=== PATIENT | female | born 2005 | race Caucasian/White ===

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

== ENCOUNTER → 2024-02-23 | Outpatient (CLI) | payer MEDICAID, SELFPAY ==
[2024-02-23 12:51] LABS: Absolute Lymphocyte Count 1.84 X10^3/uL (0.83-4.51); Absolute Neutrophil Count 6.2 X10^3/uL (2.0-7.7); Basophil# 0.05 X10^3/uL; Basophil% 0.6 % (0-1); Eosinophil# 0.11 X10^3/uL; Eosinophils% 1.2 % (0-5); Hemoglobin 13.4 g/dL (12.0-15.0); Lymphocyte # 1.84 X10^3/ul (0.83-4.51); Lymphocyte % 20.9 % (19-41); Mean Corp Hgb Conc 34.4 g/dL (32-36); Mean Corpuscular Hgb 29.6 pg (27.0-32.0); Mean Corpuscular Volume 86.1 fL (81-99); Monocyte# 0.58 X10^3/uL; Monocyte% 6.6 % (0-10); NRBC Flagged by Analyzer 0 % (0-5); Neutrophil # 6.18 X10^3/uL (2.7-7.7); Neutrophil % 70.1 % (47-70); Platelet Count 312 K/mm3 (150-450); RBC Distribution Width SD 37.7 fl (35.1-43.9); Red Blood Count 4.53 M/mm3 (4.2-5.4); White Blood Count 8.8 K/mm3 (4.4-11.0)
[2024-02-23 13:30] LABS: AST(SGOT) 15 U/L (15-37); Alanine Aminotransfer ALT/SGPT 31 U/L (13-56); Albumin, Serum 3.6 g/dL (3.2-5.0); Alkaline Phosphatase 102 U/L (45-117); Anion Gap 1 (5-15); BUN 13 mg/dL (7-18); BUN/Creat Ratio 21.2 RATIO (10-20); Calcium,Total 9.1 mg/dL (8.5-10.1); Chloride 108 mmol/L (98-107); Creatinine, Serum 0.61 mg/dL (0.55-1.02); EST Glomerular Filtration Rate 132 mL/min (>60); Est Glom Filt Rate - Afr Amer 160 mL/min (>60); Globulin 3.6 g/dL (2.2-4.2); Glucose 93 mg/dL (74-106); Potassium 4.4 mmol/L (3.5-5.1); Protein, Total 7.2 g/dL (6.4-8.2); Sodium Level 136 mmol/L (136-145); Thyroid Stim Hormone (TSH) 0.573 uIU/mL (0.358-3.740)
== END | disposition home or self-care (01) ==
LOC: LAB 12:40
DX: R55 Syncope and collapse (principal)

== ENCOUNTER → 2024-03-03 | Outpatient (CLI) | payer MEDICAID, SELFPAY ==
--- NOTE | 2024-03-03 13:51 | ECHOD_ITS ---
Reason For Study: Syncope and Collapse Procedure This was a 2D Doppler, Color Flow transthoracic echocardiogram. Exam performed in department. Left Ventricle Normal LV size. Left ventricular systolic function is normal. The left ventricular ejection fraction is 55 %. No regional wall motion abnormalities noted. Right Ventricle Normal RV size. Normal systolic function. Atria Normal left atrium. Normal right atrium. Mitral Valve Equivocal mitral valve prolapse. Mild (1+) eccentric mitral valve insufficiency. Tricuspid Valve Normal tricuspid valve. Mild tricuspid valve insufficiency. Pulmonary artery systolic pressure is 19 mmHg. Aortic Valve Trisinus/trileaflet aortic valve. Pulmonic Valve Normal pulmonic valve. Great Vessels Normal aortic root. The pulmonary artery is normal size. Normal inferior vena cava. Pericardium/Pleural No pericardial effusion. MMode/2D Measurements & Calculations LVIDd: 5.4 cm IVSd: 0.61 cm Ao root diam: 2.4 cm LVIDs: 3.3 cm LVPWd: 0.68 cm RVDd: 2.9 cm FS: 39.2 % LAV(MOD-bp): 15.8 ml LVAd ap4: 26.5 cm2 LVAd ap2: 30.5 cm2 LAV(MOD-bp) Indexed: 8.6 ml/m2 LVLd ap4: 7.3 cm LVLd ap2: 7.9 cm LAV(MOD-sp2): 19.9 ml EDV(MOD-sp4): 81.5 ml EDV(MOD-sp2): 96.9 ml LAV(MOD-sp4): 13.1 ml EDV(sp4-el): 82.3 ml EDV(sp2-el): 100.0 ml LVAs ap4: 16.9 cm2 LVAs ap2: 18.7 cm2 LVLs ap4: 6.5 cm LVLs ap2: 6.7 cm ESV(MOD-sp4): 37.3 ml ESV(MOD-sp2): 42.9 ml ESV(sp4-el): 37.6 ml ESV(sp2-el): 44.3 ml EF(MOD-sp4): 54.3 % EF(MOD-sp2): 55.7 % EF(sp4-el): 54.3 % SV(MOD-sp4): 44.2 ml SV(MOD-sp2): 54.0 ml SV(sp4-el): 44.7 ml SI(MOD-sp4): 24.2 ml/m2 SI(MOD-sp2): 29.5 ml/m2 LA A4 area: 8.7 cm2 LA dimension(2D): 2.7 cm RA A4 area: 9.7 cm2 TAPSE: 2.1 cm Time Measurements MV dec time: 0.19 sec Doppler Measurements & Calculations MV E max kj: 74.4 cm/sec Lat Peak E' Kj: 13.1 cm/sec Med Peak E' Kj: 12.1 cm/sec MV A max kj: 36.4 cm/sec E/E' lat: 5.7 E/E' med: 6.2 MV E/A: 2.0 Ao V2 max: 104.2 cm/sec LV V1 max: 112.3 cm/sec MV dec slope: 396.2 cm/sec2 Ao max P.4 mmHg LV V1 max P.0 mmHg Ao V2 mean: 76.1 cm/sec Ao mean P.6 mmHg Ao V2 VTI: 22.5 cm PA V2 max: 86.4 cm/sec PI end-d kj: 65.4 cm/sec TR max kj: 196.3 cm/sec TR max P.4 mmHg ECHO/Echo Complete Interpretation Summary Normal LV size. Left ventricular systolic function is normal. The left ventricular ejection fraction is 55 %. Equivocal mitral valve prolapse. Mild (1+) eccentric mitral valve insufficiency. Pulmonary artery systolic pressure is 19 mmHg. Ordering Physician: Jocelyn Beach Referring Physician: Talya Ni Performed By: Ayla Albarran, ALO, RVT
== END | disposition home or self-care (01) ==
PROVIDERS: Referring Provider Nurse Practitioner Family; Visit Provider Nurse Practitioner Family
DX: R55 Syncope and collapse (principal)
CPT/HCPCS: 93306

== ENCOUNTER → 2024-04-02 | Outpatient (CLI) | payer MEDICAID, SELFPAY ==
[2024-04-02 13:01] LABS: Cholesterol 177 mg/dL (200); High Density Lipoprotein 60 mg/dL; Triglycerides 75 mg/dL; Very Low Density Lipoprotein 15 mg/dL (5-40)
== END | disposition home or self-care (01) ==
LOC: VSLAB 10:20
DX: Z13.220 Encounter for screening for lipoid disorders (principal)
CPT/HCPCS: 36415; 80061

== ENCOUNTER → 2024-07-14 | Outpatient (CLI) | payer MEDICAID, SELFPAY ==
[2024-07-14 09:18] LABS: Absolute Lymphocyte Count 1.47 X10^3/uL (0.83-4.51); Absolute Neutrophil Count 4.4 X10^3/uL (2.0-7.7); Basophil# 0.03 X10^3/uL; Basophil% 0.5 % (0-1); Eosinophil# 0.18 X10^3/uL; Eosinophils% 2.8 % (0-5); Hematocrit 36.9 % (37-47); Lymphocyte # 1.47 X10^3/ul (0.83-4.51); Lymphocyte % 22.9 % (19-41); Mean Corp Hgb Conc 35.2 g/dL (32-36); Mean Corpuscular Hgb 30.4 pg (27.0-32.0); Mean Corpuscular Volume 86.4 fL (81-99); Mean Platelet Vol. 11.5 fl (6.2-12.0); Monocyte# 0.37 X10^3/uL; Monocyte% 5.8 % (0-10); NRBC Flagged by Analyzer 0 % (0-5); Neutrophil # 4.35 X10^3/uL (2.7-7.7); Neutrophil % 67.7 % (47-70); Platelet Count 281 K/mm3 (150-450); RBC Distribution Width CV 12.7 % (11.6-14.6); RBC Distribution Width SD 39.8 fl (35.1-43.9); Red Blood Count 4.27 M/mm3 (4.2-5.4); White Blood Count 6.4 K/mm3 (4.4-11.0)
[2024-07-14 09:50] LABS: Anion Gap 10 (5-15); BUN 12 mg/dL (4-19); BUN/Creat Ratio 19.8 RATIO (10-20); Carbon Dioxide 20.5 mmol/L (21.0-32.0); Chloride 108 mmol/L (98-108); Creatinine, Serum 0.61 mg/dL (0.70-1.20); EST Glomerular Filtration Rate 131 (>60); Glucose 101 mg/dL (70-99); Potassium 3.9 mmol/L (3.3-5.1); Sodium Level 139 mmol/L (133-145)
--- OUTSIDE RECORDS SUMMARY | 2024-07-14 10:01 | XMS RPT_ITS | CCD ---
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 Name Role Phone Donna Padilla Primary Care Provider Norma GARCIA, Gen Ley Primary Care Pro vider KAROLINA PHILLIPS Attending Unavailable GEN STILLUNIR Primary Care Concha vailable GEN STILL Attending Concha vailable GEN STILLUNZBIGNIEW Primary Care Concha vailable KAROLINA PHILLIPS Admitting Unavailable GEN STILLUNIR Primary Care Concha vailable Donna Padilla Primary Care Provider Donna Padilla Primary Care Provider Donna Padilla Primary Care Provider ARSLAN SUN Attending Unavailable KOJO WILSON Admitting Unavailable DONNA PADILLA Primary Care Unavaila ble Care Physician, No Primary Primary Care Provider Unavailable Dr. Rigoberto Amador Emergency Provider Dr. Charisse Esparza Attending Provider Dr. Charisse Esparza Other Provider Dr. Charisse Esparza Admit Provider Donna Padilla Primary Care Provider [phone] Unavailable Primary Care Provider Unavailabl e DONNA PADILLA Primary Care Unavaila MELANY Joseph Attending Unavailable REHANA JAFFE Attending Unavailable Beam VSC, Zebulun Primary Care Unavailable Beam VSC, Zebucleveland Attending Unavailable Yong VSC, Jocelyn Attending Unavailabl e Yong VSC, Jocelyn Referring Unavailabl e Beam VSC, Zebulun Primary Care Unavailable Beam VSC, Zebulun Primary Care Unavailable Beam VSC, Zebulun Attending Unavailable Beam VSC, Zebulun Referring Unavailable Kaiden, Dhruv Attending Unavailable Kaiden, Dhruv Referring Unavailable Beam VSC, Zebulun [facility] Unavailabl e Beam VSC, Zebulun Primary Care Unavailable Yong VSC, Jocelyn Referring Unavailabl e Kaiden, Dhruv Attending Unavailable Beam VSC, Zebulun Primary Care Unavailable Beam VSC, Zebulun Primary Care Unavailable Kaiden, Dhruv Attending Unavailable Beam VSC, Zebulun Referring Unavailable Allergies Allergy Classification Reported Allergen(s) Allergy Type Date of Onset Reaction(s) Facility (6 sources) Amoxicillin; Translations: [AMOXICILLIN] Drug Allergy 02-12-2024 [facility] (1 source) Amoxicillin Drug Allergy 05-06-2024 [facility] Repository Medications Current Medications Medication Drug Class(es) Dates Sig (Normalized) Sig (Original) amoxicillin 875 mg / clavulanate 125 mg oral tablet (1 source) Penicillin-class Antibacterial Start: 12-03-2022 take 1 tablet by mouth every twelve hours Amoxicillin-Pot Clavulanate Active 1 TABLET PO Q12H December 03, 2022 12:00am aspirin 81 mg delayed release oral tablet (15 sources) Platelet Aggregation Inhibitor, Nonsteroidal Anti-inflammatory Drug Start: 05-09-2022 Aspirin Active MG May 09, 2022 12:00am Start: 02-14-2022 End: 02-14-2022 take 1 tablet by mouth once daily aspirin, enteric coated (ASPIRIN, ENTERIC COATED) 81 mg EC tablet Take 1 tablet by mouth once daily. 30 tablet 5 02/14/2022 Suspended Comment on above: Take 1 tablet by denice th once daily. benzonatate 100 mg oral capsule (2 sources) Non-narcotic Antitussive Start: 5 End: take 1 capsule by mouth three times daily as needed benzonatate (TESSALON PERLE) 100 mg capsule Indications: Acute cough Take 1-2 capsules by mouth three times a day as needed for cough for up to 7 days. 42 capsule 02/12/2024 02/19/2024 Active BP cuff (8 sources) Start: BP cuff Active 0 .Route .MEDSUPPLY January 01, 2022 1:00am As directed Start: 01-01-2022 BP cuff Active 0 .Route .MEDSUPPLY January 01, 2022 12:00am As directed Breast Pump (2 sources) Start: 05-18-2022 End: 05-18-2023 Breast Pump Use as directed 1 Each 0 05/18/2022 05/18/2023 Active Comment on above: Use as directed cephalexin 500 mg oral capsule (1 source) Cephalosporin Antibacterial Start: 01-01-2022 take 500 mg by mouth every twelve hours Cephalexin Active 500 MG PO EVERY 12 HOURS January 01, 2022 12:00am Desogestrel / Ethinyl Estradiol (1 source) Progestin, Estrogen Start: 05-27-2024 take 1 tablet by mouth once daily, then take 0.15 tablet by mouth once Desogestrel-Ethi nyl Estradiol (APRI) 0.15-0.03 mg per tablet Take 1 tablet by mouth once daily. 84 tablet 3 05/27/2024 Active melatonin 5 mg oral tablet (6 sources) Start: 05-09-2022 take 5 mg by mouth at bedtime Melatonin Active 5 MG PO AT BEDTIME May 09, 2022 12:00am melatonin 1 mg s ubl Dissolve under the tongue as needed for insomnia. Active nitrofurantoin, macrocrystals 25 mg / nitrofurantoin, monohydrate 75 mg oral capsule (4 sources) Nitrofuran Antibacterial Start: 11-09-2021 End: 11-16-2021 take 1 capsule by mouth twice daily nitrofurantoin monohydrate and macrocrystal (MACROBID) 100 mg capsule Take 1 capsule by mouth twice daily for 7 days. 14 capsule 0 11/09/2021 11/16/2021 Active Comment on above: Take 1 capsule by [facility] twice daily for 7 days. oxyCODONE hydrochloride 5 mg oral capsule (1 source) Opioid Agonist Start: 12-03-2022 take 5-10 mg by mouth every six hours Oxycodone Active 5 - 10 MG PO EVERY 6 HOURS 16 December 03, 2022 Start: 12-03-2022 take 5-10 mg by mout h every six hours Oxycodone Active 5 - 10 MG PO EVERY 6 HOURS 16 3 December 03, 2022 [id number] Acid (Se-Aquilino 19 Chewable) 29 mg iron- 1 mg tablet,chewable (8 sources) Start: 01-01-2022 take 1 tablet by mouth once daily [id number]-[id number] Acid (Se- 19 Chewable) 29 mg iron- 1 mg tablet,chewable Active 1 TABLET PO DAILY January 01, 2022 1:00am Start: 01-01-2022 take 1 tablet by denice th once daily [id number]-Qipar Acid (Se-Aquilino 19 Chewable) 29 mg iron- 1 mg tablet,chewable Active 1 TABLET PO DAILY January 01, 2022 12:00am semaglutide 0.25 mg/0.5 mL ( 0.5 mg/mL) subcutaneous compounded injection (3 sources) semaglutide 0.25 mg/0.5 mL (0.5 mg/mL) subcutaneous compounded injection Inject subcutaneously one time a week. Active Completed/Discontinued Medications Medication Drug Class(es) Dates Sig (Normalized) Sig (Original) doxylamine succinate 25 mg oral tablet (10 sources) Start: 11-14-2021 End: 02-14-2022 take 1 tablet by mouth once daily at bedtime doxylamine 25 mg tab Take 1 tablet by mouth daily at bedtime. 48 tablet 1 11/14/2021 02/14/2022 Discontinued (Course of therapy completed) Comment on above: Take 1 tablet by denice th daily at bedtime. estradiol 1 mg oral tablet (7 sources) Estrogen Start: 09-03-2022 End: 05-27-2024 take 1 tablet by mouth once daily estradiol (ESTRACE) 1 mg tablet Take 1 tablet by mouth once daily for 14 days. 14 tablet 05/13/2024 05/27/2024 Discontinued (Discontinued by Patient) Ethinyl Estradiol / Ferrous fumarate / Norethindrone (5 sources) Estrogen Start: 08-29-2021 End: 11-14-2021 take 1 tablet by mouth once daily, then take 0.05 tablet by mouth once Norethin Rizwan-Eth Estrad-FE (JUNEL FE ,) 1 mg-20 mcg (21)/75 mg (7) per tablet Indications: Menorrhagia with irregular cycle Take 1 tablet by mouth once daily. 28 tablet 3 08/29/2021 11/14/2021 Discontinued Start: 08-29-2021 take 1 tablet by denice th once daily, then take 0.05 tablet by mouth once Norethin Rizwan-Eth Estrad-FE (,) 1 mg-20 mcg (21)/75 mg (7) per tablet Indications: Menorrhagia with irregular cycle Take 1 tablet by mouth once daily. 28 tablet 3 08/29/2021 Active Comment on above: Take 1 tablet by denice th once daily. etonogestrel 68 mg drug implant (10 sources) Progestin Start: 07-04-2022 End: 07-03-2025 etonogestrel (NEXPLANON) subdermal implant 68 mg Indications: Insertion of implantable subdermal contraceptive 1 Each by SUBDERMAL route as directed. 1 Each 07/04/2022 05/27/2024 Discontinued End: 09-14-2021 etonogestrel (NEXPLANON) 68 mg impl subdermal implant 68 mg by SUBDERMAL route. 0 09/14/2021 Discontinued Comment on above: 68 mg by SUBDERMAL r oute. famotidine 20 mg oral tablet (10 sources) Histamine-2 Receptor Antagonist Start: 11-15-19 End: 02-14-19 take 1 tablet by mouth twice daily famotidine (PEPCID) 20 mg tablet Take 1 tablet by mouth twice daily. 60 tablet 2 11/14/2021 02/14/2022 Discontinued (Course of therapy completed) Comment on above: Take 1 tablet by denice th twice daily. ferrous sulfate 325 mg oral tablet (7 sources) Start: 12-06-19 End: 02-14-19 take 1 tablet by mouth twice daily ferrous sulfate 325 mg (65 mg iron) tablet Take 1 tablet by mouth twice daily. 100 tablet 1 12/05/2021 02/14/2022 Discontinued (Course of therapy completed) Comment on above: Take 1 tablet by denice th twice daily. folic acid 1 mg oral tablet (7 sources) Start: 12-06-19 End: 02-14-19 take 1 tablet by mouth once daily folic acid 1 mg tablet Take 1 tablet by mouth once daily. 100 tablet 1 12/05/2021 02/14/2022 Discontinued (Course of therapy completed) Comment on above: Take 1 tablet by denice th once daily. ibuprofen 600 mg oral tablet (2 sources) Nonsteroidal Anti-inflammatory Drug Start: 05-19-19 take 1 tablet by mouth every six hours as needed for pain ibuprofen (MOTRIN) 600 mg tablet Indications: state Take 1 tablet by mouth every 6 hours as needed for pain. 60 tablet 0 05/18/2022 Active Comment on above: Take 1 tablet by denice th every 6 hours as needed for pain. Miscellaneous Medical Supply (BLOOD PRESSURE CUFF) (16 sources) Start: 12-19-19 Miscellaneous Medical Supply (BLOOD PRESSURE CUFF) Indications: 12 weeks gestation of , Encounter for supervision of normal first in first trimester , Dizziness 1 Each once daily. 1 Each 0 12/18/2021 Suspended Start: 12-18-2021 Miscellaneous Medical Supply (BLOOD PRESSURE CUFF) Indications: 12 weeks gestation of , Encounter for supervision of normal first in first trimester , Dizziness 1 Each once daily. 1 Each 0 12/18/2021 Active Comment on above: 1 Each once daily. NIFEdipine 30 mg osmotic 24 hr extended release oral tablet (2 sources) Dihydropyridine Calcium Channel Jon Start: take 1 tablet by mouth twice daily NIFEdipine ER (PROCARDIA XL) 30 mg 24 hr tablet Indications: Severe pre-eclampsia in third trimester Take 1 tablet by mouth twice daily. 60 tablet 3 05/18/2022 Active Comment on above: Take 1 tablet by denice th twice daily. ondansetron 8 mg disintegrating oral tablet (14 sources) Serotonin-3 Receptor Antagonist Start: End: take 1 tablet by mouth every eight hours as needed for nausea ondansetron orally disintegrating (ZOFRAN ODT) 8 mg disintegrating tablet Indications: 12 weeks gestation of , Encounter for supervision of normal first in first trimester , Nausea and vomiting during Take 1 tablet by mouth every 8 hours as needed for nausea/vomiting. 30 tablet 0 12/18/2021 02/14/2022 Discontinued (Course of therapy completed) Start: 11-07-2021 take 4 mg by mouth e very six hours Ondansetron Hcl Active 4 MG PO EVERY 6 HOURS November 06, 2021 11:00pm End: 11-14-2021 ondansetron HCl (ZOFRAN ORAL ) Take by mouth. 0 11/14/2021 Discontinued ondansetron HCl (ZOFRAN ORAL) Take by mouth. 0 Active Comment on above: Take by mouth. Take 1 tablet by denice th every 8 hours as needed for nausea/vomiting. phenazopyridine hydrochloride 200 mg oral tablet (6 sources) Start: 3 take 1 tablet by mouth every eight hours as needed phenazopyridine (PYRIDIUM) 200 mg tablet Take 1 tablet by mouth three times daily as needed. 12 tablet 0 04/13/2022 Suspended Comment on above: Take 1 tablet by denice th three times daily as needed. PNV no.104-HQ-tc7-dha-epa-fi sh 400 mcg-35 mg- 25 mg-5 mg chew (7 sources) Start: 2 End: 2 take 1 tablet by mouth once daily PNV no.181-DY-er4-dha-epa-f ezio 400 mcg-35 mg- 25 mg-5 mg chew Take 1 tablet by mouth once daily. 30 tablet 11 11/07/2021 12/05/2021 Discontinued Start: 11-07-2021 take 1 tablet by denice th once daily PNV no.255-PA-ul6-vqn-raq-akxp 400 mcg-3 5 mg- 25 mg-5 mg chew Take 1 tablet by mouth once daily. 30 tablet 11 11/07/2021 Active Comment on above: Take 1 tablet by denice th once daily. predniSONE 10 mg oral tablet (3 sources) Start: 02-12-2024 End: 04-21-2024 predniSONE (DELTASONE) 10 mg tablet Indications: Acute cough Day #1 - 6 tablets PO then Day #2 - 5 tablets PO then Day #3 - 4 tablets PO then Day #4 - 3 tablets PO then Day #5 - 2 tablets PO then Day #6 - 1 tablet PO 21 tablet 02/12/2024 04/21/2024 Discontinued Pnmksgoe-Dx-Ylp-Fe-FA tab (17 sources) Start: 12-18-2021 take 1 tablet by mouth once daily Crxifbck-Cb-Wvn-Fe-FA tab Indications: 12 weeks gestation of , Encounter for supervision of normal first in first trimester Take 1 tablet by mouth once daily. 100 tablet 0 12/18/2021 Suspended Start: 12-18-2021 take 1 tablet by denice th once daily Veouqxsa-Nh-Rhz-Fe-FA tab Indications: 12 weeks gestation of , Encounter for supervision of normal first in first trimester Take 1 tablet by mouth once daily. 100 tablet 0 12/18/2021 Active Comment on above: Take 1 tablet by denice th once daily. vit-iron fumarate-fa 28 mg iron- 800 mcg tab (4 sources) Start: 05-18-2022 End: 02-12-2024 take 1 tablet by mouth once daily vit-iron fumarate-fa 28 mg iron- 800 mcg tab Take 1 tablet by mouth once daily. 60 tablet 3 05/18/2022 02/12/2024 Discontinued (Course of therapy completed) Start: 05-18-2022 take 1 tablet by denice th once daily vit-iron fumarate-fa 28 mg iron- 800 mcg tab Take 1 tablet by mouth once daily. 60 tablet 3 05/18/2022 Active Comment on above: Take 1 tablet by denice th once daily. vitamin with folic acid 1 mg 60 mg iron-1 mg tab (2 sources) Start: 05-19-2022 take 1 tablet by mouth once daily vitamin with folic acid 1 mg 60 mg iron-1 mg tab Indications: state Take 1 tablet by mouth once daily. 60 tablet 3 05/19/2022 Active Comment on above: Take 1 tablet by denice th once daily. prental multivitamin 27 mg iron- 800 mcg tablet (2 sources) End: 11-07-2021 take 1 tablet by mouth once daily prental multivitamin 27 mg iron- 800 mcg tablet Take 1 tablet by mouth once daily. 0 11/07/2021 Discontinued (Course of therapy completed) take 1 tablet by mouth once agustin y prental multivitamin 27 mg iron- 800 mcg tablet Take 1 tablet by mouth once daily. 0 Active Comment on above: Take 1 tablet by denice th once daily. promethazine hydrochloride 25 mg oral tablet (20 sources) Phenothiazine Start: 12-06-19 take 1 tablet by mouth every eight hours as needed promethazine (PHENERGAN) 25 mg tablet Take 1 tablet by mouth every 8 hours as needed. 60 tablet 0 12/05/2021 Suspended Comment on above: Take 1 tablet by denice th every 8 hours as needed. vitamin b6 50 mg oral tablet (11 sources) Start: 11-15-19 End: 02-14-19 take 1 tablet by mouth twice daily pyridoxine, vitamin B6, (VITAMIN B6) 50 mg tablet Take 1 tablet by mouth twice daily. 100 tablet 2 11/14/2021 02/14/2022 Discontinued (Course of therapy completed) Comment on above: Take 1 tablet by denice th twice daily. Problems Active Problems Problem Classification Problem Date Documented Date Episodic/Chronic Abdominal pain (8 sources) Abdominal pain; Translations: [Unspecified abdominal pain] 06-19-2020 Episodic Appendicitis and other appendiceal conditions (4 sources) Acute appendicitis; Translations: [Unspecified acute appendicitis] 12-01-2022 Episodic Conditions associated with dizziness or vertigo (3 sources) Dizziness; Translations: [Dizziness and giddiness] Onset: 05-06-2024 Episodic Contraceptive and procreative management (3 sources) Subcutaneous contraceptive implant present; Translations: [Encounter for surveillance of implantable subdermal contraceptive] Onset: 05-27-2024 Episodic Diabetes mellitus without complication (4 sources) Hyperglycemia; Translations: [Hyperglycemia, unspecified] Onset: 05-29-2021 Episodic E Codes: Natural/environment (8 sources) Dog bite - wound; Translations: [Bitten by dog, initial encounter] 09-02-2013 Episodic Fever of unknown origin (1 source) Fever; Translations: [Fever, unspecified] 02-12-2024 Episodic Genitourinary symptoms and ill-defined conditions (1 source) Dysuria; Translations: [Dysuria] Episodic Headache; including migraine (1 source) Headache; Translations: [Headaches] 02-12-2024 Episodic Hypertension complicating ; childbirth and the puerperium (13 sources) Pre-eclampsia; Translations: [Unspecified pre-eclampsia, unspecified trimester] Onset: 05-11-2022 05-09-2022 Episodic Immunizations and screening for infectious disease (1 source) Vaccination needed; Translations: [Encounter for immunization] Episodic Menstrual disorders (4 sources) Break-through bleeding; Translations: [Excessive and frequent menstruation with irregular cycle] Onset: 05-27-2024 5 Chronic Nausea and vomiting (10 sources) Nausea, vomiting and diarrhea; Translations: [Nausea with vomiting, unspecified] Episodic Other circulatory disease (8 sources) Syncope due to orthostatic hypotension; Translations: [Orthostatic hypotension] 01-01-2022 Episodic Other circulatory disease (8 sources) Orthostatic hypotension; Translations: [Orthostatic hypotension] 01-09-2022 Episodic Other circulatory disease (1 source) Low blood pressure; Translations: [Hypotension, unspecified] 11-30-2022 Episodic Other circulatory disease (2 sources) Hypotension, unspecified; Translations: [Hypotension, unspecified] Onset: 05-06-2024 12-03-2022 Episodic Other circulatory disease (2 sources) Orthostatic hypotension; Translations: [Orthostatic hypotension] Onset: 05-06-2024 Episodic Other complications of (3 sources) Nausea and vomiting; Translations: [Vomiting of , unspecified] Episodic Other complications of (5 sources) Swelling of lower limb; Translations: [Gestational edema, third trimester] 05-09-2022 Episodic Other complications of (5 sources) Proteinuria; Translations: [Gestational proteinuria, third trimester] 05-09-2022 Episodic Other complications of (4 sources) Gestational edema, third trimester; Translations: [Edema or excessive weight gain in , without mention of hypertension, antepartum condition or complication] 05-09-2022 Episodic Other complications of (4 sources) Gestational proteinuria, third trimester; Translations: [Unspecified renal disease in , without mention of hypertension, antepartum condition or complication] 05-09-2022 Episodic Other complications of (1 source) Gestational edema with proteinuria; Translations: [Gestational edema with proteinuria, third trimester] Episodic Other complications of (1 source) Poor growth affecting management; Translations: [Maternal care for other known or suspected poor growth, third trimester, not applicable or unspecified] Episodic Other complications of (1 source) Maternal care for other known or suspected poor growth, unspecified trimester, not applicable or unspecified; Translations: [ growth restriction antepartum] Onset: 05-14-2022 Episodic Other female genital disorders (8 sources) Vaginal bleeding; Translations: [Abnormal uterine and vaginal bleeding, unspecified] 01-17-2020 Chronic Other infections; including parasitic (4 sources) 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; Translations: [Post-COVID syndrome] Onset: 05-29-2021 Chronic Other infections; including parasitic (4 sources) H/O: viral illness; Translations: [Personal history of other infectious and parasitic diseases] Onset: 05-29-2021 Episodic Other infections; including parasitic (1 source) Personal history of other infectious and parasitic diseases; Translations: [History of chlamydia] Onset: 05-18-2022 Episodic Other lower respiratory disease (1 source) Cough; Translations: [Acute cough] 02-12-2024 Episodic Other screening for suspected conditions (not mental disorders or infectious disease) (3 sources) Patient encounter status; Translations: [Encounter for screening for nuchal translucency] Onset: 04-16-2024 Episodic Other upper respiratory disease (8 sources) Congestion of nasal sinus; Translations: [Nasal congestion] 08-21-2021 Episodic Other upper respiratory disease (1 source) Nasal congestion; Translations: [Nasal congestion] 02-12-2024 Episodic Other upper respiratory infections (1 source) Viral upper respiratory tract infection; Translations: [Acute upper respiratory infection, unspecified] 02-12-2024 Episodic Residual codes; unclassified (1 source) Gestation period, 8 weeks; Translations: [8 weeks gestation of ] Episodic Residual codes; unclassified (1 source) Gestation period, 10 weeks; Translations: [10 weeks gestation of ] Episodic Residual codes; unclassified (2 sources) Gestation period, 12 weeks; Translations: [12 weeks gestation of ] Episodic Residual codes; unclassified (1 source) Gestation period, 18 weeks; Translations: [18 weeks gestation of ] Episodic Residual codes; unclassified (2 sources) Gestation period, 20 weeks; Translations: [20 weeks gestation of ] Episodic Residual codes; unclassified (1 source) Gestation period, 24 weeks; Translations: [24 weeks gestation of ] Episodic Residual codes; unclassified (2 sources) Gestation period, 28 weeks; Translations: [28 weeks gestation of ] Episodic Residual codes; unclassified (9 sources) Gestation period, 32 weeks; Translations: [32 weeks gestation of ] Episodic Residual codes; unclassified (4 sources) 32 weeks gestation of ; Translations: [ state, incidental] 05-09-2022 Episodic Residual codes; unclassified (2 sources) Acquired absence of other specified parts of digestive tract; Translations: [Status post laparoscopic appendectomy] 12-01-2022 Episodic Superficial injury; contusion (6 sources) Abrasion of cornea of right eye; Translations: [Injury of conjunctiva and corneal abrasion without foreign body, right eye, initial encounter] 03-17-2022 Episodic Urinary tract infections (16 sources) Urinary tract infectious disease; Translations: [Urinary tract infection, site not specified] 06-19-2020 Episodic Viral infection (2 sources) Viral disease; Translations: [Viral infection, unspecified] Episodic Past or Other Problems Problem Classification Problem Date Documented Da te Episodic/Chronic Diabetes or abnormal glucose tolerance complicating ; childbirth; or the puerperium (11 sources) Impaired glucose tolerance in ; Translations: [Abnormal glucose complicating ] Onset: 04-12-2022 Resolved: 05-11-2022 04-12-2022 Episodic Hypertension complicating ; childbirth and the puerperium (11 sources) Pre-eclampsia added to pre-existing hypertension; Translations: [Pre-existing hypertension with pre-eclampsia, unspecified trimester] Onset: 05-11-2022 Resolved: 04-21-2024 05-11-2022 Chronic Other complications of (20 sources) Infectious disease in mother complicating , childbirth AND/OR puerperium; Translations: [Other maternal infectious and parasitic diseases complicating , first trimester] Onset: 11-08-2021 Resolved: 05-11-2022 11-08-2021 Episodic Other complications of (17 sources) High risk ; Translations: [Supervision of high risk , unspecified, first trimester] Onset: 02-14-2022 Resolved: 05-11-2022 Episodic Other complications of (8 sources) growth restriction; Translations: [Maternal care for other known or suspected poor growth, unspecified trimester, not applicable or unspecified] Onset: 05-11-2022 Resolved: 05-14-2022 05-11-2022 Episodic Other infections; including parasitic (10 sources) History of chlamydial infection; Translations: [Personal history of other infectious and parasitic diseases] Onset: 05-11-2022 05-11-2022 Episodic Other and delivery including normal (20 sources) Normal ; Translations: [Encounter for supervision of normal first , unspecified trimester] Onset: 05-11-2022 Resolved: 04-21-2024 Episodic Screening and history of mental health and substance abuse codes (20 sources) History of clinical finding in subject; Translations: [Personal history of nicotine dependence] Onset: 11-02-2021 Episodic Short gestation; low weight; and growth retardation (9 sources) Prematurity of ; Translations: [ , unspecified weeks of gestation] Onset: 05-11-2022 Resolved: 05-14-2022 05-11-2022 Episodic Syncope (16 sources) Near syncope; Translations: [Syncope and collapse] Onset: 03-26-2024 01-09-2022 Episodic Results Test Name Value Interpretation Reference Range Facility [facility] 05-27-2024 CNOV Office Visit (OBGYWM ) TRENTON STYLES ([id number]) 1 F Date Time Provider Department 05/27/24 1:45 PM REHANA JAFFE OBGREGG During your visit today, we recorded the following information about you: Blood pressure Weight Last Period 124/70 70.3 kg 05/24/24 Rehana Jaffe APRN.CN 05/27/2024 2:08 PM Signed This 18 year old female was started on Nexplanon placed 07/04/2022 and is here for follow-up. Her only complaint is irregular heavy bleeding with clots.. Denies abdominal pain, chest pain or headache. No pain or swelling in the legs. No other neurologic or pulmonary symptoms. Patient's last menstrual period was 09/11/2021 (exact date). Menstruation / History: Periods are irregular, lasting 5 days. On the heaviest day of flow she changes her pad ever couple of hours Since placement of Nexplanon - she began having break through bleeding for several days/weeks. Initially was interested in removal of Nexplanon and placement of IUD. Last 1 Encounter BP Readings: Date: BP: 04/21/2024 100/62 EXAMINATION: GEN- alert, no distress ASSESSMENT/PLAN: 1. Breakthrough bleeding on Nexplanon - ICD9: 626.6, V45.59, ICD10: N92.1, Z97.5 - Reviewed starting OCP to help regulate breakthrough bleeding. - R/B/A to OCP reviewed and when to call office - May be interested in Mirena IUD in future- hx of IUD that she reportspulled out by accident. RTO PRN /Annual with PAP at age 19 Rehana Jaffe APRN.CNM Allergies As of Date: 05/27/2024 Noted Allergy Reaction AMOXICILLIN 02/12/2024 8 - GI Upset Date Reviewed: 05/27/2024 Reviewed by: Savannah Beavers LPN - Fully Assessed Reason for Visit: Contraception [26] Primary Visit Diagnosis:Breakthrough bleeding on Nexplanon [N92.1, Z97.5] Order(s):Desogestrel-Et hinyl Estradiol (APRI) 0.15-0.03 mg per tabletTake 1 tablet by mouth once daily.Disp: 84 tabletRfl: 3 Prescriptions as of 05/27/2024 - melatonin 1 mg subl Dissolve under the tongue as needed for insomnia. - Desogestrel-Ethinyl Estradiol (APRI) 0.15-0.03 mg per tablet Take 1 tablet by mouth once daily. - semaglutide 0.25 mg/0.5 mL (0.5 mg/mL) subcutaneous compounded injection Inject subcutaneously one time a week. Problem List As Of Date 05/27/2024 Noted Resolved History of nicotine vaping [Z87.891] 11/02/2021 Patient request for diagnostic testing [Z01.89] 11/02/2021 05/11/2022 Chlamydia infection affecting in firs*11/08/2021 05/11/2022 Supervision of high risk in second tr*02/14/2022 05/11/2022 Abnormal glucose in , antepartum [O99.*04/12/2022 05/11/2022 Preeclampsia complicating hypertension [O11.9] 05/11/2022 04/21/2024 growth restriction antepartum [O36.5990] 05/11/2022 05/14/2022 Prematurity of fetus [P07.30] 05/11/2022 05/14/2022 History of chlamydia [Z86.19] 05/11/2022 Encounter for induction of labor [Z34.90] 05/13/2022 05/14/2022 state [Z39.2] 05/18/2022 04/21/2024 Prescriptions ordered this encounter Disp Refills Start End APRI 0.15 MG-0.03 MG TABLET 84 t* 3 05/27/2024 Route: ORAL Sig: Take 1 tablet by mouth once daily. Medications Discontinued During This Encounter Prescriptions - etonogestrel (NEXPLANON) subdermal implant 68 mg (Discontinued) 1 Each by SUBDERMAL route as directed. - estradiol (ESTRACE) 1 mg tablet (Discontinued) Reported on 05/27/2024 - estradiol (ESTRACE) 1 mg tablet (Discontinued) Reported on 05/27/2024 Encounter Status:Closed by REHANA JAFFE [facility] Telephone (OBGYWM) TRENTON STYLES ([id number]) 1 Date Time Provider Department 05/13/24 MELANY SELLERS OBGREGG During your visit today, we recorded the following information about you: Bibi De Leon LPN 05/13/2024 12:55 PM Signed Patient seen by Dr. Sellers on 04/21/2024 for bleeding issues w/ Nexplanon. Patient calling stating that she began having vaginal bleeding again yesterday and states she was told to call office w/ further bleeding concerns and a course of oral estrace could be prescribed. Patient requesting Rx for estrace. Please advise. Dr. Sellers is out of the office until Saturday. Rehana Jaffe APRN.[facility] 05/13/2024 5:27 PM Signed Order sent. SIMEON Stanley Trisha, RN 05/14/2024 8:16 AM Signed Left detailed message that requested rx was sent to [facility]. The following approved medication requests have been transmitted electronically. Requested Prescriptions Signed Prescriptions Disp Refills estradiol (ESTRACE) 1 mg tablet 14 tablet 0 Sig: Take 1 tablet by mouth once daily for 14 days. Authorizing Provider: REHANA JAFFE Pharmacy Information [id number] [phone] [place] [address] Allergies As of Date: 05/13/2024 Noted Allergy Reaction AMOXICILLIN 02/12/2024 8 - GI Upset Date Reviewed: 04/21/2024 Reviewed by: Aurora Renteria MA - Fully Assessed Reason for Visit: Patient Update [1234] Order(s):estradiol (ESTRACE) 1 mg tabletTake 1 tablet by mouth once daily for 14 days.Disp: 14 tabletRfl: 0 Prescriptions as of 05/14/2024 - estradiol (ESTRACE) 1 mg tablet Take 1 tablet by mouth once daily for 14 days. - semaglutide 0.25 mg/0.5 mL (0.5 mg/mL) subcutaneous compounded injection Inject subcutaneously one time a week. - etonogestrel (NEXPLANON) subdermal implant 68 mg 1 Each by SUBDERMAL route as directed. Problem List As Of Date 05/13/2024 Noted Resolved History of nicotine vaping [Z87.891] 11/02/2021 Patient request for diagnostic testing [Z01.89] 11/02/2021 05/11/2022 Chlamydia infection affecting in firs*11/08/2021 05/11/2022 Supervision of high risk in second tr*02/14/2022 05/11/2022 Abnormal glucose in , antepartum [O99.*04/12/2022 05/11/2022 Preeclampsia complicating hypertension [O11.9] 05/11/2022 04/21/2024 growth restriction antepartum [O36.5990] 05/11/2022 05/14/2022 Prematurity of fetus [P07.30] 05/11/2022 05/14/2022 History of chlamydia [Z86.19] 05/11/2022 Encounter for induction of labor [Z34.90] 05/13/2022 05/14/2022 state [Z39.2] 05/18/2022 04/21/2024 Prescriptions ordered this encounter Disp Refills Start End ESTRADIOL 1 MG TABLET 14 t* 0 05/13/2024 05/27/2024 Route: ORAL Sig: Take 1 tablet by mouth once daily for 14 days. Medications Discontinued During This Encounter Prescriptions - estradiol (ESTRACE) 1 mg tablet (Discontinued) Take 1 tablet by mouth once daily for 14 days. Encounter Status:Closed by REHANA JAFFE on 05/13/24 Normal [facility] 12 Lead [place] [facility] [place]-06-2024 12 Lead EKG performed by [address] [address] 12 Lead E[place] [facility] 05/06/24 1134 MR#: [id number] Acct: [id number] Name: TRENTON STYLES Rep #: [id number] : 2005 18 From: Dhruv Richey MD Attending Dr: Dr. Dhruv Richey MD Status: DEP A MB Ordering Dr: Dhruv Richey MD Date: 05/06/24 [place] [facility] [place]: F C Ad[place] [facility] Lead E[place] performed [place] [facility] ECG Report Interpretation ---Sinus Rhythm -With rate variation cv = 14.WITHIN NORMAL LIMITSElectronically signed on 05/07/2024 at 15:54 by Dhruv Richey [employer] Version [id number] 05/07/24 1557 Date Dhruv Richey MD CC: Talya DURANT DISPATCHER RADIOACTIVE WASTE DISPOSAL-C Beam Date Dictated: 05/06/24 113 Date Transcribed: 05/06/241133 Senior Data Scientist: [place] Signed Normal [facility] Cardiology Visit Reporton Cardiology Visit Report [facility] [address] [place] [address] OFFICE VISIT Date of Service: 05/06/24 MR#: [id number] Acct: [id number] Name: TRENTON STYLES Rep #: [id number] : 2005 Provider: Dr. Dhruv Richey MD Age/Sex: 18/F [place] [facility] [place]: Signed HPI HPI History of Present Illness Details: 18-year-old lady with a history of dizziness and palpitations which she says has been going on for a few years. She denies any franci syncopal episodes. 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 She says that sometimes her blood pressure drops to 93/68 and the highest blood pressure was 149/94. She did get sick and lost some weight which was not in her plan with her weight losing schedule and she was recently started on semaglutide. Due to the above symptoms she did have a 7-day event monitor placed which demonstrated an average heart rate of 84 bpm with a minimum 37 bpm occasional premature ventricular and atrial complex was noted. An echocardiogram was performed with demonstrated preserved ejection fraction of 55% with equivocal mitral valve prolapse and mild mitral regurgitation. She has not had a formal tilt table test for diagnosis yet. She does vape but does not use any alcohol. Her physical exam demonstrates clear lung pelaez regular rate and rhythm and no pedal edema her electrocardiogram demonstrates sinus rhythm with a rate of 83 bpm. Intake Vital Signs 11/30/22 15:21 05/06/24 11:34 Height 5 ft 5 in 5 ft 5 in Weight: 163 lb BMI 27.1 BP 111/75 Blood Pressure Location Lt brachial Position Sitting Respiration 16 Pulse 96 Pulse Source Monitor Intake Visit Reasons: Hypotension Syncope (Beam) Popcorn Attendant Required: No Accompanied by: Mother Is patient in pain?: No Allergies amoxicillin Allergy (Intermediate, Verified 05/06/24 11:38) Vomiting PFSH Medical History Dizziness Hypotension Orthostatic syncope Surgical History S/P laparoscopic appendectomy Family History Grandfather Pacemaker Cancer Myocardial infarction CAD (coronary artery disease) Hypertension Social History household members: significant other and children Smoking Status: Current every day smoker tobacco type: e-cigarettes substance use type: does not use ROS Const Const: Positive for headache(s); Negative for fatigue, weakness, daytime sleepiness or difficulty sleeping Eyes Eyes: Positive for blurry vision ENT ENT: Positive for headache(s) and dizziness; Negative for Nosebleed/epistaxis Cardio Chest Pain: No Palpitations: Yes feels like its: fast Edema: None Resp Respiratory: Positive for SOB with activity (with palps); Negative for SOB at rest, SOB orthopnea SOB lying down or Cough GI GI: Negative nausea, vomiting or heartburn Neuro Neuro: Positive for dizziness, lightheadedness, near syncope, headache(s) and blurry vision; Negative for weakness Endo Endo: Negative for fatigue Cardiology Exam Const Appearance: cooperative, healthy appearing, no acute distress, well developed and well groomed Nutritional Appearance: average body habitus and well nourished Orientation: alert, awake and oriented x3 Head Head: normal to inspection, normocephalic and atraumatic Ears: hearing grossly normal bilaterally and external ears normal Nose: external nose normal, nares normal, nasal mucous membranes and turbinates normal, septum normal and no nasal discharge Face and Sinus: face symmetric Mouth: oral mucosae normal, tongue normal, oropharynx normal and moist mucous membranes Teeth and gingiva: dentition normal Throat: posterior oropharynx normal, tonsils normal and uvula midline Eyes General: appearance normal, both eyes and all related structures Eyelids: eyelids normal Conjunctivae: conjunctivae normal Pupils: PERRL, normal by confrontation and accommodation normal EOM: EOM intact bilaterally Neck Neck: normal visual inspection, trachea midline and no JVD JVD: +5 Carotids: normal carotid upstroke and bounding pulses Chest Chest inspection: normal inspection of the chest, symmetric chest movement and normal respiratory effort Auscultation: Bilateral: Clear to Auscultation Cardio Palpation: normal PMI Rate: regular rate Rhythm: regular rhythm Heart sounds: S1 normal, S2 normal and normal, physiologic split S2; Negative rub, gallop or murmur GI GI: normal to inspection, soft, no hepatosplenomegaly and bowel sounds present Neuro General: patient alert, patient awake, patient oriented x3, gait normal, moves all extremities and no foc (more content not included)... Normal [facility] CNOVon 04-21-2024 CNOV Office Visit (OBGYWM ) TRENTON STYLES ([id number]) 1 F Date Time Provider Department 04/21/24 11:20 AM MELANY SELLERS OBGYWM During your visit today, we recorded the following information about you: Blood pressure Weight 100/62 75.7 kg Melany Sellers MD 04/21/2024 12:13 PM Signed Trenton YeeAdarshgovind is a 18 year old female who presents for problem visit. HPI: Patient presents with irregular bleeding. She reports this issue intermittently since the Nexplanon was placed. Patient had bleeding for 20 days but it stopped last night. She has tried several other control types without success. OB History Gravida1 Para1 Term0 Preterm1 AB0 Living1 SAB0 IAB0 Ectopic0 Multiple0 Live Births1 Spring Maker History LMP: 09/11/2021 (Exact Date), Implant Age at Menarche: Age at First : Age at Menopause: Spring Maker History Comments: Sexual Activity: Yes; Male Contraception: Implant PAST MEDICAL HISTORY Diagnosis Date Preeclampsia complicating hypertension 05/11/2022 Vasovagal syncope PAST SURGICAL HISTORY Procedure Laterality Date NEXPLANON INSERTION 02/2020 [facility]ANG[facility]-has been removed FAMILY HISTORY Problem Relation Age of Onset No Known Problems Mother No Known Problems Sister No Known Problems Brother No Known Problems Brother No Known Problems Maternal Grandmother Arthritis Maternal Grandfather Dementia Paternal Grandmother Cancer Paternal Grandfather Social History Tobacco Use Smoking status: Never Passive exposure: Yes Smokeless tobacco: Never Tobacco comments: 2 smokers in house Vaping Use Vaping status: Former Substances: Nicotine Devices: Pre-filled pod Substance Use Topics Alcohol use: Not Currently Drug use: Not Currently Types: Marijuana Current Outpatient Medications Medication Sig semaglutide 0.25 mg/0.5 mL (0.5 mg/mL) subcutaneous compounded injection Inject subcutaneously one time a week. etonogestrel (NEXPLANON) subdermal implant 68 mg 1 Each by SUBDERMAL route as directed. predniSONE (DELTASONE) 10 mg tablet Day #1 - 6 tablets PO then Day #2 - 5 tablets PO then Day #3 - 4 tablets PO then Day #4 - 3 tablets PO then Day #5 - 2 tablets PO then Day #6 - 1 tablet PO (Patient not taking: Reported on 04/21/2024) estradiol (ESTRACE) 1 mg tablet Take 1 tablet by mouth once daily for 14 days. No current facility-administered medications for this visit. Allergies As of Date: 04/21/2024 Allergen Noted Reaction AMOXICILLIN 02/12/2024 GI Upset Fully Assessed 04/21/2024 Allergies and current medication updated:Yes SENSITIVE EXAM: Sensitive exam not performed. EXAM: BP 100/62 Wt 166 lb 12.8 oz (75.7kg) LMP 09/11/2021 GENERAL: pleasant, female in no apparent distress ASSESSMENT AND PLAN: Assessment AND Plan Breakthrough bleeding on Nexplanon Discussed this is a common side effect of Nexplanon. Patient with call with further bleeding concerns. Discussed that could do a course if oral Estrace if needed in the future. Medical Decision Making: Problems: Low: Acute, uncomplicated illness or injury Data: Unique source(s) for external note(s) reviewed: 1 Risk: Low: Low risk from testing/treatment Medical Decision Making Level: 3 - Low Melany Sellers MD Allergies As of Date: 04/21/2024 Noted Allergy Reaction AMOXICILLIN 02/12/2024 8 - GI Upset Date Reviewed: 04/21/2024 Reviewed by: Aurora Renteria MA - Fully Assessed Reason for Visit: Menstrual Problem [67] Primary Visit Diagnosis:Breakthrough bleeding on Nexplanon [N92.1, Z97.5] Other Visit Diagnosis:Irregular menses [N92.6] Prescriptions as of 04/21/2024 - semaglutide 0.25 mg/0.5 mL (0.5 mg/mL) subcutaneous compounded injection Inject subcutaneously one time a week. - estradiol (ESTRACE) 1 mg tablet Take 1 tablet by mouth once daily for 14 days. - etonogestrel (NEXPLANON) subdermal implant 68 mg 1 Each by SUBDERMAL route as directed. Problem List As Of Date 04/21/2024 Noted Resolved History of nicotine vaping [Z87.891] 11/02/2021 Patient request for diagnostic testing [Z01.89] 11/02/2021 05/11/2022 Chlamydia infection affecting in firs*11/08/2021 05/11/2022 Supervision of high risk in second tr*02/14/2022 05/11/2022 Abnormal glucose in , antepartum [O99.*04/12/2022 05/11/2022 Preeclampsia complicating hypertension [O11.9] 05/11/2022 04/21/2024 growth restriction antepartum [O36.5990] 05/11/2022 05/14/2022 Prematurity of fetus [P07.30] 05/11/2022 05/14/2022 History of chlamydia [Z86.19] 05/11/2022 Encounter for induction of labor [Z34.90] 05/13/2022 05/14/2022 state [Z39.2] 05/18/2022 04/21/2024 Medications Discontinued During This Encounter Prescriptions - predniSONE (DELTASONE) 10 mg tablet (Discontinued) Reported on 04/21/2024 Encounter Status:Closed by MELANY SELLERS on 04/21/24 [facility] Cholesterol [Mass/Vol] 177 mg/dL Normal 200 [facility] Comment on above: Result Comment: <200 mg/dL Desirable 200-240 mg/dL Borderline >240 mg/dL High Risk Performed By: #### L 500.0738 #### [facility] [address] [place], [address] Cholesterol in HDL [Mass/Vol] 60 mg/dL Normal [facility] Comment on above: Result Comment: The drugs N-Acetylcysteine and Metamizole may falsely depress this assay. Reference Range HDL <40 mg/dL Low HDL Cholesterol HDL >or= 60 mg/dL High HDL Cholesterol Performed By: #### L 500.4100 #### [facility] [address] [place], [address] Cholesterol in LDL [Mass/Vol] 102 mg/dL Normal 0-130 [facility] Comment on above: Performed By: #### L 500.4100 #### [facility] [address] [place], [address] Cholesterol in VLDL [Mass/Vol] 15 mg/dL Normal 5-40 [facility] Comment on above: Performed By: #### L 500.4100 #### [facility] [address] [place], [address] Triglyceride [Mass/Vol] 75 mg/dL Normal [facility] Comment on above: Result Comment: The drugs N-Acetylcysteine and Metamizole may falsely depress this assay. Serum Triglycerides Reference Interval Normal <150 mg/dL Borderline high 150 - 199 mg/dL High 200 - 499 mg/dL Very High > or = 500 mg/dL Performed By: #### L 500.4100 #### [facility] [address] [place], [address] Echo Completeon 03-03-2024 Echo Complete [facility] [address] [place] [address] Echo Complete 03/03/24 1405 MR#: [id number] Acct: [id number] Name: TRENTON STYLES Rep #: [id number] : 2005 18 From: Dhruv Richey MD Attending Dr: BHARGAV Jose, DISPATCHER RADIOACTIVE WASTE DISPOSAL-C Status : REG CLI Ordering Dr: Jocelyn Beach DISPATCHER RADIOACTIVE WASTE DISPOSAL-C Date: 03/03 Location: [facility] Sex: F C Admitted: Reason For Study: Syncope and Collapse Procedure This was a 2D Doppler, Color Flow transthoracic echocardiogram. Exam performed in department. Left Ventricle Normal LV size. Left ventricular systolic function is normal. The left ventricular ejection fraction is 55 %. No regional wall motion abnormalities noted. Right Ventricle Normal RV size. Normal systolic function. Atria Normal left atrium. Normal right atrium. Mitral Valve Equivocal mitral valve prolapse. Mild (1+) eccentric mitral valve insufficiency. Tricuspid Valve Normal tricuspid valve. Mild tricuspid valve insufficiency. Pulmonary artery systolic pressure is 19 mmHg. Aortic Valve Trisinus/trileaflet aortic valve. Pulmonic Valve Normal pulmonic valve. Great Vessels Normal aortic root. The pulmonary artery is normal size. Normal inferior vena cava. Pericardium/Pleural No pericardial effusion. MMode/2D Measurements Calculations LVIDd: 5.4 cm IVSd: 0.61 cm Ao root diam: 2.4 cm LVIDs: 3.3 cm LVPWd: 0.68 cm RVDd: 2.9 cm FS: 39.2 % LAV(MOD-bp): 15.8 ml LVAd ap4: 26.5 cm2 LVAd ap2: 30.5 cm2 LAV(MOD-bp) Indexed: 8.6 ml/m2 LVLd ap4: 7.3 cm LVLd ap2: 7.9 cm LAV(MOD-sp2): 19.9 ml EDV(MOD-sp4): 81.5 ml EDV(MOD-sp2): 96.9 ml LAV(MOD-sp4): 13.1 ml EDV(sp4-el): 82.3 ml EDV(sp2-el): 100.0 ml LVAs ap4: 16.9 cm2 LVAs ap2: 18.7 cm2 LVLs ap4: 6.5 cm LVLs ap2: 6.7 cm ESV(MOD-sp4): 37.3 ml ESV(MOD-sp2): 42.9 ml ESV(sp4-el): 37.6 ml ESV(sp2-el): 44.3 ml EF(MOD-sp4): 54.3 % EF(MOD-sp2): 55.7 % EF(sp4-el): 54.3 % SV(MOD-sp4): 44.2 ml SV(MOD-sp2): 54.0 ml SV(sp4-el): 44.7 ml SI(MOD-sp4): 24.2 ml/m2 SI(MOD-sp2): 29.5 ml/m2 LA A4 area: 8.7 cm2 LA dimension(2D): 2.7 cm RA A4 area: 9.7 cm2 TAPSE: 2.1 cm Time Measurements MV dec time: 0.19 sec Doppler Measurements Calculations MV E max ayanna: 74.4 cm/sec Lat Peak E' Ayanna: 13.1 cm/sec Med Peak E' Ayanna: 12.1 cm/sec MV A max ayanna: 36.4 cm/sec E/E' lat: 5.7 E/E' med: 6.2 MV E/A: 2.0 Ao V2 max: 104.2 cm/sec LV V1 max: 112.3 cm/sec MV dec slope: 396.2 cm/sec2 Ao max P.4 mmHg LV V1 max P.0 mmHg Ao V2 mean: 76.1 cm/sec Ao mean P.6 mmHg Ao V2 VTI: 22.5 cm PA V2 max: 86.4 cm/sec PI end-d ayanna: 65.4 cm/sec TR max ayanna: 196.3 cm/sec TR max P.4 mmHg ECHO/Echo Complete Interpretation Summary Normal LV size. Left ventricular systolic function is normal. The left ventricular ejection fraction is 55 %. Equivocal mitral valve prolapse. Mild (1+) eccentric mitral valve insufficiency. Pulmonary artery systolic pressure is 19 mmHg. Ordering Physician: Jocelyn Beach Referring Physician: Talya Ni Performed By: Ayla Albarran, ALO, RVT 03/03/24 1544 Date Dhruv Richey MD CC: Rubi DISPATCHER RADIOACTIVE WASTE DISPOSAL-C Jocelyn Babin [facility] DISPATCHER RADIOACTIVE WASTE DISPOSAL-C Raine Date Dictated: 03/03/24 1405 Date Transcribed: 03/03/24 1404 Senior Data Scientist: Signed [facility] CBC W/Diff, Automatedon -02 12-2024 Absolute Lymph 1.84 X10 3/uL Normal 0.83-4.51 [facility] Comment on above: Performed By: #### L 501.9520, L500.4050, L100.0100 #### [facility] [address] [place], [address] Absolute Neut 6.2 X10 3/uL Normal 2.0-7.7 [facility] Comment on above: Performed By: #### L 501.9520, L500.4050, L100.0100 #### [facility] [address] [place], [address] Basophils/100 WBC (Bld) 0.6 % Normal 0-1 [facility] Comment on above: Performed By: #### L 501.9520, L500.4050, L100.0100 #### [facility] [address] [place], [address] Eosinophils/100 WBC (Bld) 1.2 % Normal 0-5 [facility] Comment on above: Performed By: #### L 501.9520, L500.4050, L100.0100 #### [facility] [address] [place], [address] Erythrocyte distribution width (RBC) [Ratio] 12.0 % Normal 11.6-14.6 [facility] Comment on above: Performed By: #### L 501.9520, L500.4050, L100.0100 #### [facility] [address] [place], [address] Hematocrit (Bld) [Volume fraction] 39.0 % Normal 37-47 [facility] Comment on above: Performed By: #### L 501.9520, L500.4050, L100.0100 #### [facility] [address] [place], [address] Hemoglobin (Bld) [Mass/Vol] 13.4 g/dL Normal 12.0-15.0 [facility] Comment on above: Performed By: #### L 501.9520, L500.4050, L100.0100 #### [facility] [address] [place], [address] IG% 0.600 Normal 0.0-0.9 [facility] Comment on above: Result Comment: IG% - Immature Granulocytes (promyelocytes, myelocytes and metamyelocytes) > 1% indicates that a LEFT SHIFT is Present. Performed By: #### L 501.9520, L500.4050, L100.0100 #### [facility] [address] [place], [address] Lymphocytes/100 WBC (Bld) 20.9 % Normal 19-41 [facility] Comment on above: Performed By: #### L 501.9520, L500.4050, L100.0100 #### [facility] [address] [place], [address] MCH (RBC) [Entitic mass] 29.6 pg Normal 27.0-32.0 [facility] Comment on above: Performed By: #### L 501.9520, L500.4050, L100.0100 #### [facility] [address] [place], [address] MCHC (RBC) [Mass/Vol] 34.4 g/dL Normal 32-36 [facility] Comment on above: Performed By: #### L 501.9520, L500.4050, L100.0100 #### [facility] [address] [place], [address] MCV (RBC) [Entitic vol] 86.1 fL Normal 81-99 [facility] Comment on above: Performed By: #### L 501.9520, L500.4050, L100.0100 #### [facility] [address] [place], [address] Monocytes/100 WBC (Bld) 6.6 % Normal 0-10 [facility] Comment on above: Performed By: #### L 501.9520, L500.4050, L100.0100 #### [facility] [address] [place], [address] Neutrophils/100 WBC (Bld) 70.1 % High 47-70 [facility] Comment on above: Performed By: #### L 501.9520, L500.4050, L100.0100 #### [facility] [address] [place], [address] Nucleated RBC (Bld) [#/Vol] 0 10*3/uL Normal 0-5 [facility] Comment on above: Performed By: #### L 501.9520, L500.4050, L100.0100 #### [facility] [address] [place], [address] Platelet mean volume (Bld) [Entitic vol] 11.0 fL Normal 6.2-12.0 [facility] Comment on above: Performed By: #### L 501.9520, L500.4050, L100.0100 #### [facility] [address] [place], [address] Platelets (Bld) [#/Vol] 312 10*3/uL Normal 150-450 [facility] Comment on above: Performed By: #### L 501.9520, L500.4050, L100.0100 #### [facility] [address] [place], [address] RBC (Bld) [#/Vol] 4.53 10*6/uL Normal 4.2-5.4 [facility] Comment on above: Performed By: #### L 501.9520, L500.4050, L100.0100 #### [facility] [address] [place], [address] RDW SD 37.7 fl Normal 35.1-43.9 [facility] Comment on above: Performed By: #### L 501.9520, L500.4050, L100.0100 #### [facility] [address] [place], [address] WBC (Bld) [#/Vol] 8.8 10*3/uL Normal 4.4-11.0 [facility] Comment on above: Performed By: #### L 501.9520, L500.4050, L100.0100 #### [facility] [address] [place], [address] Comprehensive Metabolic Prof ilon 02-23-2024 Albumin [Mass/Vol] 3.6 g/dL Normal 3.2-5.0 [facility] Comment on above: Performed By: #### L 501.9520, L500.4050, L100.0100 #### [facility] [address] [place], [address] Albumin/Globulin [Mass ratio] 1.0 {ratio} Normal 0.9-2.4 [facility] Comment on above: Performed By: #### L 501.9520, L500.4050, L100.0100 #### [facility] [address] [place], [address] ALK P 102 U/L Normal 45-117 [facility] Comment on above: Performed By: #### L 501.9520, L500.4050, L100.0100 #### [facility] [address] [place], [address] ALT [Catalytic activity/Vol] 31 U/L Normal 13-56 [facility] Comment on above: Performed By: #### L 501.9520, L500.4050, L100.0100 #### [facility] [address] [place], [address] AST [Catalytic activity/Vol] 15 U/L Normal 15-37 [facility] Comment on above: Performed By: #### L 501.9520, L500.4050, L100.0100 #### [facility] [address] [place], [address] Bilirubin [Mass/Vol] 0.90 mg/dL Normal 0.20-1.00 [facility] Comment on above: Result Comment: For patients on eltrombopag therapy, use of [facility] TBIL is not recommended. Performed By: #### L 501.9520, L500.4050, L100.0100 #### [facility] [address] [place], [address] BUN/CRE 21.2 RATIO High 10-20 [facility] Comment on above: Performed By: #### L 501.9520, L500.4050, L100.0100 #### [facility] [address] [place], [address] CA,Total 9.1 mg/dL Normal 8.5-10.1 [facility] Comment on above: Performed By: #### L 501.9520, L500.4050, L100.0100 #### [facility] [address] [place], [address] Chloride [Moles/Vol] 108 mmol/L High 98-107 [facility] Comment on above: Performed By: #### L 501.9520, L500.4050, L100.0100 #### [facility] [address] [place], [address] CO2 [Moles/Vol] 27.0 mmol/L Normal 21.0-32.0 [facility] Comment on above: Performed By: #### L 501.9520, L500.4050, L100.0100 #### [facility] [address] [place], [address] Creatinine [Mass/Vol] 0.61 mg/dL Normal 0.55-1.02 [facility] Comment on above: Result Comment: The validity of the calculated GFR GFRAA in patients over 70 years has not been determined. Clinical correlation is essential. Performed By: #### L 501.9520, L500.4050, L100.0100 #### [facility] [address] [place], [address] EST GFR - AA 160 mL/min Normal >60 [facility] Comment on above: Result Comment: Afri can Panamanian GFR Calc Performed By: #### L 501.9520, L500.4050, L100.0100 #### [facility] [address] [place], [address] GAP 1 Low 5-15 [facility] Comment on above: Performed By: #### L 501.9520, L500.4050, L100.0100 #### [facility] [address] [place], [address] GFR/1.73 sq M.predicted among non-blacks MDRD (S/P/Bld) [Vol rate/Area] 132 mL/min/{1.73_m2} Normal >60 [facility] Comment on above: Result Comment: Non- GFR Calc Performed By: #### L 501.9520, L500.4050, L100.0100 #### [facility] [address] [place], [address] Globulin (S) [Mass/Vol] 3.6 g/dL Normal 2.2-4.2 [facility] Comment on above: Performed By: #### L 501.9520, L500.4050, L100.0100 #### [facility] [address] [place], [address] Glucose [Mass/Vol] 93 mg/dL Normal 74-106 [facility] Comment on above: Performed By: #### L 501.9520, L500.4050, L100.0100 #### [facility] [address] [place], [address] Potassium [Moles/Vol] 4.4 mmol/L Normal 3.5-5.1 [facility] Comment on above: Performed By: #### L 501.9520, L500.4050, L100.0100 #### [facility] [address] [place], [address] Sodium [Moles/Vol] 136 mmol/L Normal 136-145 [facility] Comment on above: Performed By: #### L 501.9520, L500.4050, L100.0100 #### [facility] [address] [place], [address] T PROT 7.2 g/dL Normal 6.4-8.2 [facility] Comment on above: Performed By: #### L 501.9520, L500.4050, L100.0100 #### [facility] [address] [place], [address] Urea nitrogen [Mass/Vol] 13 mg/dL Normal 7-18 [facility] Comment on above: Performed By: #### L 501.9520, L500.4050, L100.0100 #### [facility] [address] [place], [address] Thyroid Stim Hormone (TSH)on 02-23-2024 TSH 0.573 uIU/mL Normal 0.358-3.740 [facility] Comment on above: Performed By: #### L 501.9520, L500.4050, L100.0100 #### [facility] [address] [place], [address] Rebekah 02-13-2024 CNPN Telephone ([facility]) TRENTON STYLES ([id number]) 1 F Date Time Provider Department 02/13/24 POLLO ARIAS [facility] During your visit today, we recorded the following information about you: Pollo Arias APRN.[employer] 02/13/2024 7:19 AM Signed Please inform patient that she was positive for influenza A. This is a respiratory virus. Supportive therapies such as Tylenol or Motrin can be used. Increase fluids. Most contagious the first 5 days of illness. Follow-up with PCP if symptoms do not improve or worsen. Marely Cabezas LPN 02/13/2024 8:14 AM Signed Left message for patient to return call. ASTRID Strauss Alexandra, MA 02/14/2024 12:29 PM Signed Patient has viewed results on [employer]. Annie Valencia MA Allergies As of Date: 02/13/2024 Noted Allergy Reaction AMOXICILLIN 02/12/2024 8 - GI Upset Date Reviewed: 02/12/2024 Reviewed by: Chanel Card PA-C - Fully Assessed Reason for Visit: Results [95] Prescriptions as of 02/14/2024 - predniSONE (DELTASONE) 10 mg tablet Day #1 - 6 tablets PO then Day #2 - 5 tablets PO then Day #3 - 4 tablets PO then Day #4 - 3 tablets PO then Day #5 - 2 tablets PO then Day #6 - 1 tablet PO - benzonatate (TESSALON PERLE) 100 mg capsule Take 1-2 capsules by mouth three times a day as needed for cough for up to 7 days. - estradiol (ESTRACE) 1 mg tablet Take 1 tablet by mouth once daily for 14 days. - etonogestrel (NEXPLANON) subdermal implant 68 mg 1 Each by SUBDERMAL route as directed. Problem List As Of Date 02/13/2024 Noted Resolved History of nicotine vaping [Z87.891] 11/02/2021 Patient request for diagnostic testing [Z01.89] 11/02/2021 05/11/2022 Chlamydia infection affecting in firs*11/08/2021 05/11/2022 Supervision of high risk in second tr*02/14/2022 05/11/2022 Abnormal glucose in , antepartum [O99.*04/12/2022 05/11/2022 Preeclampsia complicating hypertension [O11.9] 05/11/2022 growth restriction antepartum [O36.5990] 05/11/2022 05/14/2022 Prematurity of fetus [P07.30] 05/11/2022 05/14/2022 History of chlamydia [Z86.19] 05/11/2022 Encounter for induction of labor [Z34.90] 05/13/2022 05/14/2022 state [Z39.2] 05/18/2022 Encounter Status:Closed by ANNIE VALENCIA on 02/14/24 [facility] CNOVon 02-12-2024 CNOV Office Visit (UCWSTR ) TRENTON STYLES ([id number]) 1 F Date Time Provider Department 02/12/24 12:00 PM CHANEL CARD [facility] During your visit today, we recorded the following information about you: Temperature Pulse Respiration Blood pressure 98.5 degrees 102/minute 22/minute 96/50 Weight 77.5 kg Chanel Card PA-C 02/12/2024 12:32 PM Signed Subjective Trenton Fariasgovind is a 18 year old female with no significant past medical history who presents to express care today for evaluation of nausea, vomiting, headaches, body aches, cough, and congestion x 4 to 5 days. She states that the nausea and vomiting have resolved but she continues to have the other symptoms. No known exposure to COVID-19, influenza, or RSV. She states that she did have a test for COVID-19 and influenza 3 days ago which was negative. Review of Systems Constitutional: Positive for chills, diaphoresis and fever. HENT: Positive for congestion. Negative for ear pain and sore throat. Eyes: Negative for discharge and redness. Respiratory: Positive for cough. Gastrointestinal: Positive for nausea and vomiting. Negative for abdominal pain, constipation and diarrhea. Musculoskeletal: Positive for myalgias. Negative for back pain. Skin: Negative for rash and wound. Neurological: Positive for headaches. All other systems reviewed and are negative. Objective BP 96/50 Pulse 102 Temp 36.9 ?C (98.5 ?F) Resp 22 Wt 77.5 kg (170 lb 13.7 oz) LMP 09/11/2021 (Exact Date) SpO2 98% Physical Exam Vitals reviewed. Constitutional: General: She is not in acute distress. Appearance: Normal appearance. She is normal weight. She is not ill-appearing or toxic-appearing. Comments: The patient appears to be non-toxic, in no acute distress, and resting comfortably on the table. HENT: Head: Normocephalic and atraumatic. Right Ear: Tympanic membrane, ear canal and external ear normal. Left Ear: Tympanic membrane, ear canal and external ear normal. Nose: Congestion present. Mouth/Throat: Mouth: Mucous membranes are moist. Pharynx: Oropharynx is clear. No oropharyngeal exudate or posterior oropharyngeal erythema. Eyes: Extraocular Movements: Extraocular movements intact. Cardiovascular: Rate and Rhythm: Normal rate and regular rhythm. Heart sounds: Normal heart sounds. No murmur heard. No friction rub. No gallop. Pulmonary: Effort: Pulmonary effort is normal. No respiratory distress. Breath sounds: Normal breath sounds. No wheezing. Musculoskeletal: General: Normal range of motion. Cervical back: Normal range of motion. Skin: General: Skin is warm and dry. Findings: No erythema or rash. Neurological: General: No focal deficit present. Mental Status: She is alert and oriented to person, place, and time. Mental status is at baseline. Psychiatric: Mood and Affect: Mood normal. Behavior: Behavior normal. Thought Content: Thought content normal. Assessment and Plan Normal physical exam. Suspect patient symptoms are due to viral infection. Patient tested for COVID-19, influenza, and RSV. Patient counseled regarding suspected diagnosis and given prescriptions for prednisone and Tessalon Perles. Advised to follow-up with primary care as needed for any new or worsening symptoms. ASSESSMENT/PLAN: 1. Viral URI - ICD9: 465.9, ICD10: J06.9 (primary diagnosis) - Discussed viral etiology and rationale for treatment. - Symptomatic treatment with prn analgesia - Supportive care with fluids and rest 2. Fever, unspecified fever cause - ICD9: 780.60, ICD10: R50.9 - COVID AND INFLUENZA A/B AND RSV PCR, ROUTINE 3. Headaches - ICD9: 784.0, ICD10: R51.9 - COVID AND INFLUENZA A/B AND RSV PCR, ROUTINE 4. Nasal congestion - ICD9: 478.19, ICD10: R09.81 - COVID AND INFLUENZA A/B AND RSV PCR, ROUTINE 5. Nausea and vomiting, unspecified vomiting type - ICD9: 787.01, ICD10: R11.2 - COVID AND INFLUENZA A/B AND RSV PCR, ROUTINE 6. Acute cough - ICD9: 786.2, ICD10: R05.1 - COVID AND INFLUENZA A/B AND RSV PCR, ROUTINE - PREDNISONE 10 MG TABLET - BENZONATATE 100 MG CAPSULE Medical Decision Making: Problems: Low: Acute, uncomplicated illness or injury Risk: Minimal: Minimal risk from testing/treatment Moderate: Drug management Medical Decision Making Level: 3 - Low I spent a total of 20 minutes on the date of the service which included preparing to see the patient, rnvo-ni-xarp patient care, completing clinical documentation, performing a medically appropriate examination, counseling and educating the patient/family/caregive r, and ordering medications, tests, or procedures. RIZWANA Stevens Ariana P, PA-C 02/12/2024 12:21 PM Signed Viral Syndrome Your doctor wanted you to have the following information about viral syndrome... You are getting this information because you have sympt (more content not included)... Normal [facility] COVID AND INFLUENZA A/B AND RSV PCR, ROUTINEon 02-12-2024 SARS-CoV-2 (COVID-19) RNA RICCARDO+probe Ql (Unsp spec) SARS-COV-2 (AGENT OF COVID-19) RNA: Not detected INFLUENZA A RNA: Detected INFLUENZA B RNA: Not detected RESPIRATORY SYNCYTIAL VIRUS (RSV) RNA: Not detected Abnormal [facility] Comment on above: Performed By: #### C VFLRS #### [facility] CLIA [id number] [address] STATES OF [facility] CNOVon 12-02-2023 CNOV Office Visit (WSTR ) TRENTON STYLES ([id number]) 1 F Date Time Provider Department 12/02/23 6:45 PM BASIA MANCINI [facility] During your visit today, we recorded the following information about you: Temperature Pulse Respiration Blood pressure 98.6 degrees 77/minute 18/minute 100/68 Weight 82.7 kg Basia Mancini PA 12/02/2023 6:46 PM Signed This note was created using [employer]. Subjective Trenton Styles is a 18 year old female. HPI 18-year-old female presents for vomiting, diarrhea x 2 days. Patient states she has had diarrhea for the past 2 days. She had vomiting yesterday. No vomiting today. No blood in the stool. No abdominal pain. She had a fever yesterday for several hours, but then it resolved. No fever today. No cough, congestion, URI symptoms. 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 Does not recall eating anything out of the ordinary. Still able to eat and drink today. No other complaint. PAST MEDICAL HISTORY Diagnosis Date Preeclampsia complicating hypertension 05/11/2022 Vasovagal syncope PAST SURGICAL HISTORY Procedure Laterality Date NEXPLANON INSERTION 02/2020 [facility]ANGER-has been removed ALLERGIES Patient has no known allergies. MEDICATIONS etonogestrel (NEXPLANON) subdermal implant 68 mg 1 Each by SUBDERMAL route as directed. estradiol (ESTRACE) 1 mg tablet Take 1 tablet by mouth once daily for 14 days. vit-iron fumarate-fa 28 mg iron- 800 mcg tab Take 1 tablet by mouth once daily. (Patient not taking: Reported on 12/02/2023) FAMILY HISTORY Problem Relation Age of Onset No Known Problems Mother No Known Problems Sister No Known Problems Brother No Known Problems Brother No Known Problems Maternal Grandmother Arthritis Maternal Grandfather Dementia Paternal Grandmother Cancer Paternal Grandfather Social History Tobacco Use Smoking status: Never Passive exposure: Yes Smokeless tobacco: Never Tobacco comments: 2 smokers in house Vaping Use Vaping status: Former Substances: Nicotine Devices: Pre-filled pod Substance Use Topics Alcohol use: Not Currently Drug use: Not Currently Types: Marijuana Review of Systems Constitutional: Negative for chills and fever. HENT: Negative for congestion, ear pain and sore throat. Respiratory: Negative for cough and shortness of breath. Cardiovascular: Negative for chest pain. Gastrointestinal: Positive for diarrhea, nausea and vomiting. Objective BP 100/68 Pulse 77 Temp 37 ?C (98.6 ?F) Resp 18 Wt 82.7 kg (182 lb 5.1 oz) LMP 09/11/2021 (Exact Date) SpO2 98% Physical Exam Vitals and nursing note reviewed. Constitutional: General: She is not in acute distress. Appearance: Normal appearance. She is not toxic-appearing. HENT: Nose: Nose normal. Mouth/Throat: Mouth: Mucous membranes are moist. Eyes: Conjunctiva/sclera: Conjunctivae normal. Cardiovascular: Rate and Rhythm: Normal rate and regular rhythm. Pulmonary: Effort: Pulmonary effort is normal. Breath sounds: Normal breath sounds. Abdominal: General: Abdomen is flat. Palpations: Abdomen is soft. Tenderness: There is no abdominal tenderness. There is no guarding or rebound. Skin: General: Skin is warm and dry. Neurological: Mental Status: She is alert. Assessment and Plan ASSESSMENT/PLAN: 1. Viral illness - ICD9: 079.99, ICD10: B34.9 - Discussed viral etiology and rationale for treatment. - Symptomatic treatment with prn analgesia - Supportive care with fluids and rest -Recommend bland diet - COVID AND INFLUENZA A/B AND RSV PCR, ROUTINE Diagnosis and treatment plan were discussed and questions were answered to the patient's satisfaction. Pt acknowledged understanding of concepts and follow up plan. Specific signs and symptoms that would indicate the need for higher level of care were discussed in detail warranting prompt ER evaluation. RANULFO Gabriel Allergies As of Date: 12/02/2023 (No Known Allergies) Date Reviewed: 12/02/2023 Reviewed by: Elicia Ellington MA - Fully Assessed Reason for Visit: Vomiting [120] Cmt: Diarrhea, stomach pain x 2 days Primary Visit Diagnosis:Viral illness [B34.9] Order(s):COVID AND INFLUENZA A/B AND RSV PCR, ROUTINE [SQCVFLRS] Order #: [id number]. #:[id number] Prescriptions as of 12/02/2023 - estradiol (ESTRACE) 1 mg tablet Take 1 tablet by mouth once daily for 14 days. - etonogestrel (NEXPLANON) subdermal implant 68 mg 1 Each by SUBDERMAL route as directed. - vit-iron fumarate-fa 28 mg iron- 800 mcg tab Take 1 tablet by mouth once daily. Problem List As Of Date 12/02/2023 Noted Resolved History of nicotine vaping [Z87.891] 11/02/2021 Patient request for diagnostic testing [Z01.89] 11/02/2021 05/11/2022 Chlamydia infection affecting in firs*09 (more content not included)... Normal [facility] COVID AND INFLUENZA A/B AND RSV PCR, ROUTINEon 12-02-2023 SARS-CoV-2 (COVID-19) RNA RICCARDO+probe Ql (Unsp spec) SARS-COV-2 (AGENT OF COVID-19) RNA: Not detected INFLUENZA A RNA: Not detected INFLUENZA B RNA: Not detected RESPIRATORY SYNCYTIAL VIRUS (RSV) RNA: Not detected Normal [facility] Comment on above: Performed By: #### C VFLRS #### [facility] CLIA [id number] [address] [place] [address] [place] Absolute lymphocyte countOrd ered By: Charisse Esparza on 12-03-2022 Lymphocytes Auto (Unsp spec) [#/Vol] 1.52 10*3/uL 0.83-4.51 [facility] Basophil percentageOrdered B y: Charisse Esparza on 12-03-2022 Basophils/100 WBC (Bld) 0.4 % 0-1 [facility] Eosinophils/100 WBC (Bld) 2.5 % 0-5 [facility] Neutrophils (Bld) [#/Vol] 6.7 10*3/uL 2.0-7.7 [facility] Neutrophils/100 WBC (Bld) 73.4 % 47-70 [facility] WBC (Bld) [#/Vol] 9.1 10*3/uL 4.4-11.0 [facility] Blood erythrocytes count (nu mber/volume)Ordered By: Charisse Esparza on 12-03-2022 RBC (Bld) [#/Vol] 3.64 10*6/uL 4.2-5.4 [facility] Blood hemoglobin measurement (mass/volume)Ordered By: Charisse Esparza on 12-03-2022 Hemoglobin (Bld) [Mass/Vol] 10.6 g/dL 12.0-15.0 [facility] Blood lymphocytes/100 leukoc ytesOrdered By: Charisse Esparza on 12-03-2022 Lymphocytes/100 WBC (Bld) 16.6 % 19-41 [facility] Blood monocytes/100 leukocyt esOrdered By: Charisse Esparza on 12-03-2022 Monocytes/100 WBC (Bld) 6.6 % 0-10 [facility] Blood platelet mean volumeOr dered By: Charisse Esparza on 12-03-2022 Platelet mean volume (Bld) [Entitic vol] 10.5 fL 6.2-12.0 [facility] Determination of erythrocyte mean corpuscular volume (MCV)Ordered By: Charisse Esparza on 12-03-2022 MCV (RBC) [Entitic vol] 90.1 fL 81-99 [facility] Hematocrit Auto (Bld) [Volum e fraction]Ordered By: Charisse Esparza on 12-03-2022 Hematocrit (Bld) [Volume fraction] 32.8 % 37-47 [facility] - Hematology and Cell countsOrdered By: Charisse Esparza on 12-03-2022 Erythrocyte distribution width (RBC) [Entitic vol] 40.8 fL 35.1-43.9 [facility] Erythrocyte distribution width (RBC) [Ratio] 12.4 % 11.6-14.6 [facility] Immature granulocytes/100 WBC (Bld) 0.500 % 0.0-0.9 [facility] Comment on above: IG% - Immature Granu locytes (promyelocytes, myelocytes and metamyelocytes) > 1% indicates that a LEFT SHIFT is Present. MCH (RBC) [Entitic mass] 29.1 pg 27.0-32.0 [facility] Nucleated RBC/100 WBC (Bld) [Ratio] 0 % 0-5 [facility] MCHC Auto (RBC) [Mass/Vol]Or dered By: Charisse Esparza on 12-03-2022 MCHC (RBC) [Mass/Vol] 32.3 g/dL 32-36 [facility] Platelets bldOrdered By: Naveen Esparza on 12-03-2022 Platelets (Bld) [#/Vol] 302 10*3/uL 150-450 [facility] Basophil percentageOrdered B y: Charisse Esparza on 12-01-2022 Chloride [Moles/Vol] 112 mmol/L 98-107 [facility] Glucose [Mass/Vol] 142 mg/dL 74-106 [facility] Comment on above: Fasting Glucose resu lt greater than or equal to 126 mg/dL suggests DIABETES MELLITUS per A.D.A. criteria. Potassium [Moles/Vol] 4.2 mmol/L 3.5-5.1 [facility] Sodium [Moles/Vol] 139 mmol/L 136-145 [facility] - Chemistry and C hemistry - challengeOrdered By: Charisse Esparza on 12-01-2022 CO2 [Moles/Vol] 23.0 mmol/L 21.0-32.0 [facility] Urea nitrogen/Creatinine [Mass ratio] 16.8 mg/mg 10- [facility] No Panel InformationOrdered By: Charisse Esparza on 12-01-2022 Estimated Creatinine Clearance Calc 150.78 ml/min [facility] Estimated GFR (MDRD) Amer 188 mL/min >60 [facility] Comment on above: GFR Calc Estimated GFR (MDRD) Non-Af Amer 155 mL/min >60 [facility] Comment on above: Non- GFR Calc Serum or plasma calcium black urement (mass/volume)Ordered By: [facility] on 12-01-2022 Calcium [Mass/Vol] 8.5 mg/dL 8.5-10.1 [facility] Serum or plasma creatinine m easurement (mass/volume)Ordered By: [facility] on 12-01-2022 Creatinine [Mass/Vol] 0.54 mg/dL 0.55-1.02 [facility] Comment on above: The validity of the calculated GFR & GFRAA in patients over 70 years has not been determined. Clinical correlation is essential. Serum or plasma urea nitroge n measurement (mass/volume)Ordered By: [facility] on 12-01-2022 Urea nitrogen [Mass/Vol] 9 mg/dL 7-18 [facility] Thin prep Papanicolaou smear with manual screeningOrdered By: [facility] on 12-01-2022 Thin prep Papanicolaou smear with manual screening 4 5-15 [facility] Basophil percentageOrdered B y: Rigoberto Amador on 11-30-2022 Bilirubin [Mass/Vol] 1.80 mg/dL 0.20-1.00 [facility] Comment on above: For patients on eltr ombopag therapy, use of [facility] TBIL is not recommended. Protein [Mass/Vol] 8.0 g/dL 6.4-8.2 [facility] Basophil percentage 10-25 SEEN /hpf 0-5 [facility] Beta hCG serum qualOrdered B y: Rigoberto Amador on 11-30-2022 Beta HCG ( test) Ql Negative [facility] Bilirubin Test strip Ql (U)O rdered By: Rigoberto Amador on 11-30-2022 Bilirubin Ql (U) 1 mg/dL Negative [facility] Comment on above: COLOR OF URINE MAY A FFECT DIPSTICK RESULTS. Ketones Test strip Ql (U)Ord ered By: Rigoberto Amador on 11-30-2022 Ketones Ql (U) 150 mg/dl Negative [facility] Comment on above: CRITICAL VALUE *HCRI TICAL VALUE VERIFIED. CALLED TO MALICK OCHOA (ER)11/30/22 0854 Javier Mcbride.RESULTS READ BACK BY SAME. Laboratory - Chemistry and C hemistry - challengeOrdered By: Rigoberto Amador on 11-30-2022 ALP [Catalytic activity/Vol] 124 U/L 45-117 [facility] ALT [Catalytic activity/Vol] 36 U/L 13-56 [facility] Globulin (S) [Mass/Vol] 4.4 g/dL 2.2-4.2 [facility] Lipase [Catalytic activity/Vol] 21 U/L 13-75 [facility] Comment on above: Please note:LIPASE r evised reference range effective 22. New Lipase methodology. Expected to produce lower values than the previous assay method. NEW Reference Range: 13 - 75 U/L Mucus LM Ql (Urine sed)Order ed By: Rigoberto Amador on 11-30-2022 Mucus Ql (Urine sed) 0 SEEN /hpf [facility] Nitrite Test strip Ql (U)Ord ered By: Rigoberto Amador on 11-30-2022 Nitrite Ql (U) Negative Negative [facility] Protein Test strip Ql (U)Ord ered By: Rigoberto Amador on 11-30-2022 Protein Ql (U) 30 mg/dl Negative [facility] Serum or plasma albumin black urement (mass/volume)Ordered By: Rigoberto Amador on 11-30-2022 Albumin [Mass/Vol] 3.6 g/dL 3.2-5.0 [facility] Serum or plasma albumin/glob ulin mass ratioOrdered By: Rigoberto Amador on 11-30-2022 Albumin/Globulin [Mass ratio] 0.8 {ratio} 0.9-2.4 [facility] Squamous epithelial cells de tection in urine sediment by light microscopyOrdered By: Rigoberto Amador on 11-30-2022 Epithelial cells.squamous LM Ql (Urine sed) 10-25 SEEN /hpf 5-10 [facility] Thin prep Papanicolaou smear with manual screeningOrdered By: Rigoberto Amador on 11-30-2022 Thin prep Papanicolaou smear with manual screening 17 U/L 15-37 [facility] Urine blood detectionOrdered By: Rigoberto mAador on 11-30-2022 RBC Ql (U) 150 /ul Negative [facility] RBC Ql (U) 10-25 SEEN /hpf 0-5 [facility] Urine clarityOrdered By: Rigoberto Amador on 11-30-2022 Clarity (U) Sl. Cloudy Clear [facility] Urine color determinationOrd ered By: Rigoberto Amador on 11-30-2022 Color (U) Yellow Yellow [facility] Urine glucose detectionOrder ed By: Rigoberto Amador on 11-30-2022 Glucose Ql (U) Normal mg/dl Normal [facility] Urine leukocyte esterase det ection by dipstickOrdered By: Rigoberto Amador on 11-30-2022 Leukocyte esterase Test strip Ql (U) 100 /ul Negative [facility] Urine pHOrdered By: Rigoberto arenas on 11-30-2022 pH (U) 6.5 [pH] 5.0 - 8.0 [facility] Urine sediment bacteria coun t by microscopy (number/high power field)Ordered By: Rigoberto Amador on 11-30-2022 Bacteria LM.HPF (Urine sed) [#/Area] 1 /[HPF] None Seen [facility] Urine specific gravity measu rementOrdered By: Rigoberto Amador on 11-30-2022 Specific gravity (U) [Rel density] 1.015 1.002-1.030 [facility] Urobilinogen Auto test strip Ql (U)Ordered By: Rigoberto Amador on 11-30-2022 Urobilinogen Ql (U) 1 mg/dl Normal [facility] CNDSon 05-18-2022 CNDS HNO ID: [id number] Author: Mary Kay Herrera DO Service: Obstetrics Author Type: Physician Type: Discharge Summary Filed: 05/18/2022 2:44 PM Note Text: DISCHARGE SUMMARY OBSTETRICS PATIENT NAME: Trenton Styles ADMISSION DATE: 05/11/2022 DISCHARGE DATE: 05/18/2022 Attending Physician: Arslan Sun DO Code Status: Not on file Treatment Team: Attending Provider: Arslan Sun DO Maternal Obstetric Provider: Rehana Jaffe Reason for Hospitalization: Intrauterine . Principal Problem (Resolved): Encounter for induction of labor POA: Unknown Active Problems: History of nicotine vaping POA: Yes Preeclampsia complicating hypertension POA: Yes History of chlamydia POA: Unknown state POA: Unknown Resolved Problems: growth restriction antepartum POA: Unknown Prematurity of fetus POA: Unknown PROCEDURES/SURGERY DURING HOSPITALIZATION: Delivery Summary: Isaac Styles [[id number]] Delivery Information: Delivery Date: 05/14/22 Delivery type: Vaginal, Spontaneous Delivering Clinician: Arslan Sun DO Vacuum Used: No Forceps Used: No Shoulder Dystocia Present: No Lacerations: 1st, Labial Episiotomy: None [place]: Gender: Female Weight (grams): 1520 g One Minute : 8 Five Minute : 9 Procedures (if applicable) Hospital Course: 16 year old female who is Day #4 from delivery as noted above. Pt's peripartum course was complicated by pre-eclampsia with features of severe blood pressures and prematurity. Consulting Teams During Hospitalization: None Patient Condition @ Discharge: Good Discharge Disposition: To bonding, then home with self care Specific Concerns for Follow-up Post Discharge: Routine Care, Hypertension in , Pre- eclampsia , Mental Health, and Contraceptive Plan Information Provided to Patient: Activity When You Leave the Hospital Gradually increase your activity until back to normal. Walking and stairs as tolerated. You are expected to maintain pelvic rest for six weeks post which includes no sexual activity, tampons or douching. You may drive as tolerated You may shower daily. Gently pat your perineum with a soapy washcloth and rinse. Sitz baths are also helpful, but avoid baths until your bleeding has stopped. Diet Instructions Resume a regular diet with emphasis on healthy and iron rich foods. Nursing moms need 500 EXTRA calories a day to support breast milk production. Wound/Surgical Site Care Use indu/squirt bottle to rinse your perineal area with warm water after urination or bowel movements Use indu/squirt bottle to rinse your perineal area with warm water until vaginal bleeding/drainage ceases You may spot bleed for up to six week post- Discharge Medications: Current Discharge Medication List START taking these medications ibuprofen (MOTRIN) 600 mg Take 600 mg by mouth every 6 hours as needed for pain. Qty: 60 tablet Refills: 0 Associated Diagnoses: state NIFEdipine ER (PROCARDIA XL) 30 mg Take 30 mg by mouth twice daily. Qty: 60 tablet Refills: 3 Associated Diagnoses:Severe pre-eclampsia in third trimester vitamin with folic acid 1 mg 1 tablet Take 1 tablet by mouth once daily. Qty: 60 tablet Refills: 3 Associated Diagnoses: state Blood Pressure Monitor Use as directed Qty: 1 Kit Refills: 0 Breast Pump Use as directed Qty: 1 Each Refills: 0 CONTINUE these medications which have NOT CHANGED phenazopyridine (PYRIDIUM) 200 mg Take 200 mg by mouth three times daily as needed. Qty: 12 tablet Refills: 0 aspirin, enteric coated (ASPIRIN, ENTERIC COATED) 81 mg Take 81 mg by mouth once daily. Qty: 30 tablet Refills: 5 Bxaepcbf-Kp-Fxx-Fe-FA 1 tablet Take 1 tablet by mouth once daily. Qty: 100 tablet Refills: 0 Associated Diagnoses:12 weeks gestation of ; Encounter for supervision of normal first in first trimester BLOOD PRESSURE CUFF 1 Each 1 Each once daily. Qty: 1 Each Refills: 0 Associated Diagnoses:12 weeks gestation of ; Encounter for supervision of normal first in first trimester; Dizziness promethazine (PHENERGAN) 25 mg Take 25 mg by mouth every 8 hours as needed. Qty: 60 tablet Refills: 0 ALLERGIES No Known Allergies Future Appointments: Follow Up Appointments Follow-Up Appointment FOR BLOOD PRESSURE CHECK ON Sunday 05/21 With: Provider When: In 6 weeks Patient/Parents to call for appointment?: Yes Follow-Up Appointment With primary provider in 2 weeks Patient/Parents to call for appointment?: Yes Follow-Up Appointment - Pre-eclampsia with severe features and/or Superimposed Pre-Eclampsia with Meds (within 72 hours) for Blood Pressure check within 72 hours With: phyllis When: In 3 days Comment - within 72 hours I have performed the substantive portion including (more content not included)... Normal [facility] NURSING PROGon 05-18-2022 NURSING PROG HNO ID: [id number] Author: Sonam Rose RN Service: Nursing Author Type: Registered Nurse Type: Nursing Progress Note Filed: 05/18/2022 6:05 PM Note Text: Patient instructed on monitoring blood pressures at least twice a day, and to report any reading above 150/100. Patient has blood pressure cuff. Patient also educated to make appointment on 05-21 for blood pressure check and agreeable to this. Patient additionally educated about importance of calling provider for any signs of infection including fever over 100.4, chills, increasing redness or pain. Normal [facility] NUTRITIONon 05-18-2022 NUTRITION HNO ID: [id number] Author: Josefina Ray DTR Service: Nutrition Therapy Author Type: Automatic Clipper And Stripper Type: Nutrition Filed: 05/18/2022 1:44 PM Note Text: NUTRITION THERAPY CLINICAL REVIEW SPECIALIST NOTE SERVICE DATE: 05/18/2022 SERVICE TIME: 1028 Visit Type: Length of Stay No nutrition issues or concerns at this time. Patient consumes foods from outside sources. Plan of Care: Follow-Up: [facility] Reassessment Nursing Admission Assessment Malnutrition Score: 0 Nutrition Intake: Diet Orders (From admission, onward) Start Ordered 05/11/22 1645 DIET REGULAR START NOW Question: Child's Feeding Age/Diet Answer: YOUTH (7-18YRS) 05/11/22 1636 Average intake over: Unable to determine Appetite: Good GI Symptoms: None Anthropometrics: Body mass index is 36.44 kg/m?. Usual Weight: 76.2 kg (168 lb) (pre- weight) Weight Change: Decreased (post delivery weight unknown) MNT Billing: $ Routine Care : 1-15 minutes SIGNATURE: Josefina Ray DTR PATIENT NAME: Trenton Styles DATE: May 18, 2022 TIME: 1:44 PM Normal [facility] NURSING PROGon 05-16-2022 NURSING PROG HNO ID: [id number] Author: Sabiha Mariscal RN Service: Nursing Author Type: Registered Nurse Type: Nursing Progress Note Filed: 05/16/2022 4:10 PM Note Text: In to assist patient with pumping bra, size 28.5 flanges being used at this time, pts breasts appear to be to large for flange as well as top of breasts bilaterally are pink/slightly reddened and warm to touch. Pump flanges increased to the 30.5. This RN called the environmental remediation consultant on to assist with this issue, states she is busy at this time. Dr Dewey called to bedside to evaluate breasts, no fever noted at this time, no new orders. Will continue to monitor. Normal [facility] ANES POSTPROC EVALon 023 ANES POSTPROC EVAL HNO ID: [id number] Author: Elma Paredes APRN.CRNA Service: Anesthesiology Author Type: Nurse Educational Specialist Type: Anesthesia Postprocedure Evaluation Filed: 05/16/2022 12:07 AM Note Text: POST ANESTHESIA EVALUATION NOTE : 2005 Procedure Summary Date: 05/14/22 Room / Location: Anesthesia Start: 1347 Anesthesia Stop: 1603 Procedure: LABOR ANALGESIA Diagnosis: Scheduled Providers: Responsible Provider: Haseeb Cabrales APRN.SYSTEMS SECURITY CONSULTANT Anesthesia Type: epidural ASA Status: 3 Anesthesia Type: epidural Last Vitals Vitals Value Taken Time BP 144/100 05/15/22 1130 Temp 05/15/22 1334 Pulse 67 05/15/22 1130 Resp 18 05/15/22 1130 SpO2 99 % 05/15/22 1130 Isaac Styles [[id number]] Baby Delivery: 05/14/2022 1603 Post Anesthesia Patient Status Anticipated Disposition: inpatient floor planned admission. Neurological Status: aware and responsive. Pulmonary Status: breathing comfortably on room air Airway Control: returned to baseline unsupported. Cardiovascular Status: stable. Pain Management: clinically adequate - multimodal analgesia pain management approach Postoperative Hydration: acceptable. Intraoperative Events: no significant anesthesia events Post Operative Nausea/Vomiting Status: no significant post operative nausea or vomiting Recommendation: continue current plan of care. Anesthesia Observations No Documentation SIGNATURE: Armando Pringle APRN.SYSTEMS SECURITY CONSULTANT PATIENT NAME: Trenton Styles DATE: May 15, 2022 TIME: 1:34 PM CSN: [id number] Normal [facility] LD NOTEon 05-14-2022 LD NOTE HNO ID: [id number] Author: Lauren Ng MD Service: Obstetrics Author Type: Resident Type: LANDD Delivery Note Filed: 05/14/2022 5:36 PM Note Text: Attestation signed by Arslan Sun DO at 05/15/2022 7:37 AM Attestation: I was present for the critical and coronado portions of the surgery and I was immediately available to provide assistance. Arslan Sun, OBSTETRICS DELIVERY SUMMARY - VAGINAL DELIVERY Gestational Age at Delivery: 33w0d Service Date: 05/14/2022 Service Time: 4:45 PM Labor Events Rupture Date: 05/14/2022 Rupture Time: 3:15 PM Total Time from ROM to Delivery: 0h 48m Rupture Type: AROM Total Hours from ROM to Onset of Labor hours Fluid Color: Clear Fluid Odor: No Odor Induction: Yes Induction Method: Misoprostol;Oxytocin;Ce rvical Ripening Balloon (CRB);AROM Isaac Styles [[id number]] Episiotomy/Laceration: Episiotomy: None Lacerations: 1st, Labial Perineal Repair Completed: No Labial Lacerations: Bilateral Labial Repair Completed: Yes Sutures Used: 3-0 Polyglactin 910 Date and Time of : Date of : 05/14/22 Time of : 1603 Delivery Information: Primary Reason for Delivery : Hypertension Additional Clinicial Indicator(s) for delivery: N/A Hypertension Type: Severe Pre/Eclampsia Delivery type: Vaginal, Spontaneous Intrapartum Complications: None Delivery between 24 - 34 weeks?: Yes Has the patient completed their course of steroids?: Full Course Was the course Initiated?: No Presentation: Vertex Shoulder Dystocia Present: No Vacuum Used: No Forceps Used: No Presentation AND Position Presentation: Vertex Position: OA Cord: Complications: None Delayed Cord Clamping: Greater than 60 sec Placenta: Delivered: 05/14/2022 4:06 PM Removal: Spontaneous Appearance: Intact Anesthesia: Method: Epidural Measurements, Apgars: Resuscitation Team Present: Yes Type of Resuscitation Team Needed: Planned Resuscitation Needed: Yes, see Resuscitation Record I/O Blood Loss per time range on right. 05/14/22 0403 - 05/14/22 1645 Calculated Blood Loss (mL) Hospital Encounter 269 Total 269 cc Hospital Course: Trenton Styles is a 16 year old female at 33w0d who presented to [facility] Estimated Date of Delivery: 07/02/22 preeclampsia. Her course was complicated by preeclampsia, growth restriction, prematurity, chlamydia. She was admitted with blood pressure concerns and developed severe pre eclampsia, and the decision was made to move towards delivery. The patient was GBSnegative. She was induced with Cytotec, abraham balloon, pitocin, and amniotomy. She progressed to complete cervical dilation and was moved to OR 2 to be near and then began to push. As the vertex was , the patient was prepped and draped in a normal sterile fashion in the dorsal lithotomy position. The vertex delivered over an intact perineum from the occiput anterior position which did not restitute. After delivery of the head, the anterior and posterior shoulders were then delivered without difficulty followed by the remainder of the 's body. The was crying spontaneously. Delayed cord clamping was performed for 1 minute. The cord was then doubly clamped and cut and the was passed above for skin to skin. The placenta delivered spontaneously. pitocin was started. Vaginal exploration revealed bilateral labial tears which were repaired with 2-0 vicryl. A first degree perineal laceration was noted but hemostatic and did not require repair. Cervical exploration revealed no lacerations. Excellent hemostasis was noted. The patient tolerated the procedure well without complications. A digital sweep of the vaginal canal was performed by the Resident and it was ascertained that no instruments or other foreign bodies are retained within the cavity. Sponge, lap, and needle counts were correct times two. Mother and baby are stable and bonding and skin to skin. Baby is in mother's arms. Expected post-delivery care and anticipated transfer reviewed. Plan of care discussed with: Provider, RN, Patient. SIGNATURE: Lauren Ng MD PATIENT NAME: Trenton Styles DATE: May 14, 2022 TIME: 4:45 PM Normal [facility] NURSING PROGon 05-14-2022 NURSING PROG HNO ID: [id number] Author: Leah Shearer RN Service: ? Author Type: Registered Nurse Type: Nursing Progress Note Filed: 05/14/2022 11:27 AM Note Text: Pt off monitor from 3701-3532 due to patient being up to the bathroom for CHG wash of abdomen and oral care. Pt palced back on monitor at 1115. Normal [facility] ANES PRE-OPon 05-13-2022 ANES PRE-OP HNO ID: [id number] Author: Haseeb Cabrales APRN.CRNA Service: Anesthesiology Author Type: Nurse Educational Specialist Type: Anesthesia Preprocedure Evaluation Filed: 05/14/2022 2:22 PM Note Text: OB ANESTHESIA PRE-PROCEDURE ASSESSMENT PATIENT NAME: Trenton Styles : 2005 [facility] ANES [employer] RANGER: Previous OB anesthetic: None No OB anesthesia considerations No prior risk factors reported pre-eclampsia GERD: GERD well controlled with no positional symptoms Relevant Problems CARDIO (+) Preeclampsia complicating hypertension NEURO-PSYCH (+) History of chlamydia (+) History of nicotine vaping PULMONARY (+) History of chlamydia I - PHYSICAL EVALUATION AIRWAY Patient intubated: No. Tracheostomy tube not present Mallampati: II. TM distance: >3 FB. Neck ROM: full ROM without neurological symptoms. Mouth opening: adequate. Short neck: no. Thick neck: no Carroen present: no Lip Bite Test: I Microretrognathia/Micro nagthia/Recessed Chin: No DENTAL Normal dental observations. Dental findings: teeth intact. Additional exam findings: no II - ANESTHESIA PLAN ASA Score: 3 Anesthetic Plan: epidural The patient is not a current smoker. NPO Status: adequate Beta Jon Monitoring Plan Monitoring plan: standard ASA. Post Procedure Analgesic Plan Postoperative analgesic plan: epidural. Informed Consent Anesthetic risks, benefits, alternatives, personnel and consent discussed: yes. Patient / Responsible Democrat agrees to proceed: yes Patient / Surrogate agrees to blood products: Yes DNR status not reviewed with patient and/or family prior to surgery. Significant changes in the patient condition since the History and Physical, not otherwise documented in primary service progress note: no. Potential Anesthesia issues that may suggest increased risk of complications or contraindication to planned procedure: none. EPIC CHART REVIEW: ACTIVE PROBLEM LIST History of Nicotine Vaping Preeclampsia Complicating Hypertension Growth Restriction Antepartum Prematurity of Fetus History of Chlamydia PAST MEDICAL HISTORY Diagnosis Date - Preeclampsia complicating hypertension 05/11/2022 - Vasovagal syncope PAST SURGICAL HISTORY Procedure Laterality Date - NEXPLANON INSERTION 02/2020 [facility] [employer] [employer]-has been removed FAMILY HISTORY Problem Relation Age of Onset - No Known Problems Mother - No Known Problems Sister - No Known Problems Brother - No Known Problems Brother - No Known Problems Maternal Grandmother - Arthritis Maternal Grandfather - Dementia Paternal Grandmother - Cancer Paternal Grandfather Social History Tobacco Use - Smoking status: Never Passive exposure: Yes - Smokeless tobacco: Never - Tobacco comments: 2 smokers in house Vaping Use - Vaping Use: Former - Substances: Nicotine - Devices: Pre-filled pod Substance Use Topics - Alcohol use: Not Currently - Drug use: Not Currently Types: Marijuana phenazopyridine (PYRIDIUM) 200 mg tablet, Take 1 tablet by mouth three times daily as needed., Disp: 12 tablet, Rfl: 0, Unknown aspirin, enteric coated (ASPIRIN, ENTERIC COATED) 81 mg EC tablet, Take 1 tablet by mouth once daily., Disp: 30 tablet, Rfl: 5, Unknown Doacabev-Pm-Bmp-Fe-FA tab, Take 1 tablet by mouth once daily., Disp: 100 tablet, Rfl: 0, Unknown Miscellaneous Medical Supply (BLOOD PRESSURE CUFF), 1 Each once daily., Disp: 1 Each, Rfl: 0, Unknown promethazine (PHENERGAN) 25 mg tablet, Take 1 tablet by mouth every 8 hours as needed., Disp: 60 tablet, Rfl: 0, Unknown Inpatient medications reviewed in EPIC I have interviewed and examined the patient. I have reviewed the medical record and/or the pre-anesthesia evaluation, pertinent labs, and test results. This contains updated information obtained within 48 hours of Surgery/Procedure. SIGNATURE: Nav Reaves APRN.SYSTEMS SECURITY CONSULTANT PATIENT NAME: Trenton Styles DATE: May 13, 2022 TIME: 12:25 PM : 2005 Normal [facility] CBC W Auto Differential pane l (Bld)on 05-13-2022 Basophils (Bld) [#/Vol] 0.04 10*3/uL Normal <0.11 [facility] Comment on above: Order Comment: Speci men Type: BLOOD SPECIMENOrdering Facility: [facility] Address: [address] [place] [id number] Performed By: #### 5 7021-8 ####[facility]ATORYCLIA [id number] [address] Basophils/100 WBC (Bld) 0.3 % Normal A [facility] Comment on above: Order Comment: Speci men Type: BLOOD SPECIMENOrdering Facility: [facility] Address: [address] [place] [address] Performed By: #### 5 7021-8 ####[facility] LABORATORYCLIA [id number] [address] Differential cell count method Nom (Bld) Auto Normal [facility] Comment on above: Order Comment: Speci men Type: BLOOD SPECIMENOrdering Facility: [facility] Address: [address] [place] [address] Performed By: #### 5 7021-8 ####[facility]ATORYCLIA [id number] [address] Eosinophils (Bld) [#/Vol] 0.14 10*3/uL Normal <0.46 [facility] Comment on above: Order Comment: Speci men Type: BLOOD SPECIMENOrdering Facility: [facility] Address: [address] [place] [address] Performed By: #### 5 7021-8 ####[facility]ORATORYCLIA [id number] [address] Eosinophils/100 WBC (Bld) 1.1 % Normal [facility] Comment on above: Order Comment: Speci men Type: BLOOD SPECIMENOrdering Facility: [facility] Address: [address] [place] [address] Performed By: #### 5 7021-8 ####[facility]ORYCLIA [id number] [address] Erythrocyte distribution width (RBC) [Ratio] 12.2 % Normal 11.5-15.0 [facility] Comment on above: Order Comment: Speci men Type: BLOOD SPECIMENOrdering Facility: [facility] Address: [address] [place], [place] [id number] Performed By: #### 5 7021-8 ####[facility] LABORATORYCLIA [id number] [address] [place] Hematocrit (Bld) [Volume fraction] 34.8 % Low 36.0-46.0 [facility] Comment on above: Order Comment: Speci men Type: BLOOD SPECIMENOrdering Facility: [facility] Address: [address] [place] [address] Performed By: #### 5 7021-8 ####[facility] LABORATORYCLIA [id number] [address] [place] Hemoglobin (Bld) [Mass/Vol] 11.7 g/dL Normal 11.5-15.5 [facility] Comment on above: Order Comment: Speci men Type: BLOOD SPECIMENOrdering Facility: [facility] Address: [address] [place] [address] Performed By: #### 5 7021-8 ####[facility]ORATORYCLIA [id number] [address] [place] Immature granulocytes (Bld) [#/Vol] 0.14 10*3/uL High <0.10 [facility] Comment on above: Order Comment: Speci men Type: BLOOD SPECIMENOrdering Facility: [facility] Address: [address] [place] [address] Performed By: #### 5 7021-8 ####[facility]ORATORYCLIA [id number] [address] [place] Immature granulocytes/100 WBC (Bld) 1.1 % Normal [facility] Comment on above: Order Comment: Speci men Type: BLOOD SPECIMENOrdering Facility: [facility] Address: [address] [place] [address] Performed By: #### 5 7021-8 ####[facility] LABORATORYCLIA [id number] [address] [place] Lymphocytes (Bld) [#/Vol] 2.29 10*3/uL Normal 1.00-4.00 [facility] Comment on above: Order Comment: Speci men Type: BLOOD SPECIMENOrdering Facility: [facility] Address: [address] [place] [address] Performed By: #### 5 7021-8 ####[facility] LABORATORYCLIA [id number] [address] Lymphocytes/100 WBC (Bld) 17.7 % Normal [facility] Comment on above: Order Comment: Speci men Type: BLOOD SPECIMENOrdering Facility: [facility] Address: [address] [place] [address] Performed By: #### 5 7021-8 ####[facility] LABORATORYCLIA [id number] [address] [place] [facility] MCH (RBC) [Entitic mass] 30.1 pg Normal 26.0-34.0 [facility] Comment on above: Order Comment: Speci men Type: BLOOD SPECIMENOrdering Facility: [facility] Address: [address] [place] [address] Performed By: #### 5 7021-8 ####[facility] LABORATORYCLIA [id number] [address] MCHC (RBC) [Mass/Vol] 33.6 g/dL Normal 30.5-36.0 [facility] Comment on above: Order Comment: Speci men Type: BLOOD SPECIMENOrdering Facility: [facility] Address: [address] [place] [address] Performed By: #### 5 7021-8 ####[facility] LABORATORYCLIA [id number] [address] [place] MCV (RBC) [Entitic vol] 89.5 fL Normal 80.0-100.0 [facility] Comment on above: Order Comment: Speci men Type: BLOOD SPECIMENOrdering Facility: [facility] Address: [address] [place] [address] Performed By: #### 5 7021-8 ####[facility] LABORATORYCLIA [id number] [place] [address] [place] Monocytes (Bld) [#/Vol] 1.01 10*3/uL High <0.87 [facility] Comment on above: Order Comment: Speci men Type: BLOOD SPECIMENOrdering Facility: [facility] Address: [address] [address] Performed By: #### 5 7021-8 ####[facility] LABORATORYCLIA [id number] [place] [address] [place] Monocytes/100 WBC (Bld) 7.8 % Normal A [facility] Comment on above: Order Comment: Speci men Type: BLOOD SPECIMENOrdering Facility: [facility] Address: [address] [place] [address] Performed By: #### 5 7021-8 ####[facility] LABORATORYCLIA [id number] [place] [address] [place] Neutrophils (Bld) [#/Vol] 9.30 10*3/uL High 1.45-7.50 [facility] Comment on above: Order Comment: Speci men Type: BLOOD SPECIMENOrdering Facility: [facility] Address: [address] [place] [address] Performed By: #### 5 7021-8 ####[facility] LABORATORYCLIA [id number] [address] [place] Neutrophils/100 WBC (Bld) 72.0 % Normal [facility] Comment on above: Order Comment: Speci men Type: BLOOD SPECIMENOrdering Facility: [facility] Address: [address] [address] Performed By: #### 5 7021-8 ####[facility] LABORATORYCLIA [id number] [place] [address] [place] Nucleated RBC (Bld) [#/Vol] 10*3/uL Normal <0.01 [facility] Comment on above: Order Comment: Speci men Type: BLOOD SPECIMENOrdering Facility: [facility] Address: [address] [place] [address] Performed By: #### 5 7021-8 ####[facility] LABORATORYCLIA [id number] [address] [place] Nucleated RBC/100 WBC (Bld) [Ratio] 0.0 /100 WBC Normal [facility] Comment on above: Order Comment: Speci men Type: BLOOD SPECIMENOrdering Facility: [facility] Address: [address] [place] [address] Performed By: #### 5 7021-8 ####[facility]ORATORYCLIA [id number] [address] [place] Platelet mean volume (Bld) [Entitic vol] 11.8 fL Normal 9.0-12.7 [facility] Comment on above: Order Comment: Speci men Type: BLOOD SPECIMENOrdering Facility: [facility] Address: [address] [place] [address] Performed By: #### 5 7021-8 ####[facility] LABORATORYCLIA [id number] [address] [place] Platelets (Bld) [#/Vol] 252 10*3/uL Normal 150-400 [facility] Comment on above: Order Comment: Speci men Type: BLOOD SPECIMENOrdering Facility: [facility] Address: [address] [place] [address] Performed By: #### 5 7021-8 ####[facility] LABORATORYCLIA [id number] [address] [place] RBC (Bld) [#/Vol] 3.89 10*6/uL Low 3.90-5.20 [facility] Comment on above: Order Comment: Speci men Type: BLOOD SPECIMENOrdering Facility: [facility] Address: [address] [place] [address] Performed By: #### 5 7021-8 ####[facility]ORATORYCLIA [id number] [address] [place] WBC (Bld) [#/Vol] 12.92 10*3/uL High 3.70-11.00 [facility] Comment on above: Order Comment: Speci men Type: BLOOD SPECIMENOrdering Facility: [facility] Address: [address] [address] Performed By: #### 5 7021-8 ####[facility] LABORATORYCLIA [id number] [address] OF [facility] Comprehensive metabolic 2000 panelon 05-13-2022 Albumin [Mass/Vol] 2.9 g/dL Low 3.9-4.9 [facility] Comment on above: Order Comment: Speci men Type: BLOOD SPECIMENOrdering Facility: [facility] Address: [address] [address] Performed By: #### 2 4323-8 ####[facility] LABORATORYCLIA [id number] [place] [address] [place] ALP [Catalytic activity/Vol] 122 U/L High 45-87 [facility] Comment on above: Order Comment: Speci men Type: BLOOD SPECIMENOrdering Facility: [facility] Address: [address] [address] Performed By: #### 2 4323-8 ####[facility] LABORATORYCLIA [id number] [address] [place] [facility] ALT With P-5'-P [Catalytic activity/Vol] 10 U/L Normal 7-38 [facility] Comment on above: Order Comment: Speci men Type: BLOOD SPECIMENOrdering Facility: [facility] Address: [address] [address] Performed By: #### 2 4323-8 ####[facility] LABORATORYCLIA [id number] [address] [place] Anion gap [Moles/Vol] 13 mmol/L Normal 9-18 [facility] Comment on above: Order Comment: Speci men Type: BLOOD SPECIMENOrdering Facility: [facility] Address: [address] [address] Performed By: #### 2 4323-8 ####[facility] LABORATORYCLIA [id number] [address] [place] AST With P-5'-P [Catalytic activity/Vol] 14 U/L Normal 13-35 [facility] Comment on above: Order Comment: Speci men Type: BLOOD SPECIMENOrdering Facility: [facility] Address: [address] [place] [address] Performed By: #### 2 4323-8 ####[facility]ORATORYCLIA [id number] [place] [address] [place] Bilirubin [Mass/Vol] 0.2 mg/dL Normal 0.2-1.3 [facility] Comment on above: Order Comment: Speci men Type: BLOOD SPECIMENOrdering Facility: [facility] Address: [address] [place] [address] Performed By: #### 2 4323-8 ####[facility]ORATORYCLIA [id number] [address] [place] Calcium [Mass/Vol] 8.7 mg/dL Normal 8.5-10.2 [facility] Comment on above: Order Comment: Speci men Type: BLOOD SPECIMENOrdering Facility: [facility] Address: [address] [place] [address] Performed By: #### 2 4323-8 ####[facility]ORATORYCLIA [id number] [place] [address] [place] Chloride [Moles/Vol] 107 mmol/L High 97-105 [facility] Comment on above: Order Comment: Speci men Type: BLOOD SPECIMENOrdering Facility: [facility] Address: [address] [place] [address] Performed By: #### 2 4323-8 ####[facility]ORATORYCLIA [id number] [place] [address] [place] CO2 [Moles/Vol] 19 mmol/L Low 22-30 [facility] Comment on above: Order Comment: Speci men Type: BLOOD SPECIMENOrdering Facility: [facility] Address: [address] [place] [address] Performed By: #### 2 4323-8 ####[facility]PITALCLIA [id number] [address] [place] [facility] Creatinine [Mass/Vol] 0.51 mg/dL Low 0.58-0.96 [facility] Comment on above: Order Comment: Brenna boyd Type: BLOOD SPECIMENOrdering Facility: [facility] Address: [address] [address] Performed By: #### 2 4323-8 ####[facility]ORATORYCLIA [id number] [address] ESTIMATED GLOMERULAR FILTRATION RATE 139 mL/min/1.73m??? Normal >=60 [facility] Comment on above: Order Comment: Brenna boyd Type: BLOOD SPECIMENOrdering Facility: [facility] Address: [address] [place] [address] Result Comment: Katherine mated Glomerular Filtration Rate (eGFR) is calculated using the 2020 CKD-EPI creatinine equation. This equation utilizes serum creatinine, sex, and age as parameters. The creatinine assay has traceable calibration to isotope dilution-mass spectrometry. Refer to KDIGO guidelines for clinical interpretation. In patients with unstable renal function, e.g. those with acute kidney injury, the eGFR may not accurately reflect actual GFR. Performed By: #### 2 4323-8 ####[facility]ORATORYCLIA [id number] [address] OF [facility] Glucose [Mass/Vol] 114 mg/dL High 74-99 [facility] Comment on above: Order Comment: Brenna boyd Type: BLOOD SPECIMENOrdering Facility: [facility] Address: [address] [place] [address] Result Comment: The [place] [employer] (ADA) provides guidance for cutoff values for fasting glucose and random glucose. The ADA defines fasting as no caloric intake for at least 8 hours. Fasting plasma glucose results between 100 to 125 mg/dL indicate increased risk for diabetes (prediabetes). Fasting plasma glucose results greater than or equal to 126 mg/dL meet the criteria for diagnosis of diabetes. In the absence of unequivocal hyperglycemia, results should be confirmed by repeat testing. In a patient with classic symptoms of hyperglycemia or hyperglycemic crisis, random plasma glucose results greater than or equal to 200 mg/dL meet the criteria for diagnosis of diabetes. Reference: Standards of Medical Care in Diabetes 2016, [place] [employer]. Diabetes Care. 2016.39(Suppl 1). Performed By: #### 2 4323-8 ####[facility] LABORATORYCLIA [id number] [address] [place] Potassium [Moles/Vol] 4.1 mmol/L Normal 3.7-5.1 [facility] Comment on above: Order Comment: Speci men Type: BLOOD SPECIMENOrdering Facility: [facility] Address: [address] [place] [address] Performed By: #### 2 4323-8 ####[facility]ORATORYCLIA [id number] [address] STATES [place] [facility] Protein [Mass/Vol] 5.3 g/dL Low 6.3-8.0 [facility] Comment on above: Order Comment: Speci men Type: BLOOD SPECIMENOrdering Facility: [facility] Address: [address] [place] [address] Performed By: #### 2 4323-8 ####[facility]ORATORYCLIA [id number] [address] Sodium [Moles/Vol] 139 mmol/L Normal 136-144 [facility] Comment on above: Order Comment: Speci men Type: BLOOD SPECIMENOrdering Facility: [facility] Address: [address] [place] [address] Performed By: #### 2 4323-8 ####[facility]ORATORYCLIA [id number] [address] [place] Urea nitrogen [Mass/Vol] 18 mg/dL Normal 7-21 [facility] Comment on above: Order Comment: Speci men Type: BLOOD SPECIMENOrdering Facility: [facility] Address: [address] [address] Performed By: #### 2 4323-8 ####[facility]ORATORYCLIA [id number] [address] [place] CBC panel Auto (Bld)on 05-12 Erythrocyte distribution width (RBC) [Ratio] 12.7 % Normal 11.5-15.0 [facility] Comment on above: Order Comment: Speci men Type: BLOOD SPECIMENOrdering Facility: [facility] Address: [address] [place] [address] Performed By: #### 5 8410-2 ####[facility]ORATORYCLIA [id number] [address] Hematocrit (Bld) [Volume fraction] 33.5 % Low 36.0-46.0 [facility] Comment on above: Order Comment: Speci men Type: BLOOD SPECIMENOrdering Facility: [facility] Address: [address] [place] [address] Performed By: #### 5 8410-2 ####[facility]ORATORYCLIA [id number] [address] Hemoglobin (Bld) [Mass/Vol] 11.3 g/dL Low 11.5-15.5 [facility] Comment on above: Order Comment: Speci men Type: BLOOD SPECIMENOrdering Facility: [facility] Address: [address] [place] [address] Performed By: #### 5 8410-2 ####[facility]ORATORYCLIA [id number] [address] MCH (RBC) [Entitic mass] 29.9 pg Normal 26.0-34.0 [facility] Comment on above: Order Comment: Speci men Type: BLOOD SPECIMENOrdering Facility: [facility] Address: [address] [place] [address] Performed By: #### 5 8410-2 ####[facility]ATORYCLIA [id number] [address] MCHC (RBC) [Mass/Vol] 33.7 g/dL Normal 30.5-36.0 [facility] Comment on above: Order Comment: Speci men Type: BLOOD SPECIMENOrdering Facility: [facility] Address: [address] [address] Performed By: #### 5 8410-2 ####[facility]ORATORYCLIA [id number] [address] MCV (RBC) [Entitic vol] 88.6 fL Normal 80.0-100.0 [facility] Comment on above: Order Comment: Speci men Type: BLOOD SPECIMENOrdering Facility: [facility] Address: [address] [address] Performed By: #### 5 8410-2 ####[facility]ORATORYCLIA [id number] [address] Nucleated RBC (Bld) [#/Vol] 10*3/uL Normal <0.01 [facility] Comment on above: Order Comment: Speci men Type: BLOOD SPECIMENOrdering Facility: [facility] Address: [address] [place] [address] Performed By: #### 5 8410-2 ####[facility]ATORYCLIA [id number] [address] Platelet mean volume (Bld) [Entitic vol] 11.5 fL Normal 9.0-12.7 [facility] Comment on above: Order Comment: Speci men Type: BLOOD SPECIMENOrdering Facility: [facility] Address: [address] [place] [address] Performed By: #### 5 8410-2 ####[facility]ATORYCLIA [id number] [address] Platelets (Bld) [#/Vol] 261 10*3/uL Normal 150-400 [facility] Comment on above: Order Comment: Speci men Type: BLOOD SPECIMENOrdering Facility: [facility] Address: [address] [place] [address] Performed By: #### 5 8410-2 ####[facility]ATORYCLIA [id number] [address] [place] RBC (Bld) [#/Vol] 3.78 10*6/uL Low 3.90-5.20 [facility] Comment on above: Order Comment: Speci men Type: BLOOD SPECIMENOrdering Facility: [facility] Address: [address] [place] [address] Performed By: #### 5 8410-2 ####[facility]ORATORYCLIA [id number] [address] OF [facility] WBC (Bld) [#/Vol] 13.79 10*3/uL High 3.70-11.00 [facility] Comment on above: Order Comment: Speci men Type: BLOOD SPECIMENOrdering Facility: [facility] Address: [address] [place] [address] Performed By: #### 5 8410-2 ####[facility]ORATORYCLIA [id number] [address] Comprehensive metabolic 2000 panelon 05-12-2022 Albumin [Mass/Vol] 3.1 g/dL Low 3.9-4.9 [facility] Comment on above: Order Comment: Speci men Type: BLOOD SPECIMENOrdering Facility: [facility] Address: [address] [place] [address] Performed By: #### 2 4323-8 ####[facility]ATORYCLIA [id number] [address] ALP [Catalytic activity/Vol] 116 U/L High 45-87 [facility] Comment on above: Order Comment: Speci men Type: BLOOD SPECIMENOrdering Facility: [facility] Address: [address] [place] [address] Performed By: #### 2 4323-8 ####[facility]ORATORYCLIA [id number] [address] ALT With P-5'-P [Catalytic activity/Vol] 14 U/L Normal 7-38 [facility] Comment on above: Order Comment: Speci men Type: BLOOD SPECIMENOrdering Facility: [facility] Address: [address] [place] [address] Performed By: #### 2 4323-8 ####[facility]ORATORYCLIA [id number] [place] [address] [place] Anion gap [Moles/Vol] 11 mmol/L Normal 9-18 [facility] Comment on above: Order Comment: Speci men Type: BLOOD SPECIMENOrdering Facility: [facility] Address: [address] [place] [address] Performed By: #### 2 4323-8 ####[facility]ATORYCLIA [id number] [place] [address] [place] AST With P-5'-P [Catalytic activity/Vol] 15 U/L Normal 13-35 [facility] Comment on above: Order Comment: Speci men Type: BLOOD SPECIMENOrdering Facility: [facility] Address: [address] [place] [address] Performed By: #### 2 4323-8 ####[facility]ATORYCLIA [id number] [place] [address] [place] Bilirubin [Mass/Vol] 0.3 mg/dL Normal 0.2-1.3 [facility] Comment on above: Order Comment: Speci men Type: BLOOD SPECIMENOrdering Facility: [facility] Address: [address] [place] [address] Performed By: #### 2 4323-8 ####[facility]ATORYCLIA [id number] [place] [address] [place] Calcium [Mass/Vol] 7.1 mg/dL Low 8.5-10.2 [facility] Comment on above: Order Comment: Speci men Type: BLOOD SPECIMENOrdering Facility: [facility] Address: [address] [place] [address] Performed By: #### 2 4323-8 ####[facility]ATORYCLIA [id number] [place] [address] [place] Chloride [Moles/Vol] 105 mmol/L Normal 97-105 [facility] Comment on above: Order Comment: Speci men Type: BLOOD SPECIMENOrdering Facility: [facility] Address: [address] [place] [address] Performed By: #### 2 4323-8 ####[facility]ATORYCLIA [id number] [address] CO2 [Moles/Vol] 20 mmol/L Low 22-30 [facility] Comment on above: Order Comment: Speci men Type: BLOOD SPECIMENOrdering Facility: [facility] Address: [address] [place] [address] Performed By: #### 2 4323-8 ####[facility]ATORYCLIA [id number] [address] STATES OF [facility] Creatinine [Mass/Vol] 0.55 mg/dL Low 0.58-0.96 [facility] Comment on above: Order Comment: Speci men Type: BLOOD SPECIMENOrdering Facility: [facility] Address: [address] [place] [address] Performed By: #### 2 4323-8 ####[facility]ATORYCLIA [id number] [address] ESTIMATED GLOMERULAR FILTRATION RATE 136 mL/min/1.73m??? Normal >=60 [facility] Comment on above: Order Comment: Speci men Type: BLOOD SPECIMENOrdering Facility: [facility] Address: [address] [place] [address] Result Comment: Katherine mated Glomerular Filtration Rate (eGFR) is calculated using the 2020 CKD-EPI creatinine equation. This equation utilizes serum creatinine, sex, and age as parameters. The creatinine assay has traceable calibration to isotope dilution-mass spectrometry. Refer to KDIGO guidelines for clinical interpretation. In patients with unstable renal function, e.g. those with acute kidney injury, the eGFR may not accurately reflect actual GFR. Performed By: #### 2 4323-8 ####[facility]ATORYCLIA [id number] [address] OF [facility] Glucose [Mass/Vol] 95 mg/dL Normal 74-99 [facility] Comment on above: Order Comment: Speci men Type: BLOOD SPECIMENOrdering Facility: [facility] Address: [address] [address] Result Comment: The [place] Diabetes [employer] (ADA) provides guidance for cutoff values for fasting glucose and random glucose. The ADA defines fasting as no caloric intake for at least 8 hours. Fasting plasma glucose results between 100 to 125 mg/dL indicate increased risk for diabetes (prediabetes). Fasting plasma glucose results greater than or equal to 126 mg/dL meet the criteria for diagnosis of diabetes. In the absence of unequivocal hyperglycemia, results should be confirmed by repeat testing. In a patient with classic symptoms of hyperglycemia or hyperglycemic crisis, random plasma glucose results greater than or equal to 200 mg/dL meet the criteria for diagnosis of diabetes. Reference: Standards of Medical Care in Diabetes 2016, [place] [employer]. Diabetes Care. 2016.39(Suppl 1). Performed By: #### 2 4323-8 ####[facility]ORATORYCLIA [id number] [place] [address] [place] Potassium [Moles/Vol] 4.2 mmol/L Normal 3.7-5.1 [facility] Comment on above: Order Comment: Brenna [facility] Type: BLOOD SPECIMENOrdering Facility: [facility] Address: [address] [place] [address] Performed By: #### 2 4323-8 ####[facility]ATORYCLIA [id number] [place] [address] [place] Protein [Mass/Vol] 5.8 g/dL Low 6.3-8.0 [facility] Comment on above: Order Comment: Albini oliver Type: BLOOD SPECIMENOrdering Facility: [facility] Address: [address] [address] Performed By: #### 2 4323-8 ####[facility]ATORYCLIA [id number] [place] [address] [place] Sodium [Moles/Vol] 136 mmol/L Normal 136-144 [facility] Comment on above: Order Comment: Albini oliver Type: BLOOD SPECIMENOrdering Facility: [facility] Address: [address] [address] Performed By: #### 2 4323-8 ####[facility]ATORYCLIA [id number] [address] STATES [facility] Urea nitrogen [Mass/Vol] 16 mg/dL Normal 7-21 [facility] Comment on above: Order Comment: Speci men Type: BLOOD SPECIMENOrdering Facility: [facility] Address: [address] [place] [address] Performed By: #### 2 4323-8 ####[facility]ATORYCLIA [id number] [address] [place] CBC W Auto Differential pane l (Bld)on 05-11-2022 Basophils (Bld) [#/Vol] 0.03 10*3/uL Normal <0.11 [facility] Comment on above: Order Comment: Speci men Type: BLOOD SPECIMENOrdering Facility: [facility] Address: [address] [place] [address] Performed By: #### 5 7021-8 ####[facility]ATORYCLIA [id number] [address] [place] [facility] Basophils/100 WBC (Bld) 0.2 % Normal A [facility] Comment on above: Order Comment: Speci men Type: BLOOD SPECIMENOrdering Facility: [facility] Address: [address] [place] [address] Performed By: #### 5 7021-8 ####[facility]ATORYCLIA [id number] [address] Differential cell count method Nom (Bld) Auto Normal [facility] Comment on above: Order Comment: Speci men Type: BLOOD SPECIMENOrdering Facility: [facility] Address: [address] [place] [address] Performed By: #### 5 7021-8 ####[facility]ATORYCLIA [id number] [address] [place] Eosinophils (Bld) [#/Vol] 10*3/uL Normal <0.46 [facility] Comment on above: Order Comment: Speci men Type: BLOOD SPECIMENOrdering Facility: [facility] Address: [address] [address] Performed By: #### 5 7021-8 ####[facility]ORYCLIA [id number] [address] Eosinophils/100 WBC (Bld) 0.0 % Normal [facility] Comment on above: Order Comment: Speci men Type: BLOOD SPECIMENOrdering Facility: [facility] Address: [address] [place] [address] Performed By: #### 5 7021-8 ####[facility] LABORATORYCLIA [id number] [address] Erythrocyte distribution width (RBC) [Ratio] 12.5 % Normal 11.5-15.0 [facility] Comment on above: Order Comment: Speci men Type: BLOOD SPECIMENOrdering Facility: [facility] Address: [address] [place] [address] Performed By: #### 5 7021-8 ####[facility] LABORATORYCLIA [id number] [address] [place] Hematocrit (Bld) [Volume fraction] 34.3 % Low 36.0-46.0 [facility] Comment on above: Order Comment: Speci men Type: BLOOD SPECIMENOrdering Facility: [facility] Address: [address] [place] [address] Performed By: #### 5 7021-8 ####[facility] LABORATORYCLIA [id number] [address] OF [place] Hemoglobin (Bld) [Mass/Vol] 11.5 g/dL Normal 11.5-15.5 [facility] Comment on above: Order Comment: Speci men Type: BLOOD SPECIMENOrdering Facility: [facility] Address: [address] [place] [address] Performed By: #### 5 7021-8 ####[facility] LABORATORYCLIA [id number] [address] [place] Immature granulocytes (Bld) [#/Vol] 0.29 10*3/uL High <0.10 [facility] Comment on above: Order Comment: Speci men Type: BLOOD SPECIMENOrdering Facility: [facility] Address: [address] [place] [address] Performed By: #### 5 7021-8 ####[facility]ORATORYCLIA [id number] [address] [place] [facility] Immature granulocytes/100 WBC (Bld) 1.7 % Normal [facility] Comment on above: Order Comment: Speci men Type: BLOOD SPECIMENOrdering Facility: [facility] Address: [address] [place] [address] Performed By: #### 5 7021-8 ####[facility]ORATORYCLIA [id number] [address] [place] Lymphocytes (Bld) [#/Vol] 1.85 10*3/uL Normal 1.00-4.00 [facility] Comment on above: Order Comment: Speci men Type: BLOOD SPECIMENOrdering Facility: [facility] Address: [address] [place] [address] Performed By: #### 5 7021-8 ####[facility] LABORATORYCLIA [id number] [address] Lymphocytes/100 WBC (Bld) 10.5 % Normal [facility] Comment on above: Order Comment: Speci men Type: BLOOD SPECIMENOrdering Facility: [facility] Address: [address] [place] [address] Performed By: #### 5 7021-8 ####[facility]ORATORYCLIA [id number] [address] [place] MCH (RBC) [Entitic mass] 29.6 pg Normal 26.0-34.0 [facility] Comment on above: Order Comment: Speci men Type: BLOOD SPECIMENOrdering Facility: [facility] Address: [address] [place] [address] Performed By: #### 5 7021-8 ####[facility]ORATORYCLIA [id number] [address] [place] MCHC (RBC) [Mass/Vol] 33.5 g/dL Normal 30.5-36.0 [facility] Comment on above: Order Comment: Speci men Type: BLOOD SPECIMENOrdering Facility: [facility] Address: [address] [place] [address] Performed By: #### 5 7021-8 ####[facility]ATORYCLIA [id number] [address] MCV (RBC) [Entitic vol] 88.2 fL Normal 80.0-100.0 [facility] Comment on above: Order Comment: Speci men Type: BLOOD SPECIMENOrdering Facility: [facility] Address: [address] [place] [address] Performed By: #### 5 7021-8 ####[facility]ATORYCLIA [id number] [address] [place] Monocytes (Bld) [#/Vol] 0.94 10*3/uL High <0.87 [facility] Comment on above: Order Comment: Speci men Type: BLOOD SPECIMENOrdering Facility: [facility] Address: [address] [place] [address] Performed By: #### 5 7021-8 ####[facility]ORATORYCLIA [id number] [address] STATES OF [facility] Monocytes/100 WBC (Bld) 5.4 % Normal [facility] Comment on above: Order Comment: Speci men Type: BLOOD SPECIMENOrdering Facility: [facility] Address: [address] [place] [address] Performed By: #### 5 7021-8 ####[facility]ATORYCLIA [id number] [address] [place] Neutrophils (Bld) [#/Vol] 14.46 10*3/uL High 1.45-7.50 [facility] Comment on above: Order Comment: Speci men Type: BLOOD SPECIMENOrdering Facility: [facility] Address: [address] [address] Performed By: #### 5 7021-8 ####[facility]ORATORYCLIA [id number] [address] Neutrophils/100 WBC (Bld) 82.2 % Normal [facility] Comment on above: Order Comment: Speci men Type: BLOOD SPECIMENOrdering Facility: [facility] Address: [address] [place] [address] Performed By: #### 5 7021-8 ####[facility]ORATORYCLIA [id number] [address] [place] Nucleated RBC (Bld) [#/Vol] 10*3/uL Normal <0.01 [facility] Comment on above: Order Comment: Speci men Type: BLOOD SPECIMENOrdering Facility: [facility] Address: [address] [place] [address] Performed By: #### 5 7021-8 ####[facility]ORATORYCLIA [id number] [address] [place] Nucleated RBC/100 WBC (Bld) [Ratio] 0.0 /100 WBC Normal [facility] Comment on above: Order Comment: Speci men Type: BLOOD SPECIMENOrdering Facility: [facility] Address: [address] [place] [address] Performed By: #### 5 7021-8 ####[facility] LABORATORYCLIA [id number] [place] [address] [place] Platelet mean volume (Bld) [Entitic vol] 11.5 fL Normal 9.0-12.7 [facility] Comment on above: Order Comment: Speci men Type: BLOOD SPECIMENOrdering Facility: [facility] Address: [address] [place] [address] Performed By: #### 5 7021-8 ####[facility]ORATORYCLIA [id number] [place] [address] [place] Platelets (Bld) [#/Vol] 267 10*3/uL Normal 150-400 [facility] Comment on above: Order Comment: Speci men Type: BLOOD SPECIMENOrdering Facility: [facility] Address: [address] [place] [address] Performed By: #### 5 7021-8 ####[facility]ORATORYCLIA [id number] [address] OF [facility] RBC (Bld) [#/Vol] 3.89 10*6/uL Low 3.90-5.20 [facility] Comment on above: Order Comment: Speci men Type: BLOOD SPECIMENOrdering Facility: [facility] Address: [address] [place] [address] Performed By: #### 5 7021-8 ####[facility]ORATORYCLIA [id number] [address] WBC (Bld) [#/Vol] 17.57 10*3/uL High 3.70-11.00 [facility] Comment on above: Order Comment: Speci men Type: BLOOD SPECIMENOrdering Facility: [facility] Address: [address] [place] [address] Performed By: #### 5 7021-8 ####[facility]ORATORYCLIA [id number] [address] CONSULTon 05-11-2022 CONSULT HNO ID: [id number] Author: Batsheva Muro MD Service: Neonatology Author Type: Physician Type: Consults Filed: 05/12/2022 9:07 AM Note Text: NEONATOLOGY CONSULT SERVICE DATE: 05/11/2022 Admission Date: 05/11/2022 SERVICE TIME: 1445 Date of : 2005 Age: [age] year old Sex: female Primary Care Physician: Donna Padilla Consulting Dining Room Attendant: Christina Houston APRN.BIOFUELS RESEARCH SCIENTIST Subjective Consultation for this evaluation was requested by Dr. Ortiz. Reason for consultation: Pre-eclampsia (severe features) at 32.4 weeks gestation Recommendations will be communicated back to the requesting physician by way of shared medical record or letter. Objective MATERNAL HISTORY: Mother is a 18 year old female, , who is at 32w4d with an JUNE of 07/02/2022, by Ultrasound dating method. LMP: Patient's last menstrual period was 09/11/2021 (exact date). Maternal Hospital Problems: ACTIVE PROBLEM LIST History of Nicotine Vaping Preeclampsia Complicating Hypertension Growth Restriction Antepartum Prematurity of Fetus History of Chlamydia Maternal Meds: No current facility-administered medications on file prior to encounter. Current Outpatient Medications on File Prior to Encounter Medication Sig phenazopyridine (PYRIDIUM) 200 mg tablet Take 1 tablet by mouth three times daily as needed. aspirin, enteric coated (ASPIRIN, ENTERIC COATED) 81 mg EC tablet Take 1 tablet by mouth once daily. Yekrlerf-Xi-Mcm-Fe-FA tab Take 1 tablet by mouth once daily. Miscellaneous Medical Supply (BLOOD PRESSURE CUFF) 1 Each once daily. promethazine (PHENERGAN) 25 mg tablet Take 1 tablet by mouth every 8 hours as needed. Current Facility-Administered Medications Medication Dose Route Frequency aspirin, enteric coated 81 mg tab(s) 81 mg ORAL DAILY vitamin with folic acid 1 mg 1 tablet 1 tablet ORAL DAILY acetaminophen 1,000 mg tab(s) (TYLENOL) 1,000 mg ORAL Pre-Op PRN sodium citrate-citric acid 500-334 mg/5 mL 30 mL oral liquid (BICITRA) 30 mL ORAL Pre-Op PRN metoclopramide HCl 10 mg injection (REGLAN) 10 mg INTRAVENOUS Pre-Op PRN tranexamic acid (CYKLOKAPRON) in NaCl 0.7% 1,000 mg 100 mL 1,000 mg INTRAVENOUS Pre-Op PRN NaCl 0.9% iv flush bag 20 mL INTRAVENOUS PRN ceFAZolin iv piggyback 2 g in D5W (iso-osmotic) 100 mL (ANCEF) 2 g INTRAVENOUS Pre-Op PRN azithromycin 500 mg in D5W 250 mL Vial-Bag (ZITHROMAX) 500 mg INTRAVENOUS Pre-Op PRN magnesium sulfate 20 gram/500mL iv 2 g/hr INTRAVENOUS CONTINUOUS calcium gluconate 1 g injection 1 g INTRAVENOUS PRN lactated ringers iv infusion 5-30 mL/hr INTRAVENOUS CONTINUOUS complications: Pre-eclampsia, growth restriction, prematurity, history of chlamydia (MORE negative November 2021) The following was discussed with mother, father, grandmother (maternal), and great grandmother (maternal) GENERAL: Neonatology presence and role at delivery: Yes Possible need for resuscitation: Yes DNR status: Full resuscitation requested Need for admission to NICU: Yes Offered tour of NICU: No Discharge criteria: Yes Survival odds/morbidity AND mortality: No RESPIRATORY Risk of RDS/breathing problems: Yes Possible need for respiratory support: Yes CARDIOVASCULAR Discussed Hypotension, potential medical treatment: No Other (e.g. congenital heart disease): No NEUROLOGIC Risk of IVH/Neuro developmental delays: No Discussed need for evaluation by Licensed Psychologist for ROP: No Discussed risk for hearing deficit: No FEN Mother?s Preference: Breast: Yes. Benefits of breast milk: Yes Need for supplemental nutrition and/or IVFs: Yes INFECTION Risk factors for infection- congenital and nosocomial: No Need to start antibiotics: No HEME Possible need for blood transfusion: No. Verbal consent obtained: No ACCESS Possible need for UAC/UVC/PICC: No. Verbal consent obtained: No MISC. Name if Test Specialist, if known: Unknown, please contact patient's primary care physician Possible need for transfer to outside hospital: No Possible need for subspecialty evaluation: No Additional discussion: N/A Impression/Recommendati ons Assessment: Mother with pre-eclampsia at 32.4 weeks gestation. Plan: Neonatology to be present at delivery. Physician vnlf-lv-wiyf total time, including discussion: 60 minutes, more than 50 % of time devoted to coordination of care and/or counseling. SIGNATURE: Christina Houston APRN.CNP PATIENT NAME: Trenton Styles DATE: May 11, 2022 TIME: 5:22 PM I agree with the note as written above. I met with mom again today to answer any additional questions. All questions answered. Batsheva Muro MD 9:07 AM, 05/12/2022 Normal [facility] Comprehensive metabolic 2000 panelon 05-11-2022 Albumin [Mass/Vol] 3.2 g/dL Low 3.9-4.9 [facility] Comment on above: Order Comment: Speci men Type: BLOOD SPECIMENOrdering Facility: [facility] Address: [address] [place] [id number] Performed By: #### 2 4323-8 ####[facility] LABORATORYCLIA [id number] [place] [address] [place] ALP [Catalytic activity/Vol] 123 U/L High 45-87 [facility] Comment on above: Order Comment: Speci men Type: BLOOD SPECIMENOrdering Facility: [facility] Address: [address] [place] [address] Performed By: #### 2 4323-8 ####[facility] LABORATORYCLIA [id number] [address] ALT With P-5'-P [Catalytic activity/Vol] 17 U/L Normal 7-38 [facility] Comment on above: Order Comment: Speci men Type: BLOOD SPECIMENOrdering Facility: [facility] Address: [address] [place] [address] Performed By: #### 2 4323-8 ####[facility]ATORYCLIA [id number] [address] Anion gap [Moles/Vol] 12 mmol/L Normal 9-18 [facility] Comment on above: Order Comment: Speci men Type: BLOOD SPECIMENOrdering Facility: [facility] Address: [address] [place] [address] Performed By: #### 2 4323-8 ####[facility]ORATORYCLIA [id number] [address] AST With P-5'-P [Catalytic activity/Vol] 18 U/L Normal 13-35 [facility] Comment on above: Order Comment: Speci men Type: BLOOD SPECIMENOrdering Facility: [facility] Address: [address] [place] [address] Performed By: #### 2 4323-8 ####[facility]ATORYCLIA [id number] [address] Bilirubin [Mass/Vol] 0.3 mg/dL Normal 0.2-1.3 [facility] Comment on above: Order Comment: Speci men Type: BLOOD SPECIMENOrdering Facility: [facility] Address: [address] [place] [address] Performed By: #### 2 4323-8 ####[facility]ORATORYCLIA [id number] [place] [address] [place] Calcium [Mass/Vol] 8.2 mg/dL Low 8.5-10.2 [facility] Comment on above: Order Comment: Speci men Type: BLOOD SPECIMENOrdering Facility: [facility] Address: [address] [place] [address] Performed By: #### 2 4323-8 ####[facility]ATORYCLIA [id number] [place] [address] [place] Chloride [Moles/Vol] 107 mmol/L High 97-105 [facility] Comment on above: Order Comment: Speci men Type: BLOOD SPECIMENOrdering Facility: [facility] Address: [address] [place] [address] Performed By: #### 2 4323-8 ####[facility]ATORYCLIA [id number] [address] [place] CO2 [Moles/Vol] 20 mmol/L Low 22-30 [facility] Comment on above: Order Comment: Speci men Type: BLOOD SPECIMENOrdering Facility: [facility] Address: [address] [place] [address] Performed By: #### 2 4323-8 ####[facility]ORATORYCLIA [id number] [address] [place] Creatinine [Mass/Vol] 0.52 mg/dL Low 0.58-0.96 [facility] Comment on above: Order Comment: Speci men Type: BLOOD SPECIMENOrdering Facility: [facility] Address: [address] [place] [address] Performed By: #### 2 4323-8 ####[facility]ATORYCLIA [id number] [address] ESTIMATED GLOMERULAR FILTRATION RATE 138 mL/min/1.73m??? Normal >=60 [facility] Comment on above: Order Comment: Speci men Type: BLOOD SPECIMENOrdering Facility: [facility] Address: [address] [place] [address] Result Comment: Katherine mated Glomerular Filtration Rate (eGFR) is calculated using the 2020 CKD-EPI creatinine equation. This equation utilizes serum creatinine, sex, and age as parameters. The creatinine assay has traceable calibration to isotope dilution-mass spectrometry. Refer to KDIGO guidelines for clinical interpretation. In patients with unstable renal function, e.g. those with acute kidney injury, the eGFR may not accurately reflect actual GFR. Performed By: #### 2 4323-8 ####[facility]ATORYCLIA [id number] [place] [address] [place] Glucose [Mass/Vol] 97 mg/dL Normal 74-99 [facility] Comment on above: Order Comment: Brenna boyd Type: BLOOD SPECIMENOrdering Facility: [facility] Address: [address] [address] Result Comment: The [place] Diabetes Association (ADA) provides guidance for cutoff values for fasting glucose and random glucose. The ADA defines fasting as no caloric intake for at least 8 hours. Fasting plasma glucose results between 100 to 125 mg/dL indicate increased risk for diabetes (prediabetes). Fasting plasma glucose results greater than or equal to 126 mg/dL meet the criteria for diagnosis of diabetes. In the absence of unequivocal hyperglycemia, results should be confirmed by repeat testing. In a patient with classic symptoms of hyperglycemia or hyperglycemic crisis, random plasma glucose results greater than or equal to 200 mg/dL meet the criteria for diagnosis of diabetes. Reference: Standards of Medical Care in Diabetes 2016, [place] [employer] Association. Diabetes Care. 2016.39(Suppl 1). Performed By: #### 2 4323-8 ####[facility] LABORATORYCLIA [id number] [place] [id number] [place] Potassium [Moles/Vol] 4.0 mmol/L Normal 3.7-5.1 [facility] Comment on above: Order Comment: Bernna boyd Type: BLOOD SPECIMENOrdering Facility: [facility] Address: [address] [address] Performed By: #### 2 4323-8 ####[facility]ORATORYCLIA [id number] [place] [id number] [place] Protein [Mass/Vol] 5.9 g/dL Low 6.3-8.0 [facility] Comment on above: Order Comment: Brenna boyd Type: BLOOD SPECIMENOrdering Facility: [facility] Address: [address] [place] [address] Performed By: #### 2 4323-8 ####[facility]ORATORYCLIA [id number] [place] [id number] [place] [facility] Sodium [Moles/Vol] 139 mmol/L Normal 136-144 [facility] Comment on above: Order Comment: Brenna boyd Type: BLOOD SPECIMENOrdering Facility: [facility] Address: [address] [place] [address] Performed By: #### 2 4323-8 ####[facility]ATORYCLIA [id number] [address] Urea nitrogen [Mass/Vol] 10 mg/dL Normal 7-21 [facility] Comment on above: Order Comment: Albini men Type: BLOOD SPECIMENOrdering Facility: [facility] Address: [address] [place] [address] Performed By: #### 2 4323-8 ####[facility]ORATORYCLIA [id number] [address] [place] HISTORY PHYSICALon HISTORY PHYSICAL HNO ID: [id number] Author: Kojo Wilson MD Service: Obstetrics Author Type: Physician Type: HANDP Filed: 05/11/2022 6:01 PM Note Text: MATERNAL MEDICINE HISTORY AND PHYSICAL SERVICE DATE: May 11, 2022 SERVICE TIME: 2:33 PM Subjective Patient's stated reason for arrival: bp CHIEF COMPLAINT: Pre-eclampsia with severe features HISTORY OF THE PRESENT ILLNESS: The patient is a 16 year old female, , who is at 32w4d with an JUNE of 07/02/2022, by Ultrasound dating method. Patient is presenting from [place] [facility] after being diagnosed with Pre-Eclampsia with severe features due to headache and and severe range blood pressures. She was started on magnesium with a 6 g bolus and running at 2 g/hr. She was not acutely treated with antihypertensives at [place]. Currently, her headache is improved and mild at this time. Good movement. Denies vaginal bleeding. Denies contractions. Denies leaking of fluid. She states that on 05/06 she had a headache and high blood pressure at her visit. She went to [place] [facility] where they did labs and gave one dose of BMZ. She was sent home with BP cuff and close follow up. On 05/10 she had blood pressures to the 160s at home. She went back to [place] ED and had mild range blood pressures there and received BMZ #2. Today she had an appointment with her PN provider and had severe range blood pressure and a headache, so she was sent to [place] ED again. Patient denies history of alcohol, tobacco, or drug use. Patient denies history of MRSA, HIV, HSV, Hep B or Hep C. POST DELIVERY CONTRACEPTION: Discussed post-delivery contraception options. Undecided at this time. HISTORY REVIEW PAST MEDICAL HISTORY Diagnosis Date Preeclampsia complicating hypertension 05/11/2022 Vasovagal syncope PAST SURGICAL HISTORY Procedure Laterality Date NEXPLANON INSERTION 02/2020 [facility]PRETIVE RANGER-has been removed FAMILY HISTORY Problem Relation Age of Onset No Known Problems Mother No Known Problems Sister No Known Problems Brother No Known Problems Brother No Known Problems Maternal Grandmother Arthritis Maternal Grandfather Dementia Paternal Grandmother Cancer Paternal Grandfather Social History Tobacco Use Smoking status: Never Passive exposure: Yes Smokeless tobacco: Never Tobacco comments: 2 smokers in house Vaping Use Vaping Use: Former Substances: Nicotine Devices: Pre-filled pod Substance Use Topics Alcohol use: Not Currently Drug use: Not Currently Types: Marijuana Obstetric History T0 L0 SAB0 IAB0 Ectopic0 Multiple0 Live Births0 Name of Baby 1: Not recorded Date: Not recorded GA: Not recorded Delivery: Not recorded Apgar1: Not recorded Apgar5: Not recorded Living: Not recorded Active Non-Hospital Problems Diagnosis Date Noted History of nicotine vaping 11/02/2021 Overview Note: 11/02/2021atient stopped vaping and using marijuana 3 days ago. I have discussed with her the risks of vaping and using illicit drugs in and advised patient to continue not using them. TKRN ALLERGIES No Known Allergies Prior to Admission Medications Prescriptions Last Dose Informant Patient Reported? Taking? Miscellaneous Medical Supply (BLOOD PRESSURE CUFF) Unknown No No Si Each once daily. Twetalju-Hd-Hcs-Fe-FA tab Unknown No No Sig: Take 1 tablet by mouth once daily. aspirin, enteric coated (ASPIRIN, ENTERIC COATED) 81 mg EC tablet Unknown No No Sig: Take 1 tablet by mouth once daily. phenazopyridine (PYRIDIUM) 200 mg tablet Unknown No No Sig: Take 1 tablet by mouth three times daily as needed. promethazine (PHENERGAN) 25 mg tablet Unknown No No Sig: Take 1 tablet by mouth every 8 hours as needed. Facility-Administered Medications: None REVIEW OF SYSTEMS: GENERAL: No weight loss, malaise, chills, or fevers RESPIRATORY: Negative for cough, dyspnea or shortness of breath CARDIOVASCULAR: Negative for chest pain or palpitations GI: No nausea, vomiting, or diarrhea : No dysuria, frequency or incontinence ENVIRONMENTAL REMEDIATION CONSULTANT: Negative for abnormal vaginal bleeding, abnormal vaginal discharge Objective LAST VITALS: Pulse BP Resp O2 Sat Temp Pain 67 130/89 15 98 % 36.4 ?C (97.5 ?F) 2 HT/WT/BMI: Height Weight BMI 165.1 cm (5' 5) 99.3 kg (219 lb) 36.44 PHYSICAL EXAM: General: WD, WN HEENT: sclera white, pupils equal Lungs: clear, normal respiratory effort Heart: RR, S1, S2, no abhinav, rub, or murmur appreciated Abdomen: soft, nontender, gravid Uterus: soft, NT Extremities: 1+ edema DTRs: 2+ CERVICAL EXAM: Deferred MONITORING/ASSESSMENT: Baseline: 130 Variability: Moderate (6-25 bpm) Accelerations: Absent Decelerations: None Contractions: Not present Frequency: None NST Interpretation: Category I EFW: EFW 3lbs 12 oz (10%), AC 11% at 31+2 based on last ultrasound. ULTRASOUND: US findings: Head position: cephalic, HR: present, Tayo (more content not included)... Normal [facility] Prot/Creat Uron 05-11-2022 Protein/Creatinine (U) [Mass ratio] 9.54 mg/mg High <0.15 [facility] Comment on above: Order Comment: Speci men Type: URINE SPECIMENOrdering Facility: [facility] Address: [address] [place] [id number] Result Comment: Adul t Proteinuria Categories: <0.15 mg/mg is considered normal to mildly increased 0.15 - 0.50 mg/mg is considered moderately increased >0.50 mg/mg is considered severely increased KDIGO. (2013). KDIGO 2012 Clinical Practice Guideline for the Evaluation and Management of Chronic Kidney Disease. Official Journal of the International Society of Nephrology, 3(1), 1-150. Performed By: #### 2 890-2 ####[facility] LABORATORYCLIA [id number] [address] OF [facility] Protein/Creatinine (U) [Mass ratio]on 05-11-2022 Creatinine (U) [Mass/Vol] 23.7 mg/dL Low 42.2-237.9 [facility] Comment on above: Order Comment: Speci men Type: URINE SPECIMENOrdering Facility: [facility] Address: [address] [place] [address] Performed By: #### 2 890-2 ####[facility]ITAL[facility] [id number] [address] Protein (U) [Mass/Vol] 226 mg/dL High 0-20 [facility] Comment on above: Order Comment: Speci men Type: URINE SPECIMENOrdering Facility: [facility] Address: [address] [place] [address] Performed By: #### 2 890-2 ####[facility]MON[facility] [id number] [address] ROUTINE, GROUP B ST REP PCRon 05-11-2022 ROUTINE, GROUP B STREP PCR GROUP B STREP PCR: Negative for Group B Streptococcus by PCR. Normal [facility] Comment on above: Performed By: #### G BPCR ####[facility] LABORATORYCLIA [id number] [address] TYPE + SCREEN PRENATALon ABO B Normal [facility] Comment on above: Order Comment: Speci men Type: BLOOD SPECIMENOrdering Facility: [facility] Address: [address] [place] [address] Performed By: #### T SPN ####[facility] BLOOD BANKCLIA [id number] [address] HISTORICAL AB SCR STATUS Negative Normal [facility] Comment on above: Order Comment: Speci men Type: BLOOD SPECIMENOrdering Facility: [facility] Address: [address] [place] [address] Performed By: #### T SPN ####[facility] BLOOD BANKCLIA [id number] [address] Rh Nom (Bld) Positive Normal [facility] Comment on above: Order Comment: Speci men Type: BLOOD SPECIMENOrdering Facility: [facility] Address: [address] [place] [address] Performed By: #### T SPN ####[facility] BLOOD BANKCLIA [id number] [address] TYPE AND SCREEN EXPIRATION 05/14/2022 23:59 Normal [facility] Comment on above: Order Comment: Speci men Type: BLOOD SPECIMENOrdering Facility: [facility] Address: [address] [place] [address] Performed By: #### T SPN ####[facility] BLOOD BANKCLIA [id number] [address] OF [place] URINE OB DIP B/Oon 3 Glucose Ql (U) Negative Neg mg/dL [facility] Protein.monoclonal (U) [Mass/Vol] 300 mg/dL Neg mg/dL [facility] Basophil percentageOrdered B y: Jocelyn Regan on 05-10-2022 WBC (Bld) [#/Vol] 15.1 10*3/uL 4.5-13.0 [facility] Blood erythrocytes count (nu mber/volume)Ordered By: Jocelyn Regan on 05-10-2022 RBC (Bld) [#/Vol] 3.83 10*6/uL 4.1-4.8 [facility] Blood hemoglobin measurement (mass/volume)Ordered By: Jocelyn Regan on 05-10-2022 Hemoglobin (Bld) [Mass/Vol] 11.7 g/dL 12.0-15.0 [facility] Blood platelet mean volumeOr dered By: Jocelyn Regan on 05-10-2022 Platelet mean volume (Bld) [Entitic vol] 12.1 fL 6.2-12.0 [facility] Determination of erythrocyte mean corpuscular volume (MCV)Ordered By: Jocelyn Regan on 05-10-2022 MCV (RBC) [Entitic vol] 89.6 fL 78-96 [facility] Hematocrit Auto (Bld) [Volum e fraction]Ordered By: Jocelyn Regan on 05-10-2022 Hematocrit (Bld) [Volume fraction] 34.3 % 37-46 [facility] - Chemistry and C hemistry - challengeOrdered By: Jocelyn Regan on 05-10-2022 ALT [Catalytic activity/Vol] 22 U/L 13-56 [facility] - Hematology and Cell countsOrdered By: Jocelyn Regan on 05-10-2022 Erythrocyte distribution width (RBC) [Entitic vol] 40.2 fL 35.1-43.9 [facility] Erythrocyte distribution width (RBC) [Ratio] 12.3 % 11.6-14.6 [facility] MCH (RBC) [Entitic mass] 30.5 pg 25.0-35.0 [facility] MCHC Auto (RBC) [Mass/Vol]Or dered By: Jocelyn Regan on 05-10-2022 MCHC (RBC) [Mass/Vol] 34.1 g/dL 32-36 [facility] No Panel InformationOrdered By: Jocelyn Regan on 05-10-2022 Estimated Creatinine Clearance Calc 128.27 ml/min [facility] Estimated GFR (MDRD) Amer 153 mL/min >60 [facility] Comment on above: GFR Calc Estimated GFR (MDRD) Non-Af Amer 127 mL/min >60 [facility] Comment on above: Non- GFR Calc Platelets bldOrdered By: Najma Regan on 05-10-2022 Platelets (Bld) [#/Vol] 266 10*3/uL 150-450 [facility] Serum or plasma creatinine m easurement (mass/volume)Ordered By: Jocelyn Regan on 05-10-2022 Creatinine [Mass/Vol] 0.64 mg/dL 0.55-1.02 [facility] Comment on above: The validity of the calculated GFR & GFRAA in patients over 70 years has not been determined. Clinical correlation is essential. Serum or plasma uric acid me asurement (mass/volume)Ordered By: Jocelyn Regan on 05-10-2022 Urate [Mass/Vol] 5.3 mg/dL 2.6-6.0 [facility] Comment on above: The drugs N-Acetylcy steine and Metamizole may falsely depress this assay. Thin prep Papanicolaou smear with manual screeningOrdered By: Jocelyn Regan on 05-10-2022 Thin prep Papanicolaou smear with manual screening 19 U/L 15-37 [facility] Urine creatinine measurement (mass/volume)Ordered By: Jocelyn Regan on 05-10-2022 Creatinine (U) [Mass/Vol] 182.00 mg/dL NO RANGE EST. [facility] Urine protein measurement (m ass/volume)Ordered By: Jocelyn Regan on 05-10-2022 Protein (U) [Mass/Vol] 1521.5 mg/dL 0.0-11.8 [facility] Urine protein/creatinine mas s ratioOrdered By: Jocelyn Regan on 05-10-2022 Protein/Creatinine (U) [Mass ratio] 8360 mg/g CRE 0-200 [facility] Basophil percentageOrdered B y: Samantha Kothari on 05-09-2022 WBC (Bld) [#/Vol] 10.9 10*3/uL 4.5-13.0 [facility] Blood erythrocytes count (nu mber/volume)Ordered By: Samantha Allred on 05-09-2022 RBC (Bld) [#/Vol] 3.83 10*6/uL 4.1-4.8 [facility] Blood hemoglobin measurement (mass/volume)Ordered By: Samantha Allred on 05-09-2022 Hemoglobin (Bld) [Mass/Vol] 11.5 g/dL 12.0-15.0 [facility] Blood platelet mean volumeOr dered By: Samantha Kothari on 05-09-2022 Platelet mean volume (Bld) [Entitic vol] 11.5 fL 6.2-12.0 [facility] Determination of erythrocyte mean corpuscular volume (MCV)Ordered By: Samantha Kothari on 05-09-2022 MCV (RBC) [Entitic vol] 88.3 fL 78-96 [facility] Hematocrit Auto (Bld) [Volum e fraction]Ordered By: Samantha Kothari on 05-09-2022 Hematocrit (Bld) [Volume fraction] 33.8 % 37-46 [facility] - Chemistry and C hemistry - challengeOrdered By: Samantha Kothari on 05-09-2022 ALT [Catalytic activity/Vol] 20 U/L 13-56 [facility] - Hematology and Cell countsOrdered By: Samantha Kothari on 05-09-2022 Erythrocyte distribution width (RBC) [Entitic vol] 38.9 fL 35.1-43.9 [facility] Erythrocyte distribution width (RBC) [Ratio] 12.1 % 11.6-14.6 [facility] MCH (RBC) [Entitic mass] 30.0 pg 25.0-35.0 [facility] MCHC Auto (RBC) [Mass/Vol]Or dered By: Samantha Kothari on 05-09-2022 MCHC (RBC) [Mass/Vol] 34.0 g/dL 32-36 [facility] No Panel InformationOrdered By: Samantha Kothari on 05-09-2022 Estimated Creatinine Clearance Calc 143.24 ml/min [facility] Estimated GFR (MDRD) Amer 184 mL/min >60 [facility] Comment on above: GFR Calc Estimated GFR (MDRD) Non-Af Amer 152 mL/min >60 [facility] Comment on above: Non- GFR Calc Platelets bldOrdered By: Samantha Kothari on 05-09-2022 Platelets (Bld) [#/Vol] 240 10*3/uL 150-450 [facility] Serum or plasma creatinine m easurement (mass/volume)Ordered By: Samantha Kothari on 05-09-2022 Creatinine [Mass/Vol] 0.55 mg/dL 0.55-1.02 [facility] Comment on above: The validity of the calculated GFR & GFRAA in patients over 70 years has not been determined. Clinical correlation is essential. Serum or plasma uric acid me asurement (mass/volume)Ordered By: Samantha Kothari on 05-09-2022 Urate [Mass/Vol] 4.9 mg/dL 2.6-6.0 [facility] Comment on above: The drugs N-Acetylcy steine and Metamizole may falsely depress this assay. Thin prep Papanicolaou smear with manual screeningOrdered By: Samantha Kothari on 05-09-2022 Thin prep Papanicolaou smear with manual screening 20 U/L 15-37 [facility] Urine creatinine measurement (mass/volume)Ordered By: Samantha Allred on 05-09-2022 Creatinine (U) [Mass/Vol] 500.00 mg/dL NO RANGE EST. [facility] Urine protein measurement (m ass/volume)Ordered By: Samantha Kothari on 05-09-2022 Protein (U) [Mass/Vol] 1191.0 mg/dL 0.0-11.8 [facility] Urine protein/creatinine mas s ratioOrdered By: Samantha Kothari on 05-09-2022 Protein/Creatinine (U) [Mass ratio] 2382 mg/g CRE 0-200 [facility] URINE OB DIP B/Oon 3 Glucose Ql (U) Negative Neg mg/dL [facility] Protein.monoclonal (U) [Mass/Vol] Negative Neg mg/dL [facility] UA DIP, URINE (POC)on 2022 BILIRUBIN UA (POCT) Negative Negative [place] CLARITY UA (POCT) Cloudy [facility] COLOR UA (POCT) Yellow [facility] GLUCOSE UA (POCT) Negative Negative mg/dL [facility] HEMOGLOBIN/BLOOD UA (POCT) Trace-intact Abnormal Negative [facility] KETONE UA (POCT) Negative Negative mg/dL [facility] LEUKOCYTES UA (POCT) Moderate Abnormal Negative [facility] NITRITE UA (POCT) Negative Negative [facility] PH UA (POCT) 6.0 4.5 - 8.0 [facility] Protein Ql (U) Trace Abnormal Negative mg/dL [facility] SPECIFIC GRAVITY UA (POCT) >=1.030 1.005 - 1.030 [facility] UROBILINOGEN UA (POCT) 0.2 E.U./dL Matilde l E.U./dL [facility] URINE OB DIP B/Oon 3 Glucose Ql (U) Negative Neg mg/dL [facility] Protein.monoclonal (U) [Mass/Vol] Negative Neg mg/dL [facility] URINE OB DIP B/Oon 3 Glucose Ql (U) Negative Neg mg/dL [facility] Protein.monoclonal (U) [Mass/Vol] Negative Neg mg/dL [facility] OBSTETRIC ULTRASOUND WHIon 0 02-14-2022 [facility] URINE OB DIP B/Oon 3 Glucose Ql (U) Negative Neg mg/dL [facility] Protein.monoclonal (U) [Mass/Vol] Negative Neg mg/dL [facility] CBC panel Auto (Bld)on 01-29 Erythrocyte distribution width (RBC) [Ratio] 12.5 % 11.5 - 15.0 % [facility] Hematocrit (Bld) [Volume fraction] 34.5 % Low 36.0 - 46.0 % [facility] Hemoglobin (Bld) [Mass/Vol] 12.3 g/dL 11.5 - 15.5 g/dL [facility] MCH (RBC) [Entitic mass] 30.5 pg 26.0 - 34.0 pg [facility] MCHC (RBC) [Mass/Vol] 35.7 g/dL 30.5 - 36.0 g/dL [facility] MCV (RBC) [Entitic vol] 85.6 fL 80.0 - 100.0 fL [facility] Nucleated RBC (Bld) [#/Vol] <0.01 k/uL [facility] Platelet mean volume (Bld) [Entitic vol] 10.8 fL 9.0 - 12.7 fL [facility] Platelets (Bld) [#/Vol] 295 10*3/uL 150 - 400 k/uL [facility] RBC (Bld) [#/Vol] 4.03 10*6/uL 3.90 - 5.2 0 m/uL [facility] WBC (Bld) [#/Vol] 10.90 10*3/uL 3.70 - 11 .00 k/uL [facility] Comprehensive metabolic 2000 panelon 01-29-2022 Albumin [Mass/Vol] 4.0 g/dL 3.9 - 4.9 g/dL [facility] ALP [Catalytic activity/Vol] 82 U/L 45 - 87 U/L [facility] ALT [Catalytic activity/Vol] 15 U/L 7 - 38 U/L [facility] Anion gap [Moles/Vol] 12 mmol/L 9 - 18 mmol/L [facility] AST [Catalytic activity/Vol] 13 U/L 13 - 35 U/L [facility] Bilirubin [Mass/Vol] 0.5 mg/dL 0.2 - 1 .3 mg/dL [facility] Calcium [Mass/Vol] 9.5 mg/dL 8.5 - 10. 2 mg/dL [facility] Chloride [Moles/Vol] 103 mmol/L 97 - 10 5 mmol/L [facility] CO2 [Moles/Vol] 21 mmol/L Low 22 - 30 mmol/L [facility] Creatinine [Mass/Vol] 0.45 mg/dL Low 0.58 - 0.96 mg/dL [facility] Estimated Glomerular Filtration Rate 143 mL/min/1.73m >=60 mL/min/1.73m [facility] Glucose [Mass/Vol] 89 mg/dL 74 - 99 mg/dL [facility] Potassium [Moles/Vol] 4.0 mmol/L 3.7 - 5.1 mmol/L [facility] Protein [Mass/Vol] 6.9 g/dL 6.3 - 8.0 g/dL [facility] Sodium [Moles/Vol] 136 mmol/L 136 - 144 mmol/L [facility] Urea nitrogen [Mass/Vol] 9 mg/dL 7 - 21 mg/dL [facility] URINE OB DIP B/Oon 2 Glucose Ql (U) Negative Neg mg/dL [facility] Protein.monoclonal (U) [Mass/Vol] Negative Neg mg/dL [facility] Culture, urineOrdered By: Dr Carmina Bajwa on 01-25-2022 Bacteria identified Cx Nom (U) Positive [facility] Absolute lymphocyte countOrd ered By: Dr. Bajwa on 01-24-2022 Lymphocytes Auto (Unsp spec) [#/Vol] 1.17 10*3/uL 0.83-4.51 [facility] Basophil percentageOrdered B y: Dr. Bajwa on 01-24-2022 Basophil percentage 5-10 SEEN /hpf 0-5 [facility] Basophils/100 WBC (Bld) 0.2 % 0-1 [facility] Bilirubin [Mass/Vol] 0.50 mg/dL 0.20-1.00 [facility] Comment on above: For patients on eltr ombopag therapy, use of [facility] TBIL is not recommended. Chloride [Moles/Vol] 108 mmol/L 98-107 [facility] Eosinophils/100 WBC (Bld) 0.5 % 0-3 [facility] Glucose [Mass/Vol] 85 mg/dL 74-106 [facility] Neutrophils (Bld) [#/Vol] 9.3 10*3/uL 2.0-7.7 [facility] Neutrophils/100 WBC (Bld) 84.5 % 34-64 [facility] Potassium [Moles/Vol] 3.9 mmol/L 3.5-5.1 [facility] Protein [Mass/Vol] 6.8 g/dL 6.4-8.2 [facility] Sodium [Moles/Vol] 139 mmol/L 136-145 [facility] WBC (Bld) [#/Vol] 11.0 10*3/uL 4.5-13.0 [facility] Bilirubin Test strip Ql (U)O rdered By: Dr. Bajwa on 01-24-2022 Bilirubin Ql (U) Negative Negative [facility] Blood erythrocytes count (nu mber/volume)Ordered By: Dr. Bajwa on 01-24-2022 RBC (Bld) [#/Vol] 4.01 10*6/uL 4.1-4.8 [facility] Blood hemoglobin measurement (mass/volume)Ordered By: Dr. Bajwa on 01-24-2022 Hemoglobin (Bld) [Mass/Vol] 12.5 g/dL 12.0-15.0 [facility] Blood lymphocytes/100 leukoc ytesOrdered By: Dr. Bajwa on 01-24-2022 Lymphocytes/100 WBC (Bld) 10.6 % 25-45 [facility] Blood monocytes/100 leukocyt esOrdered By: Dr. Bajwa on 01-24-2022 Monocytes/100 WBC (Bld) 3.8 % 3-6 [facility] Blood platelet mean volumeOr dered By: Dr. Bajwa on 01-24-2022 Platelet mean volume (Bld) [Entitic vol] 10.7 fL 6.2-12.0 [facility] Determination of erythrocyte mean corpuscular volume (MCV)Ordered By: Dr. Bajwa on 01-24-2022 MCV (RBC) [Entitic vol] 87.3 fL 78-96 [facility] Hematocrit Auto (Bld) [Volum e fraction]Ordered By: Dr. Bajwa on 01-24-2022 Hematocrit (Bld) [Volume fraction] 35.0 % 37-46 [facility] Ketones Test strip Ql (U)Ord ered By: Dr. Bajwa on 01-24-2022 Ketones Ql (U) 5 mg/dl Negative [facility] - Chemistry and C hemistry - challengeOrdered By: Dr. Bajwa on 01-24-2022 ALP [Catalytic activity/Vol] 74 U/L 47-119 [facility] ALT [Catalytic activity/Vol] 24 U/L 13-56 [facility] CO2 [Moles/Vol] 24.0 mmol/L 21.0-32.0 [facility] Globulin (S) [Mass/Vol] 3.6 g/dL 2.2-4.2 [facility] Urea nitrogen/Creatinine [Mass ratio] 20.1 mg/mg 10-20 [facility] - Hematology and Cell countsOrdered By: Dr. Bajwa on 01-24-2022 Erythrocyte distribution width (RBC) [Entitic vol] 39.3 fL 35.1-43.9 [facility] Erythrocyte distribution width (RBC) [Ratio] 12.4 % 11.6-14.6 [facility] Immature granulocytes/100 WBC (Bld) 0.400 % 0.0-0.9 [facility] Comment on above: IG% - Immature Granu locytes (promyelocytes, myelocytes and metamyelocytes) > 1% indicates that a LEFT SHIFT is Present. MCH (RBC) [Entitic mass] 31.2 pg 25.0-35.0 [facility] Nucleated RBC/100 WBC (Bld) [Ratio] 0 % 0-5 [facility] MCHC Auto (RBC) [Mass/Vol]Or dered By: Dr. Bajwa on 01-24-2022 MCHC (RBC) [Mass/Vol] 35.7 g/dL 32-36 [facility] Mucus LM Ql (Urine sed)Order ed By: Dr. Bajwa on 01-24-2022 Mucus Ql (Urine sed) 0 SEEN /hpf [facility] Nitrite Test strip Ql (U)Ord ered By: Dr. Bajwa on 01-24-2022 Nitrite Ql (U) Negative Negative [facility] No Panel InformationOrdered By: Dr. Bajwa on 01-24-2022 Estimated Creatinine Clearance Calc 175.07 ml/min [facility] Estimated GFR (MDRD) Amer 234 mL/min >60 [facility] Comment on above: GFR Calc Estimated GFR (MDRD) Non-Af Amer 194 mL/min >60 [facility] Comment on above: Non- GFR Calc Platelets bldOrdered By: Dr. Bajwa on 01-24-2022 Platelets (Bld) [#/Vol] 245 10*3/uL 150-450 [facility] Protein Test strip Ql (U)Ord ered By: Dr. Bajwa on 01-24-2022 Protein Ql (U) 15 mg/dl Negative [facility] Serum or plasma albumin black urement (mass/volume)Ordered By: Dr. Bajwa on 01-24-2022 Albumin [Mass/Vol] 3.2 g/dL 3.2-5.0 [facility] Serum or plasma albumin/glob ulin mass ratioOrdered By: Dr. Bajwa on 01-24-2022 Albumin/Globulin [Mass ratio] 0.9 {ratio} 0.9-2.4 [facility] Serum or plasma calcium black urement (mass/volume)Ordered By: Dr. Bajwa on 01-24-2022 Calcium [Mass/Vol] 9.0 mg/dL 8.5-10.1 [facility] Serum or plasma choriogonado tropin detectionOrdered By: Dr. Bajwa on 01-24-2022 HCG ( test) [place]l [address] mIU/mL <4 [facility] Comment on above: hCG levels with Gest ational AgeGestational Age hCG mIU/mL (IU/L)0.2 - 1 week 5 - 501-2 weeks 50 - 5002-3 weeks 100 - 03370-9 weeks 500 - 141958-2 weeks 1000 - 279522-5 weeks 18936 - 100,0006-8 weeks 11080 - 200,0002-3 months 76232 - 100,000 Serum or plasma creatinine m easurement (mass/volume)Ordered By: Dr. Bajwa on 01-24-2022 Creatinine [Mass/Vol] 0.45 mg/dL 0.55-1.02 [facility] Comment on above: The validity of the calculated GFR & GFRAA in patients over 70 years has not been determined. Clinical correlation is essential. Serum or plasma urea nitroge n measurement (mass/volume)Ordered By: Dr. Bajwa on 01-24-2022 Urea nitrogen [Mass/Vol] 9 mg/dL 7-18 [facility] Squamous epithelial cells de tection in urine sediment by light microscopyOrdered By: Dr. Bajwa on 01-24-2022 Epithelial cells.squamous LM Ql (Urine sed) 5-10 SEEN /hpf 5-10 [facility] Thin prep Papanicolaou smear with manual screeningOrdered By: Dr. Bajwa on 01-24-2022 Thin prep Papanicolaou smear with manual screening 15 U/L 15-37 [facility] Thin prep Papanicolaou smear with manual screening 7 5-15 [facility] Urine blood detectionOrdered By: Dr. Bajwa on 01-24-2022 RBC Ql (U) 10 /ul Negative [facility] RBC Ql (U) 0 SEEN /hpf 0-5 [facility] Urine clarityOrdered By: Dr. Bajwa on 01-24-2022 Clarity (U) Sl. Cloudy Clear [facility] Urine color determinationOrd ered By: Dr. Bajwa on 01-24-2022 Color (U) Yellow Yellow [facility] Urine glucose detectionOrder ed By: Dr. Bajwa on 01-24-2022 Glucose Ql (U) Normal mg/dl Normal [facility] Urine leukocyte esterase det ection by dipstickOrdered By: Dr. Bajwa on 01-24-2022 Leukocyte esterase Test strip Ql (U) 100 /ul Negative [facility] Urine pHOrdered By: Dr. Britt reece on 01-24-2022 pH (U) 7.0 [pH] 5.0 - 8.0 [facility] Urine sediment bacteria coun t by microscopy (number/high power field)Ordered By: Dr. Bajwa on 01-24-2022 Bacteria LM.HPF (Urine sed) [#/Area] 1 /[HPF] None Seen [facility] Urine specific gravity measu rementOrdered By: Dr. Bajwa on 01-24-2022 Specific gravity (U) [Rel density] 1.015 1.002-1.030 [facility] Urobilinogen Auto test strip Ql (U)Ordered By: Dr. Bajwa on 01-24-2022 Urobilinogen Ql (U) Normal mg/dl Normal [facility] Absolute lymphocyte countOrd ered By: Dr. Germain on 01-01-2022 Lymphocytes Auto (Unsp spec) [#/Vol] 1.33 10*3/uL 0.83-4.51 [facility] Basophil percentageOrdered B y: Dr. Germain on 01-01-2022 Basophils/100 WBC (Bld) 0.3 % 0-1 [facility] Chloride [Moles/Vol] 107 mmol/L 98-107 [facility] Eosinophils/100 WBC (Bld) 1.1 % 0-3 [facility] Glucose [Mass/Vol] 99 mg/dL 74-106 [facility] Neutrophils (Bld) [#/Vol] 8.3 10*3/uL 2.0-7.7 [facility] Neutrophils/100 WBC (Bld) 80.1 % 34-64 [facility] Potassium [Moles/Vol] 3.3 mmol/L 3.5-5.1 [facility] Sodium [Moles/Vol] 137 mmol/L 136-145 [facility] WBC (Bld) [#/Vol] 10.3 10*3/uL 4.5-13.0 [facility] Basophil percentage 10-25 SEEN /hpf 0-5 [facility] Bilirubin Test strip Ql (U)O rdered By: Dr. Germain on 01-01-2022 Bilirubin Ql (U) Negative Negative [facility] Blood erythrocytes count (nu mber/volume)Ordered By: Dr. Germain on 01-01-2022 RBC (Bld) [#/Vol] 4.03 10*6/uL 4.1-4.8 [facility] Blood hemoglobin measurement (mass/volume)Ordered By: Dr. Germain on 01-01-2022 Hemoglobin (Bld) [Mass/Vol] 12.4 g/dL 12.0-15.0 [facility] Blood lymphocytes/100 leukoc ytesOrdered By: Dr. Germain on 01-01-2022 Lymphocytes/100 WBC (Bld) 12.9 % 25-45 [facility] Blood monocytes/100 leukocyt esOrdered By: Dr. Germain on 01-01-2022 Monocytes/100 WBC (Bld) 5.1 % 3-6 [facility] Blood platelet mean volumeOr dered By: Dr. Germain on 01-01-2022 Platelet mean volume (Bld) [Entitic vol] 11.3 fL 6.2-12.0 [facility] Determination of erythrocyte mean corpuscular volume (MCV)Ordered By: Dr. Germain on 01-01-2022 MCV (RBC) [Entitic vol] 86.1 fL 78-96 [facility] Hematocrit Auto (Bld) [Volum e fraction]Ordered By: Dr. Germain on 01-01-2022 Hematocrit (Bld) [Volume fraction] 34.7 % 37-46 [facility] Ketones Test strip Ql (U)Ord ered By: Dr. Germain on 01-01-2022 Ketones Ql (U) Negative Negative [facility] - Chemistry and C hemistry - challengeOrdered By: Dr. Germain on 01-01-2022 CO2 [Moles/Vol] 22.0 mmol/L 21.0-32.0 [facility] Urea nitrogen/Creatinine [Mass ratio] 15.6 mg/mg 10-20 [facility] - Hematology and Cell countsOrdered By: Dr. Germain on 01-01-2022 Erythrocyte distribution width (RBC) [Entitic vol] 37.9 fL 35.1-43.9 [facility] Erythrocyte distribution width (RBC) [Ratio] 12.0 % 11.6-14.6 [facility] Immature granulocytes/100 WBC (Bld) 0.500 % 0.0-0.9 [facility] Comment on above: IG% - Immature Granu locytes (promyelocytes, myelocytes and metamyelocytes) > 1% indicates that a LEFT SHIFT is Present. MCH (RBC) [Entitic mass] 30.8 pg 25.0-35.0 [facility] Nucleated RBC/100 WBC (Bld) [Ratio] 0 % 0-5 [facility] MCHC Auto (RBC) [Mass/Vol]Or dered By: Dr. Germain on 01-01-2022 MCHC (RBC) [Mass/Vol] 35.7 g/dL 32-36 [facility] Mucus LM Ql (Urine sed)Order ed By: Dr. Germain on 01-01-2022 Mucus Ql (Urine sed) 1+ /hpf [facility] Nitrite Test strip Ql (U)Ord ered By: Dr. Germain on 01-01-2022 Nitrite Ql (U) Negative Negative [facility] No Panel InformationOrdered By: Dr. Germain on 01-01-2022 Estimated Creatinine Clearance Calc 154.48 ml/min [facility] Estimated GFR (MDRD) Amer 200 mL/min >60 [facility] Comment on above: GFR Calc Estimated GFR (MDRD) Non-Af Amer 165 mL/min >60 [facility] Comment on above: Non- GFR Calc Platelets bldOrdered By: Dr. Germain on 01-01-2022 Platelets (Bld) [#/Vol] 228 10*3/uL 150-450 [facility] Protein Test strip Ql (U)Ord ered By: Dr. Germain on 01-01-2022 Protein Ql (U) 30 mg/dl Negative [facility] Serum or plasma calcium black urement (mass/volume)Ordered By: Dr. Germain on 01-01-2022 Calcium [Mass/Vol] 9.0 mg/dL 8.5-10.1 [facility] Serum or plasma creatinine m easurement (mass/volume)Ordered By: Dr. Germain on 01-01-2022 Creatinine [Mass/Vol] 0.51 mg/dL 0.55-1.02 [facility] Comment on above: The validity of the calculated GFR & GFRAA in patients over 70 years has not been determined. Clinical correlation is essential. Serum or plasma urea nitroge n measurement (mass/volume)Ordered By: Dr. Germain on 01-01-2022 Urea nitrogen [Mass/Vol] 8 mg/dL 7-18 [facility] Squamous epithelial cells de tection in urine sediment by light microscopyOrdered By: Dr. Germain on 01-01-2022 Epithelial cells.squamous LM Ql (Urine sed) 5-10 SEEN /hpf 5-10 [facility] Thin prep Papanicolaou smear with manual screeningOrdered By: Dr. Germain on 01-01-2022 Thin prep Papanicolaou smear with manual screening 8 5-15 [facility] Urine blood detectionOrdered By: Dr. Germain on 01-01-2022 RBC Ql (U) 25 /ul Negative [facility] RBC Ql (U) 0-5 SEEN /hpf 0-5 [facility] Urine clarityOrdered By: Dr. Germain on 01-01-2022 Clarity (U) Sl. Cloudy Clear [facility] Urine color determinationOrd ered By: Dr. Germain on 01-01-2022 Color (U) Yellow Yellow [facility] Urine glucose detectionOrder ed By: Dr. Germain on 01-01-2022 Glucose Ql (U) 50 mg/dl Normal [facility] Urine leukocyte esterase det ection by dipstickOrdered By: Dr. Germain on 01-01-2022 Leukocyte esterase Test strip Ql (U) 100 /ul Negative [facility] Urine pHOrdered By: Dr. Jace gardner on 01-01-2022 pH (U) 5.0 [pH] 5.0 - 8.0 [facility] Urine sediment bacteria coun t by microscopy (number/high power field)Ordered By: Dr. Germain on 01-01-2022 Bacteria LM.HPF (Urine sed) [#/Area] 2 /[HPF] None Seen [facility] Urine specific gravity measu rementOrdered By: Dr. Germain on 01-01-2022 Specific gravity (U) [Rel density] 1.025 1.002-1.030 [facility] Urobilinogen Auto test strip Ql (U)Ordered By: Dr. Germain on 01-01-2022 Urobilinogen Ql (U) Normal mg/dl Normal [facility] NUCHAL TRANSLUCENCY WHIon [facility] URINE OB DIP B/Oon 2 Glucose Ql (U) Negative Neg mg/dL [facility] Protein.monoclonal (U) [Mass/Vol] Negative Neg mg/dL [facility] URINE OB DIP B/Oon 2 Glucose Ql (U) Negative Neg mg/dL [facility] Protein.monoclonal (U) [Mass/Vol] Negative Neg mg/dL [facility] Absolute lymphocyte counton 11-06-2021 Lymphocytes Auto (Unsp spec) [#/Vol] 2.48 10*3/uL 0.83-4.51 [facility] Work Phone: Basophil percentageon 2021 Basophil percentage 25-50 SEEN /hpf 0-5 [facility] Work Phone: Basophils/100 WBC (Bld) 0.2 % 0-1 [facility] Work Phone: Bilirubin [Mass/Vol] 0.80 mg/dL 0.20-1.00 [facility] Work Phone: Comment on above: For patients on eltr ombopag therapy, use of [facility] TBIL is not recommended. Chloride [Moles/Vol] 107 mmol/L 98-107 [facility] Work Phone: Eosinophils/100 WBC (Bld) 0.7 % 0-3 [facility] Work Phone: Glucose [Mass/Vol] 87 mg/dL 74-106 [facility] Work Phone: Neutrophils (Bld) [#/Vol] 8.9 10*3/uL 2.0-7.7 [facility] Work Phone: Neutrophils/100 WBC (Bld) 72.1 % 34-64 [facility] Work Phone: Potassium [Moles/Vol] 3.8 mmol/L 3.5-5.1 [facility] Work Phone: Protein [Mass/Vol] 7.9 g/dL 6.4-8.2 [facility] Work Phone: Sodium [Moles/Vol] 141 mmol/L 136-145 [facility] Work Phone: WBC (Bld) [#/Vol] 12.3 10*3/uL 4.5-13.0 [facility] Work Phone: Bilirubin Test strip Ql (U)o n 11-06-2021 Bilirubin Ql (U) Negative Negative [facility] Work Phone: [phone] Blood erythrocytes count (nu mber/volume)on 11-06-2021 RBC (Bld) [#/Vol] 4.65 10*6/uL 4.1-4.8 [facility] Work Phone: [phone] Blood hemoglobin measurement (mass/volume)on 11-06-2021 Hemoglobin (Bld) [Mass/Vol] 14.0 g/dL 12.0-15.0 [facility] Work Phone: Blood lymphocytes/100 leukoc yteson 11-06-2021 Lymphocytes/100 WBC (Bld) 20.1 % 25-45 [facility] Work Phone: Blood monocytes/100 leukocyt eson 11-06-2021 Monocytes/100 WBC (Bld) 6.5 % 3-6 [facility] Work Phone: Blood platelet mean volumeon 11-06-2021 Platelet mean volume (Bld) [Entitic vol] 11.0 fL 6.2-12.0 [facility] Work Phone: [phone] Determination of erythrocyte mean corpuscular volume (MCV)on 11-06-2021 MCV (RBC) [Entitic vol] 85.8 fL 78-96 [facility] Work Phone: [phone] Hematocrit Auto (Bld) [Volum e fraction]on 11-06-2021 Hematocrit (Bld) [Volume fraction] 39.9 % 37-46 [facility] Work Phone: [phone] Ketones Test strip Ql (U)on 11-06-2021 Ketones Ql (U) 50 mg/dl Negative [facility] Work Phone: [phone] Laboratory - Chemistry and C hemistry - challengeon 11-06-2021 ALP [Catalytic activity/Vol] 97 U/L 47-119 [facility] Work Phone: [phone] ALT [Catalytic activity/Vol] 25 U/L 13-56 [facility] Work Phone: [phone] CO2 [Moles/Vol] 24.0 mmol/L 21.0-32.0 [facility] Work Phone: [phone] Globulin (S) [Mass/Vol] 3.9 g/dL 2.2-4.2 [facility] Work Phone: [phone] Urea nitrogen/Creatinine [Mass ratio] 13.5 mg/mg 10-20 [facility] Work Phone: [phone] Laboratory - Hematology and Cell countson 11-06-2021 Erythrocyte distribution width (RBC) [Entitic vol] 36.4 fL 35.1-43.9 [facility] Work Phone: [phone] Erythrocyte distribution width (RBC) [Ratio] 11.7 % 11.6-14.6 [facility] Work Phone: [phone] Immature granulocytes/100 WBC (Bld) 0.400 % 0.0-0.9 [facility] Work Phone: [phone] Comment on above: IG% - Immature Granu locytes (promyelocytes, myelocytes and metamyelocytes) > 1% indicates that a LEFT SHIFT is Present. MCH (RBC) [Entitic mass] 30.1 pg 25.0-35.0 [facility] Work Phone: [phone] Nucleated RBC/100 WBC (Bld) [Ratio] 0 % 0-5 [facility] Work Phone: [phone] MCHC Auto (RBC) [Mass/Vol]on 11-06-2021 MCHC (RBC) [Mass/Vol] 35.1 g/dL 32-36 [facility] Work Phone: [phone] Mucus LM Ql (Urine sed)on Mucus Ql (Urine sed) 0 SEEN /hpf [facility] Work Phone: [phone] Nitrite Test strip Ql (U)on 11-06-2021 Nitrite Ql (U) Negative Negative [facility] Work Phone: [phone] Panel Informationon 11-06 Estimated Creatinine Clearance Calc 157.88 ml/min [facility] Work Phone: [phone] Estimated GFR (MDRD) Amer 197 mL/min >60 [facility] Work Phone: [phone] Comment on above: GFR Calc Estimated GFR (MDRD) Non-Af Amer 163 mL/min >60 [facility] Work Phone: [phone] Comment on above: Non- GFR Calc Platelets bldon 11-06-2021 Platelets (Bld) [#/Vol] 307 10*3/uL 150-450 [facility] Work Phone: [phone] Protein Test strip Ql (U)on 11-06-2021 Protein Ql (U) 15 mg/dl Negative [facility] Work Phone: [phone] Serum or plasma albumin black urement (mass/volume)on 11-06-2021 Albumin [Mass/Vol] 4.0 g/dL 3.2-5.0 [facility] Work Phone: [phone] Serum or plasma albumin/glob ulin mass ratioon 11-06-2021 Albumin/Globulin [Mass ratio] 1.0 {ratio} 0.9-2.4 [facility] Work Phone: Serum or plasma calcium black urement (mass/volume)on 11-06-2021 Calcium [Mass/Vol] 9.5 mg/dL 8.5-10.1 [facility] Work Phone: Serum or plasma creatinine m easurement (mass/volume)on 11-06-2021 Creatinine [Mass/Vol] 0.52 mg/dL 0.55-1.02 [facility] Work Phone: Comment on above: The validity of the calculated GFR & GFRAA in patients over 70 years has not been determined. Clinical correlation is essential. Serum or plasma urea nitroge n measurement (mass/volume)on 11-06-2021 Urea nitrogen [Mass/Vol] 7 mg/dL 7-18 [facility] Work Phone: Squamous epithelial cells de tection in urine sediment by light microscopyon 11-06-2021 Epithelial cells.squamous LM Ql (Urine sed) 10-25 SEEN /hpf 5-10 [facility] Work Phone: Thin prep Papanicolaou smear with manual screeningon 11-06-2021 Thin prep Papanicolaou smear with manual screening 17 U/L 15-37 [facility] Work Phone: Thin prep Papanicolaou smear with manual screening 10 5-15 [facility] Work Phone: Urine blood detectionon 10-13 RBC Ql (U) 25 /ul Negative [facility] Work Phone: RBC Ql (U) 0-5 SEEN /hpf 0-5 [facility] Work Phone: Urine clarityon 11-06-2021 Clarity (U) Sl. Cloudy Clear [facility] Work Phone: Urine color determinationon 11-06-2021 Color (U) Yellow Yellow [facility] Work Phone: Urine glucose detectionon Glucose Ql (U) Normal mg/dl Normal [facility] Work Phone: Urine leukocyte esterase det ection by dipstickon 11-06-2021 Leukocyte esterase Test strip Ql (U) 500 /ul Negative [facility] Work Phone: Urine pHon 11-06-2021 pH (U) 6.5 [pH] 5.0 - 8.0 [facility] Work Phone: [phone] Urine sediment bacteria coun t by microscopy (number/high power field)on 11-06-2021 Bacteria LM.HPF (Urine sed) [#/Area] 2 /[HPF] None Seen [facility] Work Phone: Urine specific gravity measu rementon 11-06-2021 Specific gravity (U) [Rel density] 1.020 1.002-1.030 [facility] Work Phone: Urobilinogen Auto test strip Ql (U)on 11-06-2021 Urobilinogen Ql (U) 1 mg/dl Normal [facility] Work Phone: TSH with reflex T4FRon 01-23 TSH with reflex T4FR 0.726 uIU/mL Normal 0.350-5.500 [facility] Comment on above: Order Comment: With differential.Is this specimen being sent to an external lab?->NoRelease to patient->[id number]&Blood^\S\^Vein&Vein Performed By: #### T SHR ####[address] [phone] C-Reactive Proteinon 021 C-Reactive Protein 0.5 mg/dL Normal 0.0-1.0 [facility] Comment on above: Order Comment: With differential.Is this specimen being sent to an external lab?->NoRelease to patient->[id number]&Blood^\S\^Vein&Vein Result Comment: CRP determinations in neonates should be interpreted with caution. CRP may be elevated in circumstances not associated with inflammation (e.g. difficult delivery, pneumothorax). In premature neonates CRP levels may not rise to abnormal levels even if sepsis is present; some speculate that immature liver function decreases the ability to generate a CRP response. Performed By: #### C RP ####[address] [phone] Comp Metabolic Panelon 01-20 Potassium [Moles/Vol] 5.2 mmol/L High 3.3-5.1 [facility] Comment on above: Order Comment: With differential.Is this specimen being sent to an external lab?->NoRelease to patient->[id number]&Blood^\S\^Vein&Vein Result Comment: No v isible hemolysis. Performed By: #### C MP ####[address] [phone] Albumin [Mass/Vol] 4.7 g/dL High 3.2-4.5 [facility] Comment on above: Order Comment: With differential.Is this specimen being sent to an external lab?->NoRelease to patient->[id number]&Blood^\S\^Vein&Vein Performed By: #### C MP ####[address] [phone] ALP [Catalytic activity/Vol] 94 U/L High 43-83 [facility] Comment on above: Order Comment: With differential.Is this specimen being sent to an external lab?->NoRelease to patient->[id number]&Blood^\S\^Vein&Vein Performed By: #### C MP ####[address] [phone] ALT [Catalytic activity/Vol] 20 U/L Normal 0-31 [facility] Comment on above: Order Comment: With differential.Is this specimen being sent to an external lab?->NoRelease to patient->[id number]&Blood^\S\^Vein&Vein Performed By: #### C MP ####[address] [phone] AST [Catalytic activity/Vol] 20 U/L Normal 0-31 [facility] Comment on above: Order Comment: With differential.Is this specimen being sent to an external lab?->NoRelease to patient->[id number]&Blood^\S\^Vein&Vein Performed By: #### C MP ####[address] [phone] Bili,Total 1.2 mg/dl High 0.0-1.0 [facility] Comment on above: Order Comment: With differential.Is this specimen being sent to an external lab?->NoRelease to patient->[id number]&Blood^\S\^Vein&Vein Performed By: #### C MP ####[address] [phone] Calcium [Mass/Vol] 9.6 mg/dL Normal 7.6-11.0 [facility] Comment on above: Order Comment: With differential.Is this specimen being sent to an external lab?->NoRelease to patient->[id number]&Blood^\S\^Vein&Vein Performed By: #### C MP ####[address] [phone] Chloride [Moles/Vol] 105 mmol/L Normal 96-108 [facility] Comment on above: Order Comment: With differential.Is this specimen being sent to an external lab?->NoRelease to patient->[id number]&Blood^\S\^Vein&Vein Performed By: #### C MP ####[address] [phone] CO2 [Moles/Vol] 22.9 mmol/L Normal 22.0-29.0 [facility] Comment on above: Order Comment: With differential.Is this specimen being sent to an external lab?->NoRelease to patient->[id number]&Blood^\S\^Vein&Vein Performed By: #### C MP ####[address] [phone] Creatinine [Mass/Vol] 0.63 mg/dL Normal 0.50-1.00 [facility] Comment on above: Order Comment: With differential.Is this specimen being sent to an external lab?->NoRelease to patient->[id number]&Blood^\S\^Vein&Vein Result Comment: Premature 0.3-1.0 mg/dL Performed By: #### C MP ####[address] [phone] Glucose [Mass/Vol] 83 mg/dL Normal 70-99 [facility] Comment on above: Order Comment: With differential.Is this specimen being sent to an external lab?->NoRelease to patient->[id number]&Blood^\S\^Vein&Vein Result Comment: Criteria for Diagnosis of Diabetes(Effective 07/17/10): Fasting specimen (no caloric intake for at least 8 hours). <100 mg/dl Normal 100-125 mg/dl Increased Risk for Diabetes >125 mg/dl Diagnostic for Diabetes Random Glucose (any time of day without regard to last meal). >=200 mg/dl plus Classic Symptoms of Diabetes Performed By: #### C MP ####[address] [phone] Protein [Mass/Vol] 8.0 g/dL Normal 6.0-8.0 [facility] Comment on above: Order Comment: With differential.Is this specimen being sent to an external lab?->NoRelease to patient->[id number]&Blood^\S\^Vein&Vein Performed By: #### C MP ####[address] [phone] Sodium [Moles/Vol] 138 mmol/L Normal 133-145 [facility] Comment on above: Order Comment: With differential.Is this specimen being sent to an external lab?->NoRelease to patient->[id number]&Blood^\S\^Vein&Vein Performed By: #### C MP ####[address] [phone] Urea nitrogen [Mass/Vol] 13 mg/dL Normal 4-19 [facility] Comment on above: Order Comment: With differential.Is this specimen being sent to an external lab?->NoRelease to patient->[id number]&Blood^\S\^Vein&Vein Performed By: #### C MP ####[address] [phone] Complete Blood Counton 01-20 Differential Complete Automated Normal [facility] Comment on above: Order Comment: With differential.Is this specimen being sent to an external lab?->NoRelease to patient->[id number]&Blood^\S\^Vein&Vein Performed By: #### C BC ####[address] [phone] Basophils/100 WBC (Bld) 0.70 % Normal 0.00-1.00 [facility] Comment on above: Order Comment: With differential.Is this specimen being sent to an external lab?->NoRelease to patient->[id number]&Blood^\S\^Vein&Vein Performed By: #### C BC ####[address] [phone] Eosinophils/100 WBC (Bld) 2.10 % Normal 0.00-3.00 [facility] Comment on above: Order Comment: With differential.Is this specimen being sent to an external lab?->NoRelease to patient->[id number]&Blood^\S\^Vein&Vein Performed By: #### C BC ####[address] [phone] Erythrocyte distribution width (RBC) [Ratio] 11.7 % Normal 0.0-14.4 [facility] Comment on above: Order Comment: With differential.Is this specimen being sent to an external lab?->NoRelease to patient->[id number]&Blood^\S\^Vein&Vein Performed By: #### C BC ####[address] [phone] Hematocrit (Bld) [Volume fraction] 43.2 % Normal 37.0-46.0 [facility] Comment on above: Order Comment: With differential.Is this specimen being sent to an external lab?->NoRelease to patient->[id number]&Blood^\S\^Vein&Vein Performed By: #### C BC ####[address] [phone] Hemoglobin (Bld) [Mass/Vol]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 10:12-0500 Body height 162.56 cm [facility] Work Phone: 01-24-2022 10:12-0500 Body mass index (BMI) [Percentile] Per age and sex 91.9 % [facility] 01-24-2022 10:12-0500 Body mass index (BMI) [Ratio] 28.3 kg/m2 [facility] 01-24-2022 10:12-0500 Body temperature 97.7 [degF] [facility] 01-24-2022 10:12-0500 Body weight 74.93 kg [facility] 01-01-2022 12:23-0500 Body temperature 97.8 [degF] [facility] 01-01-2022 12:23-0500 Diastolic blood pressure 78 mm[Hg] [facility] 01-01-2022 12:23-0500 Heart rate 66 /min [facility] 01-01-2022 12:23-0500 Respiratory rate 16 /min [facility] 01-01-2022 12:23-0500 SaO2% (BldA) [Mass fraction] 99 % [facility] 01-01-2022 12:23-0500 Systolic blood pressure 134 mm[Hg] [facility] 01-01-2022 08:38-0500 Body height 162.56 cm [facility] Work Phone: 01-01-2022 08:38-0500 Body mass index (BMI) [Percentile] Per age and sex 92.3 % [facility] 01-01-2022 08:38-0500 Body mass index (BMI) [Ratio] 28.5 kg/m2 [facility] 01-01-2022 08:38-0500 Body weight 75.4 kg [facility] 12-18-2021 13:55-0500 Body weight 74.93 kg Cindy Wallace MD Work Phone: [facility] 12-18-2021 13:55-0500 Diastolic blood pressure 66 mm[Hg] Cindy Wallace MD Work Phone: [facility] 12-18-2021 13:55-0500 Systolic blood pressure 100 mm[Hg] Cindy Wallace MD Work Phone: [facility] 12-05-2021 10:34-0400 Body weight 75.75 kg Melany Sellers MD Work Phone: [facility] 12-05-2021 10:34-0400 Diastolic blood pressure 64 mm[Hg] Melany Sellers MD Work Phone: [facility] 12-05-2021 10:34-0400 Systolic blood pressure 96 mm[Hg] Melany Sellers MD Work Phone: [facility] 11-07-2021 13:08-0400 Body height 165.1 cm Rehana Jaffe APRN.CNM Work Phone: [facility] 11-07-2021 13:08-0400 Body mass index (BMI) [Percentile] Per age and sex 92.93 % Rehana Jaffe [employer]CNM Work Phone: [facility] 11-07-2021 13:08-0400 Body weight 78.47 kg Rehana Jaffe [employer]CNM Work Phone: [facility] 11-07-2021 13:08-0400 Diastolic blood pressure 70 mm[Hg] Rehana Jaffe [employer]CNM Work Phone: [facility] 11-07-2021 13:08-0400 Systolic blood pressure 100 mm[Hg] Rehana Jaffe [employer]CNM Work Phone: [facility] 11-06-2021 22:11-0400 Body mass index (BMI) [Percentile] Per age and sex 93.4 % [facility] Work Phone: 11-06-2021 22:11-0400 Body mass index (BMI) [Ratio] 29.1 kg/m2 [facility] Work Phone: 11-06-2021 22:11-0400 Body temperature 97.9 [degF] [facility] Work Phone: 11-06-2021 22:11-0400 Body weight 79.37 kg [facility] Work Phone: 11-06-2021 22:11-0400 Diastolic blood pressure 62 mm[Hg] [facility] Work Phone: 11-06-2021 22:11-0400 Heart rate 74 /min [facility] Work Phone: 11-06-2021 22:11-0400 Respiratory rate 18 /min [facility] Work Phone: 11-06-2021 22:11-0400 SaO2% (BldA) [Mass fraction] 100 % [facility] Work Phone: 11-06-2021 22:11-0400 Systolic blood pressure 121 mm[Hg] [facility] Work Phone: 09-14-2021 16:16-0400 Body weight 80.29 kg Beatrice [place] [employer] Work Phone: [facility] 09-14-2021 16:16-0400 Diastolic blood pressure 58 mm[Hg] Beatrice [place] [employer] Work Phone: [facility] 09-14-2021 16:16-0400 Systolic blood pressure 110 mm[Hg] Beatrice Luc[place] [employer] Work Phone: [facility] 05-29-2021 12:55-0400 Body height 163.8 cm Karolina Phillips [employer] RESEARCH SCIENTIST Work Phone: [facility] 05-29-2021 12:55-0400 Body mass index (BMI) [Percentile] Per age and sex 93.98 % Karolina Phillips [employer] RESEARCH SCIENTIST Work Phone: [facility] 05-29-2021 12:55-0400 Body mass index (BMI) [Ratio] 29.24 kg/m2 Karolina [place] B[employer]ELS RESEARCH SCIENTIST Work Phone: [facility] 05-29-2021 12:55-0400 Body temperature 97.39 [degF] [facility] [employer]EARCH SCIENTIST Work Phone: [facility] 05-29-2021 12:55-0400 Body weight 78.47 kg Karolina Phillips B[employer] RESEARCH SCIENTIST Work Phone: [facility] 05-29-2021 12:55-0400 Diastolic blood pressure 64 mm[Hg] [facility] [employer]EARCH SCIENTIST Work Phone: [facility] 05-29-2021 12:55-0400 Heart rate 89 /min [facility] [employer]EARCH SCIENTIST Work Phone: [facility] 05-29-2021 12:55-0400 Respiratory rate 16 /min [facility] [employer] RESEARCH SCIENTIST Work Phone: [facility] 05-29-2021 12:55-0400 SaO2% (BldA) [Mass fraction] 97 % Karolina Esther BIOFUELS RESEARCH SCIENTIST Work Phone: [facility] 05-29-2021 12:55-0400 Systolic blood pressure 98 mm[Hg] [facility] [employer] RESEARCH SCIENTIST Work Phone: [facility] 05-03-2021 18:56-0400 Body temperature 99.19 [degF] Jocelyn Acosta [employer] RESEARCH SCIENTIST Work Phone: [facility] 05-03-2021 18:56-0400 Body weight 77.56 kg Jocelyn [place]osta [employer] RESEARCH SCIENTIST Work Phone: [facility] 05-03-2021 18:56-0400 Diastolic blood pressure 72 mm[Hg] Jocelyn Acosta [employer] RESEARCH SCIENTIST Work Phone: [facility] 05-03-2021 18:56-0400 Heart rate 105 /min Jocelyn Acosta [employer] RESEARCH SCIENTIST Work Phone: [facility] 05-03-2021 18:56-0400 Respiratory rate 19 /min Jocelyn Acosta [employer].BIOF[employer]ELS RESEARCH SCIENTIST Work Phone: [facility] 05-03-2021 18:56-0400 SaO2% (BldA) [Mass fraction] 99 % Jocelyn [place]osta [employer]ELS RESEARCH SCIENTIST Work Phone: [facility] 05-03-2021 18:56-0400 Systolic blood pressure 110 mm[Hg] Jocelyn Acosta [employer]EL[employer] RESEARCH SCIENTIST Work Phone: [facility] Encounters Encounter Date Encounter Type Care Provider Facility Start: 07-14-2024 ambulatory Dhruv Richey Facility:[facility] Start: 05-27-2024 End: 05-27-2024 Patient encounter procedure Rehana Jaffe [employer]CNM Work Phone: OB/Gynecology Comment on above: Breakthrough bleedin g on Nexplanon (Primary Dx) Start: 05-27-2024 End: 05-27-2024 ambulatory REHANA JAFFE Facility:[facility] Start: 05-13-2024 End: 05-13-2024 Telephone encounter Melany Sellers MD Work Phone: OB/Gynecology Comment on above: Patient Update Start: 05-06-2024 End: 05-06-2024 ambulatory Zebulun Beam VSC Facility:[facility] Start: 04-21-2024 End: 04-21-2024 Patient encounter procedure Melany Sellers MD Work Phone: OB/Gynecology Comment on above: Breakthrough bleedin g on Nexplanon (Primary Dx); Irregular menses Start: 04-21-2024 End: 04-21-2024 ambulatory MELANY SELLERS Facility:[facility] Start: 04-02-2024 End: 04-02-2024 ambulatory [facility] Facility:[facility] Start: 03-05-2024 ambulatory [facility] Start: 03-03-2024 ambulatory Dhruv Ryderori Facility:[facility] Start: 03-03-2024 End: 03-03-2024 ambulatory [facility] Start: 02-23-2024 End: 02-23-2024 ambulatory [facility] Facility:[facility] Start: 02-13-2024 End: 02-14-2024 Telephone encounter Pollo Arias APRN.CNP Work Phone: [facility] Comment on above: Results Start: 02-12-2024 End: 02-12-2024 ambulatory DONNA WENDI Facility:[facility] Start: 02-12-2024 End: 02-12-2024 Patient encounter procedure Chanel Card PA-C Work Phone: [facility] Comment on above: Viral URI (Primary D x); Fever, unspecified fever cause; Headaches; Nasal congestion; Nausea and vomiting, unspecified vomiting type; Acute cough Start: 12-02-2023 End: 12-02-2023 ambulatory DONNA IYERMUTH Facility:[facility] Start: 12-02-2023 End: 12-02-2023 Patient encounter procedure Basia WINCHESTER Work Phone: [place] [facility] Comment on above: Viral illness (Prima ry Dx) Start: 12-03-2022 Non-patient / Non-visit No [facility] Physician [facility] Start: 12-02-2022 End: 12-03-2022 Evaluation and management of inpatient No Primary Care Physician [facility] Work Phone: Start: 12-02-2022 Non-patient / Non-visit No [facility] Physician [facility] Start: 12-01-2022 Non-patient / Non-visit No [facility] Physician [facility] Start: 11-30-2022 Non-patient / Non-visit No [facility] Physician [facility] Start: 06-25-2022 End: 06-25-2022 Patient encounter procedure Rehana Jaffe [employer]CNM Work Phone: OB/Gynecology Comment on above: care and examination (Primary Dx) Start: 06-08-2022 Telephone encounter Melany leyva MD Work Phone: [facility] Comment on above: Patient Question Start: 05-11-2022 End: 05-18-2022 Evaluation and management of inpatient [facility] Facility:[facility] Start: 05-11-2022 End: 05-11-2022 ambulatory [facility] Work Phone: Start: 05-11-2022 End: 05-11-2022 Patient encounter procedure [facility] Comment on above: Pre-eclampsia in thi rd trimester (Primary Dx); Gestational edema with proteinuria, third trimester; 32 weeks gestation of Poor growth af fecting management of mother in third trimester, single or unspecified fetus (Primary Dx); 32 weeks gestation of ; Pre-eclampsia in third trimester Start: 05-10-2022 End: 05-11-2022 [facility] Work Phone: Start: 05-10-2022 End: 05-11-2022 Patient encounter procedure [facility] Start: 05-09-2022 Telephone encounter Cheryl Allred MD Work Phone: OB/Gynecology Comment on above: Orders Start: 05-09-2022 End: 05-09-2022 ambulatory [facility] Work Phone: Start: 05-09-2022 End: 05-09-2022 Patient encounter procedure [facility] Start: 04-27-2022 End: 04-27-2022 Patient encounter procedure Rehana Jaffe APRN.CNM Work Phone: OB/Gynecology Comment on above: 32 weeks gestation o f (Primary Dx) Start: 04-13-2022 End: 04-13-2022 Patient encounter procedure Melany Sellers MD Work Phone: OB/Gynecology Comment on above: 28 weeks gestation o f (Primary Dx); Encounter for supervision of normal first in second trimester; Dysuria Start: 04-13-2022 Refill Melany Smiley Work Phone: OB/Gynecology Comment on above: Refill Request Start: 04-13-2022 Telephone encounter Rehana oviedo APRN.CNM Work Phone: OB/Gynecology Comment on above: Breast Pump Start: 04-11-2022 End: 04-11-2022 Patient encounter procedure Rehana Jaffe APRN.CNM Work Phone: OB/Gynecology Comment on above: 28 weeks gestation o f (Primary Dx); Encounter for supervision of normal first in second trimester; Need for vaccination Start: 03-17-2022 End: 03-17-2022 Emergency department patient visit [facility] Start: 03-14-2022 End: 03-14-2022 Patient encounter procedure Cheryl Allred MD Work Phone: OB/Gynecology Comment on above: Encounter for superv ision of normal first in second trimester (Primary Dx); 24 weeks gestation of Start: 02-14-2022 End: 02-14-2022 Patient encounter procedure Jocelyn Regan APRN.CNM Work Phone: OB/Gynecology Comment on above: 20 weeks gestation o f (Primary Dx); Supervision of high risk in second trimester Encounter for anatomic survey (Primary Dx); 20 weeks gestation of Start: 01-29-2022 End: 01-29-2022 Patient encounter procedure Rehana Jaffe APRN.CNM Work Phone: OB/Gynecology Comment on above: 18 weeks gestation o f (Primary Dx); Encounter for supervision of normal first in third trimester; Dizziness Start: 01-24-2022 End: 01-24-2022 [facility] Start: 01-12-2022 Telephone encounter Cindy goldberg MD Work Phone: OB/Gynecology Comment on above: Care Start: 01-01-2022 End: 01-01-2022 [facility] Start: 12-18-2021 End: 12-18-2021 Patient encounter procedure Cindy Wallace MD Work Phone: OB/Gynecology Comment on above: 12 weeks gestation o f (Primary Dx); Encounter for supervision of normal first in first trimester; Nausea and vomiting during ; Dizziness Encounter for (NT) n uchal translucency scan (Primary Dx); 12 weeks gestation of Start: 12-05-2021 End: 12-05-2021 Patient encounter procedure Melany Sellers MD Work Phone: OB/Gynecology Comment on above: Encounter for superv ision of normal first in first trimester (Primary Dx); 10 weeks gestation of Supervision of high risk in first trimester (Primary Dx) Start: 11-29-2021 Telephone encounter Cheryl Allred MD Work Phone: OB/Gynecology Comment on above: Start: 11-15-2021 Telephone encounter Rehana oviedo APRN.CNSamantha Work Phone: OB/Gynecology Comment on above: Results Start: 11-14-2021 End: 11-14-2021 Patient encounter procedure Cheryl Allred MD Work Phone: OB/Gynecology Comment on above: with uncer tain dates in first trimester (Primary Dx) Start: 11-14-2021 End: 11-14-2021 Patient encounter procedure Melany Sellers MD Work Phone: OB/Gynecology Comment on above: Nausea and vomiting during (Primary Dx) Start: 11-10-2021 Telephone encounter Rehana oviedo [employer]CNM Work Phone: Obstetrics/Gynecology Comment on above: PRAF form Start: 11-07-2021 End: 11-07-2021 Patient encounter procedure Rheana Jaffe [employer]CNM Work Phone: OB/Gynecology Comment on above: Encounter for prenat al care in first trimester of first (Primary Dx); 8 weeks gestation of ; History of nicotine vaping; Nausea and vomiting in ; with uncertain dates in first trimester Start: 11-06-2021 End: 11-07-2021 Emergency department patient visit [facility] Start: 11-02-2021 End: 11-02-2021 Nursing evaluation of patient and report Nurse Pnob [facility] Work Phone: OB/Gynecology Comment on above: Supervision of matilde alvarez first , antepartum (Primary Dx); History of nicotine vaping; Patient request for diagnostic testing Start: 11-02-2021 End: 05-11-2022 Patient requested procedure Nurse Pnob [facility] Work Phone: OB/Gynecology Start: 09-14-2021 End: 09-14-2021 Patient encounter procedure Beatrice Wolf [employer] RESEARCH SCIENTIST Work Phone: OB/Gynecology Comment on above: Nexplanon removal (P rimary Dx) Start: 05-29-2021 End: 06-02-2021 ambulatory [facility] Start: 05-29-2021 End: 05-29-2021 ambulatory [facility] Start: 05-29-2021 End: 05-29-2021 Office outpatient new 30 minutes [facility] [employer]EARCH SCIENTIST Work Phone: [facility] Primary Care Physicians Comment on above: Post-COVID syndrome (Primary Dx); Hx of viral illness; Elevated blood sugar Start: 05-03-2021 End: 05-03-2021 Patient encounter procedure Jocelyn Acosta [employer].BI[employer]ELS RESEARCH SCIENTIST Work Phone: [facility] Comment on above: Nausea vomiting and diarrhea (Primary Dx); Viral illness Procedures Date Procedure Procedure Detail Performing Clinician Start: 12-02-2022 Computed tomography of abdomen and pelvis with contrast No Primary Care Physician Start: 11-30-2022 Laparoscopic appendectomy No Primary Care Physician Start: 11-30-2022 Computed tomography of abdomen and pelvis with intravenous contrast No Primary Care Physician Start: 05-11-2022 Antibody screen [facility] Comment on above: Order Comment: Speci men Type: BLOOD SPECIMENOrdering Facility[facility] Address: [address] [place], [place] [id number] Performed By: #### T SPN ####[facility] BLOOD BANKCLIA [id number] [place] [address] [place] Start: 05-11-2022 URINE OB DIP B/O Cheryl Carlyn Allred MD Work Phone: Start: 04-27-2022 URINE OB DIP B/O Fernando Jaffe [employer]CNM Work Phone: Start: 04-13-2022 Urnls dip stick/tabl et rgnt auto w/o microscopy Rehana Jaffe [employer]CNM Work Phone: Start: 04-11-2022 URINE OB DIP B/O Fernando Jaffe [employer]CNM Work Phone: Start: 03-14-2022 URINE OB DIP B/O Cheryl Allred MD Work Phone: Start: 02-14-2022 URINE OB DIP B/O Jessic a Regan [employer]CNM Work Phone: Start: 02-14-2022 Us preg uterus after 1st trimest / gestation Rehana Jaffe [employer].CNM Work Phone: Start: 01-29-2022 URINE OB DIP B/O Fernando Jaffe [employer].JEFFM Work Phone: Start: 12-18-2021 URINE OB DIP B/O Cindy larson MD Work Phone: Start: 12-18-2021 Us nuchal patel slucency 1st gestation Rehana Jaffe [employer].CNM Work Phone: Start: 12-05-2021 URINE OB DIP B/O Melany Sellers MD Work Phone: Start: 05-29-2021 Adult depression scr eening assessment Karolina Phillips B[employer] RESEARCH SCIENTIST Work Phone: Start: 04-17-2016 Adult depression scr eening assessment Jocelyn Acosta [employer] RESEARCH SCIENTIST Work Phone: Urine culture Plan of Treatment Date Care Activity Detail Author Start: 04-12-2032 Urine microalbumin profile DTaP,Tdap,Td Vaccine (10 - Td or Tdap) [facility] Start: 04-11-2032 Urine microalbumin profile DTAP,TDAP,TD (8 - Td or Tdap) [facility] Start: 09-12-2027 Tetanus vaccination Tetanus: Every 1 0yrs [facility] Start: 09-12-2027 Vaccination for diphtheria, pertussis, and tetanus DTAP Vaccines (5 - Td or Tdap) [facility] Start: 09-17-2026 Urine microalbumin profile DTAP,TDAP,TD (7 - Td or Tdap) [facility] Start: 01-04-2025 End: 01-04-2025 Patient encounter procedure 01/04/2025 10:20 AM EST Office Visit Cardiology [address] [address] Karolina Ferreira MD [address] [place] [address] establishing care Cardiology Comment on above: establishing care Start: 10-09-2024 End: 10-09-2024 Patient encounter procedure 10/09/2024 1:20 PM EDT Office Visit OB/Gynecology [address] [place], [place] [id number] Melany Sellers MD [address] [place], [place] [id number] Annual OB/Gynecology Comment on above: Annual Start: 10-13-2023 Covid-19 Vaccine () Covid-19 Vaccine ( season) [facility] Start: 10-13-2023 Influenza vaccination Influenza Vacc ine (#1) [facility] Start: 12-05-2022 CHLAMYDIA SCREENING (18-24) CHLAMYDIA SCREENING (18-24) [facility] Start: 12-05-2022 GC (GONORRHEA) SCREE MICAELA (18-24) GC (GONORRHEA) SCREENING (18-24) [facility] Start: 12-05-2022 Screening for Chlamy ministerio trachomatis Chlamydia Screening () [facility] Start: 12-03-2022 Patient discharge [facility] Start: 12-02-2022 Admission procedure [facility] Start: 12-02-2022 [facility] Start: 12-01-2022 Following clinical pathway protocol [facility] Start: 11-30-2022 End: 12-01-2022 [facility] Start: 11-30-2022 Application of intermittent pneumatic compression device [facility] Start: 11-30-2022 Catheterization of vein [facility] Start: 11-30-2022 Measuring intake and output [facility] Start: 11-30-2022 Notification of physician [facility] Start: 11-30-2022 Vital signs measurements [facility] Start: 11-30-2022 Following clinical pathway protocol [facility] Start: 11-30-2022 Ambulation without limitation [facility] Start: 11-30-2022 Verification routine [facility] Start: 11-30-2022 Admission procedure [facility] Start: 11-30-2022 Hospital admission, emergency, from emergency room, medical nature [facility] Start: 11-07-2022 CHLAMYDIA SCREENING (18-24) CHLAMYDIA SCREENING (18-24) [facility] Start: 11-07-2022 GC (GONORRHEA) SCREE MICAELA (18-24) GC (GONORRHEA) SCREENING (18-24) [facility] Start: 10-12-2022 Influenza vaccination INFLUENZA (Sea son Ended) [facility] Start: 05-29-2022 Depression screening using PHQ-9 (Patient Health Questionnaire 9) score Depression Screening (PHQ-2/9) [facility] Start: 05-11-2022 Fluid restriction [facility] Start: 05-11-2022 [facility] Start: 05-11-2022 Patient discharge [facility] Start: 05-10-2022 Nonstress test [facility] Start: 05-10-2022 Obstetric monitoring [facility] Start: 05-10-2022 Vital signs measurements [facility] Start: 05-10-2022 [facility] Start: 05-10-2022 Patient discharge [facility] Start: 05-09-2022 Nonstress test [facility] Start: 05-09-2022 Obstetric monitoring [facility] Start: 05-09-2022 Vital signs measurements [facility] Start: 05-09-2022 End: 05-10-2022 [facility] Start: 05-09-2022 Patient discharge [facility] Start: 03-14-2022 End: 05-14-2022 CBC W Auto Differential panel - Blood CBC + DIFF Lab Routine 24 weeks gestation of Expected: 03/14/2022, Expires: 05/14/2022 [facility] Work Phone: Comment on above: Expected: 03/14/2022 , Expires: 05/14/2022 Start: 03-14-2022 End: 05-14-2022 GEST GLUC SCREEN, 1-HR, 50 GM, NON-FASTING GEST GLUC SCREEN, 1-HR, 50 GM, NON-FASTING Lab Routine 24 weeks gestation of Expected: 03/14/2022, Expires: 05/14/2022 [facility] Work Phone: Comment on above: Expected: 03/14/2022 , Expires: 05/14/2022 Start: 03-14-2022 End: 05-14-2022 SYPHILIS TOTAL W/REFLEX SYPHILIS TOTAL W/REFLEX Lab Routine 24 weeks gestation of Expected: 03/14/2022, Expires: 05/14/2022 [facility] Work Phone: Comment on above: Expected: 03/14/2022 , Expires: 05/14/2022 Start: 02-11-2022 DEPRESSION ASSESSMENT DEPRESSION ASS ESSMENT [facility] Start: 01-29-2022 End: 03-31-2022 ALPHA FETOPRO MATERNAL [facility] Work Phone: Comment on above: Expected: 01/29/2022 , Expires: 03/31/2022 Start: 01-24-2022 [facility] Work Phone: Start: 01-22-2022 COVID-19 VACCINE (3 - Booster for Pfizer series) COVID-19 VACCINE (3 - Booster for Pfizer series) [facility] Start: 12-05-2021 End: 02-04-2022 Chromosome 21 trisomy [Presence] in Blood or Tissue by Cytogenetics [id number] PLUS Lab Routine Supervision of high risk in first trimester Expected: 12/05/2021, Expires: 02/04/2022 [facility] Work Phone: Comment on above: Expected: 12/05/2021 , Expires: 02/04/2022 Start: 11-20-2021 End: 11-20-2021 Patient encounter procedure 11/20/2021 Office Visit Primary Care Gen Still MD [address] [place] [address] [facility] Phys[facility] Start: 11-07-2021 End: 01-07-2022 CBC panel - Blood by Automated count CBC Lab Routine Encounter for care in first trimester of first 8 weeks gestation of Expected: 11/07/2021, Expires: 01/07/2022 [facility] Work Phone: Comment on above: Expected: 11/07/2021 , Expires: 01/07/2022 Start: 11-07-2021 End: 01-07-2022 Hepatitis B virus surface Ab [Presence] in Serum by Immunoassay HEP B SURF AG SCRN Lab Routine Encounter for care in first trimester of first 8 weeks gestation of Expected: 11/07/2021, Expires: 01/07/2022 [facility] Work Phone: Comment on above: Expected: 11/07/2021 , Expires: 01/07/2022 Start: 11-07-2021 End: 01-07-2022 Hepatitis C virus Ab [Presence] in Serum HEP C AB IA W/CONF SCRN Lab Routine Encounter for care in first trimester of first 8 weeks gestation of Expected: 11/07/2021, Expires: 01/07/2022 [facility] Work Phone: Comment on above: Expected: 11/07/2021 , Expires: 01/07/2022 Start: 11-07-2021 End: 01-07-2022 HIV 1+2 Ab [Presence] in Serum or Plasma by Immunoassay HIV 1 2 COMBO(AG/AB),WITH REFLEX TO DIFFERENTIATION Lab Routine Encounter for care in first trimester of first 8 weeks gestation of Expected: 11/07/2021, Expires: 01/07/2022 [facility] Work Phone: Comment on above: Expected: 11/07/2021 , Expires: 01/07/2022 Start: 11-07-2021 End: 01-07-2022 RUBELLA IGG AB RUBELLA IGG AB Lab Routine Encounter for care in first trimester of first 8 weeks gestation of Expected: 11/07/2021, Expires: 01/07/2022 [facility] Work Phone: Comment on above: Expected: 11/07/2021 , Expires: 01/07/2022 Start: 11-07-2021 End: 01-07-2022 SYPHILIS TOTAL W/REFLEX SYPHILIS TOTAL W/REFLEX Lab Routine Encounter for care in first trimester of first 8 weeks gestation of Expected: 11/07/2021, Expires: 01/07/2022 [facility] Work Phone: Comment on above: Expected: 11/07/2021 , Expires: 01/07/2022 Start: 11-07-2021 End: 01-07-2022 TYPE + SCREEN TYPE + SCREEN Blood Bank Routine Encounter for care in first trimester of first 8 weeks gestation of Expected: 11/07/2021, Expires: 01/07/2022 [facility] Work Phone: Comment on above: Expected: 11/07/2021 , Expires: 01/07/2022 Start: 10-17-2021 COVID-19 VACCINE (3 - Booster for Pfizer series) COVID-19 VACCINE (3 - Booster for Pfizer series) [facility] Start: 10-12-2021 Influenza vaccination [facility] Start: 09-08-2021 Anxiety Screening Anxiety Screening [facility] Start: 09-08-2021 CHLAMYDIA SCREENING (18-24) CHLAMYDIA SCREENING (18-24) [facility] Start: 09-08-2021 Depression Screening Depression Scre ening [facility] Start: 09-08-2021 GC (GONORRHEA) SCREE MICAELA (18-24) GC (GONORRHEA) SCREENING (18-24) [facility] Start: 09-08-2021 HEPATITIS C SCREENING HEPATITIS C SC REENING [facility] Start: 09-08-2021 HIV SCREENING HIV SCREENING [facility] Start: 02-11-2021 DEPRESSION ASSESSMENT DEPRESSION ASS ESSMENT [facility] Start: 01-30-2021 HPV Vaccine (3 - 3-d ose series) HPV Vaccine (3 - 3-dose series) [facility] Start: 01-30-2021 Vaccination for tom n papillomavirus HPV Vaccines (3 - 3-dose series) [facility] Start: 10-12-2020 Influenza vaccination INFLUENZA (#1) [facility] Start: 2019 Meningococcal B Vacc ine (1 of 2 - Standard) Meningococcal B Vaccine (1 of 2 - Standard) [facility] Start: 2019 Meningococcal B Vacc ine: Consider Based On Risk (1 of 2 - Patient Seeks Protection) Meningococcal B Vaccine: Consider Based On Risk (1 of 2 - Patient Seeks Protection) [facility] Start: 2019 MENINGOCOCCAL CONJUG ATE (2 - 2-dose series) MENINGOCOCCAL CONJUGATE (2 - 2-dose series) [facility] Start: 2019 Meningococcus vaccination Meni ngococcal ACWY Vaccine (2 - 2-dose series) [facility] Start: 09-08-2018 CHLAMYDIA SCREENING (<18) CHLA MYDIA SCREENING (<18) [facility] Start: 09-08-2018 GC (GONORRHEA) SCREE MICAELA (<18) GC (GONORRHEA) SCREENING (<18) [facility] Start: 09-08-2018 HIV screening HIV Screening [facility] Start: 09-08-2017 PEDS TO ADULT TRANSI TION ANNUAL ASSESSMENT PEDS TO ADULT TRANSITION ANNUAL ASSESSMENT [facility] Start: 04-17-2017 Adult depression screening assessment DEPRESSION SCREENING [facility] Start: 2015 Depression screening using PHQ-9 (Patient Health Questionnaire 9) score Depression Screening (PHQ-2/9) [facility] Start: 2015 PEDS TO ADULT TRANSI TION INITIAL DISCUSSION PEDS TO ADULT TRANSITION INITIAL DISCUSSION [facility] Start: 09-08-2014 HPV VACCINE (1 - 2-d ose series) HPV VACCINE (1 - 2-dose series) [facility] Start: 09-08-2013 MENINGOCOCCAL B: Con steel box toe inserter based on risk (1 of 2 - Risk Bexsero 2-dose series) MENINGOCOCCAL B: Consider based on risk (1 of 2 - Risk Bexsero 2-dose series) [facility] Start: 09-08-2008 COVID-19 VACCINE (1) Cl [facility] Start: 09-08-2006 History and physical examination, annual for health maintenance Wellness Visit [facility] Start: 2003 Screening for Chlamy ministerio trachomatis Chlamydia Screening [facility] Alanine aminotransfe rase [Enzymatic activity/volume] in Serum or Plasma [facility] Albumin [Mass/volume ] in Serum or Plasma [facility] Alkaline phosphatase [Enzymatic activity/volume] in Serum or Plasma [facility] Anion gap measurement [facility] Aspartate aminotransferase [Enzymatic activity/volume] in Serum or Plasma [facility] Bacteria identified in Urine by Culture URINE CULTURE Microbiology Routine Encounter for care in first trimester of first 8 weeks gestation of 11/07/2021 1:45 PM EDT [facility] Work Phone: Bacteria identified in Urine by Culture URINE CULTURE Microbiology Routine 10 weeks gestation of Ordered: 12/05/2021 [facility] Work Phone: Comment on above: Ordered: 12/05/2021 Bacteria identified in Urine by Culture URINE CULTURE Microbiology Routine Dysuria 04/13/2022 3:46 PM EST [facility] Work Phone: Bilirubin measuremen t, urine [facility] Bilirubin, total measurement [facility] End: 11-05-2022 BIOPHYSICAL PROFILE US [facility] BIOPHYSICAL PROFILE US [facility] Anc Imaging Routine 32 weeks gestation of Pre-eclampsia in third trimester Once per week for 10 Occurrences starting 05/09/2022 until 11/05/2022 [facility] Work Phone: Comment on above: Once per week for 10 Occurrences starting 05/09/2022 until 11/05/2022 BUN/Creatinine ratio [facility] Calcium [Mass/volume ] in Serum or Plasma [facility] Carbon dioxide, tota l [Moles/volume] in Serum or Plasma [facility] Chlamydia trachomatis+Neisseria gonorrhoeae DNA [Presence] in Unspecified specimen by RICCARDO with probe detection GC/CHLAMYDIA DNA DET Lab Routine Encounter for care in first trimester of first 8 weeks gestation of 11/07/2021 1:45 PM EDT [facility] Work Phone: Chlamydia trachomatis+Neisseria gonorrhoeae DNA [Presence] in Unspecified specimen by RICCARDO with probe detection GC/CHLAMYDIA DNA DET Lab Routine 10 weeks gestation of Ordered: 12/05/2021 [facility] Work Phone: Comment on above: Ordered: 12/05/2021 Chloride [Moles/volu me] in Serum or Plasma [facility] End: 05-29-2022 Complete blood count with white cell differential, manual CBC and Differential Lab Routine Hx of viral illness 1 Occurrences starting 05/29/2021 until 05/29/2022 [facility] Work Phone: Comment on above: 1 Occurrences starti ng 05/29/2021 until 05/29/2022 Complete blood count with white cell differential, manual CBC and Differential Lab Routine Hx of viral illness 05/29/2021 2:21 PM EDT [facility] End: 05-29-2022 Comprehensive metabolic 2000 panel - Serum or Plasma Comprehensive Metabolic Panel Lab Routine Hx of viral illness 1 Occurrences starting 05/29/2021 until 05/29/2022 [facility] Comment on above: 1 Occurrences starti ng 05/29/2021 until 05/29/2022 Comprehensive metabo lic 2000 panel - Serum or Plasma Comprehensive Metabolic Panel Lab Routine Hx of viral illness 05/29/2021 2:21 PM EDT [facility] COVID & INFLUENZA A/ B & RSV PCR, ROUTINE COVID & INFLUENZA A/B & RSV PCR, ROUTINE Microbiology Routine Viral illness Ordered: 12/02/2023 [facility] Work Phone: Comment on above: Ordered: 12/02/2023 COVID & INFLUENZA A/ B & RSV PCR, ROUTINE COVID & INFLUENZA A/B & RSV PCR, ROUTINE Microbiology Routine Fever, unspecified fever cause Headaches Nasal congestion Nausea and vomiting, unspecified vomiting type Acute cough Ordered: 02/12/2024 [facility] Work Phone: Comment on above: Ordered: 02/12/2024 Creatinine [Moles/vo lume] in Serum or Plasma [facility] End: 08-08-2022 nonstress test NON-STRESS TEST Procedures Routine 32 weeks gestation of Pre-eclampsia in third trimester Once per week for 8 Occurrences starting 05/09/2022 until 08/08/2022 [facility] Work Phone: Comment on above: Once per week for 8 Occurrences starting 05/09/2022 until 08/08/2022 Glucose [Mass/volume ] in Serum or Plasma [facility] Hematocrit [Volume Fraction] of Blood [facility] Hemoglobin [Mass/vol ume] in Blood [facility] Hemoglobin [Presence ] in Urine [facility] End: 05-29-2022 Hemoglobin A1c/Hemoglobin.total in Blood Hemoglobin A1c Lab Routine Elevated blood sugar 1 Occurrences starting 05/29/2021 until 05/29/2022 [facility] Comment on above: 1 Occurrences starti ng 05/29/2021 until 05/29/2022 Hemoglobin A1c/Hemoglobin.total in Blood Hemoglobin A1c Lab Routine Elevated blood sugar 05/29/2021 2:21 PM EDT [facility] Leukocytes [#/volume ] in Blood [facility] Mean corpuscular hemoglobin concentration determination [facility] Mean corpuscular hemoglobin determination [facility] Measurement of keton es in urine using dipstick [facility] Measurement of renal function [facility] Neutrophil count [facility] Neutrophil percent differential count [facility] NEXPLANON INSERTION NEXPLANON IN SERTION Procedures Routine Nexplanon insertion Ordered: 06/08/2022 [facility] Work Phone: Comment on above: Ordered: 06/08/2022 NEXPLANON REMOVAL NEXPLANON KESHAV ANSHU Procedures Routine Menorrhagia with irregular cycle Ordered: 08/29/2021 [facility] Work Phone: Comment on above: Ordered: 08/29/2021 NUCHAL TRANSLUCENCY [facility]I NUCHAL T RANSLUCENCY [facility] Anc Imaging Routine Encounter for care in first trimester of first 8 weeks gestation of Ordered: 11/07/2021 [facility] Work Phone: Comment on above: Ordered: 11/07/2021 OBSTETRIC ULTRASOUND [facility] Work Phone: Comment on above: Ordered: 11/07/2021 End: 08-08-2022 OBSTETRIC ULTRASOUND [facility]I OBSTETRIC ULTRASOUND [facility] Anc Imaging Routine 32 weeks gestation of Pre-eclampsia in third trimester Once per month for 4 Occurrences starting 05/09/2022 until 08/08/2022 [facility] Work Phone: Comment on above: Once per month for 4 Occurrences starting 05/09/2022 until 08/08/2022 Patient Education [facility] Work Phone: Patient referral [facility] Work Phone: pH of Urine [facility] Platelets [#/volume] in Blood [facility] Potassium [Moles/vol ume] in Serum or Plasma [facility] Red blood cell count [facility] Red cell distributio n width determination [facility] Sodium [Moles/volume ] in Serum or Plasma [facility] Specific gravity of Urine [facility] T VAGINALIS AMPLIFICATION T VAGI NALIS AMPLIFICATION Lab Routine 10 weeks gestation of Ordered: 12/05/2021 [facility] Work Phone: Comment on above: Ordered: 12/05/2021 End: 05-29-2022 Thyrotropin [Units/volume] in Serum or Plasma TSH with Reflex Free T4 Lab Routine Hx of viral illness 1 Occurrences starting 05/29/2021 until 05/29/2022 [facility] Comment on above: 1 Occurrences starti ng 05/29/2021 until 05/29/2022 Thyrotropin [Units/volume] in Serum or Plasma TSH with Reflex Free T4 Lab Routine Hx of viral illness 05/29/2021 2:21 PM EDT [facility] Total protein measurement [facility] Urea nitrogen [Mass/volume] in Serum or Plasma [facility] Urine dipstick for glucose [facility] Urine dipstick for leukocyte esterase [facility] Urine dipstick for nitrite [facility] Urine dipstick for protein [facility] Urine examination [facility] Urobilinogen [Presen ce] [facility] Immunizations Immunization Date Immunization Notes Care Provider Sandi garcia 04-12-2022 Diphtheria, tetanus toxoids and acellular pertussis vaccine, and poliovirus vaccine, inactivated [facility] 04-11-2022 tetanus toxoid, redu galen diphtheria toxoid, and acellular pertussis vaccine, adsorbed Rehana Jaffe APRN.CNM Work Phone: [facility] 09-30-2020 hepatitis A vaccine, pediatric/adolescent dosage, 2 dose schedule [facility] Work Phone: [facility] 09-30-2020 Human Papillomavirus 9-valent vaccine [facility] Work Phone: [facility] 09-30-2020 HPV, unspecified formulation [facility] Work Phone: [facility] 08-31-2019 hepatitis A vaccine, pediatric/adolescent dosage, 2 dose schedule [facility] Work Phone: [facility] 08-31-2019 Human Papillomavirus 9-valent vaccine [facility] Work Phone: [facility] 09-11-2017 meningococcal polysaccharide (groups A, C, Y and W-135) diphtheria toxoid conjugate vaccine (MCV4P) [facility] Work Phone: [facility] 09-11-2017 tetanus toxoid, redu galen diphtheria toxoid, and acellular pertussis vaccine, adsorbed [facility] Work Phone: [facility] 09-17-2016 meningococcal polysaccharide (groups A, C, Y and W-135) diphtheria toxoid conjugate vaccine (MCV4P) Jocelyn Acosta [employer] Work Phone: [facility] 09-17-2016 tetanus toxoid, redu galen diphtheria toxoid, and acellular pertussis vaccine, adsorbed Jocelyn Acosta [employer] Work Phone: [facility] 03-10-2015 influenza, injectabl e, quadrivalent, preservative free [facility] [employer] Work Phone: [facility] 03-10-2015 seasonal influenza, intradermal, preservative free Jocelyn Acosta [employer] Work Phone: [facility] 03-10-2015 influenza virus vacc ine, unspecified formulation Basia Mancini PA Work Phone: [facility] 03-20-2011 influenza virus vacc ine, unspecified formulation Jocelyn Acosta [employer] Work Phone: [facility] 03-20-2011 influenza, seasonal, injectable [facility] [employer] Work Phone: [facility] 07-01-2008 diphtheria, tetanus toxoids and acellular pertussis vaccine [facility] [employer] Work Phone: [facility] 07-01-2008 diphtheria, tetanus toxoids and acellular pertussis vaccine, 5 pertussis antigens Jocelyn Acosta [employer] Work Phone: [facility] 07-01-2008 measles, mumps and rubella virus vaccine Jocelyn [employer]osta [employer] Work Phone: [facility] 07-01-2008 poliovirus vaccine, inactivated Jocelyn Acosta [employer] Work Phone: [facility] 07-01-2008 varicella virus vaccine Kailyn ica [place] [employer] Work Phone: [facility] 01-03-2005 diphtheria, tetanus toxoids and acellular pertussis vaccine [facility] [employer] Work Phone: [facility] 01-03-2005 diphtheria, tetanus toxoids and acellular pertussis vaccine, 5 pertussis antigens Jocelyn Acosta [employer] Work Phone: [facility] 01-03-2005 haemophilus influenz ae type b conjugate and Hepatitis B vaccine Jocelyn Acosta [employer] Work Phone: [facility] 01-03-2005 influenza virus vacc ine, unspecified formulation Jocelyn Acosta [employer] Work Phone: [facility] 01-03-2005 measles, mumps and rubella virus vaccine Jocelyn Acosta [employer] Work Phone: [facility] 01-03-2005 varicella virus vaccine Kailyn ica [place] [employer] Work Phone: [facility] 06-01-2004 diphtheria, tetanus toxoids and acellular pertussis vaccine [facility] Work Phone: [facility] 06-01-2004 diphtheria, tetanus toxoids and acellular pertussis vaccine, 5 pertussis antigens Jocelyn Acosta [employer] Work Phone: [facility] 06-01-2004 pneumococcal conjuga te vaccine, 7 valent [facility] [employer] Work Phone: [facility] 06-01-2004 pneumococcal Conjuga te, unspecified formulation Jocelyn Acosta [employer] Work Phone: [facility] 06-01-2004 poliovirus vaccine, inactivated Jocelyn Acosta [employer] Work Phone: [facility] 01-24-2004 pneumococcal conjuga te vaccine, 7 valent [facility] [employer] Work Phone: [facility] 01-24-2004 pneumococcal Conjuga te, unspecified formulation Jocelyn Acosta [employer] Work Phone: [facility] 01-11-2004 diphtheria, tetanus toxoids and acellular pertussis vaccine [facility] [employer] Work Phone: [facility] 01-11-2004 diphtheria, tetanus toxoids and acellular pertussis vaccine, 5 pertussis antigens Jocelyn Acosta [employer] Work Phone: [facility] 01-11-2004 haemophilus influenz ae type b conjugate and Hepatitis B vaccine Jocelyn Acosta [employer] Work Phone: [facility] 01-11-2004 poliovirus vaccine, inactivated Jocelyn Acosta [employer] Work Phone: [facility] 2003 diphtheria, tetanus toxoids and acellular pertussis vaccine [facility] [employer] Work Phone: [facility] 2003 diphtheria, tetanus toxoids and acellular pertussis vaccine, 5 pertussis antigens Jocelyn Acosta [employer] Work Phone: [facility] 2003 haemophilus influenz ae type b conjugate and Hepatitis B vaccine Jocelyn Acosta [employer] Work Phone: [facility] 2003 pneumococcal conjuga te vaccine, 7 valent [facility] [employer] Work Phone: [facility] 2003 pneumococcal Conjuga te, unspecified formulation Jocelyn Acosta [employer] Work Phone: [facility] 2003 poliovirus vaccine, inactivated Jocelyn Acosta [employer] Work Phone: [facility] Payers Date Payer Category Payer Self-pay [id number] 2022 Unknown [id number] 2021 Medicaid [id number] 2016 Medicaid [facility] MEDICAID [id number] 2016-Present [phone] [address] [place] [address] Medicaid [id number] 2016 Medicaid [id number] 1984 Unknown [id number] 1984 Unknown [id number] Unknown [id number] Unknown [id number] Unknown [id number] Unknown [id number] Unknown [id number] Unknown [id number] Unknown [id number] Unknown [id number] Social History Date Type Detail Facility Start: 04-17-2016 End: 05-27-2024 Tobacco smoking status NHIS Never smoked tobacco [facility] Work Phone: Start: 04-17-2016 End: 11-07-2021 Tobacco use and exposure Smokeless tobacco non-user [facility] Work Phone: Start: 05-03-2021 [facility] Start: 04-17-2016 End: 11-07-2021 Tobacco Comment 2 smokers in house [facility] Start: 2003 Sex Assigned At Not on file C [facility] Start: 04-23-2021 End: 12-28-2021 Exposure to SARS-CoV-2 (event) Not sure [facility] Start: 05-29-2021 Alcohol intake Lifetime non-d emir (finding) [facility] Start: 05-29-2021 Tobacco Comment Does Vape [facility] Start: 09-14-2021 End: 05-27-2024 Alcohol intake Ex-drinker (finding) [facility] History of tobacco use Passive smoker [facility] Start: 11-02-2021 Education 13 [facility] Start: 09-25-2021 [facility] Start: 01-01-2022 End: 11-30-2022 Tobacco smoking status NHIS Unknown if ever smoked [facility] Start: 06-18-2020 Non-smoker [facility] Start: 2003 Sex Assigned At Female W [facility] Start: 12-02-2023 End: 04-21-2024 History of Social function [facility] Start: 12-02-2023 End: 04-21-2024 Tobacco use panel [facility] National Score (1-100), lower number is lower risk 65 [facility] Start: 05-27-2024 Tobacco use and exposure User of smokeless tobacco [facility] NEGATED: Highlighted row [facility] Goals Date Patient Goal Desired Activity /State Functional Status Date Assessment Result Facility 12-03-2022 Functional status Activity Abili ty Independent [facility] Work Phone: 12-02-2022 Functional status Ambulates [facility] Work Phone: 05-18-2022 Are you deaf, or do you have serious difficulty hearing No 05/18/2022 5:59 PM Sonam Macias RN No [facility] 05-18-2022 Are you blind, or do you have serious difficulty seeing, even when wearing glasses No 05/18/2022 5:59 PM Sonam Macias, DON No [facility] 05-18-2022 Do you have serious difficulty walking or climbing stairs No 05/18/2022 5:59 PM Sonam Macias RN No [facility] 05-18-2022 Do you have difficul ty dressing or bathing No 05/18/2022 5:59 PM Sonam Macias, DON No [facility] 05-18-2022 Because of a physica l, mental, or emotional condition, do you have difficulty doing errands alone such as visiting a physician's office or shopping No 05/18/2022 5:59 PM Sonam Macias, DON No [facility] Mental Status Date Assessment Result Facility 12-03-2022 Cognitive function Voice/Name [facility] Work Phone: 05-18-2022 Because of a physica l, mental, or emotional condition, do you have serious difficulty concentrating, remembering, or making decisions No 05/18/2022 5:59 PM EDT Sonam Rose RN No [facility] 01-24-2022 Cognitive function Level Of Cons ciousness Awake;Alert;Appropriate;Fol lows Commands [facility] Work Phone: 01-01-2022 Cognitive function Level Of Cons ciousness Awake;Alert;Appropriate;Fol lows Commands [facility] Work Phone: Clinical Notes 11-11-2020 to 05-27-2024 Rehana Jaffe APRN.CNM - 05/27/2024 1:37 PM EDTTelephone Encounter - Rehana Jaffe APRN.CNM - 05/13/2024 5:27 PM EDTTelephone Encounter - Rehana Jaffe APRN.CNM - 05/13/2024 5:27 PM EDT Note Date & Type Note Facility 05-27-2024 Note HNO ID: [id number] Author: REHANA JAFFE APRN.CNM Service: ? Author Type: Cold Roll Packer Sheet Iron Type: Progress Notes Filed: 05/27/2024 14:08 Note Text: This 18 year old female was started on Nexplanon placed 07/04/2022 and is here for follow-up. Her only complaint is irregular heavy bleeding with clots.. Denies abdominal pain, chest pain or headache. No pain or swelling in the legs. No other neurologic or pulmonary symptoms. Patient's last menstrual period was 09/11/2021 (exact date). Menstruation / History: Periods are irregular, lasting 5 days. On the heaviest day of flow she changes her pad ever couple of hours Since placement of Nexplanon - she began having break through bleeding for several days/weeks. Initially was interested in removal of Nexplanon and placement of IUD. Last 1 Encounter BP Readings: Date: BP: 04/21/2024 100/62 EXAMINATION: GEN- alert, no distress ASSESSMENT/PLAN: 1. Breakthrough bleeding on Nexplanon - ICD9: 626.6, V45.59, ICD10: N92.1, Z97.5 - Reviewed starting OCP to help regulate breakthrough bleeding. - R/B/A to OCP reviewed and when to call office - May be interested in Mirena IUD in future- hx of IUD that she reportspulled out by accident. RTO PRN /Annual with PAP at age 19 Rehana Jaffe APRN.CNM [facility] 05-27-2024 History of Presen t illness Narrative This 18 year old female was started on Nexplanon placed 07/04/2022 and is here for follow-up. Her only complaint is irregular heavy bleeding with clots.. Denies abdominal pain, chest pain or headache. No pain or swelling in the legs. No other neurologic or pulmonary symptoms. Patient's last menstrual period was 09/11/2021 (exact date). Menstruation / History: Periods are irregular, lasting 5 days. On the heaviest day of flow she changes her pad ever couple of hours Since placement of Nexplanon - she began having break through bleeding for several days/weeks. Initially was interested in removal of Nexplanon and placement of IUD. Last 1 Encounter BP Readings: Date: BP: 04/21/2024 100/62 EXAMINATION: GEN- alert, no distress ASSESSMENT/PLAN: 1. Breakthrough bleeding on Nexplanon - ICD9: 626.6, V45.59, ICD10: N92.1, Z97.5 - Reviewed starting OCP to help regulate breakthrough bleeding. - R/B/A to OCP reviewed and when to call office - May be interested in Mirena IUD in future- hx of IUD that she reportspulled out by accident. RTO PRN /Annual with PAP at age 19 Rehana Jaffe APRN.CNM documented in this encounter [facility] 05-13-2024 Telephone encounter Note Order sent. Rehana Jaffe APRN.CNM [facility] 05-13-2024 Miscellaneous Notes Order sent. Rehana Jaffe APRN.CNM Patient seen by Dr. Sellers on 04/21/2024 for bleeding issues w/ Nexplanon. Patient calling stating that she began having vaginal bleeding again yesterday and states she was told to call office w/ further bleeding concerns and a course of oral estrace could be prescribed. Patient requesting Rx for estrace. Please advise. Dr. Sellers is out of the office until Saturday. documented in this encounter [facility] 05-13-2024 Telephone encounter Note Patient seen by Dr. Sellers on 04/21/2024 for bleeding issues w/ Nexplanon. Patient calling stating that she began having vaginal bleeding again yesterday and states she was told to call office w/ further bleeding concerns and a course of oral estrace could be prescribed. Patient requesting Rx for estrace. Please advise. Dr. Sellers is out of the office until Saturday. [facility] 04-21-2024 Note HNO ID: [id number] Author: MELANY SELLERS MD Service: ? Author Type: Physician Type: Progress Notes Filed: 04/21/2024 12:13 Note Text: Trenton Styles is a 18 year old female who presents for problem visit. HPI: Patient presents with irregular bleeding. She reports this issue intermittently since the Nexplanon was placed. Patient had bleeding for 20 days but it stopped last night. She has tried several other control types without success. OB History Gravida1 Para1 Term0 Preterm1 AB0 Living1 SAB0 IAB0 Ectopic0 Multiple0 Live Births1 Spring Maker History LMP: 09/11/2021 (Exact Date), Implant Age at Menarche: Age at First : Age at Menopause: Spring Maker History Comments: Sexual Activity: Yes; Male Contraception: Implant PAST MEDICAL HISTORY Diagnosis Date Preeclampsia complicating hypertension 05/11/2022 Vasovagal syncope PAST SURGICAL HISTORY Procedure Laterality Date NEXPLANON INSERTION 02/2020 [facility] INTERPRETIVE RANGER-has been removed FAMILY HISTORY Problem Relation Age of Onset No Known Problems Mother No Known Problems Sister No Known Problems Brother No Known Problems Brother No Known Problems Maternal Grandmother Arthritis Maternal Grandfather Dementia Paternal Grandmother Cancer Paternal Grandfather Social History Tobacco Use Smoking status: Never Passive exposure: Yes Smokeless tobacco: Never Tobacco comments: 2 smokers in house Vaping Use Vaping status: Former Substances: Nicotine Devices: Pre-filled pod Substance Use Topics Alcohol use: Not Currently Drug use: Not Currently Types: Marijuana Current Outpatient Medications Medication Sig semaglutide 0.25 mg/0.5 mL (0.5 mg/mL) subcutaneous compounded injection Inject subcutaneously one time a week. etonogestrel (NEXPLANON) subdermal implant 68 mg 1 Each by SUBDERMAL route as directed. predniSONE (DELTASONE) 10 mg tablet Day #1 - 6 tablets PO then Day #2 - 5 tablets PO then Day #3 - 4 tablets PO then Day #4 - 3 tablets PO then Day #5 - 2 tablets PO then Day #6 - 1 tablet PO (Patient not taking: Reported on 04/21/2024) estradiol (ESTRACE) 1 mg tablet Take 1 tablet by mouth once daily for 14 days. No current facility-administered medications for this visit. Allergies As of Date: 04/21/2024 Allergen Noted Reaction AMOXICILLIN 02/12/2024 GI Upset Fully Assessed 04/21/2024 Allergies and current medication updated:Yes SENSITIVE EXAM: Sensitive exam not performed. EXAM: BP 100/62 Wt 166 lb 12.8 oz (75.7kg) LMP 09/11/2021 GENERAL: pleasant, female in no apparent distress ASSESSMENT AND PLAN: Assessment AND Plan Breakthrough bleeding on Nexplanon Discussed this is a common side effect of Nexplanon. Patient with call with further bleeding concerns. Discussed that could do a course if oral Estrace if needed in the future. Medical Decision Making: Problems: Low: Acute, uncomplicated illness or injury Data: Unique source(s) for external note(s) reviewed: 1 Risk: Low: Low risk from testing/treatment Medical Decision Making Level: 3 - Low Melany Sellers MD [facility] 04-21-2024 History of Presen t illness Narrative Trenton Styles is a 18 year old female who presents for problem visit. HPI: Patient presents with irregular bleeding. She reports this issue intermittently since the Nexplanon was placed. Patient had bleeding for 20 days but it stopped last night. She has tried several other control types without success. OB History Gravida1 Para1 Term0 Preterm1 AB0 Living1 SAB0 IAB0 Ectopic0 Multiple0 Live Births1 Spring Maker History LMP: 09/11/2021 (Exact Date), Implant Age at Menarche: Age at First : Age at Menopause: Spring Maker History Comments: Sexual Activity: Yes; Male Contraception: Implant PAST MEDICAL HISTORY Diagnosis Date Preeclampsia complicating hypertension 05/11/2022 Vasovagal syncope PAST SURGICAL HISTORY Procedure Laterality Date NEXPLANON INSERTION 02/2020 [facility] INTERPRETIVE RANGER-has been removed FAMILY HISTORY Problem Relation Age of Onset No Known Problems Mother No Known Problems Sister No Known Problems Brother No Known Problems Brother No Known Problems Maternal Grandmother Arthritis Maternal Grandfather Dementia Paternal Grandmother Cancer Paternal Grandfather Social History Tobacco Use Smoking status: Never Passive exposure: Yes Smokeless tobacco: Never Tobacco comments: 2 smokers in house Vaping Use Vaping status: Former Substances: Nicotine Devices: Pre-filled pod Substance Use Topics Alcohol use: Not Currently Drug use: Not Currently Types: Marijuana Current Outpatient Medications Medication Sig semaglutide 0.25 mg/0.5 mL (0.5 mg/mL) subcutaneous compounded injection Inject subcutaneously one time a week. etonogestrel (NEXPLANON) subdermal implant 68 mg 1 Each by SUBDERMAL route as directed. predniSONE (DELTASONE) 10 mg tablet Day #1 - 6 tablets PO then Day #2 - 5 tablets PO then Day #3 - 4 tablets PO then Day #4 - 3 tablets PO then Day #5 - 2 tablets PO then Day #6 - 1 tablet PO (Patient not taking: Reported on 04/21/2024) estradiol (ESTRACE) 1 mg tablet Take 1 tablet by mouth once daily for 14 days. No current facility-administered medications for this visit. Allergies As of Date: 04/21/2024 Allergen Noted Reaction AMOXICILLIN 02/12/2024 GI Upset Fully Assessed 04/21/2024 Allergies and current medication updated:Yes SENSITIVE EXAM: Sensitive exam not performed. EXAM: BP 100/62 Wt 166 lb 12.8 oz (75.7kg) LMP 09/11/2021 GENERAL: pleasant, female in no apparent distress ASSESSMENT AND PLAN: Assessment & Plan Breakthrough bleeding on Nexplanon Discussed this is a common side effect of Nexplanon. Patient with call with further bleeding concerns. Discussed that could do a course if oral Estrace if needed in the future. Medical Decision Making: Problems: Low: Acute, uncomplicated illness or injury Data: Unique source(s) for external note(s) reviewed: 1 Risk: Low: Low risk from testing/treatment Medical Decision Making Level: 3 - Low Melany Sellers MD documented in this encounter [facility] 02-14-2024 Telephone encounter Note Patient has viewed results on [email or web address]. Annie Valencia MA [facility] 02-14-2024 Miscellaneous Notes Patient has viewed results on [email or web address]. Annie Valencia MA Left message for patient to return call. Marely Cabezas LPN Please inform patient that she was positive for influenza A. This is a respiratory virus. Supportive therapies such as Tylenol or Motrin can be used. Increase fluids. Most contagious the first 5 days of illness. Follow-up with PCP if symptoms do not improve or worsen. documented in this encounter [facility] 02-13-2024 Telephone encounter Note Left message for patient to return call. Marely Cabezas LPN [facility] 02-13-2024 Telephone encounter Note Please inform patient that she was positive for influenza A. This is a respiratory virus. Supportive therapies such as Tylenol or Motrin can be used. Increase fluids. Most contagious the first 5 days of illness. Follow-up with PCP if symptoms do not improve or worsen. [facility] Work Phone: 02-12-2024 Instructions Chanel Card PA-C - 02/12/2024 12:21 PM EST Viral Syndrome Your doctor wanted you to have the following information about viral syndrome... You are getting this information because you have symptoms related to a viral syndrome. Your body is actively fighting a virus. There are many viruses and they can cause different symptoms depending on what body part they attack. Some symptoms of a viral syndrome are: Fever (temperature higher than 100.4 F or 38 C). Headaches. Fatigue (feeling tired) and body soreness. A clogged-up or runny nose. Sore throat. Cough. Rash. Nausea (feeling sick to the stomach) and vomiting (throwing up). Diarrhea (watery poop). Stomach cramps. Basic care for a viral syndrome is to rest and drink lots of fluids. You will feel better over time. Recommended non-prescription medications by symptom Cough, Non-productive (not coughing up phlegm) - Cough suppressant containing dextromethorphan (Robitussin DM or Delsym ) Cough, Productive (coughing up phlegm) - Cough suppressant (see above) - Expectorant: Mucinex tablets or plain guaifenesin syrup, also known as Robitussin Fever/Headache/Muscle Aches - Acetaminophen (Tylenol ) - Non-Steroidal Anti-Inflammatory Drugs (NSAIDs) such as ibuprofen (Advil ) or naproxen (Aleve ) Nasal Stuffiness Saline nasal spray or a Neti Pot. - Nasal steroid sprays: Flonase or Nasacort - Decongestants: Topical spray: Oxymetazoline (Afrin Nasal [place]); limit to 3-4 days maximum Oral medication: Pseudoephedrine (Sudafed ) - MUST BE PURCHASED FROM PHARMACIST Runny and/or Itchy Nose/Sneezing - Nasal steroid sprays: Flonase or Nasacort - Antihistamine: Benadryl , which will likely cause drowsiness, or Loratadine (Alavert ), which is not as likely to cause drowsiness Sore Throat Pain Relief - Suck on throat lozenges, hard candy or popsicles - Gargle with warm salt water (1/4 tsp. salt per 8 oz. of water); and eat soft, bland foods. - Take acetaminophen (Tylenol ) or ibuprofen (Advil ). - Try throat sprays (Chloraseptic ). Unfortunately, there is still no cure for most viruses. Antibiotics don't work for viral illnesses. Antibiotics may cause side effects like rash or diarrhea (watery poop). Taking antibiotics when they are not needed might stop them from working if you get a bacterial infection later. Some serious infections can feel like a viral syndrome in the first few days. So it is important to watch your symptoms. See your doctor if you feel worse. See your doctor or go to the nearest Emergency Department if you: Have a fever (temperature higher than 100.4 F or 38 C) that won't go away. Have painful headache or stiff neck. Have constant vomiting or diarrhea (watery poop). Feel lightheaded, faint or might pass out. Have trouble breathing or shortness of breath. Feel confused or cannot think clearly. Are weak and cannot walk. Contact your doctor if you have any questions. If you think your symptoms are worse, go to the Emergency Department to be seen by a doctor. documented in this encounter [facility] 02-12-2024 Note HNO ID: [id number] Author: CHANEL CARD PA-C Service: ? Author Type: Physician Skein Straightener Type: Progress Notes Filed: 02/12/2024 12:32 Note Text: Chyna Styles is a 18 year old female with no significant past medical history who presents to [facility] care today for evaluation of nausea, vomiting, headaches, body aches, cough, and congestion x 4 to 5 days. She states that the nausea and vomiting have resolved but she continues to have the other symptoms. No known exposure to COVID-19, influenza, or RSV. She states that she did have a test for COVID-19 and influenza 3 days ago which was negative. Review of Systems Constitutional: Positive for chills, diaphoresis and fever. HENT: Positive for congestion. Negative for ear pain and sore throat. Eyes: Negative for discharge and redness. Respiratory: Positive for cough. Gastrointestinal: Positive for nausea and vomiting. Negative for abdominal pain, constipation and diarrhea. Musculoskeletal: Positive for myalgias. Negative for back pain. Skin: Negative for rash and wound. Neurological: Positive for headaches. All other systems reviewed and are negative. Objective BP 96/50 Pulse 102 Temp 36.9 ?C (98.5 ?F) Resp 22 Wt 77.5 kg (170 lb 13.7 oz) LMP 09/11/2021 (Exact Date) SpO2 98% Physical Exam Vitals reviewed. Constitutional: General: She is not in acute distress. Appearance: Normal appearance. She is normal weight. She is not ill-appearing or toxic-appearing. Comments: The patient appears to be non-toxic, in no acute distress, and resting comfortably on the table. HENT: Head: Normocephalic and atraumatic. Right Ear: Tympanic membrane, ear canal and external ear normal. Left Ear: Tympanic membrane, ear canal and external ear normal. Nose: Congestion present. Mouth/Throat: Mouth: Mucous membranes are moist. Pharynx: Oropharynx is clear. No oropharyngeal exudate or posterior oropharyngeal erythema. Eyes: Extraocular Movements: Extraocular movements intact. Cardiovascular: Rate and Rhythm: Normal rate and regular rhythm. Heart sounds: Normal heart sounds. No murmur heard. No friction rub. No gallop. Pulmonary: Effort: Pulmonary effort is normal. No respiratory distress. Breath sounds: Normal breath sounds. No wheezing. Musculoskeletal: General: Normal range of motion. Cervical back: Normal range of motion. Skin: General: Skin is warm and dry. Findings: No erythema or rash. Neurological: General: No focal deficit present. Mental Status: She is alert and oriented to person, place, and time. Mental status is at baseline. Psychiatric: Mood and Affect: Mood normal. Behavior: Behavior normal. Thought Content: Thought content normal. Assessment and Plan Normal physical exam. Suspect patient symptoms are due to viral infection. Patient tested for COVID-19, influenza, and RSV. Patient counseled regarding suspected diagnosis and given prescriptions for prednisone and Tessalon Perles. Advised to follow-up with primary care as needed for any new or worsening symptoms. ASSESSMENT/PLAN: 1. Viral URI - ICD9: 465.9, ICD10: J06.9 (primary diagnosis) - Discussed viral etiology and rationale for treatment. - Symptomatic treatment with prn analgesia - Supportive care with fluids and rest 2. Fever, unspecified fever cause - ICD9: 780.60, ICD10: R50.9 - COVID AND INFLUENZA A/B AND RSV PCR, ROUTINE 3. Headaches - ICD9: 784.0, ICD10: R51.9 - COVID AND INFLUENZA A/B AND RSV PCR, ROUTINE 4. Nasal congestion - ICD9: 478.19, ICD10: R09.81 - COVID AND INFLUENZA A/B AND RSV PCR, ROUTINE 5. Nausea and vomiting, unspecified vomiting type - ICD9: 787.01, ICD10: R11.2 - COVID AND INFLUENZA A/B AND RSV PCR, ROUTINE 6. Acute cough - ICD9: 786.2, ICD10: R05.1 - COVID AND INFLUENZA A/B AND RSV PCR, ROUTINE - PREDNISONE 10 MG TABLET - BENZONATATE 100 MG CAPSULE Medical Decision Making: Problems: Low: Acute, uncomplicated illness or injury Risk: Minimal: Minimal risk from testing/treatment Moderate: Drug management Medical Decision Making Level: 3 - Low I spent a total of 20 minutes on the date of the service which included preparing to see the patient, [id number] patient care, completing clinical documentation, performing a medically appropriate examination, counseling and educating the patient/family/caregiver, and ordering medications, tests, or procedures. Chanel Card PA-C [facility] 02-12-2024 History of Presen t illness Narrative Chyna Styles is a 18 year old female with no significant past medical history who presents to [facility] care today for evaluation of nausea, vomiting, headaches, body aches, cough, and congestion x 4 to 5 days. She states that the nausea and vomiting have resolved but she continues to have the other symptoms. No known exposure to COVID-19, influenza, or RSV. She states that she did have a test for COVID-19 and influenza 3 days ago which was negative. Review of Systems Constitutional: Positive for chills, diaphoresis and fever. HENT: Positive for congestion. Negative for ear pain and sore throat. Eyes: Negative for discharge and redness. Respiratory: Positive for cough. Gastrointestinal: Positive for nausea and vomiting. Negative for abdominal pain, constipation and diarrhea. Musculoskeletal: Positive for myalgias. Negative for back pain. Skin: Negative for rash and wound. Neurological: Positive for headaches. All other systems reviewed and are negative. Objective BP 96/50 Pulse 102 Temp 36.9 C (98.5 F) Resp 22 Wt 77.5 kg (170 lb 13.7 oz) LMP 09/11/2021 (Exact Date) SpO2 98% Physical Exam Vitals reviewed. Constitutional: General: She is not in acute distress. Appearance: Normal appearance. She is normal weight. She is not ill-appearing or toxic-appearing. Comments: The patient appears to be non-toxic, in no acute distress, and resting comfortably on the table. HENT: Head: Normocephalic and atraumatic. Right Ear: Tympanic membrane, ear canal and external ear normal. Left Ear: Tympanic membrane, ear canal and external ear normal. Nose: Congestion present. Mouth/Throat: Mouth: Mucous membranes are moist. Pharynx: Oropharynx is clear. No oropharyngeal exudate or posterior oropharyngeal erythema. Eyes: Extraocular Movements: Extraocular movements intact. Cardiovascular: Rate and Rhythm: Normal rate and regular rhythm. Heart sounds: Normal heart sounds. No murmur heard. No friction rub. No gallop. Pulmonary: Effort: Pulmonary effort is normal. No respiratory distress. Breath sounds: Normal breath sounds. No wheezing. Musculoskeletal: General: Normal range of motion. Cervical back: Normal range of motion. Skin: General: Skin is warm and dry. Findings: No erythema or rash. Neurological: General: No focal deficit present. Mental Status: She is alert and oriented to person, place, and time. Mental status is at baseline. Psychiatric: Mood and Affect: Mood normal. Behavior: Behavior normal. Thought Content: Thought content normal. Assessment and Plan Normal physical exam. Suspect patient symptoms are due to viral infection. Patient tested for COVID-19, influenza, and RSV. Patient counseled regarding suspected diagnosis and given prescriptions for prednisone and Tessalon Perles. Advised to follow-up with primary care as needed for any new or worsening symptoms. ASSESSMENT/PLAN: 1. Viral URI - ICD9: 465.9, ICD10: J06.9 (primary diagnosis) - Discussed viral etiology and rationale for treatment. - Symptomatic treatment with prn analgesia - Supportive care with fluids and rest 2. Fever, unspecified fever cause - ICD9: 780.60, ICD10: R50.9 - COVID & INFLUENZA A/B & RSV PCR, ROUTINE 3. Headaches - ICD9: 784.0, ICD10: R51.9 - COVID & INFLUENZA A/B & RSV PCR, ROUTINE 4. Nasal congestion - ICD9: 478.19, ICD10: R09.81 - COVID & INFLUENZA A/B & RSV PCR, ROUTINE 5. Nausea and vomiting, unspecified vomiting type - ICD9: 787.01, ICD10: R11.2 - COVID & INFLUENZA A/B & RSV PCR, ROUTINE 6. Acute cough - ICD9: 786.2, ICD10: R05.1 - COVID & INFLUENZA A/B & RSV PCR, ROUTINE - PREDNISONE 10 MG TABLET - BENZONATATE 100 MG CAPSULE Medical Decision Making: Problems: Low: Acute, uncomplicated illness or injury Risk: Minimal: Minimal risk from testing/treatment Moderate: Drug management Medical Decision Making Level: 3 - Low I spent a total of 20 minutes on the date of the service which included preparing to see the patient, [id number] patient care, completing clinical documentation, performing a medically appropriate examination, counseling and educating the patient/family/caregiver, and ordering medications, tests, or procedures. Chanel Card PA-C documented in this encounter [facility] 12-02-2023 Note HNO ID: [id number] Author: BASIA MANCINI PA Service: ? Author Type: Physician Skein Straightener Type: Progress Notes Filed: 12/02/2023 18:46 Note Text: This note was created using NoteWriter. Subjective Trenton Styles is a 18 year old female. HPI 18-year-old female presents for vomiting, diarrhea x 2 days. Patient states she has had diarrhea for the past 2 days. She had vomiting yesterday. No vomiting today. No blood in the stool. No abdominal pain. She had a fever yesterday for several hours, but then it resolved. No fever today. No cough, congestion, URI symptoms. 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 Does not recall eating anything out of the ordinary. Still able to eat and drink today. No other complaint. PAST MEDICAL HISTORY Diagnosis Date Preeclampsia complicating hypertension 05/11/2022 Vasovagal syncope PAST SURGICAL HISTORY Procedure Laterality Date NEXPLANON INSERTION 02/2020 [facility]ANG[facility]-has been removed ALLERGIES Patient has no known allergies. MEDICATIONS etonogestrel (NEXPLANON) subdermal implant 68 mg 1 Each by SUBDERMAL route as directed. estradiol (ESTRACE) 1 mg tablet Take 1 tablet by mouth once daily for 14 days. vit-iron fumarate-fa 28 mg iron- 800 mcg tab Take 1 tablet by mouth once daily. (Patient not taking: Reported on 12/02/2023) FAMILY HISTORY Problem Relation Age of Onset No Known Problems Mother No Known Problems Sister No Known Problems Brother No Known Problems Brother No Known Problems Maternal Grandmother Arthritis Maternal Grandfather Dementia Paternal Grandmother Cancer Paternal Grandfather Social History Tobacco Use Smoking status: Never Passive exposure: Yes Smokeless tobacco: Never Tobacco comments: 2 smokers in house Vaping Use Vaping status: Former Substances: Nicotine Devices: Pre-filled pod Substance Use Topics Alcohol use: Not Currently Drug use: Not Currently Types: Marijuana Review of Systems Constitutional: Negative for chills and fever. HENT: Negative for congestion, ear pain and sore throat. Respiratory: Negative for cough and shortness of breath. Cardiovascular: Negative for chest pain. Gastrointestinal: Positive for diarrhea, nausea and vomiting. Objective BP 100/68 Pulse 77 Temp 37 ?C (98.6 ?F) Resp 18 Wt 82.7 kg (182 lb 5.1 oz) LMP 09/11/2021 (Exact Date) SpO2 98% Physical Exam Vitals and nursing note reviewed. Constitutional: General: She is not in acute distress. Appearance: Normal appearance. She is not toxic-appearing. HENT: Nose: Nose normal. Mouth/Throat: Mouth: Mucous membranes are moist. Eyes: Conjunctiva/sclera: Conjunctivae normal. Cardiovascular: Rate and Rhythm: Normal rate and regular rhythm. Pulmonary: Effort: Pulmonary effort is normal. Breath sounds: Normal breath sounds. Abdominal: General: Abdomen is flat. Palpations: Abdomen is soft. Tenderness: There is no abdominal tenderness. There is no guarding or rebound. Skin: General: Skin is warm and dry. Neurological: Mental Status: She is alert. Assessment and Plan ASSESSMENT/PLAN: 1. Viral illness - ICD9: 079.99, ICD10: B34.9 - Discussed viral etiology and rationale for treatment. - Symptomatic treatment with prn analgesia - Supportive care with fluids and rest -Recommend bland diet - COVID AND INFLUENZA A/B AND RSV PCR, ROUTINE Diagnosis and treatment plan were discussed and questions were answered to the patient's satisfaction. Pt acknowledged understanding of concepts and follow up plan. Specific signs and symptoms that would indicate the need for higher level of care were discussed in detail warranting prompt ER evaluation. RANULFO Gabriel [facility] 12-02-2023 History of Presen t illness Narrative This note was created using AREVSriter. Chyna Styles is a 18 year old female. HPI 18-year-old female presents for vomiting, diarrhea x 2 days. Patient states she has had diarrhea for the past 2 days. She had vomiting yesterday. No vomiting today. No blood in the stool. No abdominal pain. She had a fever yesterday for several hours, but then it resolved. No fever today. No cough, congestion, URI symptoms. 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 Does not recall eating anything out of the ordinary. Still able to eat and drink today. No other complaint. PAST MEDICAL HISTORY Diagnosis Date Preeclampsia complicating hypertension 05/11/2022 Vasovagal syncope PAST SURGICAL HISTORY Procedure Laterality Date NEXPLANON INSERTION 02/2020 [facility] INTERPRET[facility] RANGER-has been removed ALLERGIES Patient has no known allergies. MEDICATIONS etonogestrel (NEXPLANON) subdermal implant 68 mg 1 Each by SUBDERMAL route as directed. estradiol (ESTRACE) 1 mg tablet Take 1 tablet by mouth once daily for 14 days. vit-iron fumarate-fa 28 mg iron- 800 mcg tab Take 1 tablet by mouth once daily. (Patient not taking: Reported on 12/02/2023) FAMILY HISTORY Problem Relation Age of Onset No Known Problems Mother No Known Problems Sister No Known Problems Brother No Known Problems Brother No Known Problems Maternal Grandmother Arthritis Maternal Grandfather Dementia Paternal Grandmother Cancer Paternal Grandfather Social History Tobacco Use Smoking status: Never Passive exposure: Yes Smokeless tobacco: Never Tobacco comments: 2 smokers in house Vaping Use Vaping status: Former Substances: Nicotine Devices: Pre-filled pod Substance Use Topics Alcohol use: Not Currently Drug use: Not Currently Types: Marijuana Review of Systems Constitutional: Negative for chills and fever. HENT: Negative for congestion, ear pain and sore throat. Respiratory: Negative for cough and shortness of breath. Cardiovascular: Negative for chest pain. Gastrointestinal: Positive for diarrhea, nausea and vomiting. Objective BP 100/68 Pulse 77 Temp 37 C (98.6 F) Resp 18 Wt 82.7 kg (182 lb 5.1 oz) LMP 09/11/2021 (Exact Date) SpO2 98% Physical Exam Vitals and nursing note reviewed. Constitutional: General: She is not in acute distress. Appearance: Normal appearance. She is not toxic-appearing. HENT: Nose: Nose normal. Mouth/Throat: Mouth: Mucous membranes are moist. Eyes: Conjunctiva/sclera: Conjunctivae normal. Cardiovascular: Rate and Rhythm: Normal rate and regular rhythm. Pulmonary: Effort: Pulmonary effort is normal. Breath sounds: Normal breath sounds. Abdominal: General: Abdomen is flat. Palpations: Abdomen is soft. Tenderness: There is no abdominal tenderness. There is no guarding or rebound. Skin: General: Skin is warm and dry. Neurological: Mental Status: She is alert. Assessment and Plan ASSESSMENT/PLAN: 1. Viral illness - ICD9: 079.99, ICD10: B34.9 - Discussed viral etiology and rationale for treatment. - Symptomatic treatment with prn analgesia - Supportive care with fluids and rest -Recommend bland diet - COVID & INFLUENZA A/B & RSV PCR, ROUTINE Diagnosis and treatment plan were discussed and questions were answered to the patient's satisfaction. Pt acknowledged understanding of concepts and follow up plan. Specific signs and symptoms that would indicate the need for higher level of care were discussed in detail warranting prompt ER evaluation. RANULFO Gabriel documented in this encounter [facility] 12-03-2022 Hospital Discharg e instructions Additional Instructions Recommend taking --- ibuprofen 400-600 mg PO q6hr PRN and --- alternate with Tylenol 650 mg every 4 hours as needed OR Tylenol 1000 mg every 6 hours as needed- Along with the Oxy IR. Take all pain meds with food. Oxy IR can cause constipation recommend taking daily stool softener (i.e. Colace/docusate) while taking the pain meds. Recommend starting some MiraLAX in 1-2 days if no bowel movement. [facility] Work Phone: 12-02-2022 Progress note Note Date/Time December 02, 2022 8:15am [facility] Medical Records Department [address] [place] [address] Progress Note - Surgery 12/02/22813 MR#: [id number] Acct: [id number] Name: TRENTON STYLES Rep #:[id number] : 2005 17 From: Charisse Esparza MD PCP: Care Physician,No Primary Status :ADM AUREA Location: [place] [address] Subjective Subjective Patient's white blood count improved to 12.5. Patient still complains of a lot of pain in the right lower quadrant, did get morphine last night with her oxy IR/Toradol, patient has ambulated in the halls Objective Data Objective Data Vital Signs: Vital Signs Temp Pulse Resp BP Pulse Ox O2 Del Method 98.0 F 62 18 90/42 L 97 Room Air 12/02/22 02:20 12/02/22 02:20 12/02/22 02:20 12/02/22 02:20 12/02/22 02:20 12/02/22 02:20 Oxygen Delivery Method Room Air Weight: 201 lb 14.4 oz Body Mass Index (BMI) 33.5 Intake & Output: Intake and Output for Last 24 Hours 11/30/22 12/01/22 12/02/22 23:59 23:59 23:59 Intake Total 2653.17 / 2653.17 2514 / 2764 500 / 500 Output Total 1200 / 1200 Balance 2653.17 / 2653.17 1314 / 1564 500 / 500 Lab / Micro Data 12/02/22 06:57 12/01/22 07:04 Labs: Laboratory Results - last 24 hr 12/02/22 06:57: WBC 12.3 H, RBC 3.53 L, Hgb 10.5 L, Hct 32.1 L, MCV 90.9, MCH 29.7, MCHC 32.7, RDW Std Deviation 42.1, RDW Coeff of Nan 12.6, Plt Count 257, MPV 10.6, Immature Gran % (Auto) 0.700, Neut % (Auto) 79.5 H, Lymph % (Auto) 13.7 L, [place] % (Auto) 5.0, Eos % (Auto) 0.9, Baso % (Auto) 0.2, Absolute Neuts (auto) 9.8 H, Absolute Lymphs (auto) 1.68, Nucleated RBC % 0 Physical Exam Const oriented x3 and no apparent distress Resp normal respiratory effort Cardio regular rate GI soft to palpation GI Narrative: Appropriately tender near incisions and some in the right lower quadrant, no peritoneal signs Inspection: Negative for abdominal distention Assessment & Plan Assessment/Plan (1) Acute appendicitis: (2) S/P laparoscopic appendectomy: PLAN: Plan Due to the continued pain and having to need IV morphine as she cannot make it to the next dose of p.o. meds we will check CT abdomen pelvis with p.o. and IV contrast. Patient with blood counts down to 12.5 patient currently on Zosyn IV Patient has tolerated regular diet but does complain of nausea off and on throughout the day?no vomiting discussed with patient if she has any vomiting wewill back her diet back down to clears. Charisse Esparza M.D. Pager: [phone] [facility] [address] [place] [address], [address] [place] [id number] Office: [phone] 12/02/22 0834 <Electronically signed by Charisse Esparza MD> Cosigner Signature (if applicable): CC: ~ Signed [facility] Work Phone: 1(186) 711-732510-21-2023 Progress note Author Charisse Esparza [facility] December 01, 2022 9:30am Note Date/Time December 01, 2022 9 :30am [facility] Medical Records Department [address] [place] [address] Progress Note - Surgery 12/01/22926 MR#: [id number] Acct: [id number] Name: TRENTON STYLES Rep #:[id number] : 2005 17 From: Charisse Esparza MD PCP: Care Physician,No Primary Status :ADM AUREA Location: [place] [address] Subjective Subjective Patient is tolerating a diet, complaining of quite a bit of pain and taking morphine and oxycodone. Positive flatus no bowel movement but patient did have a laxative prior to coming in with results. Objective Data Objective Data Vital Signs: Vital Signs Temp Pulse Resp BP Pulse Ox O2 Del Method 97.8 F 76 18 105/77 97 Room Air 12/01/22 07:40 12/01/22 07:40 12/01/22 07:40 12/01/22 07:40 12/01/22 07:40 12/01/22 07:40 Oxygen Delivery Method Room Air Weight: 201 lb 14.4 oz Body Mass Index (BMI) 33.5 Intake & Output: Intake and Output for Last 24 Hours 11/29/22 11/30/22 12/01/22 23:59 23:59 23:59 Intake Total 2653.17 / 2653.17 1402 / 1402 Output Total 1200 / 1200 Balance 2653.17 / 2653.17 Lab / Micro Data 12/01/22 07:04 12/01/22 07:04 Labs: Laboratory Results - last 24 hr 12/01/22 07:04: WBC 18.5 H, RBC 3.66 L, Hgb 10.9 L, Hct 32.7 L, MCV 89.3, MCH 29.8, MCHC 33.3, RDW Std Deviation 41.1, RDW Coeff of Nan 12.5, Plt Count 256, MPV 10.5, Immature Gran % (Auto) 0.900, Neut % (Auto) 89.6 H, Lymph % (Auto) 3.7L, [place] % (Auto) 5.7, Eos % (Auto) 0.0, Baso % (Auto) 0.1, Absolute Neuts (auto)16.5 H, Absolute Lymphs (auto) 0.69 L, Nucleated RBC % 0, Sodium 139, Potassium 4.2, Chloride 112 H, Carbon Dioxide 23.0, Anion Gap 4 L, BUN 9, Creatinine 0.54 L, Estim Creat Clear Calc 150.78, Est GFR (MDRD) Af Amer 188, Est GFR (MDRD) Non-Af 155, BUN/Creatinine Ratio 16.8, Glucose 142 H, Calcium 8.5 Radiography Diagnostic Testing: Radiology Impression Abdomen/Pelvis CT 11/30/22 10:27 IMPRESSION: Abnormal fluid-filled dilatation of the appendix with moderate amount of edema of the surrounding fat consistent with acute appendicitis. Electronically Signed: Prabhu Johnson MD at 11:14 EDT Reading Location ID and State: [facility] / [place] , Service support , ADDENDUM: 11/30/22 1125 IMPRESSION: Abnormal fluid-filled dilatation of the appendix with moderate amount of edema of the surrounding fat consistent with acute appendicitis. N.B. : The above Results were Read Back by Prabhu Johnson MD to Rigoberto Amador MD, and understanding confirmed on 11/30/2022 11:18:50 (ET). Electronically Signed: Prabhu Johnson MD at 11:14 EDT Reading Location ID and State: [facility] / [place] , Service support , Physical Exam Const oriented x3 and no apparent distress Resp normal respiratory effort Cardio regular rate GI soft to palpation GI Narrative: Appropriately tender near incisions and some in the right lower quadrant, no peritoneal signs Inspection: Negative for abdominal distention Assessment & Plan Assessment/Plan (1) Acute appendicitis: (2) S/P laparoscopic appendectomy: PLAN: Plan Patient is tolerating diet and having flatus. Patient white blood count still 18.5 we will continue the IV Zosyn Continue pain control Continue ambulation in halls. Charisse Esparza M.D. Pager: [phone] [facility] [address] [place] [address] [address] [place] [address] Office: [phone] 12/01/22 0956 <Electronically signed by Charisse Esparza MD> Cosigner Signature (if applicable): CC: ~ Signed [facility] Work Phone: 1(621) 986-433810-20-2023 Procedure [facility] 11-30-2022 History and physical note [facility] November 30, 2022 11:27am Note Date/Time November 30, 2022 1 1:14am [facility] Medical Records Department [address] [place] [address] H&P Exam - Surgical 11/30/22 1114 MR#: [id number] Acct: [id number] Name: TRENTON STYLES Rep #:[id number] : 2005 17 From: Charisse Esparza MD PCP: Care Physician,No [place] [facility] [facility] [id number] HPI - General General Date of Admission: 11/30/22 HPI Narrative TRENTON STYLES, is a 17 F who presents due to right lower quadrant pain. Patient had epigastric abdominal pain since Saturday mild and then it did move to the right lower quadrant on Saturday night. Patient not have much eat at all yesterday. Patient was on her period so she initially thought that was the abdominal pain. Patient did not eat much of anything yesterday. Patient did have nausea and vomiting on Saturday. Patient CT abdomen pelvis currently not read showed a lot of inflammation at the appendix possibly involving some of thececum with appendicolith. Patient's white blood count 21. Patient was given Zosyn IV in the ER x1. [facility] Medical History Former smoker Orthostatic syncope Home Medications BP cuff #1 ea 01/01/22 [Rx Last Taken Unknown] no.118-ferrous fumarate 29 mg-folic acid 1 mg chewable tablet (Se- Natal19 Chewable) 1 tab PO DAILY 01/01/22 [History Last Taken 05/10/22 22:00] melatonin 5 mg tablet 5 mg PO QHS insomnia 05/09/22 [History Last Taken 05/10/22 22:00] Allergy/AdvReac Type Severity Reaction Status Date / Time No Known Allergies Allergy Verified 05/10/22 21:48 Social History (Updated 11/30/22 @ 08:[address] Rigoberto Amador MD) household members: significant other and children Smoking Status: Current every day smoker tobacco type: e-cigarettes substance use type: does not use Vital Signs Vital Signs Vital Signs: 11/30/22 08:20 11/30/22 08:48 11/30/22 09:33 Temperature 97.2 F L Temperature Source Temporal Pulse Rate 112 H 87 74 Respiratory Rate 20 H 16 16 Blood Pressure 119/60 112/59 L 98/55 L Blood Pressure Mean 79 76 69 Pulse Ox 96 97 100 Oxygen Delivery Method Room Air Room Air Room Air Weight Weight: 201 lb 14.4 oz Body Mass Index (BMI) 33.5 Physical Exam Const alert, oriented x3 and no apparent distress HEENT normocephalic and head/scalp atraumatic Resp normal respiratory effort Cardio regular rate GI soft to palpation; Negative for non-distended Palpation: tender RLQ, Rovsing's sign and other (Supraumbilical no rebound, voluntary guarding) and guarding other (Voluntary) Extremity no clubbing, cyanosis or edema Neuro CN's II-XII intact bilaterally Psych mental status grossly normal Results Lab / Micro Data 11/30/22 08:50 11/30/22 08:50 Labs: Laboratory Results - last 24 hr 11/30/22 08:38: Urine Color Yellow, Urine Clarity Sl. Cloudy, Urine pH 6.5, Ur Specific [place] 1.015, Urine Protein 30 H, Urine Glucose (UA) Normal, Urine Ketones 150 A*, Urine Occult Blood 150 H, Urine Nitrite Negative, Urine Bilirubin 1 H, Urine Urobilinogen 1 H, Ur Leukocyte Esterase 100 H, Urine RBC 10-25 SEEN, Urine WBC 10-25 SEEN, Ur Squamous Epith Cells 10-25 SEEN, Urine Bacteria 1+, Urine Mucus 0 SEEN 11/30/22 08:50: WBC 21.6 H, RBC 4.81, Hgb 13.7, Hct 41.7, MCV 86.7, MCH 28.5, MCHC 32.9, RDW Std Deviation 38.8, RDW Coeff of Nan 12.2, Plt Count 334, MPV 10.7, Immature Gran % (Auto) 1.100 H, Neut % (Auto) 87.4 H, Lymph % (Auto) 5.3 L, [place] % (Auto) 5.7, Eos % (Auto) 0.2, Baso % (Auto) 0.3, Absolute Neuts (auto) 18.9 H, Absolute Lymphs (auto) 1.15, Nucleated RBC % 0, Sodium 135 L, Potassium 3.9, Chloride 107, Carbon Dioxide 23.0, Anion Gap 5, BUN 13, Creatinine 0.69, Estim Creat Clear Calc 118.00, Est GFR (MDRD) Af Amer 141, Est GFR (MDRD) Non-Af116, BUN/Creatinine Ratio 18.9, Glucose 110 H, Calcium 9.3, Total Bilirubin 1.80H, AST 17, ALT 36, Alkaline Phosphatase 124 H, Total Protein 8.0, Albumin 3.6, Globulin 4.4 H, Albumin/Globulin Ratio 0.8 L, Lipase 21, Serum , Qual NEGATIVE Assessment & Plan Assessment/Plan (1) Acute appendicitis: PLAN: Plan 1. Discussed procedure laparoscopic appendectomy, possible open, possible bowelresection along with the risk but not limited to bleeding, infection/abscess, postop ileus, injury to another organ (small bowel, colon, etc.), adhesion, hernia at incision sites, and anesthesia. Patient no further question this time. Charisse Esparza M.D. Pager: [phone] [facility] [address] [place] [address], [address] [place] [address] Office: [phone] 11/30/22 1121 <Electronically signed by Charisse Esparza MD> Cosigner Signature (if applicable): CC: Dr. Charisse Esparza MD; No Primary Care Physician~ Signed [facility] Work Phone: 1(192) 455-635010-20-2023 Discharge summary Author Rigoberto Amador [facility] November 30, 2022 10:54am Note Date/Time November 30, 2022 8 :33am [facility] Medical Records Department [address] [place] [address] [place] [address] Emergency Department Summary 11/30/22 MR#: [id number] Acct: [id number] Name: TRENTON STYLES Rep #:[id number] : 2005 17 From: Rigoberto Amador MD PCP: Care Physician,No Primary Status :REG ER Location: ED HPI HPI - GI History of Present Illness Chief Complaint: Abd Pain Detail of Chief Complaint: Abdominal pain that started 2 days ago Informant: patient Abdominal Pain/Flank Pain Onset: Days Context: Sudden Onset Timing: Continuous Quality: Aching and Sharp Location: Diffuse (Initially upper abdomen now diffuse) Current Severity: Moderate Maximum Severity: Severe Worsened by: Car ride and Movement Relieved by: Nothing Nausea/Vomiting/Emesis GI Symptom: Positive for Nausea and Vomiting (Vomited 3 times onset of pain 2 days ago. She does not know what color her emesis was.) Diarrhea/Melena/Hematochezia GI Symptom: Positive for - (Patient states she is normally regular. Did not have a bowel movement and she took a laxative yesterday that her mother recommended.); Negative for Diarrhea, Melena or Hematochezia Associated Symptoms Associated Symptoms: Negative for Dysuria, Frequency, Hematuria or Urgency LMP: 1 week ago. Has not been regular since childbirth May 2022. Is presentl Narrative Narrative: Is a 17-year-old G1, P1 Ab0 female who presents with upper abdominal pain that is now diffuse. Onset 2 days ago. She describes as a sharp dull discomfort. She did have nausea with 3 episodes of vomiting 2 days ago. She has not vomitedsince. She states she normally has daily bowel movements. She did not have a regular bowel movement and mother thought she was constipated. Mother recommended laxatives, which she took yesterday. States she had 2 small bowel movements. She denied blood or mucus. She denies dysuria, frequency, urgency or hematuria. She states she is never experienced pain like this before. She had preeclampsia with her delivery May 2022. She states her menses has not been regular since. She is on control pills. She denies respiratory or cardiac symptoms. She denies history of renal ureterolithiasis. She denies back or flank pain. She denies radiation of the pain. There is no history of trauma. Prior similar symptoms: No Recent Illness/Hospitalization: No PFSH PFS Medical History Former smoker Orthostatic syncope Home Medications BP cuff #1 ea 01/01/22 [Rx Last Taken Unknown] no.118-ferrous fumarate 29 mg-folic acid 1 mg chewable tablet (Se- Natal19 Chewable) 1 tab PO DAILY 01/01/22 [History Last Taken 05/10/22 22:00] melatonin 5 mg tablet 5 mg PO QHS insomnia 05/09/22 [History Last Taken 05/10/22 22:00] Allergy/AdvReac Type Severity Reaction Status Date / Time No Known Allergies Allergy Verified 05/10/22 21:48 Social History (Updated 11/30/22 @ 08:[address] Rigoberto Amador MD) household members: significant other and children Smoking Status: Current every day smoker tobacco type: e-cigarettes substance use type: does not use ROS ROS ED Constitutional Constitutional ED: Reports chills, fever(s), subjective and sweats; Denies weight loss ENT ENT ED: Denies ear pain, rhinorrhea or sore throat Cardiovascular Cardiovascular: Denies chest pain or palpitations Respiratory/Chest Respiratory/Chest: Denies cough, dyspnea or dyspnea on exertion Gastrointestinal Gastrointestinal: Reports abdominal pain, constipation, nausea and vomiting; Denies diarrhea or melena Genitourinary Genitourinary ED: Reports LMP (females 10-50) Details: Comment: (This presently); Denies dysuria, hematuria or urinary frequency Musculoskeletal Musculoskeletal: Denies arthralgias, back pain or myalgias Integumentary Denies rash Neurologic Neurologic: Denies paresthesias or weakness Endocrine Endocrinology: Denies polydipsia, polyphagia or polyuria Hematologic/Lymphatic Hematologic/Lymphatic: Denies easy bleeding or easy bruising EXAM Physical Exam Const Vital Signs: 11/30/22 08:20 11/30/22 08:48 11/30/22 09:33 Temperature 97.2 F L Temperature Source Temporal Pulse Rate 112 H 87 74 Respiratory Rate 20 H 16 16 Blood Pressure 119/60 112/59 L 98/55 L Blood Pressure Mean 79 76 69 Pulse Ox 96 97 100 Oxygen Delivery Method Room Air Room Air Room Air Positive well nourished, well developed and obese Constitutional Narrative: Appears uncomfortable. She is tachypneic. She is slightly diaphoretic. General Appearance ED: well developed and pallor; Negative for NAD Nutritional Appearance: obese HEENT Reports TM's clear and dry mucous membranes HEENT Narrative: Ears are normal. Nares are patent. Posterior pharynx is normal. normocephalic and atraumatic Tympanic Membrane ED: Yes TM's clear Mouth ED: Yes dry mucous membranes Mouth: dry mucous membranes Eyes PERRL and EOMs intact bilaterally General Eye ED: Negative for pale conjunctiva or scleral icterus Neck no lymphadenopathy, supple and no JVD Resp normal respiratory effort Cardio regular rhythm, S1 normal heart sound, S2 normal heart sound and no murmurs Rate: tachycardic GI non-distended and no masses; Negative for non-tender Auscultation: hypoactive bowel sounds Palpation: soft, tender other (Diffuse tenderness greater left upper quadrant) and guarding LLQ, RLQ and LUQ; Negative for rigid, hepatomegaly, splenomegaly, hernia, mass or pulsatile mass Back/Spine no CVA tenderness Thoracic Spine / Upper Back: Negative for thoracic spinal tenderness Lumbar Spine / Lower Back: Negative for lumbar spinal tenderness Extremity full ROM General Extremety ED: Negative for edema or tenderness General Extremity: Negative for edema Neuro CN's II-XII intact bilaterally, moves all extremities and no sensory deficits noted Sensorium / Orientation: alert Motor Exam: strength 5/5 throughout Psych mental status grossly normal and thought process normal Skin no wounds General Skin Exam: pallor; Negative for jaundice Lesions: no lesions Rashes: no rashes MDM MDM MDM Narrative Medical decision making narrative: Differential diagnosis would include pancreatitis, biliary disease, peptic ulcerdisease, perforated viscus, colitis. Appropriate blood work was obtained. She was medicated with Zofran for her nausea and morphine for her pain. Records fordelivery reviewed. Also reviewed laboratory studies. History & Record Review Additional record(s) reviewed:: Prior inpatient record, Prior outpatient record,Prior ED visit and Prior labs Lab Data Attestation: I reviewed the patient's lab results. Lab results narrative: Is elevated at 21.6 thousand with shift. H&H is normal. Competence of metabolic panel reveals slight elevation alkaline phosphatase 124. BUN and creatinine are normal. Total bilirubin is 1.8. AST and ALT are normal. Urine test was negative. Urine reveals ketones, proteinuria, occult blood, bilirubin and urobilinogen as well as leukoesterase. Microscopic reveals 10-25 RBCs, WBCs and squamous epithelial cells with 1+ bacteria. This would indicate a contaminated specimen. Because of the guarding tachycardia diaphoresis elevated white count and worsening abdominal symptoms CT of the abdomen was obtained to determine etiology of her white count and pain. Labs: Laboratory Results - last 24 hr 11/30/22 11/30/22 08:38 08:50 WBC 21.6 H RBC 4.81 Hgb 13.7 Hct 41.7 MCV 86.7 MCH 28.5 MCHC 32.9 RDW Std Deviation 38.8 RDW Coeff of Nan 12.2 Plt Count 334 MPV 10.7 Immature Gran % (Auto) 1.100 H Neut % (Auto) 87.4 H Lymph % (Auto) 5.3 L [place] % (Auto) 5.7 Eos % (Auto) 0.2 Baso % (Auto) 0.3 Absolute Neuts (auto) 18.9 H Absolute Lymphs (auto) 1.15 Nucleated RBC % 0 Sodium 135 L Potassium 3.9 Chloride 107 Carbon Dioxide 23.0 Anion Gap 5 BUN 13 Creatinine 0.69 Estim Creat Clear Calc 118.00 Est GFR (MDRD) Af Amer 141 Est GFR (MDRD) Non-Af 116 BUN/Creatinine Ratio 18.9 Glucose 110 H Calcium 9.3 Total Bilirubin 1.80 H AST 17 ALT 36 Alkaline Phosphatase 124 H Total Protein 8.0 Albumin 3.6 Globulin 4.4 H Albumin/Globulin Ratio 0.8 L Lipase 21 Serum , Qual NEGATIVE Urine Color Yellow Urine Clarity Sl. Cloudy Urine pH 6.5 Ur Specific [place] 1.015 Urine Protein 30 H Urine Glucose (UA) Normal Urine Ketones 150 A* Urine Occult Blood 150 H Urine Nitrite Negative Urine Bilirubin 1 H Urine Urobilinogen 1 H Ur Leukocyte Esterase 100 H Urine RBC 10-25 SEEN Urine WBC 10-25 SEEN Ur Squamous Epith Cells 10-25 SEEN Urine Bacteria 1+ Urine Mucus 0 SEEN Radiography Diagnostic Testing: With IV contrast reveals acute appendicitis. There is no evidence of pneumoperitoneum. There is significant inflammation. Dose of Zosyn was orderedand surgeon on-call Dr. Esparza was paged. 1043 Management Discussion w/another healthcare provider: [employer]ice (Dr. Stroud will see patient. She is to be admitted.) Treatment and Re-Evaluation :: Was reassessed at 0925. She is holding her abdomen lying still in obvious discomfort. She is tachypneic. Since her pressure dropped with morphine we will give Dilaudid since her is no histamine release etc. Also there is no vagal lytic properties. Patient was informed that a CAT scan was ordered to determine the etiology of her symptoms and laboratory results additionally a liter of normal saline was ordered. Complained of increased pain. Additional dose of Dilaudid was ordered at 1050. Discharge Plan Dx/Rx/DC Orders Clinical Impression: Arterial hypotension, Acute appendicitis with generalized peritonitis Disposition Disposition: Acute Care Hospital [facility] What to do if you have Problems For any increased pain, shortness of breath, bleeding, nausea or vomiting, chestpain, or any unexpected problems, contact your Primary Care Provider. Call [facility] ([phone]) or report to the closest Emergency Room. Call 911 if necessary. 11/30/22 1054 <Electronically signed by Rigoberto Amador MD> Cosigner Signature (if applicable): CC: No Primary Care Physician ~ Signed [facility] Work Phone: 1(597) 649-478605-15-2023 History of Present illness Narrative* Rehana Jaffe APRN.JEFF - 06/25/2022 8:20 AM EDT VISIT Trenton Styles is a 16 year old year old here for visit. Delivery Summary: 05/14/22 Baby home from NICU- 06/05/22 ROS/ Recovery: Feeding: Breast and bottle feeding problems: None Menses since delivery: none Menstrual pattern prior to : no menses due to taking oral contraceptive pills prior to [place] since delivery: Not resumed Depression: denies symptoms of depression. OB Depression and Anxiety Screening- This Encounter (since 06/24/2022) Over the past 2 weeks have you felt down, depressed, or hopeless? Negative Over the past two weeks, have you felt little interest or pleasure in doing things? Negative Feeling nervous, anxious or on edge 0-Not at all Not being able to stop or control worrying 0-Not al all Anxiety Pre-Screening Total (If >/= 3 additional questions will be reviewed) 0 Emotional support: Yes Bowel symptoms: Negative for abdominal discomfort, blood in stools or black stools and change in bowel habits Abdomen: N/A Bladder symptoms: No dysuria, gross hematuria, urinary frequency, urinary urgency, or incontinence Other issues: None Last Pap: n/a Age 16 PAST MEDICAL HISTORY Diagnosis Date Preeclampsia complicating hypertension 05/11/2022 Vasovagal syncope PAST SURGICAL HISTORY Procedure Laterality Date NEXPLANON INSERTION 02/2020 [facility]-has been removed FAMILY HISTORY Problem Relation Age of Onset No Known Problems Mother No Known Problems Sister No Known Problems Brother No Known Problems Brother No Known Problems Maternal Grandmother Arthritis Maternal Grandfather Dementia Paternal Grandmother Cancer Paternal Grandfather Social History Tobacco Use Smoking status: Never Passive exposure: Yes Smokeless tobacco: Never Tobacco comments: 2 smokers in house Vaping Use Vaping Use: Former Substances: Nicotine Devices: Pre-filled pod Substance Use Topics Alcohol use: Not Currently Drug use: Not Currently Types: Marijuana PHYSICAL EXAMINATION: BP 104/62 Wt 196 lb (88.9kg) LMP 09/11/2021 GENERAL: pleasant, female in no apparent distress HEENT: Normocephalic, atraumatic, mucus membranes moist, and no lesions NECK: Supple, full range of motion, no adenopathy, and thyroid normal DERMATOLOGY: Normal, without lesions, non-icteric, and non-hirsute BREAST: soft, non-tender, symmetric, no dominant mass, normal nipple-areolar complex, no lymphadenopathy, and no nipple discharge CHEST: Normal inspiratory effort ABDOMEN: soft, non-tender, and no masses. INCISION: N/A PELVIC: external genitalia normal, normal Bartholin's glands, urethra, Paola's glands, no vulvar lesions, no cervical lesions, good vaginal support, physiologic discharge present, normal appearing perineal body and perianal region BIMANUAL: uterus normal size, shape and consistency, no adnexal masses, non- tender, and no cervicalmotion tenderness NEURO: alert and oriented x3,exam grossly non-focal EXTREMITIES: normal ASSESSMENT AND PLAN: 16 year old status post with normal course. Stopped taking BP medications 2 weeks ago- BP stable Contraception plan: Nexplanon Follow up: RTC for annual exams and next week for Nexplanon insertion Rehana Jaffe APRN.CNM [facility] Miscellaneous Notes* Telephone Encounter - Alice Gunn RN - 06/08/2022 2:18 PM EDT Patient notified and voiced understanding. Appointment scheduled. Alice Gunn RN * Telephone Encounter - Rehana Jaffe APRN.CNM - 06/08/2022 2:01 PM EDT Order signed. She will need a separate visit for placement of Nexplanon. It can't be included with PP visit. Thank you! Rehana Jaffe APRN.CNM * Telephone Encounter - Alice Gunn RN - 06/08/2022 1:53 PM EDT See below. Patient is scheduled for 6 week post visit on 06/25. Alice Gunn RN * Telephone Encounter - Harriett Perez Pss - 06/08/2022 12:33 PM EDT Patient asking for Nexplanon placement. Please advise. [facility]23 NoteHNO ID: [id number] Author: Lala Tim APRN.CNM Service: Obstetrics Author Type: Cold Roll Packer Sheet Iron Type: Progress Notes Filed: 05/18/2022 9:30 AM Note Text: Attestation signed by Mary Kay Herrera DO at 05/18/2022 3:06 PM See daily resident progress note. Mary Kay Herrera DO 3:06 PM Asked by nursing to examine breasts. Breast are very firm, red and warm to touch. She is pumping 60-90 ml at a time. No fever. to evaluate ( on board) Dr Herrera aware Lala Khan APRN.[facility]04-07-2023 NoteHNO ID: [id number] Author: Lauren Ng MD Service: Obstetrics Author Type: Resident Type: Progress Notes Filed: 05/18/2022 6:47 AM Note Text: Attestation signed by Mary Kay Herrera DO at 05/18/2022 3:12 PM Attending Note I evaluated the patient and personally participated in the coronado components. I agree with the resident's findings and plan as documented and have discussed the case and management of the patient's care with the resident. Plan of care discussed with: Provider, RN, Patient. 16 year old female who is Day #4 status post Vaginal, Spontaneous delivery with female . Meeting PP milestones Female doing well in NICU PPBC- Previously intersted in 8 week PP Nexplanon Pre-eclampsia with features of severe features - Cont Procardia 30 XL BID - Asymptomatic - For BP check on Saturday in office - BPs reviewed; normal to mild - BP cuff at home Breast exam without fluctuance bilaterally, well engorged. Reports 90 ml milk output. Milk expressed with minimal breast manipulation. Afebrile. Bilateral breasts edematous. No wedge erythema or streaking. Breasts not tender. Enc to cont pumping on schedule. Strict return precautions given. Low clinical concern for active mastitis at this time, especially given bilateral breast involvement. Enc compression. Questions answered. Patient examined with team present. For DC to bonding. BP cuff at home. BP precautions reviewed. Signature: Mary Kay CruzDO milagro Date: May 18, 2022 Time: 3:07 PM OBSTETRICS PROGRESS NOTE SERVICE DATE: May 18, 2022 SERVICE TIME: 6:45 AM ASSESSMENT: 16 year old female who is Day #4 status post Vaginal, Spontaneous delivery with female . PLAN: Routine care -meeting all milestones -pumping for -baby girl in NICU off CPAP -EBL 353 -Rh pos Severe pre-e - overnight bp wnl to mils - procardia 30xl BID as maintenance - has not require acute treatment since admission - admission labs unremarkable Plt 267->261 Cr 0.52 ->0.55 AST/ALT -> UPC 9.54 - asymptomatic - s/p Mag Rash -small punctate rash on left flank, patient states she started having rash 2 weeks ago, and now feels it's getting worse -no pain, no pruritis -will continue to watch -can consider dermatology appt outpatient Disposition -per primary nursing care partner -Anticipate PPD4 SUBJECTIVE: Patient has no current complaints. Tolerating PO intake. Urinating without difficulty. Passing flatus. Pain well controlled with current regimen. Lochia decreasing. Ambulating without difficulty. OBJECTIVE: PHYSICAL EXAM: Heart: RR, S1, S2 Lungs: clear to auscultation Abdomen: Soft Fundus firm below umbilicus Non-distended Extremities: No calf tenderness and No edema LAST VITALS: Pulse BP Resp O2 Sat Temp Pain 60 125/81 16 95 % 36.7 ?C (98.1 ?F) 0 Avg Min Max Vitals (last 12 hours) Flowsheet Row Name Average Min Max BP: Systolic 134.75 125 141 BP: Diastolic 88 81 93 Temp 36.7 ?C (97.97 ?F) 36.6 ?C (97.9 ?F) 36.7 ?C (98.1 ?F) Pulse 72.25 60 89 Resp 16 16 16 SpO2 96.75 % 95 % 99 % HT/WT/BMI: Height Weight BMI 165.1 cm (5' 5) 99.3 kg (219 lb) 36.44 LABS ABO/RH: 05/11/2022: B; Positive RUBELLA: 12/18/2021: Positive HANDH: Hematocrit (%) Date Value 05/13/2022 34.8 05/12/2022 33.5 05/11/2022 34.3 Hemoglobin (g/dL) Date Value 05/13/2022 11.7 05/12/2022 11.3 05/11/2022 11.5 Diagnostic tests reviewed for today's visit: Most recent labs and imaging results. SIGNATURE: Lauren Ng MD PATIENT NAME: Trenton Styles DATE: May 18, 2022 TIME: 6:45 [facility]04-06-2023 NoteHNO ID: [id number] Author: Bhavna Morillo RN Service: Nursing Author Type: Registered Nurse Type: Progress Notes Filed: 05/17/2022 6:49 PM Note Text: Dr Joshi notified of pts Bps and red areas on breast above the areola. Will see when comes to [facility]04-06-2023 NoteHNO ID: [id number] Author: Lauren Ng MD Service: Obstetrics Author Type: Resident Type: Progress Notes Filed: 05/17/2022 6:56 AM Note Text: Attestation signed by Nav Joshi MD at 05/17/2022 6:37 PM I saw and evaluated the patient. Discussed with the resident and agree with resident's findings and plan as documented in the resident's note. Detailed discussion with the patient and her team registered nurse today regarding initial concerns of erythema, periareola erythema superiorly on both breasts which was noted last night by the resident and subsequently determined to be secondary to ill fitting malposition of breast pump. She has remained afebrile. Mild breast tenderness Procardia twice daily with adequate control of blood pressures. Breast exam: Bilaterally engorged with firmness circumferentially around both areola with extremely easy expression of normal-appearing breast milk. Very mild minimal erythema no sharp line of demarcation no evidence of mastitis at this time. Plan: Detailed discussion regarding more frequent pumping to relieve breast engorgement. As well as utilization of 600 mg Motrin [id number] for the next 24 hours and application of heat in the shower. Team will be notified if elevation in blood pressure is greater than 101 ?F. Sincerely Nav Joshi M.D. OBSTETRICS PROGRESS NOTE SERVICE DATE: May 17, 2022 SERVICE TIME: 6:52 AM ASSESSMENT: 16 year old female who is Postoperative Day #3 status post Vaginal, Spontaneous delivery with female . PLAN: Routine care -meeting all milestones -pumping for -baby girl in NICU off CPAP -EBL 353 -Rh pos Severe pre-e - overnight bp wnl to non sustained severe - Added procardia 30xl BID as maintenance - has not require acute treatment since admission - admission labs unremarkable Plt 267->261 Cr 0.52 ->0.55 AST/ALT ->15 UPC 9.54 - asymptomatic - s/p Mag Disposition -per primary nursing care partner -Anticipate PPD3 SUBJECTIVE: Patient has no current complaints. Tolerating PO intake. Urinating without difficulty. Passing flatus. Pain well controlled with current regimen. Lochia decreasing. Ambulating without difficulty. OBJECTIVE: PHYSICAL EXAM: Heart: RR, S1, S2 Lungs: clear to auscultation Abdomen: Soft Fundus firm below umbilicus Non-distended Extremities: No calf tenderness and No edema LAST VITALS: Pulse BP Resp O2 Sat Temp Pain 66 134/89 (pt relaxed, laying back in bed) 16 98 % 36.8 ?C (98.2 ?F) 2 Avg Min Max Vitals (last 12 hours) Flowsheet Row Name Average Min Max BP: Systolic 144.25 134 157 BP: Diastolic 94.25 75 110 Temp 36.7 ?C (98.1 ?F) 36.6 ?C (97.9 ?F) 36.8 ?C (98.2 ?F) Pulse 68.67 66 72 Resp 16.67 16 18 SpO2 97.67 % 97 % 98 % HT/WT/BMI: Height Weight BMI 165.1 cm (5' 5) 99.3 kg (219 lb) 36.44 LABS ABO/RH: 05/11/2022: B; Positive RUBELLA: 12/18/2021: Positive HANDH: Hematocrit (%) Date Value 05/13/2022 34.8 05/12/2022 33.5 05/11/2022 34.3 Hemoglobin (g/dL) Date Value 05/13/2022 11.7 05/12/2022 11.3 05/11/2022 11.5 Diagnostic tests reviewed for today's visit: Most recent labs and imaging results. SIGNATURE: Lauren Ng MD PATIENT NAME: Trenton Styles DATE: May 17, 2022 TIME: 6:52 [facility]04-06-2023 NoteHNO ID: [id number] Author: Vanna Mercado DO Service: Obstetrics Author Type: Resident Type: Progress Notes Filed: 05/17/2022 4:05 AM Note Text: Attestation signed by Nav Joshi MD at 05/17/2022 12:48 PM I saw and evaluated the patient. Discussed with the resident and agree with resident's findings and plan as documented in the resident's note. Nav Joshi MD Patient's BP reviewed, most recently she had an isolated severe range blood pressure. Prior to that she has had several high mild range blood pressures. Given her increasing blood pressure, will start maintenance hypertensive for her with Procardia XL 30 mg BID. Reviewed with Dr. Joshi. Vanna Mercado DO Obstetrics and Gynecology PGY-2[facility] NoteHNO ID: [id number] Author: Lauren Ng MD Service: Obstetrics Author Type: Resident Type: Progress Notes Filed: 05/16/2022 6:48 AM Note Text: Attestation signed by Dari Driscoll MD at 05/16/2022 6:08 PM Attending Note I evaluated the patient and personally participated in the coronado components. I agree with the resident's findings and plan as documented and have discussed the case and management of the patient's care with the resident. Monitor BP meds off magnesium. Add oral agent if needed Signature: Dari Driscoll MD Date: 05/16/2022 Time: 6:08 PM OBSTETRICS PROGRESS NOTE SERVICE DATE: May 16, 2022 SERVICE TIME: 6:46 AM ASSESSMENT: 16 year old female who is Day #2 status post Vaginal, Spontaneous delivery with female . PLAN: Routine care -meeting all milestones -pumping for infant -baby girl in NICU on CPAP -EBL 353 -Rh pos Severe pre-e - overnight bp continues to be wnl to mild - did not require acute treatment since admission - admission labs unremarkable Plt 267->261 Cr 0.52 ->0.55 AST/ALT -> UPC 9.54 - asymptomatic - JARAMILLO overnight resolved - s/p Mag Disposition -per primary nursing care partner -Anticipate PPD3 SUBJECTIVE: Patient has no current complaints. Tolerating PO intake. Urinating without difficulty. Passing flatus. Pain well controlled with current regimen. Lochia decreasing. Ambulating without difficulty. OBJECTIVE: PHYSICAL EXAM: Heart: RR, S1, S2 Lungs: clear to auscultation Abdomen: Soft Fundus firm below umbilicus Non-distended Extremities: No calf tenderness and No edema LAST VITALS: Pulse BP Resp O2 Sat Temp Pain 73 148/92 18 96 % 36.7 ?C (98.1 ?F) 3 Avg Min Max Vitals (last 12 hours) Flowsheet Row Name Average Min Max BP: Systolic 141 127 148 BP: Diastolic 88.67 75 99 Temp 36.7 ?C (98.07 ?F) 36.6 ?C (97.9 ?F) 36.8 ?C (98.2 ?F) Pulse 75.67 73 79 Resp 18 18 18 SpO2 97 % 96 % 98 % HT/WT/BMI: Height Weight BMI 165.1 cm (5' 5) 99.3 kg (219 lb) 36.44 LABS ABO/RH: 05/11/2022: B; Positive RUBELLA: 12/18/2021: Positive HANDH: Hematocrit (%) Date Value 05/13/2022 34.8 05/12/2022 33.5 05/11/2022 34.3 Hemoglobin (g/dL) Date Value 05/13/2022 11.7 05/12/2022 11.3 05/11/2022 11.5 Diagnostic tests reviewed for today's visit: Most recent labs and imaging results. SIGNATURE: Lauren Ng MD PATIENT NAME: Trenton Styles DATE: May 16, 2022 TIME: 6:46 [facility] NoteHNO ID: [id number] Author: Lauren Ng MD Service: Obstetrics Author Type: Resident Type: Progress Notes Filed: 05/15/2022 6:52 AM Note Text: Attestation signed by Bettina Myers MD at 05/15/2022 9:35 AM I saw and evaluated the patient. Discussed with the resident and agree with resident's findings and plan as documented in the resident's note. Continue magnesium and bp monitoring.Bettina Myers MD OBSTETRICS PROGRESS NOTE SERVICE DATE: May 15, 2022 SERVICE TIME: 6:44 AM ASSESSMENT: 16 year old female who is Day #1 status post Vaginal, Spontaneous delivery with female . PLAN: Routine care -meeting all milestones -pumping for -baby girl in NICU on CPAP -EBL 353 -Rh pos Severe pre-e - overnight bp wnl to mild - did not require acute treatment since admission - admission labs unremarkable Plt 267->261 Cr 0.52 ->0.55 AST/ALT ->1514 UPC 9.54 - asymptomatic - JARAMILLO overnight resolved - restart Mg 6g bolus followed by 2g/hour rate - Mg for 24 hours - Mg restrictions and neuro check orders in place Disposition -per primary nursing care partner -Anticipate PPD3 SUBJECTIVE: Patient has no current complaints. Tolerating PO intake. Urinating without difficulty. Passing flatus. Pain well controlled with current regimen. Lochia decreasing. Ambulating without difficulty. OBJECTIVE: PHYSICAL EXAM: Heart: RR, S1, S2 Lungs: clear to auscultation Abdomen: Soft Fundus firm below umbilicus Non-distended Extremities: No calf tenderness and No edema LAST VITALS: Pulse BP Resp O2 Sat Temp Pain 62 126/75 16 98 % 36.8 ?C (98.2 ?F) 2 Avg Min Max Vitals (last 12 hours) Flowsheet Row Name Average Min Max BP: Systolic 134.25 123 150 BP: Diastolic 84.58 72 98 Temp 36.7 ?C (98.08 ?F) 36.6 ?C (97.9 ?F) 36.8 ?C (98.2 ?F) Pulse 72.08 52 90 Resp 16.91 16 18 SpO2 97.58 % 97 % 100 % HT/WT/BMI: Height Weight BMI 165.1 cm (5' 5) 99.3 kg (219 lb) 36.44 LABS ABO/RH: 05/11/2022: B; Positive RUBELLA: 12/18/2021: Positive HANDH: Hematocrit (%) Date Value 05/13/2022 34.8 05/12/2022 33.5 05/11/2022 34.3 Hemoglobin (g/dL) Date Value 05/13/2022 11.7 05/12/2022 11.3 05/11/2022 11.5 Diagnostic tests reviewed for today's visit: Most recent labs and imaging results. SIGNATURE: Lauren Ng MD PATIENT NAME: Trenton Styles DATE: May 15, 2022 TIME: 6:44 [facility]04-03-2023 NoteHNO ID: [id number] Author: Leah Shearer RN Service: ? Author Type: Registered Nurse Type: Nursing Progress Note Filed: 05/14/2022 4:53 PM Note Text: 1600 mag/neuro assessment deferred due to patient in active labor. Will resume after .[facility]04-[facility] NoteHNO ID: [id number] Author: Lauren Ng MD Service: Obstetrics Author Type: Resident Type: Progress Notes Filed: 05/14/2022 3:22 PM Note Text: OB Progress Note Service Date: May 14, 2022 Service Time: 3:16 PM S: Patient comfortable with epidural O: Vitals: Status: 05/14/22 1423 05/14/22 1426 05/14/22 1435 05/14/22 1450 BP: 128/75 128/72 Pulse: 78 73 68 70 Resp: Temp: TempSrc: SpO2: 97% 97% 94% Weight: Height: CERVICAL EXAM: Last Exam Notes: Dilation: 4 (05/14/22 1516 : Lauren Ng MD) Effacement (%): 70 (05/14/22 1516 : Lauren Ng MD) Station: -2 (05/14/22 151 : Lauren Ng MD) Presentation: (not recorded) MEMBRANES: Status: Membrane Status: Artificial ROM after labor (05/14/22 1516 : Lauren Ng MD) Rupture Date: 05/14/22 (05/14/22 151 : Lauren Ng MD) Rupture Time: 151 (05/14/22 1516 : Lauren Ng MD) Amniotic Fluid Color: Clear (05/14/22 1516 : Lauren Ng MD) Amniotic Fluid Amount: Moderate (05/14/22 1516 : Lauren Ng MD) FHT: 130/moderate/+accels/no decels TOCO: q2 min Cat 1 FHT Oxytocin Infusion - If collapsed, click to expand (last 4 hours) Date/Time Action Medication Dose Rate 05/14/22 1430 Rate Verify oxytocin 30 unit in LR 500 mL iv infusion (INDUCTION/AUGMENTATION) (PITOCIN) 10 roly-units/min 10 mL/hr 05/14/22 1400 Rate Verify oxytocin 30 unit in LR 500 mL iv infusion (INDUCTION/AUGMENTATION) (PITOCIN) 10 roly-units/min 10 mL/hr 05/14/22 1330 Rate Verify oxytocin 30 unit in LR 500 mL iv infusion (INDUCTION/AUGMENTATION) (PITOCIN) 10 roly-units/min 10 mL/hr 05/14/22 1300 Rate Verify oxytocin 30 unit in LR 500 mL iv infusion (INDUCTION/AUGMENTATION) (PITOCIN) 10 roly-units/min 10 mL/hr 05/14/22 1230 Rate/Dose Change oxytocin 30 unit in LR 500 mL iv infusion (INDUCTION/AUGMENTATION) (PITOCIN) 10 roly-units/min 10 mL/hr 05/14/22 1200 Rate/Dose Change oxytocin 30 unit in LR 500 mL iv infusion (INDUCTION/AUGMENTATION) (PITOCIN) 8 roly-units/min 8 mL/hr 05/14/22 1130 Rate Verify oxytocin 30 unit in LR 500 mL iv infusion (INDUCTION/AUGMENTATION) (PITOCIN) 6 roly-units/min 6 mL/hr A/P: 16 year old EGA:33w0d. Admitted for IOL Active Hospital Problems Diagnosis Date Noted Encounter for induction of labor 05/13/2022 - IOL Pre Eclampsia w/ Severe Features - GBS negative - s/p cyt/FB - pitocin per protocol - epidural upon request - amniotomy prn SIGNATURE: Lauren Ng MD PATIENT NAME: Trenton Styles DATE: May 14, 2022 TIME: 3:16 PM PAGER/CONTACT #: [phone] [place], [place] [phone] Note HNO ID: [id number] Author: Haseeb Cabrales APRN.SYSTEMS SECURITY CONSULTANT Service: Anesthesiology Author Type: Nurse Educational Specialist Type: Anesthesia Procedure Notes Filed: 05/22/2022 9:27 AM Note Text: ANESTHESIOLOGY PROCEDURE NOTE Epidural Block General Information Procedure Start Time/Medication Administration: 05/14/2022 1:47 PM Patient location during procedure: [facility] room Timeout Performed Pre-procedure: timeout performed Consent Obtained: Yes Patient identity confirmed: arm band and patient Reason for block: labor epidural Staffing SYSTEMS SECURITY CONSULTANT: Haseeb Cabrales APRN.SYSTEMS SECURITY CONSULTANT Performed by: MOY Preparation Sterility Preparation: hand hygiene performed prior to procedure, sterile gloves, drapes, and procedure tray, surgical cap used, mask used, sterile drape used during line insertion, skin prep agent completely dried prior to procedure Sterility Technique Not Completely Performed Due to Extreme Emergency: No Site Prep: Betadine Procedure Details Patient position: sitting Ultrasound Guided: No Patient monitoring: Pulse OX and NIBP Approach: midline Injection technique: ATIYA saline Region: lumbar Estimated Interspace: 3-4 Number of Attempts: 1 Needle and Epidural Catheter Needle type: Tuohy Needle gauge: 17G Needle length: 3.5 in Needle insertion depth: 7 cm Catheter Catheter type: end hole Catheter size: 19 G Catheter at skin depth: 13 cmTest Dose Response: negative Assessment Sensory level: T6 Beginning Pain Score: 7/10 Pain Score After Treatment: 2/10 Events: tolerated well without discomfort SIGNATURE: Haseeb Cabrales APRN.CRNA PATIENT NAME: Trenton Styles DATE: May 14, 2022 TIME: 2:23 PM CS[facility]: [id number]04-03-2023 NoteHNO ID: [id number] Author: Lauren Ng MD Service: Obstetrics Author Type: Resident Type: Progress Notes Filed: 05/14/2022 2:19 PM Note Text: OB Progress Note Service Date: May 14, 2022 Service Time: 2:18 PM S: Patient tolerating labor O: Vitals: Status: 05/14/22 0930 05/14/22 1005 05/14/22 1230 05/14/22 1305 BP: 153/101 151/96 Pulse: 79 85 72 75 Resp: Temp: TempSrc: SpO2: 96% 97% 99% Weight: Height: CERVICAL EXAM: Last Exam Notes: Dilation: 4 (05/14/22920 : Lauren Ng MD) Effacement (%): 70 (05/14/22920 : Lauren Ng MD) Station: -2 (05/14/22920 : Lauren Ng MD) Presentation: (not recorded) MEMBRANES: Status: Membrane Status: Intact (05/13/22 0737 : Aurora Nolasco RN) FHT: 125/moderate/+accels/no decels TOCO: irregular Cat 1 FHT Oxytocin Infusion - If collapsed, click to expand (last 4 hours) Date/Time Action Medication Dose Rate 05/14/22 1300 Rate Verify oxytocin 30 unit in LR 500 mL iv infusion (INDUCTION/AUGMENTATION) (PITOCIN) 10 roly-units/min 10 mL/hr 05/14/22 1230 Rate/Dose Change oxytocin 30 unit in LR 500 mL iv infusion (INDUCTION/AUGMENTATION) (PITOCIN) 10 roly-units/min 10 mL/hr 04/03/23 1200 Rate/Dose Change oxytocin 30 unit in LR 500 mL iv infusion (INDUCTION/AUGMENTATION) (PITOCIN) 8 roly-units/min 8 mL/hr 05/14/22 1130 Rate Verify oxytocin 30 unit in LR 500 mL iv infusion (INDUCTION/AUGMENTATION) (PITOCIN) 6 roly-units/min 6 mL/hr 05/14/22 1100 Rate/Dose Change oxytocin 30 unit in LR 500 mL iv infusion (INDUCTION/AUGMENTATION) (PITOCIN) 6 roly-units/min 6 mL/hr 05/14/22 1030 Rate/Dose Change oxytocin 30 unit in LR 500 mL iv infusion (INDUCTION/AUGMENTATION) (PITOCIN) 4 roly-units/min 4 mL/hr A/P: 16 year old EGA:33w0d. Admitted for IOL Pre E Active Hospital Problems Diagnosis Date Noted Encounter for induction of labor 05/13/2022 - IOL Pre Eclampsia w/ Severe Features - GBS negative - s/p cyt/FB - pitocin per protocol - epidural now - amniotomy prn SIGNATURE: Lauren Ng MD PATIENT NAME: Trenton Styles DATE: May 14, 2022 TIME: 2:18 PM [phone] Note HNO ID: [id number] Author: Leah Shearer RN Service: ? Author Type: Registered Nurse Type: Progress Notes Filed: 05/14/2022 1:57 PM Note Text: Starting epidural placement procedure. Defer mag assessment to after procedure completed.[facility]04-03-2023 NoteHNO ID: [id number] Author: Ana Ortiz MD Service: Obstetrics Author Type: Resident Type: Progress Notes Filed: 05/14/2022 12:29 PM Note Text: S: Patient is tolerating labor well. O: BP 134/93 Pulse 85 Temp 36.4 ?C (97.5 ?F) (Temporal) Resp 16 Ht 165.1 cm (5' 5) Wt 99.3 kg (219 lb) LMP 09/11/2021 (Exact Date) SpO2 94% BMI 36.44 kg/m? FHR Tracin bpm/moderate variability/accelerations not present/no decelerations Tocometer: q2-4 minutes Category: I Most recent exam: /-2 A/P: 16 year old at 33w0d Active Hospital Problems Diagnosis Date Noted Encounter for induction of labor 05/13/2022 Overview Note: - IOL Pre Eclampsia w/ Severe Features - GBS negative - s/p cyt/FB - pitocin per protocol - epidural upon request - amniotomy prn nAa Ortiz MD [employer]ANGER PGY1 P[facility]# [phone]04[facility]23 NoteHNO ID: [id number] Author: Lauren Ng MD Service: Obstetrics Author Type: Resident Type: Progress Notes Filed: 05/14/2022 9:28 AM Note Text: OB Progress Note Service Date: May 14, 2022 Service Time: 9:21 AM S: Patient tolerating labor. Patient with abraham balloon in vagina, taken out. O: Vitals: Status: 05/14/22 0730 05/14/22 0731 05/14/22 0810 05/14/22 0900 BP: 133/92 Pulse: 87 80 Resp: 16 16 Temp: TempSrc: SpO2: 95% Weight: Height: CERVICAL EXAM: Last Exam Notes: Dilation: 4 (05/14/22920 : Lauren Ng MD) Effacement (%): 70 (05/14/22920 : Lauren Ng MD) Station: -2 (05/14/22920 : Lauren Ng MD) Presentation: (not recorded) MEMBRANES: Status: Membrane Status: Intact (05/13/22 0737 : Aurora Nolasco RN) FHT: 130/moderate/+accels/no decels TOCO: none Cat 1 FHT Oxytocin Infusion - If collapsed, click to expand (last 4 hours) None A/P: 16 year old EGA:33w0d. Admitted for IOL Active Hospital Problems Diagnosis Date Noted Encounter for induction of labor 05/13/2022 - IOL Pre Eclampsia w/ Severe Features - GBS negative - s/p cytotec #4 @0320 - s/p FB - pitocin per protocol - epidural upon request - amniotomy prn SIGNATURE: Lauren Ng MD PATIENT NAME: Trenton Styles DATE: May 14, 2022 TIME: 9:21 AM [phone] Note HNO ID: [id number] Author: Vanna Mercado DO Service: Obstetrics Author Type: Resident Type: Progress Notes Filed: 05/14/2022 5:41 AM Note Text: S: Patient is tolerating balloon, contractions, and mag well. O: BP 137/86 Pulse 73 Temp 36.4 ?C (97.5 ?F) (Temporal) Resp 18 Ht 165.1 cm (5' 5) Wt 99.3 kg (219 lb) LMP 09/11/2021 (Exact Date) SpO2 98% BMI 36.44 kg/m? FHR Tracin bpm/moderate/accels present/no decels [place]: q3-8 mins Category: category I Most recent exam: 1.5 around abraham balloon A/P: 16 year old at 33w0d. IOL PreEw Active Hospital Problems Diagnosis Date Noted Encounter for induction of labor 05/13/2022 Priority: A Overview Note: - IOL Pre Eclampsia w/ Severe Features - GBS negative - cytotec #4 @0320 - abraham balloon @0200 - pitocin prn - epidural upon request - amniotomy prn Preeclampsia complicating hypertension 05/11/2022 Overview Note: - normal to mild range on admission - did not require acute treatment since admission - s/p Mg 6g at outside hospital - s/p magnesium 2g/hr for 24 hours - admission labs unremarkable Plt 267->261 Cr 0.52 ->0.55 AST/ALT 18/17 ->15/14 UPC 9.54 - completely asymptomatic - nonsustained severe range BP x 2 in the last 24 hours - decision made to start induction - restart Mg 6g bolus followed by 2g/hour rate - Mg restrictions and neuro check orders in place Vanna Mercado DO Obstetrics and Gynecology PGY-2[facility] NoteHNO ID: [id number] Author: Cindy Ramos MD Service: Obstetrics Author Type: Resident Type: Progress Notes Filed: 05/14/2022 3:23 AM Note Text: In to examine patient as contractions spaced to ~q4-8 min on tocometer. SVE 1.5 around abraham balloon. Cytotec #4 placed at 0320. Patient tolerated well. Cindy Ramos MD [employer] PGY-1 Pager #[phone] May 14, 2022 3:22 [facility]04-03-2023 NoteHNO ID: [id number] Author: Cindy Ramos MD Service: Obstetrics Author Type: Resident Type: Progress Notes Filed: 05/14/2022 2:16 AM Note Text: Procedure: Cervical Ripening Balloon Indication: Patient is a 16 year old year old female, 33w0d here for induction of labor. Pre-operative/Pre-procedure Diagnosis: Un-ripe cervix Post-operative/Post-procedure Diagnosis: Same Procedure Details: The cervix was examined and found to be 1 cm dilated.. A Abraham Catheter was inserted through the cervical os, beyond internal os and approximately 60 cc of sterile saline slowly injected into the intrauterine portion of the balloon The catheter was taped to the inner thigh. Patient tolerated procedure well. Estimated Blood Loss: None Cindy Ramos MD [employer] PGY-1 Pager #[phone] May 14, 2022 2:16 [facility]04-03-2023 NoteHNO ID: [id number] Author: Cindy Ramos MD Service: Obstetrics Author Type: Resident Type: Progress Notes Filed: 05/14/2022 2:15 AM Note Text: OB Progress Note Service Date: May 14, 2022 Service Time: 2:14 AM S: Patient is tolerating contractions with mild cramping. O: Vitals: Status: 05/14/22 0030 05/14/22 0040 05/14/22 0125 05/14/22 0130 BP: 150/93 158/92 Pulse: 66 66 69 Resp: 16 16 Temp: 36.5 ?C (97.7 ?F) TempSrc: Temporal SpO2: 98% 98% Weight: Height: CERVICAL EXAM: Last Exam Notes: Dilation: 1 (05/13/222206 : Cindy Ramos MD) Effacement (%): 40 (05/13/222206 : Cindy Ramos MD) Station: -3 (05/13/222206 : Cindy Ramos MD) Presentation: (not recorded) MEMBRANES: Status: Membrane Status: Intact (05/13/22 0737 : Aurora Nolasco, RN) Additional Findings: None FHT: 125/moderate/+accels/no decels TOCO: poorly visualized, though q2-5min Cat I FHT Pitocin: not yet started A/P: 16 year old EGA:33w0d. Admitted for IOL Pre-e w/ severe features (BP) Active Hospital Problems Diagnosis Date Noted Encounter for induction of labor 05/13/2022 - Pre Eclampsia w/ Severe Features - GBS negative - cytotec #3 at 2200 - abraham balloon @0200 - pitocin prn - epidural upon request - amniotomy prn SIGNATURE: Cindy Ramos MD PATIENT NAME: Trenton Styles DATE: May 14, 2022 TIME: 2:14 AM [facility]AGER[facility]CONTACT [facility]: [phone] Note HNO ID: [id number] Author: Cindy Ramos MD Service: Obstetrics Author Type: Resident Type: Progress Notes Filed: 05/13/2022 10:09 PM Note Text: OB Progress Note Service Date: May 13, 2022 Service Time: 10:07 PM S: Patient experiencing mild cramping with intermittent contractions. Tolerated placement of 3rd cytotec at 2200 well. Patient declines abraham balloon placement at this time, will revisit. O: Vitals: Status: 05/13/22 1932 05/13/22202905/13/22203105/13/222131 BP: 154/95 151/101 146/103 Pulse: 65 72 75 Resp: 18 18 18 Temp: TempSrc: SpO2: Weight: Height: CERVICAL EXAM: Last Exam Notes: Dilation: 1 (05/13/222206 : Cindy Ramos MD) Effacement (%): 40 (05/13/222206 : Cindy Ramos MD) Station: -3 (05/13/222206 : Cindy Ramos MD) Presentation: (not recorded) MEMBRANES: Status: Membrane Status: Intact (05/13/2237 : Aurora Nolasco RN) Additional Findings: None FHT: 130/moderate/+accels/no decels TOCO: irregular Cat I FHT Pitocin: not yet started A/P: 16 year old EGA:32w6d. Admitted for pre-eclampsia with severe features Active Hospital Problems Diagnosis Date Noted Encounter for induction of labor 05/13/2022 - Pre Eclampsia w/ Severe Features - GBS negative - cytotec #3 at 2200 - abraham balloon prn - pitocin prn - epidural upon request - amniotomy prn SIGNATURE: Cindy Ramos MD PATIENT NAME: Trenton Fariasodefelicita DATE: May 13, 2022 TIME: 10:07 PM [facility]ER[facility]CONTACT [facility]: [phone] Note HNO ID: [id number] Author: Vanna Mercado DO Service: Obstetrics Author Type: Resident Type: Progress Notes Filed: 05/13/2022 9:59 PM Note Text: S: Patient is doing well, tolerating early contractions and magnesium well. NICU at bedside previously to discuss plan. Dr. Ramos placing cytotec #3 now. O: BP 146/103 Pulse 75 Temp 36.6 ?C (97.9 ?F) (Temporal) Resp 18 Ht 165.1 cm (5' 5) Wt 99.3 kg (219 lb) LMP 09/11/2021 (Exact Date) SpO2 95% BMI 36.44 kg/m? FHR Tracin bpm/moderate/accels present/no decels [place]: irregular Category: category I Most recent exam: closed BP reviewed and normal to high mild A/P: 16 year old at 32w6d. IOL PreEw Active Hospital Problems Diagnosis Date Noted Encounter for induction of labor 05/13/2022 Priority: A Overview Note: - Pre Eclampsia w/ Severe Features - GBS negative - cytotec #3 at 2200 - abraham balloon prn - pitocin prn - epidural upon request - amniotomy prn Preeclampsia complicating hypertension 05/11/2022 Overview Note: - normal to mild range on admission - did not require acute treatment since admission - s/p Mg 6g at outside hospital - s/p magnesium 2g/hr for 24 hours - admission labs unremarkable Plt 267->261 Cr 0.52 ->0.55 AST/ALT ->15/14 UPC 9.54 - completely asymptomatic - nonsustained severe range BP x 2 in the last 24 hours - decision made to start induction - restart Mg 6g bolus followed by 2g/hour rate - Mg restrictions and neuro check orders in place Vanna Mercado DO Obstetrics and Gynecology PGY-2[facility] NoteHNO ID: [id number] Author: Cindy Ramos MD Service: Obstetrics Author Type: Resident Type: Progress Notes Filed: 05/13/2022 5:36 PM Note Text: SVE remains 0/40/-3. Cytotec @[address] [place] [address] 7252. Patient tolerated well. Cindy Ramos MD [employer] PGY-1 Pager #[phone] May 13, 2022 5:26 [facility]04-02-2023 NoteHNO ID: [id number] Author: Cindy Ramos MD Service: Obstetrics Author Type: Resident Type: Progress Notes Filed: 05/13/2022 5:17 PM Note Text: OB Progress Note Service Date: May 13, 2022 Service Time: 5:16 PM S: Patient is tolerating contractions. O: Vitals: Status: 05/13/22 1504 05/13/22 1509 05/13/22 1530 05/13/22 1630 BP: 136/81 153/85 Pulse: 62 58 70 60 Resp: 18 18 Temp: TempSrc: SpO2: 95% Weight: Height: CERVICAL EXAM: Last Exam Notes: Dilation: Closed (05/13/22 1325 : Ana Ortiz MD) Effacement (%): 40 (05/13/22 1325 : Ana Ortiz MD) Station: -3 (05/13/22 1325 : Ana Ortiz MD) Presentation: (not recorded) MEMBRANES: Status: Membrane Status: Intact (05/13/22 0737 : Aurora Nolasco RN) Additional Findings: None FHT: 135/moderate/+accels/no decels TOCO: none visualized recently Cat I FHT Pitocin: not yet started A/P: 16 year old EGA:32w6d. Admitted for IOL Pre-eclampsia with severe features Active Hospital Problems Diagnosis Date Noted Encounter for induction of labor 05/13/2022 - Pre E w/ SF - GBS negative - cytotec #1 @1320 - abraham balloon prn - amniotomy prn - pitocin prn - epidural upon request SIGNATURE: Cindy Ramos MD PATIENT NAME: Trenton Styles DATE: May 13, 2022 TIME: 5:16 PM [facility]AGER[facility]CONTACT #: [phone] Note HNO ID: [id number] Author: Ana Ortiz MD Service: Obstetrics Author Type: Resident Type: Progress Notes Filed: 05/13/2022 1:26 PM Note Text: Cervix was checked and was closed. Cytotec #1 placed at 1320. Patient tolerated placement well. Ana Ortiz MD [employer] PGY1 Pager# [phone] NoteHNO ID: [id number] Author: Ana Ortiz MD Service: Obstetrics Author Type: Resident Type: Progress Notes Filed: 05/13/2022 1:40 PM Note Text: Patient had nonsustained severe range BP x2 in the past 24 hours. Decision was made by MFM to move towards delivery at this time. Patient states her understanding and agreed with plan to start induction. US: Cephalic, anterior placenta, cardiac activity present, 1 cm DVP Cervix: 0/40/-3 16 year old EGA:32w6d admitted for Pre-eclampsia now with plans to start induction. Active Hospital Problems Diagnosis Date Noted Encounter for induction of labor 05/13/2022 Overview Note: - Pre E w/ SF - GBS negative - cytotec #1 @1320 - abraham balloon prn - amniotomy prn - pitocin prn - epidural upon request Preeclampsia complicating hypertension 05/11/2022 Overview Note: - normal to mild range on admission - did not require acute treatment since admission - s/p Mg 6g at outside hospital - s/p magnesium 2g/hr for 24 hours - admission labs unremarkable Plt 267->261 Cr 0.52 ->0.55 AST/ALT 18/17 ->15/14 UPC 9.54 - completely asymptomatic - nonsustained severe range BP x 2 in the last 24 hours - decision made to start induction - restart Mg 6g bolus followed by 2g/hour rate - Mg restrictions and neuro check orders in place growth restriction antepartum 05/11/2022 Overview Note: - EFW 3lbs 12 oz (10%), AC 11% at 31+2 Prematurity of fetus 05/11/2022 Overview Note: - s/p BMZ x2 24 hours apart - NICU consult, aware of induction plans - GBS negative History of chlamydia 05/11/2022 Overview Note: - Tx in first trimester - [facility] of Past illness Narrative* Problem Noted Date Resolved Date Encounter for induction of labor 05/13/2022 05/14/2022 Overview: - IOL Pre Eclampsia w/ Severe Features - GBS negative - s/p cyt/FB - pitocin per protocol - epidural in - amniotomy 1515 growth restriction antepartum 05/11/2022 05/14/2022 Overview: - EFW 3lbs 12 oz (10%), AC 11% at 31+2 Prematurity of fetus 05/11/2022 05/14/2022 Overview: - s/p BMZ x2 24 hours apart - NICU consult, aware of induction plans - GBS negative Abnormal glucose in , antepartum 202205/11/2022 Overview: 04/18/22: passed 3hr GTT. Cheryl Kothari MD 3hr gtt ordered. Cheryl Kothari MD Supervision of high risk in second tri mester 02/14/2022 05/11/2022 Chlamydia infection affecting in first trimester 11/08/2021 05/11/2022 Overview: 12/08/21 - negative MORE - Melany Sellers MD 11/08/21- Treated with Azithromycin 1000 mg x 1 dose. MORE needed. Rehana Jaffe APRN.JEFF Patient request for diagnostic testing 05/11/2022 Overview: 11/02/2021 Patient desires aneuploidy screening. I have given her contact information to [employer] to check on insurance coverage. Patient considering genetic carrier screening testing. I have given her contact information to the [employer] to check on insurance coverage.Erendira Groves RN documented as of this encounter (statuses as of 06/08/2022) [facility]04-02-2023 History of Past illness Narrative* Problem Noted Date Resolved Date Encounter for induction of labor 05/13/2022 05/14/2022 Overview: - IOL Pre Eclampsia w/ Severe Features - GBS negative - s/p cyt/FB - pitocin per protocol - epidural in - amniotomy 1515 growth restriction antepartum 05/11/2022 05/14/2022 Overview: - EFW 3lbs 12 oz (10%), AC 11% at 31+2 Prematurity of fetus 05/11/2022 05/14/2022 Overview: - s/p BMZ x2 24 hours apart - NICU consult, aware of induction plans - GBS negative Abnormal glucose in , antepartum 202205/11/2022 Overview: 04/18/22: passed 3hr GTT. Cheryl Kothari MD 3hr gtt ordered. Cheryl Kothari MD Supervision of high risk in second tri mester 02/14/2022 05/11/2022 Chlamydia infection affecting in first trimester 11/08/2021 05/11/2022 Overview: 12/08/21 - negative MORE - Melany Sellers MD 11/08/21- Treated with Azithromycin 1000 mg x 1 dose. MORE needed. Rehana Jaffe APRN.VELVET Patient request for diagnostic testing 2 05/11/2022 Overview: 11/02/2021 Patient desires aneuploidy screening. I have given her contact information to [employer] to check on insurance coverage. Patient considering genetic carrier screening testing. I have given her contact information to the [employer] to check on insurance coverage.Erendira Groves RN documented as of this encounter (statuses as of 06/25/2022) [facility]04-02-2023 NoteHNO ID: [id number] Author: Aurora Nolasco RN Service: Nursing Author Type: Registered Nurse Type: Procedures Filed: 05/13/2022 9:44 AM Note Text: Attestation signed by Kojo Wilson MD at 05/13/2022 11:36 AM I personally reviewed the heart rate tracing. The FHR baseline was in the normal range. The NST was reactive without evidence of decelerations. At least 2 accelerations of 15 beats lasting for 15 seconds are noted in a 30 minute period. Regular uterine activity was not noted. IMPRESSION: Reactive NST. Kojo Wilson MD OBSTETRICS NST SUMMARY SERVICE DATE: May 13, 2022 The patient is a 16 year old female, , who is at 32w6d with an JUNE of 07/02/2022, by Ultrasound dating method. NST OBJECTIVE FINDINGS PER NURSE: Start Time: 904 (05/13/22937 : Aurora Nolasco RN) Complete Time: 924 (05/13/22937 : Aurora Nolasco RN) Indications: Pre-eclampsia (05/13/22937 : Aurora Nolasco, RN) Patient Reason For: Well Being (05/13/22937 : Aurora Nolasco RN) NST Explanation: Procedure Explained;Monitor Explained;Verbalizes Understanding (05/13/22937 : Aurora Nolasco RN) Acoustic Stimulator: No (05/13/22937 : Aurora Nolasco RN) Interventions: MONITORING/ASSESSMENT: Baseline: 140 bpm (05/13/22937 : Aurora Nolasco RN) Variability: Moderate (6-25 bpm) (05/13/22937 : Aurora Nolasco RN) Accelerations: Present (05/13/22937 : Aurora Nolasco RN) Decelerations: Decelerations: None (05/13/22937 : Aurora Nolasco RN) Contractions: Not present (05/13/22937 : Aurora Nolasco RN) Frequency: Above information forwarded to for final review and interpretation. SIGNATURE: Aurora Nolasco RN PATIENT NAME: Trenton Styles DATE: May 13, 2022 TIME: 9:44 [facility]04-02-2023 NoteHNO ID: [id number] Author: Jenifer Ruvalcaba MD Service: Obstetrics Author Type: Resident Type: Progress Notes Filed: 05/13/2022 5:37 AM Note Text: Repeat blood pressure high mild range. Will continue to monitor. Consider adding antihypertensive today. Jenifer Ruvalcaba [facility]04-02-2023 NoteHNO ID: [id number] Author: Kojo Wilson MD Service: Maternal Medicine Author Type: Physician Type: Progress Notes Filed: 05/13/2022 11:41 AM Note Text: OBSTETRICS ANTEPARTUM PROGRESS NOTE SERVICE DATE: 05/13/2022 SERVICE TIME: 4:46 AM Assessment AND Plan : 16 year old EGA:32w6d admitted for Pre-eclampsia. Plan of care discussed with: Provider, RN, Patient. Active Hospital Problems Diagnosis Date Noted Preeclampsia complicating hypertension 05/11/2022 Overview Note: - normal to mild range on admission - did not require acute treatment since admission - s/p Mg 6g at outside hospital - s/p magnesium 2g/hr - admission labs unremarkable Plt 267->261 Cr 0.52 ->0.55 AST/ALT 18/17 ->15/14 UPC 9.54 - completely asymptomatic - severe range BP this morning following awakening, repeat BP in 15 minutes growth restriction antepartum 05/11/2022 Overview Note: - EFW 3lbs 12 oz (10%), AC 11% at 31+2 - Weekly BPP Prematurity of fetus 05/11/2022 Overview Note: - s/p BMZ x2 24 hours apart - NICU consult - GBS swab pending - Continuous monitoring while on Mg - Cephalic on last scan (05/11) History of chlamydia 05/11/2022 Overview Note: - Tx in first trimester - MORE negative in Nov 2021 Subjective : No current vaginal bleeding, No current leaking of fluid, No contractions, Good movement, No shortness of breath or chest pain, No calf tenderness, and No headache, scotoma, or RUQ pain Objective : LAST VITALS: Pulse BP Resp O2 Sat Temp Pain 61 139/98 16 98 % 36.4 ?C (97.5 ?F) 0 PHYSICAL EXAM: General: WD, WN, NAD, comfortable, sleeping upon entry Heart: RR, S1, S2 Lungs: unlabored breathing on room air Abdomen: soft, nontender, gravid Extremities: tr edema MONITORING/ASSESSMENT: NST daily today pending LABS Diagnostic tests reviewed for today's visit: Most recent labs and imaging results. SIGNATURE: Annie Cabrera DO PATIENT NAME: Trenton Styles DATE: May 13, 2022 TIME: 4:46 AM I personally saw and examined the patient on 05/13/2022. I reviewed the resident's note. I agree with the resident's assessment and plan unless otherwise noted. Patient with 2 severe range BP this morning. Given the IUGR continued severe range BP will move to delivery. Plan for USN for presentation. Will likely need cervical ripening. [facility] (Dr. Myers) communicated with who will cover IOL. Labs otherwise only remarkable for nephrotic range proteinuria. FHR is overall reassuring. Kojo Wilson [facility]04-02-2023 NoteHNO ID: [id number] Author: Interface Note Service: ? Author Type: ? Type: Progress Notes Filed: 05/13/2022 1:56 AM Note Text: Epic Scheduled Downtime: 05/13/2022 1:00:00 AM to 05/13/2022 1:46:00 [facility]04-01-2023 NoteHNO ID: [id number] Author: Charmaine Roach RN Service: Nursing Author Type: Registered Nurse Type: Procedures Filed: 05/12/2022 9:46 PM Note Text: Attestation signed by Kojo Wilson MD at 05/13/2022 11:36 AM I personally reviewed the heart rate tracing. The FHR baseline was in the normal range. The NST was reactive without evidence of decelerations. At least 2 accelerations of 15 beats lasting for 15 seconds are noted in a 30 minute period. Regular uterine activity was not noted. IMPRESSION: Reactive NST. Kojo Wilson MD OBSTETRICS NST SUMMARY SERVICE DATE: May 12, 2022 The patient is a 16 year old female, , who is at 32w5d with an JUNE of 07/02/2022, by Ultrasound dating method. NST OBJECTIVE FINDINGS PER NURSE: Start Time: 2111 (05/12/222131 : Charmaine Roach RN) Complete Time: 2131 (05/12/222131 : Charmaine Roach RN) Indications: Pre-eclampsia (05/12/222131 : Charmaine Roach RN) Patient Reason For: to monitor baby (05/12/222131 : Charmaine Roach RN) NST Explanation: Procedure Explained;Monitor Explained;Verbalizes Understanding (05/12/222131 : Charmaine Roach RN) Acoustic Stimulator: No (05/12/222131 : Charmaine Roach RN) Interventions: MONITORING/ASSESSMENT: Baseline: 130 bpm (05/12/222131 : Charmaine Roach RN) Variability: Moderate (6-25 bpm) (05/12/222131 : Charmaine Roach RN) Accelerations: Present (05/12/222131 : Charmaine Roach RN) Decelerations: Decelerations: None (05/12/222131 : Charmaine Roach RN) Contractions: Not present (05/12/222131 : Charmaine Roach RN) Frequency: Above information forwarded to Dr. Wilson (05/12/222131 : Charmaine Roach RN) for final review and interpretation. SIGNATURE: Charmaine Roach RN PATIENT NAME: Trenton Styles DATE: May 12, 2022 TIME: 9:45 [facility]04-01-2023 NoteHNO ID: [id number] Author: Aurora Nolasco RN Service: Nursing Author Type: Registered Nurse Type: Procedures Filed: 05/12/2022 12:32 PM Note Text: Attestation signed by Kojo Wilson MD at 05/13/2022 11:36 AM I personally reviewed the heart rate tracing. The FHR baseline was in the normal range. The NST was reactive without evidence of decelerations. At least 2 accelerations of 15 beats lasting for 15 seconds are noted in a 30 minute period. Regular uterine activity was not noted. IMPRESSION: Reactive NST. Kojo Wilosn MD OBSTETRICS NST SUMMARY SERVICE DATE: May 12, 2022 The patient is a 16 year old female, , who is at 32w5d with an JUNE of 07/02/2022, by Ultrasound dating method. NST OBJECTIVE FINDINGS PER NURSE: Start Time: 901 (05/12/22 1100 : Aurora Nolasco RN) Complete Time: 921 (05/12/22 1100 : Aurora Nolasco RN) Indications: Pre-eclampsia (05/12/22 1100 : Aurora Nolasco RN) Patient Reason For: Well Being (05/12/22 1100 : Aurora Nolasco RN) NST Explanation: Procedure Explained;Monitor Explained;Verbalizes Understanding (05/12/22 1100 : Aurora Nolasco RN) Acoustic Stimulator: No (05/12/22 1100 : Aurora Nolasco RN) Interventions: MONITORING/ASSESSMENT: Baseline: 135 bpm (05/12/22 1048 : Aurora Nolasco RN) Variability: Moderate (6-25 bpm) (05/12/22 1048 : Aurora Nolasco RN) Accelerations: Present (05/12/22 1048 : Aurora Nolasco RN) Decelerations: Decelerations: None (05/12/22 1048 : Aurora Nolasco RN) Contractions: Not present (05/12/22 1048 : Aurora Nolasco RN) Frequency: Above information forwarded to for final review and interpretation. SIGNATURE: Aurora Nolasco RN PATIENT NAME: Trenton Styles DATE: May 12, 2022 TIME: 12:31 [facility]04-01-2023 NoteHNO ID: [id number] Author: Kojo Wilson MD Service: Obstetrics Author Type: Physician Type: Progress Notes Filed: 05/12/2022 11:17 AM Note Text: OBSTETRICS ANTEPARTUM PROGRESS NOTE SERVICE DATE: 05/12/22 SERVICE TIME: 5:51 AM Assessment AND Plan : 16 year old EGA:32w4d admitted for Pre-eclampsia with severe features. Plan of care discussed with: Provider, RN, Patient. Active Hospital Problems Diagnosis Date Noted Preeclampsia complicating hypertension 05/11/2022 - normal to mild range on admission - did not require acute treatment since admission - remains asymptomatic and headache resolved - s/p Mg 6g at outside hospital - continue current magnesium 2g/hr - admission labs unremarkable Plt 267 Cr 0.52 AST/ALT UPC 9.54 growth restriction antepartum 05/11/2022 - EFW 3lbs 12 oz (10%), AC 11% at 31+2 - Weekly BPP Prematurity of fetus 05/11/2022 - s/p BMZ x2 24 hours apart - NICU consult - GBS swab pending - Continuous monitoring while on Mg - Cephalic on last scan (05/11) History of chlamydia 05/11/2022 - Tx in first trimester - MORE negative in Nov 2021 Subjective : No current vaginal bleeding, No current leaking of fluid, No contractions, Good movement, No shortness of breath or chest pain, and No calf tenderness Complains of headache this morning that returned. Mild, left occipital. No vision changes. Denies chest pain, SOB, RUQ pain, LE edema.Asks for ice chips. Objective : LAST VITALS: Pulse BP Resp O2 Sat Temp Pain 85 108/57 18 95 % 36.6 ?C (97.9 ?F) 2 PHYSICAL EXAM: General: WD, WN, comfortable Heart: RR Lungs: normal pulmonary exam Abdomen: soft, nontender MONITORING/ASSESSMENT: CEFM appropriate for gestational age, on Magnesium LABS Diagnostic tests reviewed for today's visit: Most recent labs and imaging results. SIGNATURE: Guera Herrera DO PATIENT NAME: Trenton Styles DATE: May 11, 2022 TIME: 5:51 AM I personally saw and examined the patient on 05/12/2022. I reviewed the resident's note. I agree with the resident's assessment and plan unless otherwise noted. Patient has severe pre eclampsia for BP but is now with mild and moderate range BP. Will continue to follow expectantly. Will do dopplers on Saturday again. Likely staying in house till delivery. Plan for delivery if severe range BP, develops abnormal biochemistry, or issues develop. Kojo Wilson, [facility]03-31-2023 History of Present illness Narrative* Erik Lott MD - 05/11/2022 1:07 PM EDT The patient presents for evaluation of growth in the setting of IUGR 1. Single, live, intrauterine . 2. IUGR - on machine EFW noted to be 9.6% 3. Amniotic fluid is mildly reduced. 4. The placenta is anterior without evidence of a previa. 5. Normal limited anatomy as detailed below. 6. BPP is 8/8. 7. Reassuring umbilical artery and MCA Doppler study. Recommendations 1. Weekly Doppler/BPP surveillance 2. Growth in 4 weeks 3. Delivery at 39w if FGR is still <10% - earlier for Doppler abnormalities Discussed with Ms. Trenton Styles that Baby was small and I would recommend weekly Doppler's. Of note Ms. Trenton Styles is in the process of being transferred to [facility] via ambulance for severe range Bps. Erik Lott Division of Maternal Medicine [facility] documented in this encounterTuscarawas Hospital03-31-2023 Miscellaneous Notes* Quick Notes - Cheryl Allred MD - 05/11/2022 11:17 AM EDT DM-Pt doing well. Denies vaginal Bleeding, Leaking fluid, or regular Contractions. Pt reports good movement. Still with Occipital headache- NO RUQ pain and no visual changes. pressures last night on home monitor were 160s per patient- was sent to hospital where they were 140s/90s per patient . Here in office today for growth and BPP. Physical Exam: Gen: female in no apparent distress Abd: soft, Gravid. Non tender to palpation. See flow sheet- NO RUQ PAIN Ext: +1 edema, brisk reflexes A/P: @ 32.4 weeks- PRE E with severe features 1) will go to [facility] for magnesium and transfer to [facility] Accepting M Dr. Wilson (spoke with directly) 2) Mag 6g loading and 2g/hr 3) celestone completed yesterday approx 1pm (total 2 doses) 4) pt agreeable to plan- will go to L&D at [facility]- staff at [facility] notified. Cheryl Kothari MD documented in this encounterCleveland [id number] Instructions* Patient Instructions* Aurora Renteria MA - 05/11/2022 10:01 AM EDT SEQUENTIAL SCREENINGS The [facility] offers sequential screenings for women who are interested in screenings for chromosomal abnormalities and certain defects during a . The sequential screen combinesultrasound and blood tests to determine the risk of chromosomal abnormalities, including Down's Syndrome (Trisomy 21) and Trisomy 18, as well as open neural tube defects including spina bifida. Ultrasound examination is performed between 11 weeks and 13 weeks gestational age. Blood tests are drawn after the ultrasound and again later in the between 15 and 21 weeks gestational age. Please let your physician know if you are interested in this testing. It will require an appointment withour refrigeration service technician. This is not an ultrasound performed by a physician in our office during a routine visit. SIGNS AND SYMPTOMS OF LABOR 1. Contractions every 10 minutes or more often 2. Clear, pink, or brownish fluid (water) leaking from vagina 3. Feeling that baby is pushing down, pressure 4. Low, dull backache 5. Cramps that feel like a period 6. Cramps with or without diarrhea If you notice any of the above symptoms, contact our office at [phone] and ask to speak with anurse. After hours, you can call doctors registry at [phone] OR call [facility] at [phone] ask to have the doctor production administrative assistant paged. If you consider this an emergency, dial 9-1-8 or go to your nearest emergency department. NEED HELP? Are you dealing with a violent or abusive relationship? Are you a victim of rape or sexual assult? Call [facility] ([place]) 24 hour Crisis Hotline: 877.267.2870 or 691-881-3298. MANUAL Your Guide to a Healthy manual is now on-line. Visit [email or web address] to download your free copy documented in this encounterTuscarawas Hospital03-29-2023 Miscellaneous Notes* Telephone Encounter - Bibi De Leon LPN - 05/09/2022 4:29 PM EDT Patient notified. * Telephone Encounter - Cheryl Allred MD - 05/09/2022 2:53 PM EDT Pt needs weekly NSTs and weekly BPP on different days. Will need weekly PRE E labs. Getting BP monitored with [facility] outpatient program. Second celestone tomorrow 05/10/22 at [facility]. Please assist in arranging all appointments. documented in this encounterTuscarawas Hospital03-29-2023 History and physical note Author M Dr. Cheryl Snowden [facility] May 09, 2022 2:13pm Note Date/Time May 09, 2022 2:1 3pm [facility] Medical Records Department [address] [place] [id number] OB Triage Physician Note 05/09/22 1407 MR#: [id number] Acct: [id number] Name: TRENTON STYLES Baljit Rep #:[id number] : 2005 16 From: Cheryl Allred MD PCP: Care Physician,No Primary Status :REG CLI Y Location: [id number] HPI - General General Date of Service: 05/09/22 HPI Narrative TRENTON STYLES, is a 16 F @ 32.2 weeks who presents patient had some swelling in the lower extremities with an occipital headache for the last 2 days. She was spilling protein in her urine today. She denies any visual changes right upper quadrant pain or epigastric pain. She reports good movement no vaginal bleeding. Blood pressure in the office was normal. [facility] Medical History Former smoker Orthostatic syncope Home Medications BP cuff #1 ea 01/01/22 [Rx Last Taken Unknown] no.118-ferrous fumarate 29 mg-folic acid 1 mg chewable tablet (Se- Natal19 Chewable) 1 tab PO DAILY 01/01/22 [History Last Taken Unknown] aspirin 81 mg tablet,delayed release mg 05/09/22 [History Last Taken Unknown] melatonin 5 mg tablet 5 mg PO QHS insomnia 05/09/22 [History Last Taken Unknown] Allergy/AdvReac Type Severity Reaction Status Date / Time No Known Allergies Allergy Verified 05/09/22 12:24 Social History Smoking Status: Never smoker substance use type: does not use NST FHR Rate Baby A Baseline: 135 Variability:: Moderate Accelerations:: 15 x 15 Decelerations:: None NST Reactive:: Yes FHR Category:: Category I Uterine Activity:: none Assessment & Plan (1) Preeclampsia: (2) Proteinuria affecting in third trimester: (3) Leg swelling in in third trimester: (4) 32 weeks gestation of : PLAN: Plan @ 32.2 weeks gestation, Preeclampsia 1) Ast, alt, plts and creatinine wnl 2) elevated urine protein 3) NST reactive 4) celestone today and tomorrow 5) When to return- symptoms and BPs. Sent home with BP monitoring system 6) will return to Hospital tomorrow for celestone and BP check 7) 10am saturday05/11/22 for BPP and growth in office 8) discussed with patient- ultimate goal 37 weeks however first goal would be toget to at least 34 weeks- but reviewed if BPs severe range will possibly need delivered sooner. 9) weekly Labs in office, twice weekly testing- NST and BPP until delivery. 05/09/22 1413 <Electronically signed by Cheryl Couch MD> Date _ Cheryl Kothari MD Cosigner Signature (if applicable): Date CC: Sam[facility] AlcocerCorewell Health Penn[facility] HospitalAllred; No Primary Care Physician ~ Signed [facility] Work Phone: [phone] Miscellaneous Notes* Quick Notes - Rehana Jaffe APRN.CNM - 04/27/2022 11:33 AM EDT S: Trenton Styles is a 16 year old female who presents at 30.4 weeks gestation for a routine visit. Urinary symptoms resolved since last visit. Positive movement. Denies headache, visual changes, chest pain, shortness of breath, vaginal bleeding, leakage of fluid, or dysuria. Feeling well, no complaints. O: See flow sheet Gen: No apparent distress Abd: Gravid, nontender S=D ASSESSMENT/PLAN: 1. 32 weeks gestation of - ICD9: V22.2, ICD10: Z3A.32 - URINE OB DIP B/O P: 1) PTL precautions reviewed and when to call 2) RTO 2 weeks or sooner if needed Rehana Jaffe APRN.CNM documented in this encounterTuscarawas Hospital03-17-2023 Instructions* Patient Instructions* Janes Kirby [facility] - 04/27/2022 11:12 AM EDT SEQUENTIAL SCREENINGS The [facility] offers sequential screenings for women who are interested in screenings for chromosomal abnormalities and certain defects during a . The sequential screen combinesultrasound and blood tests to determine the risk of chromosomal abnormalities, including Down's Syndrome (Trisomy 21) and Trisomy 18, as well as open neural tube defects including spina bifida. Ultrasound examination is performed between 11 weeks and 13 weeks gestational age. Blood tests are drawn after the ultrasound and again later in the between 15 and 21 weeks gestational age. Please let your physician know if you are interested in this testing. It will require an appointment withour refrigeration service technician. This is not an ultrasound performed by a physician in our office during a routine visit. SIGNS AND SYMPTOMS OF LABOR 1. Contractions every 10 minutes or more often 2. Clear, pink, or brownish fluid (water) leaking from vagina 3. Feeling that baby is pushing down, pressure 4. Low, dull backache 5. Cramps that feel like a period 6. Cramps with or without diarrhea If you notice any of the above symptoms, contact our office at [phone] and ask to speak with anurse. After hours, you can call doctors registry at [phone] OR call [facility] at [phone] ask to have the doctor production administrative assistant paged. If you consider this an emergency, dial 9-1-2 or go to your nearest emergency department. NEED HELP? Are you dealing with a violent or abusive relationship? Are you a victim of rape or sexual assult? Call [facility] ([place]) 24 hour Crisis Hotline: 141.506.2195 or 991-683-3830. MANUAL Your Guide to a Healthy manual is now on-line. Visit [email or web address] to download your free copy documented in this encounterTuscarawas Hospital03-03-2023 Miscellaneous Notes* Quick Notes - Melany Sellers MD - 04/13/2022 3:56 PM EST KJ - Patient seen urgently for urinary frequency. Denies dysuria. VB No. LOF No. CTXS No. Movement: present. Other c/o: No. Medication list reviewed. Physical Exam See Flow Sheet Gen: no accute distress, well appearing A/P 28w4d Estimated Date of Delivery: 07/02/22 Urinary frequency - check UA & urine culture. Rx pyridium given. Follow up as scheduled for PNC Melany Sellers MD documented in this encounterTuscarawas Hospital03-03-2023 Instructions* Patient Instructions* Aurora Renteria MA - 04/13/2022 3:24 PM EST SEQUENTIAL SCREENINGS The [facility] offers sequential screenings for women who are interested in screenings for chromosomal abnormalities and certain defects during a . The sequential screen combinesultrasound and blood tests to determine the risk of chromosomal abnormalities, including Down's Syndrome (Trisomy 21) and Trisomy 18, as well as open neural tube defects including spina bifida. Ultrasound examination is performed between 11 weeks and 13 weeks gestational age. Blood tests are drawn after the ultrasound and again later in the between 15 and 21 weeks gestational age. Please let your physician know if you are interested in this testing. It will require an appointment withour refrigeration service technician. This is not an ultrasound performed by a physician in our office during a routine visit. SIGNS AND SYMPTOMS OF LABOR 1. Contractions every 10 minutes or more often 2. Clear, pink, or brownish fluid (water) leaking from vagina 3. Feeling that baby is pushing down, pressure 4. Low, dull backache 5. Cramps that feel like a period 6. Cramps with or without diarrhea If you notice any of the above symptoms, contact our office at [phone] and ask to speak with anurse. After hours, you can call doctors registry at [phone] OR call [facility] at [phone] ask to have the doctor production administrative assistant paged. If you consider this an emergency, dial 91-3 or go to your nearest emergency department. NEED HELP? Are you dealing with a violent or abusive relationship? Are you a victim of rape or sexual assult? Call [facility] ([facility] 24 hour Crisis Hotline: 165.192.7045 or 196-122-4732. MANUAL Your Guide to a Healthy manual is now on-line. Visit [email or web address] to download your free copy documented in this encounterTuscarawas Hospital03-03-2023 Miscellaneous Notes* Telephone Encounter - Bibi De Leon LPN - 04/13/2022 1:14 PM EST Order faxed * Telephone Encounter - Dixie Monson RN - 04/13/2022 9:26 AM EST Breast pump order received from [employer]. To CP to sign. Dixie Monson RN documented in this encounterTuscarawas Hospital03-02-2023 History of Past illness Narrative* Problem Noted Date Resolved Date Abnormal glucose in , antepartum 202205/11/2022 Overview: 04/18/22: passed 3hr GTT. Cheryl Kothari MD 3hr gtt ordered. Cheryl Kothari MD Supervision of high risk in second [facility] 02/14/2022 05/11/2022 Chlamydia infection affecting in first trimester 11/08/2021 05/11/2022 Overview: 12/08/21 - negative MORE - Melany Sellers MD 11/08/21- Treated with Azithromycin 1000 mg x 1 dose. MORE needed. Rehana Jaffe APRN.[facility] Patient request for diagnostic testing 05/11/2022 Overview: 11/02/2021 Patient desires aneuploidy screening. I have given her contact information to [employer] to check on insurance coverage. Patient considering genetic carrier screening testing. I have given her contact information to the [facility] to check on insurance coverage.Erendira Groves RN documented as of this encounter (statuses as of 05/11/2022) [facility]03-02-[facility] History of Past illness Narrative* Problem Noted Date Resolved Date Abnormal glucose in , antepartum 202205/11/2022 Overview: 04/18/22: passed 3hr GTT. Cheryl Kohtari MD 3hr gtt ordered. Cheryl Ktohari MD Supervision of high risk in second [facility] 02/14/2022 05/11/2022 Chlamydia infection affecting in first trimester 11/08/2021 05/11/2022 Overview: 12/08/21 - negative MORE - Melany Sellers MD 11/08/21- Treated with Azithromycin 1000 mg x 1 dose. MORE needed. Rehana Jaffe APRN.CNM Patient request for diagnostic testing 2 05/11/2022 Overview: 11/02/2021 Patient desires aneuploidy screening. I have given her contact information to [employer] to check on insurance coverage. Patient considering genetic carrier screening testing. I have given her contact information to the [facility] to check on insurance coverage.Erendira Groves RN documented as of this encounter (statuses as of 05/11/2022) [facility]03-01-2023 Miscellaneous Notes* Quick Notes - Rehana Jaffe APRN.CNM - 04/11/2022 11:12 AM EST S: Trenton Styles is a 16 year old female who presents at 28.2 weeks gestation for a routine visit. Just completed 1 hour GCT. Denies headache, visual changes, chest pain, shortness of breath, vaginal bleeding, leakage of fluid, or dysuria. Feeling well, no complaints. Wearing compression stockings while working. No further issues with feeling like she is going to pass out. O: See flow sheet Gen: No apparent distress Abd: Gravid, nontender Assessment/Plan 28-30 weeks gestation - 1 hour GCT, CBC, and RPR today - Rh positive- B+ - TDAP today - LARC form reviewed and signed. Patient declines - May want Nexplanon at 8 weeks PP. No pills - Depression screen negative - Opioid screen negative - plan form discussed and given to patient. Patient desires epidural and - Watching CBE online videos - PTL precautions and kick counts reviewed - RTO- 2 weeks or sooner if needed Rehana Jaffe APRN.CNM documented in this encounterTuscarawas Hospital03-01-2023 History of Present illness Narrative* Aurora Renteria MA - 04/11/2022 11:10 AM EST Patient identified by name and date of . Trenton Styles presents today for a vaccination of Tdap. Patient denies an allergy to latex: yes Patient denies a severe (life-threatening) allergy to a previous dose of Tdap, DTP, DTaP, DT or Td vaccine. Yes Patient denies history of epilepsy or neurological problems: Yes Patient is afebrile and denies being moderately or severely ill: Yes Patient denies history of Guillain-Mineral Syndrome (a severe paralytic illness): Yes Tdap Adacel injection was given without incident. See immunizations for details of immunizations administered today. VIS sheet provided: Yes Provider Rehana Jaffe CNM was present in office at time of injection. Aurora Renteria MA documented in this encounterTuscarawas Hospital03-01-2023 Instructions* Patient Instructions* Aurora Renteria MA - 04/11/2022 11:03 AM EST SEQUENTIAL SCREENINGS The [facility] offers sequential screenings for women who are interested in screenings for chromosomal abnormalities and certain defects during a . The sequential screen combinesultrasound and blood tests to determine the risk of chromosomal abnormalities, including Down's Syndrome (Trisomy 21) and Trisomy 18, as well as open neural tube defects including spina bifida. Ultrasound examination is performed between 11 weeks and 13 weeks gestational age. Blood tests are drawn after the ultrasound and again later in the between 15 and 21 weeks gestational age. Please let your physician know if you are interested in this testing. It will require an appointment withour refrigeration service technician. This is not an ultrasound performed by a physician in our office during a routine visit. SIGNS AND SYMPTOMS OF LABOR 1. Contractions every 10 minutes or more often 2. Clear, pink, or brownish fluid (water) leaking from vagina 3. Feeling that baby is pushing down, pressure 4. Low, dull backache 5. Cramps that feel like a period 6. Cramps with or without diarrhea If you notice any of the above symptoms, contact our office at [phone] and ask to speak with anurse. After hours, you can call doctors registry at [phone] OR call [facility] at [phone] ask to have the doctor production administrative assistant paged. If you consider this an emergency, dial 9-1-1 or go to your nearest emergency department. NEED HELP? Are you dealing with a violent or abusive relationship? Are you a victim of rape or sexual assult? Call [facility] ([place]) 24 hour Crisis Hotline: 397.884.9572 or 476-130-6107. MANUAL Your Guide to a Healthy manual is now on-line. Visit [email or web address] to download your free copy documented in this encounterTuscarawas Hospital02-04-[address] Schuster [facility] March 17, 2022 8:14pm Note Date/Time March 17, 2022 6 :01pm [facility] Medical Records Department [address] [place] [address] Emergency Department Summary 03/17/22 MR#: [id number] Acct: [id number] Name: TRENTON STYLES Rep #:[id number] : 2005 16 From: Titus Schuster MD PCP: Care Physician,No Primary Status :REG ER Location: ED HPI History of Present Illness Chief Complaint: Eye Problem Informant: patient Onset/Context/Timing Location: Right Eye Context: Sudden Onset Timing: Continuous Current Severity: Moderate Maximum Severity: Moderate Worsened by: blinking Relieved by: nothing Associated Symptoms Associated Symptoms - Eyes: Foreign body sensation, Pain and - (increased tearing; no vision change) History of injury: Yes and Foreign body Visual correction: None Narrative Narrative: Patient was trying to apply eyelash extensions at home, there is a glue adhesivein the kit and she accidentally got a small amount of it in her right eye underneath her upper eyelid. She talked to poison control and they had her do aggressive irrigation/eyewash at home, but she still has pain and foreign body sensation in that area of the upper eyelid/eye. She denies taking contacts or contact or glasses, and she denies any changes in her vision [facility] Medical History Former smoker Orthostatic syncope Home Medications BP cuff #1 ea 01/01/22 [Rx Last Taken Unknown] no.118-ferrous fumarate 29 mg-folic acid 1 mg chewable tablet (Se- Natal19 Chewable) 1 tab PO DAILY 01/01/22 [History Last Taken Unknown] promethazine 25 mg tablet 25 mg PO Q8H PRN PRN Nausea 01/01/22 [History Last Taken Unknown] Allergy/AdvReac Type Severity Reaction Status Date / Time No Known Allergies Allergy Verified 03/17/22 17:20 Social History Smoking Status: Never smoker substance use type: does not use ROS ROS ED Constitutional Constitutional ED: Denies chills or fever(s) Eyes Eyes: Reports as per HPI and eye pain; Denies change in vision or diplopia ENT ENT ED: Denies ear pain, rhinorrhea or sore throat Neurologic Neurologic: Denies headache(s), paresthesias or weakness EXAM Physical Exam Const Vital Signs: 03/17/22 17:18 Temperature 97.9 F Temperature Source Temporal Pulse Rate 87 Respiratory Rate 16 Blood Pressure 114/71 Blood Pressure Mean 85 Pulse Ox 99 Oxygen Delivery Method Room Air Positive well nourished and well developed General Appearance ED: well developed and NAD HEENT atraumatic; Negative for tenderness Mouth ED: Yes oral and palatal mucosa normal and Yes lips normal Mouth: oral and palatal mucosa normal and lips normal Eyes PERRL and EOMs intact bilaterally Eyes Narrative: Eyes are grossly atraumatic on gross inspection with a light, I see no foreign bodies on the eye or beneath the upper eyelid, which was everted. Neuro oriented x3, CN's II-XII intact bilaterally and gait normal Sensorium / Orientation: alert Skin Lesions: no lesions Rashes: no rashes MDM MDM MDM Narrative Medical decision making narrative: Visual acuity is 20/20 OD, 20/20 OS, 20/20 OU. Afterwards, I placed several drops of 1% tetracaine in the patient's eye, she had complete resolution of her discomfort, consistent with topical/surface etiology of her pain. I stained herright eye with fluorescein, and viewed her eye with slit lamp with and without cobalt blue light. She does have what appears to be a superficial abrasion to the 12:00 peripheral cornea, there is no obvious foreign body, negative Guillermina, anterior chamber deep and quiet with no cell or flare noted. No hyphema or hypopyon. I am not able to rule out the possibility that there is a very superficial amount of glue on the cornea versus an abrasion. I think putting her on bacitracin ophthalmic been petroleum-based would be reasonable for this for multiple reasons, if it is glued could help dissolve it and bring it away from the eye, prevent infection, and soothe her discomfort. If she does not have resolution of her symptoms in 3-4 days I recommend close outpatient follow-up with ophthalmology, she is comfortable with that plan. Discharge Plan Triage Chief Complaint: Eye Problem ED Provider: Titus Schuster Dx/Rx/DC Orders Clinical Impression: Abrasion of right cornea Instructions: ED Corneal Abrasion Prescriptions: No Action promethazine 25 mg tablet 25 mg PO Q8H PRN PRN (Reason: Nausea) Se-[place]qu[place] 19 Chewable 29 mg iron- 1 mg tablet,chewable 1 tab PO DAILY Label Comments: chew and swallow 1 (ONE) TAB BY MOUTH EVERY DAY (DME) BP cuff See Rx Instructions .Route .MEDSUPPLY Qty: 1 0RF Rx Instructions: As directed Primary Care Provider: Care Physician,No Primary Referrals: Aurora Buenrostro DO [Non-Staff] - Donn Randall MD [Med Staff - Active Staff] - 3-5 Days if not improving Activity Restrictions/Additional Instructions: Use eye ointment 3 times daily to the affected eye for the next 3-4 days or as needed until better Disposition Disposition: Home, Self Care What to do if you have Problems For any increased pain, shortness of breath, bleeding, nausea or vomiting, chestpain, or any unexpected problems, contact your Primary Care Provider. Call Doctors Registry ([phone]) or report to the closest Emergency Room. Call 911 if necessary. 03/17/222013 <Electronically signed by Titus Schuster MD> Cosigner Signature (if applicable): CC: No Primary Care Physician ~ Signed [facility] Work Phone: 1(466) 401-739302-04-2023 Hospital Discharge instructions Additional Instructions Use eye ointment 3 times daily to the affected eye for the next 3-4 days or as needed until [facility] Work Phone: 1(113) 520-658202-01-2023 Miscellaneous Notes* Quick Notes - Cheryl Allred MD - 03/14/2022 1:48 PM EST DM-Pt doing well. Denies vaginal Bleeding, Leaking fluid, or regular Contractions. Pt reports good movement Physical Exam: Gen: female in no apparent distress Abd: soft, Gravid. Non tender to palpation. See flow sheet A/P: @ 24.2 weeks 1) 28 weeks labs ordered 2) Still not vaping 3) RTO 4 wks 4) Anatomy us reviewed Cheryl Kothari MD documented in this encounterTuscaraw[facility]02-01-2023 History of Present illness Narrative* Maggie Alcocer Ma - 03/14/2022 1:35 PM EST I documented in this encounterTuscarawas Hospital02-01-2023 Instructions* Patient Instructions* Maggie Alcocer Ma - 03/14/2022 1:34 PM EST SEQUENTIAL SCREENINGS The [facility] offers sequential screenings for women who are interested in screenings for chromosomal abnormalities and certain defects during a . The sequential screen combinesultrasound and blood tests to determine the risk of chromosomal abnormalities, including Down's Syndrome (Trisomy 21) and Trisomy 18, as well as open neural tube defects including spina bifida. Ultrasound examination is performed between 11 weeks and 13 weeks gestational age. Blood tests are drawn after the ultrasound and again later in the between 15 and 21 weeks gestational age. Please let your physician know if you are interested in this testing. It will require an appointment withour refrigeration service technician. This is not an ultrasound performed by a physician in our office during a routine visit. SIGNS AND SYMPTOMS OF LABOR 1. Contractions every 10 minutes or more often 2. Clear, pink, or brownish fluid (water) leaking from vagina 3. Feeling that baby is pushing down, pressure 4. Low, dull backache 5. Cramps that feel like a period 6. Cramps with or without diarrhea If you notice any of the above symptoms, contact our office at [phone] and ask to speak with anurse. After hours, you can call doctors registry at [phone] OR call [facility] at [phone] ask to have the doctor production administrative assistant paged. If you consider this an emergency, dial 9-1-1 or go to your nearest emergency department. NEED HELP? Are you dealing with a violent or abusive relationship? Are you a victim of rape or sexual assult? Call [facility] ([place]) 24 hour Crisis Hotline: 359.323.7198 or 681-487-6001. MANUAL Your Guide to a Healthy manual is now on-line. Visit [facility]org/HealthyPregnancyGuide to download your free copy documented in this encounterTuscarawas Hospital01-04-2023 Miscellaneous Notes* Quick Notes - Jocelyn Regan APRN.CNM - 02/14/2022 2:29 PM EST CAROLYN-S: Trenton Styles is a 16 year old female who presents at 20w2d with JUNE:07/02/2022, by Ultrasound for a routine visit. Good Fm. Denies headache, visual changes, chest pain, shortness of breath, vaginal bleeding, leakage of fluid, or dysuria. Feeling well, no complaints. O: See flow sheet Gen: No apparent distress Abd: Gravid, nontender S=D, ASSESSMENT/PLAN: 1. 20 weeks gestation of 2. Supervision of high risk in second trimester P: 1) PTL precautions reviewed and when to call 2) RTO in 4 weeks 3) No vaping or marijuana use since positive test. 4) [facility] 5) Anatomy US today, awaiting results Jocelyn Regan APRN.CNM documented in this encounterTuscarawas Hospital01-04-2023 Instructions* Patient Instructions* Jocelyn Regan APRN.CNM - 02/14/2022 1:58 PM EST SEQUENTIAL SCREENINGS The [facility] offers sequential screenings for women who are interested in screenings for chromosomal abnormalities and certain defects during a . The sequential screen combinesultrasound and blood tests to determine the risk of chromosomal abnormalities, including Down's Syndrome (Trisomy 21) and Trisomy 18, as well as open neural tube defects including spina bifida. Ultrasound examination is performed between 11 weeks and 13 weeks gestational age. Blood tests are drawn after the ultrasound and again later in the between 15 and 21 weeks gestational age. Please let your physician know if you are interested in this testing. It will require an appointment withour refrigeration service technician. This is not an ultrasound performed by a physician in our office during a routine visit. SIGNS AND SYMPTOMS OF LABOR 1. Contractions every 10 minutes or more often 2. Clear, pink, or brownish fluid (water) leaking from vagina 3. Feeling that baby is pushing down, pressure 4. Low, dull backache 5. Cramps that feel like a period 6. Cramps with or without diarrhea If you notice any of the above symptoms, contact our office at [phone] and ask to speak with anurse. After hours, you can call doctors registry at [phone] OR call [facility] at [phone] ask to have the doctor production administrative assistant paged. If you consider this an emergency, dial 0-1-6 or go to your nearest emergency department. NEED HELP? Are you dealing with a violent or abusive relationship? Are you a victim of rape or sexual assult? Call [facility] ([facility] 24 hour Crisis Hotline: 241.692.4043 or 010-064-5434. MANUAL Your Guide to a Healthy manual is now on-line. Visit [email or web address]/HealthyPregnancyGuide to download your free copy [facility] [address] [place] [address] [facility] [address] [place] [address] [facility] [address] [place] [address] [facility] [address] [address] [email or web address] FoodsKeokuk County [facility] [place] [address] [place] [address] [facility] [address] [place] [address] [email or web address] [email or web address].IntelliDOT [facility] [address], [place] [address] [email or web address] [facility] [phone] [facility] [address] [place] [address] [facility] [address] [address] Have [place] office also [phone] [email or web address] [facility] [phone] [address] [facility] [address] [place] [address] [facility], [facility] [place] [address] [place] [address] [email or web address] [facility] [address] [place] [address] [email or web address] 1) [facility] Online Virtual Childbirth and Class. -Please call to register and for more information: [phone] and register * Ask about insurance coverage 2) [facility] Online Childbirth Education, , and [place] classes: [email or web address]://[email or web address].[email or web address] 3) Here is a list of online childbirth education and resources. https://piALGO Technologies.IntelliDOT/zinjyb-lvhqdafhht-siobd-vtuvy82-gnqntilwujo/ https://[email or web address].com/childbirth-class/ https://blissful-.teachable.IntelliDOT/p/empoweredmamasguide documented in this encounterTuscarawas Hospital12-19-2022 Miscellaneous Notes* Quick Notes - Rehana Jaffe APRN.CNM - 01/29/2022 3:18 PM EST S: Trenton Styles is a 16 year old female who presents at 18 weeks gestation for a routine visit.Patient has not been seen in office for 6 weeks. Was told by scheduling that this was the soonest she could get in. C/O increased feelings like she is going to pass out. Notices feelings of shakiness, sweating, sometimes feeling heart race and tunnel vision a couple of times a week. Has to sit down. Has never passed out or lost consciousness. Has been seen in ED 4x over the past month for this and EKG's and labs normal. Reviewed increasing sodium in diet, wearing compression stocking and increasing hydration. If continues will consult cardiology. O: See flow sheet Gen: No apparent distress Abd: Gravid, nontender ASSESSMENT/PLAN: 1. 18 weeks gestation of - ICD9: V22.2, ICD10: Z3A.18 (primary diagnosis) - URINE OB DIP B/O - ALPHA FETOPRO MATERNAL 2. Encounter for supervision of normal first in third trimester - ICD9: V22.0, ICD10: Z34.03 3. Dizziness - Compression stockings - Increase sodium in diet - Increase fluid intake- add in drinks with electrolytes - Possible consult to cardiology P: 1) PTL precautions reviewed and when to call 2) RTO 2 weeks for anatomy US and ARON Jaffe APRN.CNM documented in this encounterTuscarawas Hospital12-19-2022 Instructions* Patient Instructions* Brinda Bishop Ma - 01/29/2022 2:59 PM EST SEQUENTIAL SCREENINGS The [facility] offers sequential screenings for women who are interested in screenings for chromosomal abnormalities and certain defects during a . The sequential screen combinesultrasound and blood tests to determine the risk of chromosomal abnormalities, including Down's Syndrome (Trisomy 21) and Trisomy 18, as well as open neural tube defects including spina bifida. Ultrasound examination is performed between 11 weeks and 13 weeks gestational age. Blood tests are drawn after the ultrasound and again later in the between 15 and 21 weeks gestational age. Please let your physician know if you are interested in this testing. It will require an appointment withour refrigeration service technician. This is not an ultrasound performed by a physician in our office during a routine visit. SIGNS AND SYMPTOMS OF LABOR 1. Contractions every 10 minutes or more often 2. Clear, pink, or brownish fluid (water) leaking from vagina 3. Feeling that baby is pushing down, pressure 4. Low, dull backache 5. Cramps that feel like a period 6. Cramps with or without diarrhea If you notice any of the above symptoms, contact our office at [phone] and ask to speak with anurse. After hours, you can call doctors registry at [phone] OR call [facility] at [phone] ask to have the doctor production administrative assistant paged. If you consider this an emergency, dial 9-1-9 or go to your nearest emergency department. NEED HELP? Are you dealing with a violent or abusive relationship? Are you a victim of rape or sexual assult? Call [facility] ([place]) 24 hour Crisis Hotline: 336.539.4517 or 444-306-7171. MANUAL Your Guide to a Healthy manual is now on-line. Visit [facility].[email or web address]/HealthyPregnancyGuide to download your free copy documented in this encounterTuscarawas Hospital12-02-2022 Miscellaneous Notes* Telephone Encounter - Elma Aguilar LPN - 01/12/2022 9:35 AM EST Noted. Elma Aguilar LPN * Telephone Encounter - Cindy Wallace MD - 01/12/2022 8:45 AM EST Agree with hydration and Tylenol 1000 mg * Telephone Encounter - Bibi De Leon LPN - 01/12/2022 8:34 AM EST Ob patient is 15w4d and called c/o headache since 10 pm. Patient has not taken any meds for the headache. Patient was told to try Tylenol extra strength for JARAMILLO, to increase fluids and to call with update office if headache is not relieved. documented in this encounterTuscarawas Hospital11-07-2022 Miscellaneous Notes* Quick Notes - Cindy Wallace MD - 12/18/2021 2:10 PM EST SW- Pt doing well. Nausea is improving. Requesting refill of Zofran and a PNV. No pain, vb, lof. Having some dizziness PE: Gen- NAD, well appearing, comfortable See flowsheet A/p 12 wk gestation - Dizziness: Discussed hydration, snacks, compression socks, avoiding position changes. Pt requesting BP cuff - Blood work and NIPT today - NT today - RTO 4 wks Cindy Wallace DO documented in this encounterTuscarawas Hospital11-07-2022 Instructions* Patient Instructions* Aurora Renteria MA - 12/18/2021 1:38 PM EST SEQUENTIAL SCREENINGS The [facility] offers sequential screenings for women who are interested in screenings for chromosomal abnormalities and certain defects during a . The sequential screen combinesultrasound and blood tests to determine the risk of chromosomal abnormalities, including Down's Syndrome (Trisomy 21) and Trisomy 18, as well as open neural tube defects including spina bifida. Ultrasound examination is performed between 11 weeks and 13 weeks gestational age. Blood tests are drawn after the ultrasound and again later in the between 15 and 21 weeks gestational age. Please let your physician know if you are interested in this testing. It will require an appointment withour refrigeration service technician. This is not an ultrasound performed by a physician in our office during a routine visit. SIGNS AND SYMPTOMS OF LABOR 1. Contractions every 10 minutes or more often 2. Clear, pink, or brownish fluid (water) leaking from vagina 3. Feeling that baby is pushing down, pressure 4. Low, dull backache 5. Cramps that feel like a period 6. Cramps with or without diarrhea If you notice any of the above symptoms, contact our office at [phone] and ask to speak with anurse. After hours, you can call doctors registry at [phone] OR call [facility] at [phone] ask to have the doctor production administrative assistant paged. If you consider this an emergency, dial 1-2-5 or go to your nearest emergency department. NEED HELP? Are you dealing with a violent or abusive relationship? Are you a victim of rape or sexual assult? Call [facility] ([place]) 24 hour Crisis Hotline: 584.296.3758 or 382-740-1855. MANUAL Your Guide to a Healthy manual is now on-line. Visit [facility].org/HealthyPregnancyGuide to download your free copy documented in this encounterTuscarawas Hospital10-25-2022 Miscellaneous Notes* Quick Notes - Melany Sellers MD - 12/05/2021 10:51 AM EDT KJ - Patient reports N&V is still the same. She has vomited 4 times today. The meds work about 3 of the 7 days. She took all of the antibiotics as prescribed. Patient hasn't tolerated much PO today. She states her urine is clear. VB No. LOF No. CTXS No. Movement: absent. Other c/o: See above. Medication list reviewed. Physical Exam See Flow Sheet Gen: no accute distress, well appearing Abd: soft, nontender, gravid : external genitalia: normal, vagina: pink, ruggated, and discharge: white, cervix: closed TVUS: active fetus with FCA A/P 10w1d Estimated Date of Delivery: 07/02/22 Schedule NT Desires NIPT N&V - Rx phenergan given in addition to other medications. Discussed IV hydration if meds don'thelp. Melany Sellers MD documented in this encounterTuscarawas Hospital10-25-2022 Instructions* Patient Instructions* Mary Kay Sarabia Ma - 12/05/2021 10:25 AM EDT SEQUENTIAL SCREENINGS The [facility] offers sequential screenings for women who are interested in screenings for chromosomal abnormalities and certain defects during a . The sequential screen combinesultrasound and blood tests to determine the risk of chromosomal abnormalities, including Down's Syndrome (Trisomy 21) and Trisomy 18, as well as open neural tube defects including spina bifida. Ultrasound examination is performed between 11 weeks and 13 weeks gestational age. Blood tests are drawn after the ultrasound and again later in the between 15 and 21 weeks gestational age. Please let your physician know if you are interested in this testing. It will require an appointment withour refrigeration service technician. This is not an ultrasound performed by a physician in our office during a routine visit. SIGNS AND SYMPTOMS OF LABOR 1. Contractions every 10 minutes or more often 2. Clear, pink, or brownish fluid (water) leaking from vagina 3. Feeling that baby is pushing down, pressure 4. Low, dull backache 5. Cramps that feel like a period 6. Cramps with or without diarrhea If you notice any of the above symptoms, contact our office at [phone] and ask to speak with anurse. After hours, you can call doctors registry at [phone] OR call [facility] at [phone] ask to have the doctor production administrative assistant paged. If you consider this an emergency, dial 9-1-4 or go to your nearest emergency department. NEED HELP? Are you dealing with a violent or abusive relationship? Are you a victim of rape or sexual assult? Call [facility] ([place]) 24 hour Crisis Hotline: 839.386.8070 or 620-137-6142. MANUAL Your Guide to a Healthy manual is now on-line. Visit [facility]org/HealthyPregnancyGuide to download your free copy documented in this encounterTuscarawas Hospital10-19-2022 Miscellaneous Notes* Telephone Encounter - Cheryl Allred MD - 11/29/2021 4:51 PM EDT Noted- would recommend evaluation in ER or express care for fever. * Telephone Encounter - Bibi De Leon LPN - 11/29/2021 3:22 PM EDT Ob patient called c/o fever of 101.6 for the past 2 days and nausea. Patient denies cold/respiratory symptoms, denies dysuria, no c/o pain. Patient is taking Zofran for nausea and states that the medication works most days Patient completed macrobid for UTI last week. Patient stated that she wasgoing to Express Care for evaluation of fever. Next ob appointment is 12/05/2021 documented in this encounterTuscarawas Hospital10-05-2022 Miscellaneous Notes* Telephone Encounter - Erendira Groves RN - 11/15/2021 1:16 PM EDT Patient called and informed * Telephone Encounter - Rehana Jaffe APRN.CNM - 11/15/2021 1:02 PM EDT They will reevaluate cyst when they do the NT US! I talked it over with ultrasound! Thanks! Rehana Jaffe APRN.CNM * Telephone Encounter - Malu Roe RN - 11/15/2021 11:15 AM EDT Patient notified. States her insurance will cover the Vdikazn31 and Horizon testing. Do you still want patient to have the Nuchal US or just an US to check her ovarian cyst? Malu Roe RN * Telephone Encounter - Malu Roe RN - 11/15/2021 10:28 AM EDT 7w2d Left message for patient to call office. See below. Needs NT US scheduled. Malu Roe RN * Telephone Encounter - Malu Roe RN - 11/15/2021 10:28 AM EDT ----- Message from Rehana Jaffe APRN.CNM sent at 11/15/2021 10:21 AM EDT ----- Dating ultrasound reviewed. JUNE updated to 07/02/22. Needs follow up US to reevaluate right ovarian cyst at 12 weeks gestation- during NT US. Rehana Jaffe APRN.CNM documented in this encounterTuscarawas Hospital10-04-2022 Miscellaneous Notes* Quick Notes - Melany Sellers MD - 11/14/2021 11:40 AM EDT KJ - Patient seen urgently for N&V of . She states the past 24 hours it has gotten worse and she is out of zofran. Patient has kept her macrobid down. VB No. LOF No. CTXS No. Movement: absent. Medication list reviewed. Physical Exam See Flow Sheet Gen: no accute distress, well appearing A/P 9w1d Estimated Date of Delivery: 06/18/22 N&V - rx pepcid, vitamin B6, unisom & zofran ODT given. Advised on hydration & snacking. N&V precautions reviewed. Patient offered IV hydration which she declines. Dating US today. Melany Sellers MD documented in this encounterTuscarawas Hospital09-30-2022 Miscellaneous Notes* Telephone Encounter - Jeferson Reddy RN - 11/10/2021 2:11 PM EDT PRAF completed 11-10-21. Jeferson Reddy, RN documented in this encounterTuscarawas Hospital09-27-2022 Miscellaneous Notes* Quick Notes - Rehana Jaffe APRN.CNM - 11/07/2021 1:45 PM EDT NOB completed today. Dating ultrasound ordered for next week. Rehana Jaffe APRN.CNM documented in this encounterTuscarawas Hospital09-27-2022 History of Present illness Narrative* Rehana Jaffe APRN.CNM - 11/07/2021 12:57 PM EDT Images from the original note were not included. INITIAL OB ASSESSMENT OB Provider: Rehana Jaffe CNM HPI: Trenton Styles is a 16 year old female here to establish Obstetrical Care. Patient's last menstrual period was 09/11/2021 (exact date). Nexplanon removal on 09/14/21- Complaints: nausea and vomiting Seen in ED last weekend and got IV fluids and Zofran was not planned but accepted OB History T0 L0 SAB0 IAB0 Ectopic0 Multiple0 Live Births0 Prior : never History of 4th degree laceration: No Patient's Risk Screening for delivery: History of abnormal pap: No Prior treatment for cervical dysplasia: none. History of STDs: None Tobacco use: Yes- Vaping nicotine- last used 2 weeks Caffeine use: No Drug use: marijuana 2 weeks ago Alcohol use: Yes Multivitamin with Folic acid: Yes Occupation: none Taoism or heritage: No Would refuse blood transfusion if medically necessary: No BMI 28.79 kg/(m^2) Patient BMI over 30? No Marital Status:Co-habitating Partner: Name: Jorge Alberto Rivero Age: 16 Occupation: [employer] Gender: male History of STDs: None Review of Systems: GENERAL: Negative for: Fever or Chills and Positive for: Fatigue HEENT: Negative for: Headache, Impaired Vision, Ringing in Ears, Nosebleeds NECK: Negative for: Swelling, Pain, Stiffness RESPIRATORY: Negative for: Cough, Shortness of breath, Wheezing- no history of asthma GASTROINTESTINAL: Negative for: Heartburn, Constipation, Diarrhea, Blood in stool, Vomiting and Positive for: Nausea and Vomiting MUSCULOSKELETAL: Negative for: Muscle or joint pain, stiffness, Joint swelling NEUROLOGIC/PSYCHIATRIC: Negative for: Weakness, Paralysis, Numbness, Tingling, Tremor, Anxiety, Depression, Memory loss SKIN: Negative for: Rash, Itching GENITOURINARY: Negative for: vaginal itching, vaginal discharge, hematuria or dysuria and Positive for: urinary frequency PHYSICAL EXAM: BP 100/70 Ht 5' 5 (1.65m) Wt 173 lb (78.5kg) LMP 09/11/2021 BMI 28.79 kg/(m^2). GENERAL: pleasant female in no apparent distress DERMATOLOGY: Normal and without lesions NECK: Supple and full range of motion CHEST: Normal inspiratory effort BREAST: soft, non-tender, symmetric, no dominant mass, normal nipple-areolar complex, no lymphadenopathy, and no nipple discharge ABDOMEN: soft, non-tender, and no masses NEURO: alert and oriented x3,exam grossly non-focal PELVIS: External genitalia normal without lesions. Perineal body intact. No vaginal or cervical lesions. Cervix closed. Uterus 5 week size. No adnexal masses or tenderness. Clinical Pelvimetry: Pelvimetry clinically assessed as adequate Limited OB ultrasound exam: Gestational sac, yolk sac and pole seen- Patient to schedule dating ultrasound next week OB Risk Screening: Completed, no positive findings documented. SBIRT Trenton Styles was given the 4P's screening tool. Trenton answered as follows: OB Opioid Screening - Last Recorded (since 02/10/2021) Did any of your parents have a problem with alcohol or other drug use? Yes father-ETOH, Mother-Heroine Does your partner have a problem with alcohol or other drug use? No In the past, have you had difficulties in your life because of alcohol or other drugs, including prescription medications? No In the past month have you drunk any alcohol or used other drugs? No Are you taking medication for pain during the either prescribed or not? No Based on the screen and further questions, she is considered at Low risk due to:Low level of use stopped prior to or immediately upon known . Positive reinforcement of current behavior. Rehana Jaffe APRN.CNM ASSESSMENT/PLAN: 1. Encounter for care in first trimester of first - ICD9: V22.0, ICD10: Z34.01 (primary diagnosis) - CBC - SYPHILIS TOTAL W/REFLEX - RUBELLA IGG AB - HEP B SURF AG SCRN - HEP C AB IA W/CONF SCRN - HIV 1 2 COMBO(AG/AB),WITH REFLEX TO DIFFERENTIATION - TYPE + SCREEN - GC/CHLAMYDIA DNA DET - URINE CULTURE - OBSTETRIC ULTRASOUND WHI - NUCHAL TRANSLUCENCY WHI - DRAPERY HEMMER AUTOMATIC 2. 8 weeks gestation of - ICD9: V22.2, ICD10: Z3A.08 Patient oriented to practice. Discussed nutrition, folic acid supplementation, dietary guidelines, exercise, smoking, alcohol, caffeine, and drug use. Discussed routine OB labs including STD/HIV. Discussed aneuploidy screening options including serum screening and nuchal translucency. 3. History of nicotine vaping - ICD9: V15.82, ICD10: Z87.891 - Stopped 2 weeks ago 4. Nausea and vomiting in - ICD9: 643.90, ICD10: O21.9 - Zofran 4 mg PO every 4 hours as needed for N/V 5. with uncertain dates - Dating ultrasound ordered Follow up in 4 weeks or sooner prn. Rehana Jaffe APRN.CNM documented in this [facility]-27[facility]22 Instructions* Patient Instructions* Aurora Renteria MA - 11/07/2021 12:57 PM EDT Please select the following link to access the [facility] Your Guide to a Healthy . [email or web address] documented in this encounterT[facility]09-22-2022 Miscellaneous Notes* Quick Notes - Erendira Groves RN - 11/02/2021 12:17 PM EDT DISTANCE HEALTH VISIT This Team Access Model visit is a phone encounter. It required patient-provider interaction for themedical decision making as documented below. Father of the baby involved. Patient stopped vaping and using marijuana 3 days ago. I have discussed with her the risks of vaping and using illicit drugs in and advised patient to continue not using them. Patient desires aneuploidy screening. Ihave given her contact information to [employer] to check on insurance coverage. Patient considering genetic carrier screening testing. I have given her contact information to the [employer] [facility] check on insurance coverage.Erendira Groves RN documented in this encounterTuscarawas [facility]08-04-2022 History of Present illness Narrative* Beatrice Wolf APRN.CNP - 09/14/2021 4:12 PM EDT Trenton is a 16 year old who presents for Nexplanon removal for abnormal bleeding. UNIVERSAL PROTOCOL / SAFETY CHECKLIST Procedure to be Performed: Nexplanon (contraceptive subdermal implant) Removal Sign In: A Moment of CARE was completed. Personnel directly involved with the procedure wore the appropriate PPE (Personal Protective Equipment). Patient/Surrogate Stated/Verified: PATIENT VERIFIED(optional for EMERGENT procedures): Patient name, Date of , Relevant allergies and The intended procedure Time Out Communication: Intended patient and procedure match the source documents. Consent documented and matches the intended procedure. Sign Out: SIGN OUT (optional for EMERGENT procedures): No specimen collected. All instruments, equipment, possible retained foreign bodies accounted for. TECHNIQUE: Patient placed in supine position with left arm bent at the elbow and placed over the head. Skin cleansed with betadine.1.5 mL of 1% lidocaine with epi injected subQ along insertion site. Scalpel used to made a 5mm stab incision superficially at distal end of Nexplanon. Device removed understerile technique with a small hemostat. Sterile pressure dressing applied. A&P: 16 year old here for Nexplanon removal Nexplanon removed intact without difficulty. The patient was instructed to remove the dressing after 24 hours. Contraceptive plans OCPs Beatriceomar Wolf APRN.CNP documented in this encounterTuscaraw[facility]04-18-2022 Instructions* Patient Instructions* Karolina Phillips CNP - 05/29/2021 1:19 PM EDT Problem List Items Addressed This Visit Other Elevated blood sugar Relevant Orders Hemoglobin A1c Hx of viral illness Relevant Orders CBC and Differential Comprehensive Metabolic Panel TSH with Reflex Free T4 Post-COVID syndrome - Primary Recommend taking a Probiotic daily, Vitamin D3 2000 units, Zinc, and Vitamin C daily. Also recommend at least 8 hours of sleep every night. Also drink upwards of one gallon of water daily . If any referrals were placed at the time of your visit please allow 2 weeks for processing. If you haven't heard from anyone within 2 weeks please contact my office so we can look into the status of your referral. If you were given any labs today please ensure they are completed according to the directions given. Once labs are completed please allow 1-2 weeks for us to receive the results, review them, and letyou know what steps, if any, are needed next. If you haven't heard from us after that please call to inquire. If labs were ordered to be done PRIOR to your next visit we will discuss the results at the time ofyour office visit. If any procedures or imaging studies were ordered that must be prior authorized please give us 2 weeks to get them approved. Once approved someone should call you to schedule them or give you a date and time that they were scheduled for. If you haven't heard anything within 2 weeks of the office visit please call the office so we can look into their status. Customer Service/Billing Questions: [phone] [facility] Assistance: [phone] or [phone] Financial Assistance: [phone] or [phone] documented in this [id number] Evaluation + Plan note* Assessment & Plan Note - Karolina Phillips CNP - 05/29/2021 1:17 PM EDT Associated Problem(s): Post-COVID syndrome Recommend taking a Probiotic daily, Vitamin D3 2000 units, Zinc, and Vitamin C daily. Also recommend at least 8 hours of sleep every night. Also drink upwards of one gallon of water daily . [id number] Miscellaneous Notes* Assessment & Plan Note - Karolina Phillips CNP - 05/29/2021 1:17 PM EDTAssociated Problem(s): Post-COVID syndrome Recommend taking a Probiotic daily, Vitamin D3 2000 units, Zinc, and Vitamin C daily. Also recommend at least 8 hours of sleep every night. Also drink upwards of one gallon of water daily . documented in this [id number] History of Present illness Narrative* Karolina Phillips CNP - 05/29/2021 1:09 PM EDT Images from the original note were not included. Subjective Patient ID: Trenton Arias is a 15 y.o. female. Patient is here today to establish care, she is new to this provider and new to this practice. Patient was previously a patient of [facility]. Illness: Patient is concerned because she has been ill pretty consistently since November 2020. She states she had [place] 12/01 and then Covid 03/04. She states she has been sick with some type of illness frequently since that time. She states she continues to have off and on fevers and is picking up URI, gastroenteritis, sore throats, etc. She is very frustrated. She was evaluated by infectious dise ase and was told she needed to sleep more. The following were reviewed and updated as appropriate for today's visit: allergies, current medications, past family history, past medical history, past social history, past surgical history and problem list. Patient's Medications New Prescriptions No medications on file Previous Medications ETONOGESTREL (NEXPLANON) 68 MG IMPL SUBDERMAL IMPLANT Inject 68 mg under the skin . Modified Medications No medications on file Discontinued Medications No medications on file Review of Systems Review of Systems Constitutional: Negative for activity change, appetite change and fatigue. HENT: Negative for hearing loss. Eyes: Negative for visual disturbance. Respiratory: Negative for cough, chest tightness, shortness of breath and wheezing. Cardiovascular: Negative for chest pain, palpitations and leg swelling. Skin: Negative. Neurological: Negative for dizziness, weakness, light-headedness, numbness and headaches. Hematological: Does not bruise/bleed easily. Psychiatric/Behavioral: Negative for dysphoric mood. The patient is not nervous/anxious. Vitals: 05/29/21 1255 BP: 98/64 BP Location: Right arm Patient Position: Sitting BP Cuff Size: X-large Adult Pulse: 89 Resp: 16 Temp: 97.4 F (36.3 C) TempSrc: Temporal SpO2: 97% Weight: 78.5 kg (173 lb) Height: 5' 4.5 Body mass index is 29.24 kg/m . Physical Exam Physical Exam Constitutional: Appearance: She is well-developed. HENT: Right Ear: External ear normal. Left Ear: External ear normal. Nose: Nose normal. Eyes: General: Lids are normal. Conjunctiva/sclera: Conjunctivae normal. Cardiovascular: Rate and Rhythm: Normal rate and regular rhythm. Heart sounds: Normal heart sounds. No murmur heard. Pulmonary: Effort: Pulmonary effort is normal. Breath sounds: Normal breath sounds. Musculoskeletal: Cervical back: Normal range of motion. Comments: Normal gait Skin: General: Skin is warm and dry. Neurological: Mental Status: She is alert and oriented to person, place, and time. GCS: GCS eye subscore is 4. GCS verbal subscore is 5. GCS motor subscore is 6. Psychiatric: Speech: Speech normal. Behavior: Behavior normal. OARRS/NARxCHECK Report Received and Assessed: No data found Date controlled substance agreement signed: No data found Date of last drug screen: No data found Functional Assessment: No data found Assessment/Plan Problem List Items Addressed This Visit Other Elevated blood sugar Relevant Orders Hemoglobin A1c Hx of viral illness Relevant Orders CBC and Differential Comprehensive Metabolic Panel TSH with Reflex Free T4 Post-COVID syndrome - Primary Recommend taking a Probiotic daily, Vitamin D3 2000 units, Zinc, and Vitamin C daily. Also recommend at least 8 hours of sleep every night. Also drink upwards of one gallon of water daily . For any new medications prescribed today, patient was educated about indications for the medication, how to take the medication and potential side effects of the medications. Karolina Phillips CNP documented in this [id number] Instructions* Patient Instructions* Jocelyn Acosta APRN.CNP - 05/03/2021 7:18 PM EDT No diagnosis found. You have been diagnosed with an illness caused by a virus. Antibiotics do not cure viral infections. If given when not needed, antibiotics can be harmful. The treatments described below will help youfeel better while your body's own defenses are fighting the virus. General Instructions: Drink extra water and juice. Use a cool mist vaporizer or saline nasal spray to relieve congestion. For Sore throats, use ice chips or sore throat spray; lozenges for older children and adults. Specific Medications: Fever, aches, ear pain: Use medicines according to the package instructions or as directed by your healthcare provider. Stop the medication when the symptoms get better. No follow-ups on file. Nausea and Vomiting Take frequent small sips of water if a whole glass is too much. Try 5 or 6 small meals instead of 3 bigger meals. Suck on peppermint candy, or chew a stick of peppermint gum. Eating gelatin dessert, dry toast, crackers, and cooked cereal are good choices. Try to stay away from strong food odors, which can make nausea worse. documented in this encounterT[facility]03-23-2022 History of Present illness Narrative* Jocelyn Acosta APRN.CNP - 05/03/2021 7:17 PM EDT This note was created using AREVSriter. Chyna Styles is a 15 year old female. 15 y/o female with no PMH c/o illness. Acute onset of symptoms started 6 days ago. State she felt better 3 days ago with symptoms returning yesterday while at work. States at work she had x 1 watery emesis. She was sent home. Time of exam pt feels better. Requesting a work and school note. Endorses she is feeling somewhat better. She states her grandparents were ill as well over this past weekend. Her boyfriend also is having similar issues. Pt ate melia [employer] without issues. +urinary output LMP 5 days ago. LBM this morning and normal per patient. The history is provided by the patient. No speech language pathologist was used. Illness The current episode started 5 to 7 days ago. The onset was sudden. The problem occurs continuously.Progression since onset: waxing and waning. The problem is mild. Nothing relieves the symptoms. Nothing aggravates the symptoms. Associated symptoms include a fever, diarrhea, nausea, vomiting, headaches and muscle aches. Pertinent negatives include no decreased vision, no double vision, no eye itching, no photophobia, no abdominal pain, no congestion, no ear discharge, no ear pain, no hearing loss, no mouth sores, no rhinorrhea, no sore throat, no stridor, no swollen glands, no neck pain, no cough, no wheezing, no rash, no eye discharge, no eye pain and no eye redness. She has been eating and drinking normally. Urine output has been normal. The last void occurred less than 6 hours ago. There were sick contacts at home, at school and at work. She has received no recent medical care. PAST MEDICAL HISTORY Diagnosis Date NEGATIVE MEDICAL HISTORY PAST SURGICAL HISTORY Procedure Laterality Date NONE ALLERGIES Patient has no known allergies. MEDICATIONS etonogestrel (NEXPLANON) 68 mg impl subdermal implant 68 mg by SUBDERMAL route. FAMILY HISTORY Problem Relation Age of Onset Arthritis Maternal Grandfather Cancer Paternal Grandfather Social History Tobacco Use Smoking status: Passive Smoke Exposure - Never Smoker Smokeless tobacco: Never Used Tobacco comment: 2 smokers in house Substance Use Topics Alcohol use: Not on file Drug use: Not on file Review of Systems Constitutional: Positive for fever. Negative for activity change, appetite change, chills and diaphoresis. HENT: Negative for congestion, ear discharge, ear pain, hearing loss, mouth sores, rhinorrhea and sore throat. Eyes: Negative for double vision, photophobia, pain, discharge, redness and itching. Respiratory: Negative for apnea, cough, choking, chest tightness, wheezing and stridor. Cardiovascular: Negative for chest pain, palpitations and leg swelling. Gastrointestinal: Positive for diarrhea, nausea and vomiting. Negative for abdominal pain. Musculoskeletal: Negative for arthralgias, back pain, gait problem and neck pain. Skin: Negative for color change, pallor and rash. Allergic/Immunologic: Negative for environmental allergies, food allergies and immunocompromised state. Neurological: Positive for headaches. Negative for dizziness and facial asymmetry. Hematological: Negative for adenopathy. Does not bruise/bleed easily. Psychiatric/Behavioral: Negative for agitation and behavioral problems. Objective BP 110/72 Pulse 105 Temp 37.3 C (99.2 F) Resp 19 Wt 77.6 kg (171 lb) LMP 03/13/2021 (Within Days) SpO2 99% Physical Exam Vitals and nursing note reviewed. Constitutional: General: She is not in acute distress. Appearance: Normal appearance. She is normal weight. She is not ill-appearing, toxic-appearing or diaphoretic. Comments: Non toxic. Laughing and smiling HENT: Head: Normocephalic and atraumatic. Right Ear: Ear canal and external ear normal. Left Ear: Ear canal and external ear normal. Nose: Nose normal. No congestion or rhinorrhea. Mouth/Throat: Mouth: Mucous membranes are moist. Pharynx: No oropharyngeal exudate or posterior oropharyngeal erythema. Eyes: General: Right eye: No discharge. Left eye: No discharge. Extraocular Movements: Extraocular movements intact. Conjunctiva/sclera: Conjunctivae normal. Pupils: Pupils are equal, round, and reactive to light. Cardiovascular: Rate and Rhythm: Normal rate and regular rhythm. Pulses: Normal pulses. Heart sounds: Normal heart sounds. No murmur heard. No friction rub. Pulmonary: Effort: Pulmonary effort is normal. No respiratory distress. Breath sounds: Normal breath sounds. No stridor. No wheezing, rhonchi or rales. Chest: Chest wall: No tenderness. Abdominal: General: Abdomen is flat. There is no distension. Palpations: Abdomen is soft. There is no mass. Tenderness: There is no abdominal tenderness. There is no right CVA tenderness, left CVA tenderness, guarding or rebound. Hernia: No hernia is present. Musculoskeletal: General: No swelling, tenderness, deformity or signs of injury. Normal range of motion. Cervical back: Normal range of motion and neck supple. No rigidity. Right lower leg: No edema. Left lower leg: No edema. Lymphadenopathy: Cervical: No cervical adenopathy. Skin: General: Skin is warm and dry. Capillary Refill: Capillary refill takes less than 2 seconds. Coloration: Skin is not jaundiced or pale. Findings: No bruising, erythema, lesion or rash. Neurological: General: No focal deficit present. Mental Status: She is alert and oriented to person, place, and time. Cranial Nerves: No cranial nerve deficit. Sensory: No sensory deficit. Motor: No weakness. Coordination: Coordination normal. Gait: Gait normal. Psychiatric: Mood and Affect: Mood normal. Behavior: Behavior normal. Thought Content: Thought content normal. Judgment: Judgment normal. TEACHING PROVIDER (Physician/PA/[employer]Y SUPER[employer]END[employer]) NOTE OF PERSONAL INVOLVEMENT IN CARE: I have personally seen and examined the patient and performed the medical decision-making components. I have reviewed the Advanced Practice Registered Nurse ([employer]) Student's documentation and verified the findings in the note as written. Any additions or changes are noted in bold/italics. Signature: Jocelyn Acosta Date: 05/03/2021 Time: 7:30 PM Assessment and Plan ASSESSMENT/PLAN: 1. Nausea vomiting and diarrhea - ICD9: 787.91, 787.01, ICD10: R11.2, R19.7 (primary diagnosis) Onset 6 days ago Family with same States today is much better She ate ravioli [employer] Non toxic feel better BRAT diet. Advance as tolerated. Requests work note to return tomorrow. 2. Viral illness - ICD9: 079.99, ICD10: B34.9 - Discussed viral etiology and rationale for treatment. - Symptomatic treatment with prn analgesia - Supportive care with fluids and rest - The patient may also use OTC cough and cold meds as needed, warm salt water gargles, throat lozenges and/or OTC throat spray as needed and nasal saline gtts and suction prn. - Follow up in 3-5 days if symptoms persist or sooner if worsening of symptoms - Declines COVID testing. Jocelyn Acosta APRN.JENNA documented in this encounterTuscarawas Hospital12-29-2021 NoteCarter David Styles is here for consultation at the request of Yesica Chadwick MD for: Consult ([place], got better and is now having constant fevers, headaches. Just wants to know what to do from this point. ) Assessment Trenton is a 15 y.o. female with recurrent illnesses likely recurrent viral infections complicated likely by allergic rhinitis and post-infectious fatigue syndrome [place] testing from November 2020 was inconclusive as EBNA not performed and negative monospot (IgM positive only which has a high false positive rate) and her symptoms were more consistent with a respiratory viral infection rather than EBV. Plan - Trial flonase 1 spray each nostril BID x 1 month to see if helps with intermittent rhinorrhea, cough, and sore throat which sounds c/w post-nasal drainage - Start keeping fever&symptom diary - Cleared to return to school provided temps <100.4F - Discussed sleep hygiene, health eating, and exercise habits to deal with post-infectious fatigue syndrome with an emphasis on improving both the quantity and quality of her sleep which are severely lacking - F/U with me in 2-3 weeks to review fever diary and assess progress - Often will trial MgOx and Riboflavin for migraine-like headaches associated with post-infectious fatigue syndrome. However her headaches have few migrainous qualities, sound mild and infrequent, and respond to appropriate OTC pain relievers with need for treatment <3x weekly so I don't think this is indicated at this time Bravo Kang M.D. Infectious Diseases 02/08/2021 10:25 AM History of Present Illness Trenton is a 15 y.o. female here for chronic fatigue following mono in November 2020. She first became ill around the first week of November 2020. Initially her symptoms included fever, runny and stuffy nose, productive cough, and extreme fatigue. These improved somewhat after the first few weeks of the illness and the fevers resolved but she has been dealing with some persistent symptoms since that time. She has intermittent runny nose, seemingly worse with weather changes. She has some cough which is intermittent and infrequent but productive of mucous and phlegm when it occurs. She also has some sore throat which is worse in the mornings and when she lays down at night. She had a run of almost two weeks of fever Tmax 101.3F for which she was sent home from school daily. That seems better but she has been taking her temperatures since she has been on break from school. She continues to feel more fatigued than normal. She goes to bed typically between [id number] (the former on school nights, the latter on break or weekends). Her bedtime routine is typically watching TV or playing xbox. She gets up usually around 0700 on a school day, maybe 2410-2950 while on break or on Wednesdays and Sundays which are her sleep in days. She hasn't missed too much school though is often late for the 0800 start time. She did miss two weeks in January due to them sending her home for fever and some days here and there due to feeling very tired and fatigued. She reports that some days she feels fine and others she feels very fatigued. She sometimes takes a short 20 minute nap after school before going to work at [employer] where she usually works from 1700 to 2200. Review of Systems Review of Systems: Constitution: Negative. Respiratory: Negative. Skin: Negative. Gastrointestinal: Negative. Genitourinary: Negative. Recent Lab Results Last CBC: Last Result Complete Blood Count with Diff (Clinic Collect) Collection Time: 01/20/21 12:05 PM Result Value Ref Range WBC 7.5 4.5 - 13.0 10E9/L Nucleated RBC Percent 0.0 -1.0 - 0.0 % RBC 4.94 (H) 4.10 - 4.80 10E12/L Hemoglobin 14.8 12.0 - 15.0 g/dl Hematocrit 43.2 37.0 - 46.0 % MCV 87.4 78.0 - 96.0 fl MCH 30.0 25.0 - 35.0 pg MCHC 34.3 31.0 - 37.0 % RDW 11.7 0.0 - 14.4 % Platelets 257 150 - 450 10E9/L MPV 11.7 fl Comment: MPV is platelet range and age dependent Differential Complete Automated NA % Neutrophils 61.5 34.0 - 64.0 % % Lymphocytes 29.3 25.0 - 45.0 % % Monocytes 6.00 3.00 - 6.00 % % Eosinophils 2.10 0.00 - 3.00 % Basophils 0.70 0.00 - 1.00 % Neutrophil # 4.6 1.8 - 7.5 10E3/uL % Immature Granulocyte 0.40 % Comment: Immature Granulocyte Percent includes promyelocytes, myelocytes, and metamyelocytes. IG% > 1.0 indicates a left shift is present. With automated differentials, bands are included in the neutrophil count and not in the Immature Granulocyte Percent. Narrative With differential. Is this specimen being sent to an external lab?->No Release to patient->Automatic Last CMP: Last CRP: C-Reactive Protein (mg/dL) Date Value 01/20/2021 0.5 Recent Imaging Findings No results found. Physical Examination Vitals: BP 114/49 Pulse 87 Ht 165.6 cm Wt 78 kg BMI 28.44 kg/m Physical Exam Constitutional: General: She is active. S (more content not included)...[facility] NoteCLINICAL HISTORY: Right hand contusion. COMPARISON: 11/11/2020 PROCEDURE COMMENTS: Three views of the right wrist. IMPRESSION: Remote fifth metacarpal fracture has healed. There is no acute fracture or other osseous abnormality. Articulations are maintained. This report has been created using voice recognition software Signed by: Dr. Kristy Dietz at 12/01/2020 10:11[facility] NotePROCEDURE: WRIST 1 VIEW RIGHT CLINICAL HISTORY: Right wrist pain COMPARISON: None. IMPRESSION: There is no acute fracture or other bony abnormality. There is partial visualization of the remote fracture of the right fifth metacarpal proximal metaphysis. Bony alignment is normal. The soft tissues are normal. No radiopaque foreign bodies. Created by resident and approved This report has been created using voice recognition software Signed by: Dr. Talat Samuel at 11/11/2020 11:12[facility] HospitalDis[facility] summary Author Charisse Esparza [facility] December 03, 2022 8:14am Note Date/Time December 03, 2022 8 :12am [facility] Medical Records Department [address] [place] [address] Instructions for Home/Discharge Instructions 12/03/22806 MR#: [id number] Acct: [id number] Name: RITIKAGOVINDKENNTRENTON Baljit Rep #:71 : 2005 17 From: Charisse Esparza MD PCP: Care Physician,No Primary Status :ADM IN Discharge Instructions Diet Discharge Diet: Light diet - advance as tolerated Activity Discharge Activity: May Not Drive (while taking narcotic pain medications.) and May Shower May shower in (days): 1 Lifting Restrictions: no lifting >20 lbs x 2 wks, no strenuous exercise for 4 wks Dressing / Incision Call your doctor if your incision/area has: Continuous Slow Oozing, Sudden Increased Bleeding, Increased Pain/ Swelling, Increased Redness, Foul Smelling Discharge and Swelling at the incision site Call your doctor if you observe: Fever of 101 or Higher Cleanse incision/area with: Soap & Water Additional Dressing/Incision Instructions:: Steri-Strips will fall off in 7 to 10 days, if they do not fall off okay to remove after 10 days. Follow Up Care Please Follow Up With: Charisse Esparza MD When: Call the office for a follow-up appointment 2 weeks; after 5 PM and on the call [phone] with any concerns. Test Results: Test results from this visit will be discussed in further detail at your follow- up appointment, if applicable. Discharge Plan Admission Admit Date/Time: 12/02/22 20:20 Attending Provider: Charisse Esparza Primary Care Provider: Care Physician,No Primary Instructions Forms: Work / School Excuse Additional Instructions / Restrictions: Recommend taking --- ibuprofen 400-600 mg PO q6hr PRN and --- alternate with Tylenol 650 mg every 4 hours as needed OR Tylenol 1000 mg every 6 hours as needed- Along with the Oxy IR. Take all pain meds with food. Oxy IR can cause constipation recommend taking daily stool softener (i.e. Colace/docusate) while taking the pain meds. Recommend starting some MiraLAX in1-2 days if no bowel movement. Discharge Orders/Prescriptions Prescriptions: New oxycodone 5 mg capsule 5 - 10 mg PO Q6H PRN (Reason: pain) 3 Days Qty: 16 0RF amoxicillin-pot clavulanate 875-125 mg tablet 1 tab PO Q12H Qty: 4 0RF Continued Se- 19 Chewable 29 mg iron- 1 mg tablet,chewable 1 tab PO DAILY Patient Comments: chew and swallow 1 (ONE) TAB BY MOUTH EVERY DAY (DME) BP cuff See Rx Instructions .Route .MEDSUPPLY Qty: 1 0RF Rx Instructions: As directed melatonin 5 mg Tablet 5 mg PO QHS Referrals / Follow Up: Care Physician,No Primary [Primary Care Provider] - Disposition Disposition (needs filled in before D/C Order can be placed): Home, Self Care 12/03/22813<Electronically signed by Charisse Esparza MD>Charisse Esparza MD CC: No Primary Care Physician ~ Signed [facility] Work Phone: Discharge summary Author Charisse Esparza [facility] December 03, 2022 8:17am Note Date/Time December 03, 2022 8 :17am [facility] Medical Records Department [address] [place] [address] Discharge Summary 12/03/22814 MR#: [id number] Acct: [id number] Name: TRENTON STYLES Rep #:[id number] : 2005 17 From: Charisse Esparza MD PCP: Care Physician,No Primary Status :ADM IN Location: [place] [address]-1 Providers Date of Admission: 12/02/22 Primary Care Physician: No Primary Care Phys Reason For Visit: ACUTE APPENDICITIS WITH PERITONITIS Diagnosis Discharge Diagnosis (1) Acute appendicitis: Status: Resolved Code(s): K35.80 - Unspecified acute appendicitis Plan: Acute perforated (2) S/P laparoscopic appendectomy: Status: Acute Code(s): Z90.49 - Acquired absence of other specified parts of digestive tract Plan CT abdomen pelvis not showing signs of abscess. She has only been on p.o. pain medication. Will give additional 2 days of Augmentin and DC home this morning. Charisse Esparza M.D. Pager: [phone] [facility] [address] [place] [address], [address] [place] [address] Office: [phone] Medications at Discharge Home Medications BP cuff #1 ea 01/01/22 no.118-ferrous fumarate 29 mg-folic acid 1 mg chewable tablet (Se- Natal19 Chewable) 1 tab PO DAILY 01/01/22 melatonin 5 mg tablet 5 mg PO QHS insomnia 05/09/22 amoxicillin 875 mg-potassium clavulanate 125 mg tablet 1 tab PO Q12H #4 tabs 12/03/22 oxycodone 5 mg capsule 5 - 10 mg (1 - 2 x 5 mg) PO Q6H PRN pain 3 days #16 caps 12/03/22 Hospital Course Operations appendectomy Summary of Care Provided Minutes Spent on Discharge: 15 Hospital Course: Patient presents to the ER due to right lower quadrant pain x2 days. CT showed acute appendicitis. Patient went laparoscopic appendectomy. Postoperatively patient was able to primary tolerate diet however was having episodes of creasedneeds for pain. A repeat CT abdomen pelvis was done did not show any abscess atthe area of the appendix or any other acute process. Patient was able to have diet advanced and did scheduled ibuprofen with food for pain along with her oxy. Weight / BMI Weight Weight: 201 lb 14.4 oz Body Mass Index (BMI) 33.5 ABG / Lab / Microbiology Data 12/02/22 06:57 12/01/22 07:04 Radiography Diagnostic Testing: Radiology Impression Abdomen/Pelvis CT 12/02/22 08:[address]: [address] evidence of enhancing phlegmon or abscess following appendectomy of perforated acute appendicitis when compared to 11/30/2022. 2. Minimal inflammatory changes of the fat medial to the cecum was present preoperatively. 3. Minimal fluid in the posterior cul-de-sac was also present previously and unchanged. Electronically Signed: Prabhu Johnson MD at 10:34 EDT , D/C Instructions Discharge Diet: Light diet - advance as tolerated May shower in (days): 1 Call your doctor if your incision/area has: Continuous Slow Oozing, Sudden Increased Bleeding, Increased Pain/ Swelling, Increased Redness, Foul Smelling Discharge and Swelling at the incision site Call your doctor if you observe: Fever of 101 or Higher Cleanse incision/area with: Soap & Water Additional Dressing/Incision Instructions: Steri-Strips will fall off in 7 to 10days, if they do not fall off okay to remove after 10 days. Please Follow Up With: Charisse Esparza MD When: Call the office for a follow-up appointment 2 weeks; after 5 PM and on call [phone] with any concerns. Meaningful Use Info Meaningful Use Diagnoses (Choose all that apply): None applicable Discharge Plan Admission Admit Date/Time: 12/02/22 20:20 Attending Provider: Charisse Esparza Primary Care Provider: Deyanira Adame Primary Instructions Forms: Work / School Excuse Additional Instructions / Restrictions: Recommend taking --- ibuprofen 400-600 mg PO q6hr PRN and --- alternate with Tylenol 650 mg every 4 hours as needed OR Tylenol 1000 mg every 6 hours as needed- Along with the Oxy IR. Take all pain meds with food. Oxy IR can cause constipation recommend taking daily stool softener (i.e. Colace/docusate) while taking the pain meds. Recommend starting some MiraLAX in1-2 days if no bowel movement. Discharge Orders/Prescriptions Prescriptions: New oxycodone 5 mg capsule 5 - 10 mg PO Q6H PRN (Reason: pain) 3 Days Qty: 16 0RF amoxicillin-pot clavulanate 875-125 mg tablet 1 tab PO Q12H Qty: 4 0RF Continued Se- 19 Chewable 29 mg iron- 1 mg tablet,chewable 1 tab PO DAILY Patient Comments: chew and swallow 1 (ONE) TAB BY MOUTH EVERY DAY (DME) BP cuff See Rx Instructions .Route .MEDSUPPLY Qty: 1 0RF Rx Instructions: As directed melatonin 5 mg Tablet 5 mg PO QHS Referrals / Follow Up: Care Physician,No Primary [Primary Care Provider] - Disposition Disposition (needs filled in before D/C Order can be placed): Home, Self Care 12/03/22 0817 <Electronically signed by Charisse Esparza MD> Cosigner Signature (if applicable): CC: Dr. Charisse Esparza MD; No Primary Care Physician~ Signed [facility] Work Phone: Evaluation note* Diagnosis Nausea vomiting and diarrhea- Primary Diarrhea Viral illness Unspecified viral infection, in conditions classified elsewhere and of unspecified site documented in this encounter [facility] note* Diagnosis Post-COVID syndrome- Primary Hx of viral illness Elevated blood sugar Other abnormal glucose documented in this encounter [facility] note* Diagnosis Nexplanon removal- Primary Surveillance of previously prescribed implantable subdermal contraceptive documented in this encounter [facility] note* Diagnosis Supervision of normal first , antepartum- Primary History of nicotine vaping Patient request for diagnostic testing Other specified examination [facility]* Diagnosis Encounter for care in first trimester of first - Primary 8 weeks gestation of state, incidental History of nicotine vaping Nausea and vomiting in Unspecified vomiting of , unspecified as to episode of care with uncertain dates in first trimester documented [facility]* Diagnosis Nausea and vomiting during - Primary documented [facility]* Diagnosis with uncertain dates in first trimester- Primary documented [facility]* Diagnosis Encounter for supervision of normal first in first trimester- Primary Supervision of normal first 10 weeks gestation of state, incidental [facility]* Diagnosis Supervision of high risk in first trimester- Primary Unspecified high-risk documented [facility]* Diagnosis 12 weeks gestation of - Primary state, incidental Encounter for supervision of normal first in first trimester Supervision of normal first Nausea and vomiting during Dizziness Dizziness and giddiness documented [facility]* Diagnosis Encounter for (NT) nuchal translucency scan- Primary Other specified screening 12 weeks gestation of state, incidental documented [facility] noteNo assessment information availableW[facility] Work Phone: Evaluation note* Diagnosis 18 weeks gestation of - Primary state, incidental Encounter for supervision of normal first in third trimester Supervision of normal first Dizziness Dizziness and giddiness [facility]* Diagnosis 20 weeks gestation of - Primary state, incidental Supervision of high risk in second trimester Unspecified high-risk documented [facility]* Diagnosis Encounter for anatomic survey- Primary 20 weeks gestation of state, incidental [facility]* Diagnosis Encounter for supervision of normal first in second trimester- Primary Supervision of normal first 24 weeks gestation of state, incidental [facility]* Diagnosis 28 weeks gestation of - Primary state, incidental Encounter for supervision of normal first in second trimester Supervision of normal first Need for vaccination Need for prophylactic vaccination and inoculation against unspecified single disease documented [facility] this [facility]* Diagnosis 28 weeks gestation of - Primary state, incidental Encounter for supervision of normal first in second trimester Supervision of normal first Dysuria [facility]* Diagnosis 32 weeks gestation of - Primary state, incidental documented in this encounter [facility] note* Diagnosis Onset Date Resolution Status 32 weeks gestation of acute Leg swelling in in third trimester acute Preeclampsia acute Proteinuria affecting in third trimester acute [facility] Work Phone: Evaluation note* Diagnosis 32 weeks gestation of - Primary state, incidental Pre-eclampsia in third trimester Mild or unspecified pre-eclampsia, antepartum documented in this encounter [facility] note* Diagnosis Pre-eclampsia in third trimester- Primary Mild or unspecified pre-eclampsia, antepartum Gestational edema with proteinuria, third trimester 32 weeks gestation of state, incidental documented in this encounter [facility] note* Diagnosis Poor growth affecting management of mother in third trimester, single or unspecified fetus- Primary 32 weeks gestation of state, incidental Pre-eclampsia in third trimester Mild or unspecified pre-eclampsia, antepartum documented [facility] this [facility]* Diagnosis Nexplanon insertion- Primary Insertion of implantable subdermal contraceptive documented [facility]* Diagnosis care and examination- Primary Routine follow-up documented in this encounter [facility] note* Diagnosis Onset Date Resolution Status Arterial hypotension acute S/P laparoscopic appendectomy acute Acute appendicitis resolved Acute appendicitis with generalized peritonitis resolved [facility] Work Phone: Evaluation note* Diagnosis Viral illness- Primary Unspecified viral infection, in conditions classified elsewhere and of unspecified site documented [facility]* Diagnosis Viral URI- Primary Acute upper respiratory infections of unspecified site Fever, unspecified fever cause Headaches Nasal congestion Other diseases of nasal cavity and sinuses Nausea and vomiting, unspecified vomiting type Acute cough documented [facility]* Diagnosis Breakthrough bleeding on Nexplanon- Primary Metrorrhagia Irregular menses Irregular menstrual cycle documented [facility] this [facility]* Diagnosis Breakthrough bleeding on Nexplanon- Primary Metrorrhagia [facility] Additional Instructions Ana Gamboa RN following pt's BP's and reviewed instructions with pt Follow up in 's office this Thursday 05/11 at 10 AM for growth US & BPP. Return to 05/10/22 at 1:30 for second dose of Celestone injection. [facility] Work Phone: Progress note Author Charisse Esparza [facility] December 03, 2022 8:18am Note Date/Time December 03, 2022 8 :07am [facility] Medical Records Department [address] [place] [address] Progress Note - Surgery 12/03/22806 MR#: [id number] Acct: [id number] Name: TRENTON STYLES Rep #:[id number] : 2005 17 From: Charisse Esparza MD PCP: Care Physician,No Primary Status :ADM IN [id number] abdomen pelvis not showing evidence of abscess. Patient still complains of abdominal pain however she did not get pain consistently through the night as she was sleeping. Patient not get any more IV pain medication yesterday. Objective Data Objective Data Vital Signs: Vital Signs Temp Pulse Resp BP Pulse Ox O2 Del Method 98.7 F 86 18 109/73 93 Room Air 12/02/22 14:17 12/02/22 14:17 12/02/22 14:17 12/02/22 14:17 12/02/22 14:17 12/02/22 21:00 Oxygen Delivery Method Room Air Weight: 201 lb 14.4 oz Body Mass Index (BMI) 33.5 Intake & Output: Intake and Output for Last 24 Hours 12/01/22 12/02/22 12/03/22 23:59 23:59 23:59 Intake Total 2514 / 2764 1725 500 / 500 Output Total 1200 / 1200 Balance 1314 / 1564 1725 500 / 500 Lab / Micro Data 12/02/22 06:57 12/01/22 07:04 Radiography Diagnostic Testing: Radiology Impression Abdomen/Pelvis CT 12/02/22 08:[address]: [address] evidence of enhancing phlegmon or abscess following appendectomy of perforated acute appendicitis when compared to 11/30/2022. 2. Minimal inflammatory changes of the fat medial to the cecum was present preoperatively. 3. Minimal fluid in the posterior cul-de-sac was also present previously and unchanged. Electronically Signed: Prabhu Johnson MD at 10:34 EDT Reading Location ID and State: [facility] / [place] , Service support , Physical Exam Const oriented x3 and no apparent distress Resp normal respiratory effort Cardio regular rate GI soft to palpation GI Narrative: Appropriately tender near incisions and some in the right lower quadrant, no peritoneal signs Inspection: Negative for abdominal distention Assessment & Plan Assessment/Plan (1) S/P laparoscopic appendectomy: (2) Acute appendicitis: PLAN: Plan Patient CT abdomen pelvis not showing evidence of abscess. Patient has only gotten p.o. medication overnight. Patient did complain of some nausea was back down to clears at that time but then advanced again. Patient will be sent home with 2 days of Augmentin. Charisse Esparza M.D. Pager: [phone] [facility] [address], [address] [place] [id number] Office: [phone] 12/03/22817 <Electronically signed by Charisse Esparza MD> Cosigner Signature (if applicable): CC: ~ Signed [facility] Work Phone: Reason for referral (narrative)* Diagnostic Procedure Only (Routine) - Authorized Specialty Diagnoses / Procedures Referred By Contac t Referred To Contact [facility] Diagnoses 8 weeks gestation of Procedures OBSTETRIC ULTRASOUND WHI US PREG UTERUS AFTER 1ST TRIMEST GESTATION Rehana Jaffe APRN.CN [address] [id number] [facility] [address] [place] [address] Referral ID Status Reason Start Date Expiration Date Visits Requested Visits Authorized [id number] Authorized Auto-Generat ed Referral 11/07/2021 11/07/2022 1 1 * Diagnostic Procedure Only (Routine) - Pending Review Specialty Diagnoses / Procedures Referred By Sylvain t Referred To Contact [facility] Diagnoses Encounter for care in first trimester of first 8 weeks gestation of Procedures NUCHAL TRANSLUCENCY WHI US NUCHAL TRANSLUCENCY 1ST GESTATION Rehana Jaffe APRN.CNM [address] [place] [address] [address] Referral ID Status Reason Start Date Expiration Date Visits Requested Visits Authorized [id number] Pending Review Auto-Generat ed Referral 11/07/2021 11/07/2022 1 1 * Diagnostic Procedure Only (Routine) - Pending Review Specialty Diagnoses / Procedures Referred By Sylvain drake Referred To Contact [facility] Diagnoses Encounter for care in first trimester of first 8 weeks gestation of Procedures OBSTETRIC ULTRASOUND WHI US PREG UTERUS AFTER 1ST TRIMEST GESTATION Rehana Jaffe APRN.CNM [address] [place] [address] [facility] [address] [place] [address] Referral ID Status Reason Start Date Expiration Date Visits Requested Visits Authorized [id number] Pending Review Auto-Generat ed Referral 11/07/2021 11/07/2022 1 1 [facility] for referral (narrative)* Diagnostic Procedure Only (Routine) - Authorized Specialty Diagnoses / Procedures Referred By Sylvain t Referred To Contact [facility] Diagnoses 32 weeks gestation of Pre-eclampsia in third trimester Procedures BIOPHYSICAL PROFILE US WHI BIOPHYSICAL PROFILE NON-STRESS TESTING Cheryl Jennings MD [address] [place] [address] [address] Referral ID Status Reason Start Date Expiration Date Visits Requested Visits Authorized [id number] Authorized Auto-Generat ed Referral 05/09/2022 05/09/2023 10 1 * Diagnostic Procedure Only (Routine) - Authorized Specialty Diagnoses / Procedures Referred By Contac t Referred To Contact [facility] Diagnoses 32 weeks gestation of Pre-eclampsia in third trimester Procedures OBSTETRIC ULTRASOUND WHI US PREG UTERUS AFTER 1ST TRIMEST GESTATION Cheryl Jennings MD [address] [place] [address] [address] Referral ID Status Reason Start Date Expiration Date Visits Requested Visits Authorized [id number] Authorized Auto-Generat ed Referral 05/09/2022 05/09/2023 4 1 * Outpatient Procedure (Routine) - Authorized Specialty Diagnoses / Procedures Referred By Contac t Referred To Contact [facility] Diagnoses 32 weeks gestation of Pre-eclampsia in third trimester Procedures NON-STRESS TEST NON-STRESS TEST Cheryl Jennings MD [address] [place] [address] [address] Referral ID Status Reason Start Date Expiration Date Visits Requested Visits Authorized [id number] Authorized Auto-Generat ed Referral 05/09/2022 05/09/2023 8 1 [facility] for referral (narrative)* Outpatient Procedure (Routine) - Pending Review Specialty Diagnoses / Procedures Referred By Contac t Referred To Contact [facility] Diagnoses Nexplanon insertion Procedures NEXPLANON INSERTION ETONOGESTREL IMPLANT SYSTEM INSERT DRUG IMPLANT DEVICE Rehana Jaffe APRN.CNM [address] [place] [address] [address] Referral ID Status Reason Start Date Expiration Date Visits Requested Visits Authorized [id number] Pending Review Auto-Generat ed Referral 06/08/2022 06/08/2023 1 1 [facility]* Diagnostic Procedure Only (Routine) - Closed Specialty Diagnoses / Procedures Referred By Sylvain drake Referred To Contact [facility] Diagnoses 32 weeks gestation of Pre-eclampsia in third trimester Procedures OBSTETRIC ULTRASOUND WHI US PREG UTERUS AFTER 1ST TRIMEST GESTATION Cheryl Jennings MD [address] [place] [address] [address] Referral ID Status Reason Start Date Expiration Date V isits Requested Visits Authorized [id number] Closed Auto-Generate d Referral 05/09/2022 05/09/2023 4 1 [facility] Summary Purpose Family History No Family History Records FoundNo Family History Records FoundNo Family History Records FoundNo Family History Records FoundNo Family History Records FoundNo Family History Records Found Advance Directives No Advanced Directives Records FoundDocuments on File Type Date Recorded Patient Piecer Up Expl anation Advance Directives and Living Will Advance Directive Response Recorded Date/ Time Living Will No January 01 9:28am Power of Filtering Machine Tender Helper No January 01, 2022 9:28am Advance Directive Response Recorded Date/ Time Living Will No January 24 10:25am Power of Filtering Machine Tender Helper No January 24, 2022 10:25am Advance Directive Response Recorded Date/ Time Living Will No March 17 5:55pm Power of Filtering Machine Tender Helper No March 17, 2022 5:55pm Advance Directive Response Recorded Date/ Time Living Will No March 17 6:55pm Power of Filtering Machine Tender Helper No March 17, 2022 6:55pm Advance Directive Response Recorded Date/ Time Living Will No November 30 3:21pm Power of Filtering Machine Tender Helper No November 30, 2022 3:21pm Health Concerns Problem Noted Date OB Reminders 11/07/2021 Problem Noted Date OB Reminders 11/07/2021 Problem Noted Date OB Reminders 11/07/2021 Problem Noted Date OB Reminders 11/07/2021 Problem Noted Date OB Reminders 11/07/2021 Problem Noted Date OB Reminders 11/07/2021 Problem Noted Date OB Reminders 11/07/2021 Problem Noted Date OB Reminders 11/07/2021 Problem Noted Date OB Reminders 11/07/2021 Problem Noted Date OB Reminders 11/07/2021 Problem Noted Date OB Reminders 11/07/2021 Problem Noted Date OB Reminders 11/07/2021 Problem Noted Date OB Reminders 11/07/2021 Problem Noted Date OB Reminders 11/07/2021 Problem Noted Date OB Reminders 11/07/2021 Problem Noted Date OB Reminders 11/07/2021 Problem Noted Date OB Reminders 11/07/2021 Problem Noted Date Gemologist 05/18/2022 Problem Noted Date Gemologist 05/18/2022 Reason for Referral Specialty Diagnoses / Procedures Referred By Sylvain drake Referred To Contact Melany Sellers MD [address] [place] [address] Referral ID Status Reason Start Date Expiration Date Visits Re quested Visits Authorized [id number] Closed 1 1 Chief Complaint and Reason for Visit Chief Complaint N/V VISION Chief Complaint N/V VISION DIZZINESS Chief Complaint VISION DIZZINESS glue in eye Chief Complaint DIZZINESS glue in eye R/O LABOR Reason for Visit 32 weeks gestation o f Leg swelling in in third trimester Preeclampsia Proteinuria affecting in third trimester Chief Complaint DIZZINESS glue in eye R/O LABOR CELLESTONE SHOT Reason for Visit 32 weeks gestation o f Leg swelling in in third trimester Preeclampsia Proteinuria affecting in third trimester Chief Complaint DIZZINESS glue in eye R/O LABOR PRE E Reason for Visit 32 weeks gestation o f Leg swelling in in third trimester Preeclampsia Proteinuria affecting in third trimester Chief Complaint DIZZINESS glue in eye R/O LABOR PRE E PRE E Reason for Visit 32 weeks gestation o f Leg swelling in in third trimester Preeclampsia Proteinuria affecting in third trimester Chief Complaint ACUTE APPENDICITIS W ITH PERITONITIS ACUTE APPENDICITIS WITH PERITONITIS ACUTE APPENDICITIS WITH PERITONITIS ACUTE APPENDICITIS WITH PERITONITIS ACUTE APPENDICITIS WITH PERITONITIS Reason for Visit Arterial hypotension S/P laparoscopic appendectomy Acute appendicitis Acute appendicitis with generalized peritonitis Additional Source Comments INFORMATION SOURCE (unrecogn ized section and content) DATE CREATED AUTHOR 03/09/2021 [facility] DATE CREATED AUTHOR AUTHOR'S ORGANIZ ATION 05/30/2021 [facility] DATE CREATED AUTHOR AUTHOR'S ORGANIZ ATION 06/04/2021 [facility] DATE CREATED AUTHOR AUTHOR'S ORGANIZ ATION 05/27/2022 [facility] DATE CREATED AUTHOR AUTHOR'S ORGANIZ ATION 06/16/2024 [facility] DATE CREATED AUTHOR AUTHOR'S ORGANIZ ATION 07/10/2024 [facility] Source Comments (unrecognize d section and content) In the event this informatio n is protected by the Federal Confidentiality of Alcohol and Drug Abuse Patient Records regulations: The Federal rules restrict any use of the information to criminally investigate or prosecute any alcohol or drug abuse patient.[facility] the event this information is protected by the Federal Confidentiality of Alcohol and Drug Abuse Patient Records regulations: The Federal rules restrict any use of the information to criminally investigate or prosecute any alcohol or drug abuse patient.[facility] HospitalIn the event this information is protected by the Federal Confidentiality of Alcohol and Drug Abuse Patient Records regulations: The Federal rules restrict any use of the information to criminally investigate or prosecute any alcohol or drug abuse patient.[facility] HospitalIn the event this information is protected by the Federal Confidentiality of Alcohol and Drug Abuse Patient Records regulations: The Federal rules restrict any use of the information to criminally investigate or prosecute any alcohol or drug abuse patient.[facility] HospitalIn the event this information is protected by the Federal Confidentiality of Alcohol and Drug Abuse Patient Records regulations: The Federal rules restrict any use of the information to criminally investigate or prosecute any alcohol or drug abuse patient.[facility] HospitalIn the event this information is protected by the Federal Confidentiality of Alcohol and Drug Abuse Patient Records regulations: The Federal rules restrict any use of the information to criminally investigate or prosecute any alcohol or drug abuse patient.[facility] HospitalIn the event this information is protected by the Federal Confidentiality of Alcohol and Drug Abuse Patient Records regulations: The Federal rules restrict any use of the information to criminally investigate or prosecute any alcohol or drug abuse patient.[facility] HospitalIn the event this information is protected by the Federal Confidentiality of Alcohol and Drug Abuse Patient Records regulations: The Federal rules restrict any use of the information to criminally investigate or prosecute any alcohol or drug abuse patient.[facility] HospitalIn the event this information is protected by the Federal Confidentiality of Alcohol and Drug Abuse Patient Records regulations: The Federal rules restrict any use of the information to criminally investigate or prosecute any alcohol or drug abuse patient.[facility] HospitalIn the event this information is protected by the Federal Confidentiality of Alcohol and Drug Abuse Patient Records regulations: The Federal rules restrict any use of the information to criminally investigate or prosecute any alcohol or drug abuse patient.[facility] HospitalIn the event this information is protected by the Federal Confidentiality of Alcohol and Drug Abuse Patient Records regulations: The Federal rules restrict any use of the information to criminally investigate or prosecute any alcohol or drug abuse patient.[facility] HospitalIn the event this information is protected by the Federal Confidentiality of Alcohol and Drug Abuse Patient Records regulations: The Federal rules restrict any use of the information to criminally investigate or prosecute any alcohol or drug abuse patient.[facility] HospitalIn the event this information is protected by the Federal Confidentiality of Alcohol and Drug Abuse Patient Records regulations: The Federal rules restrict any use of the information to criminally investigate or prosecute any alcohol or drug abuse patient.[facility] HospitalIn the event this information is protected by the Federal Confidentiality of Alcohol and Drug Abuse Patient Records regulations: The Federal rules restrict any use of the information to criminally investigate or prosecute any alcohol or drug abuse patient.[facility] HospitalIn the event this information is protected by the Federal Confidentiality of Alcohol and Drug Abuse Patient Records regulations: The Federal rules restrict any use of the information to criminally investigate or prosecute any alcohol or drug abuse patient.[facility] HospitalIn the event this information is protected by the Federal Confidentiality of Alcohol and Drug Abuse Patient Records regulations: The Federal rules restrict any use of the information to criminally investigate or prosecute any alcohol or drug abuse patient.[facility] HospitalIn the event this information is protected by the Federal Confidentiality of Alcohol and Drug Abuse Patient Records regulations: The Federal rules restrict any use of the information to criminally investigate or prosecute any alcohol or drug abuse patient.[facility] HospitalIn the event this information is protected by the Federal Confidentiality of Alcohol and Drug Abuse Patient Records regulations: The Federal rules restrict any use of the information to criminally investigate or prosecute any alcohol or drug abuse patient.[facility] HospitalIn the event this information is protected by the Federal Confidentiality of Alcohol and Drug Abuse Patient Records regulations: The Federal rules restrict any use of the information to criminally investigate or prosecute any alcohol or drug abuse patient.[facility] HospitalIn the event this information is protected by the Federal Confidentiality of Alcohol and Drug Abuse Patient Records regulations: The Federal rules restrict any use of the information to criminally investigate or prosecute any alcohol or drug abuse patient.[facility] HospitalIn the event this information is protected by the Federal Confidentiality of Alcohol and Drug Abuse Patient Records regulations: The Federal rules restrict any use of the information to criminally investigate or prosecute any alcohol or drug abuse patient.[facility] HospitalIn the event this information is protected by the Federal Confidentiality of Alcohol and Drug Abuse Patient Records regulations: The Federal rules restrict any use of the information to criminally investigate or prosecute any alcohol or drug abuse patient.[facility] HospitalIn the event this information is protected by the Federal Confidentiality of Alcohol and Drug Abuse Patient Records regulations: The Federal rules restrict any use of the information to criminally investigate or prosecute any alcohol or drug abuse patient.[facility] HospitalIn the event this information is protected by the Federal Confidentiality of Alcohol and Drug Abuse Patient Records regulations: The Federal rules restrict any use of the information to criminally investigate or prosecute any alcohol or drug abuse patient.[facility] HospitalIn the event this information is protected by the Federal Confidentiality of Alcohol and Drug Abuse Patient Records regulations: The Federal rules restrict any use of the information to criminally investigate or prosecute any alcohol or drug abuse patient.[facility] HospitalIn the event this information is protected by the Federal Confidentiality of Alcohol and Drug Abuse Patient Records regulations: The Federal rules restrict any use of the information to criminally investigate or prosecute any alcohol or drug abuse patient.[facility] HospitalIn the event this information is protected by the Federal Confidentiality of Alcohol and Drug Abuse Patient Records regulations: The Federal rules restrict any use of the information to criminally investigate or prosecute any alcohol or drug abuse patient.[facility] HospitalIn the event this information is protected by the Federal Confidentiality of Alcohol and Drug Abuse Patient Records regulations: The Federal rules restrict any use of the information to criminally investigate or prosecute any alcohol or drug abuse patient.[facility] HospitalIn the event this information is protected by the Federal Confidentiality of Alcohol and Drug Abuse Patient Records regulations: The Federal rules restrict any use of the information to criminally investigate or prosecute any alcohol or drug abuse patient.[facility] HospitalIn the event this information is protected by the Federal Confidentiality of Alcohol and Drug Abuse Patient Records regulations: The Federal rules restrict any use of the information to criminally investigate or prosecute any alcohol or drug abuse patient.[facility] HospitalIn the event this information is protected by the Federal Confidentiality of Alcohol and Drug Abuse Patient Records regulations: The Federal rules restrict any use of the information to criminally investigate or prosecute any alcohol or drug abuse patient.[facility] HospitalIn the event this information is protected by the Federal Confidentiality of Alcohol and Drug Abuse Patient Records regulations: The Federal rules restrict any use of the information to criminally investigate or prosecute any alcohol or drug abuse patient.[facility] HospitalIn the event this information is protected by the Federal Confidentiality of Alcohol and Drug Abuse Patient Records regulations: The Federal rules restrict any use of the information to criminally investigate or prosecute any alcohol or drug abuse patient.[facility] HospitalIn the event this information is protected by the Federal Confidentiality of Alcohol and Drug Abuse Patient Records regulations: The Federal rules restrict any use of the information to criminally investigate or prosecute any alcohol or drug abuse patient.[facility] Reason for Visit (unrecogniz ed section and content) Reason Comments Nausea & Vomiting fever x 1 day Reason Comments Establish Care Keeps getting sick Specialty Diagnoses / Procedures Referred By Sylvain drake Referred To Contact [facility] Diagnoses Menorrhagia with irregular cycle Encounter for initial prescription of implantable subdermal contraceptive Encounter for surveillance of implantable subdermal contraceptive Procedures NEXPLANON REMOVAL REMOVAL NON-BIODEGRADABLE DRUG DELIVERY IMPLANT ETONOGESTREL IMPLANT SYSTEM INSERT DRUG IMPLANT DEVICE Beatrice Wolf, COUNTY [employer]BIOFUELS RESEARCH SCIENTIST [address] [place] [id number] [facility] [address] [place] [address] Referral ID Status Reason Start Date Expiration Date Visits Requested Visits Authorized [id number] Authorized Benefit Check 09/01/2021 02/10/2022 2 2 Reason Comments Care Reason Comments Care Reason Comments PRAF form Reason Comments 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 Reason Comments Results Reason Comments Reason Onset Date Comments Care 12/05/2021 Reason Onset Date Comments Care 12/18/2021 Reason Comments US Specialty Diagnoses / Procedures Referred By Sylvain drake Referred To Contact [facility] Diagnoses Encounter for care in first trimester of first 8 weeks gestation of Procedures NUCHAL TRANSLUCENCY WHI US NUCHAL TRANSLUCENCY 1ST GESTATION Rehana Jaffe, [employer].CNM [address] [place] [address] [facility] [address] [address] Referral ID Status Reason Start Date Expiration Date V isits Requested Visits Authorized [id number] Closed Auto-Generate d Referral 12/13/2021 02/10/2022 1 1 Reason Onset Date Comments Care 01/29/2022 Reason Onset Date Comments Care 02/14/2022 Specialty Diagnoses / Procedures Referred By Sylvain drake Referred To Contact [facility] Diagnoses Encounter for care in first trimester of first 8 weeks gestation of Procedures OBSTETRIC ULTRASOUND WHI US PREG UTERUS AFTER 1ST TRIMEST GESTATION Rehana Jaffe APRN.[facility] [address] [place] [address] [facility] [address] [place] [address] Referral ID Status Reason Start Date Expiration Date V isits Requested Visits Authorized [id number] Closed Auto-Generate d Referral 11/07/2021 11/07/2022 1 1 Reason Onset Date Comments Care 03/14/2022 Reason Onset Date Comments Care 04/11/2022 Reason Comments Breast Pump Reason Onset Date Comments Care 04/13/2022 Reason Comments Refill Request Reason Onset Date Comments Care 04/27/2022 Reason Comments Orders Reason Onset Date Comments Care 05/11/2022 Reason Comments Patient Question Reason Comments Vomiting Diarrhea, stomach pa in x 2 days Reason Comments Nausea & Vomiting Fever, JARAMILLO, congestio n, cough x 4 days Reason Comments Menstrual Problem Reason Comments Patient Update Reason Comments Contraception Care Teams (unrecognized sec tion and content) Pug Mill Operator Helper Relationship Specialty Start Date End Date Donna Padilla [address] [place] [address] PCP - General Pediatrics 04/15/19 Pug Mill Operator Helper Relationship Specialty Start Date End Date Gen Still MD [address] [place] [address] PCP - General Family Medicine 05/29/21 Pug Mill Operator Helper Relationship Specialty Start Date End Date Donna Padilla [address] [place] [address] PCP - General Pediatrics 04/15/19 Pug Mill Operator Helper Relationship Specialty Start Date End Date Donna Padillaborn [address] [place] [address] PCP - General Pediatrics 04/15/19 Pug Mill Operator Helper Relationship Specialty Start Date End Date Donna Padillaborn [address] [place] [address] PCP - General Pediatrics 04/15/19 Pug Mill Operator Helper Relationship Specialty Start Date End Date Donna Padilla [address] [place] [address] PCP - General Pediatrics 04/15/19 Pug Mill Operator Helper Relationship Specialty Start Date End Date Donna Padilla [address] [place] [address] PCP - General Pediatrics 04/15/19 Pug Mill Operator Helper Relationship Specialty Start Date End Date Donna Padillaborn [address] [place] [address] PCP - General Pediatrics 04/15/19 Pug Mill Operator Helper Relationship Specialty Start Date End Date Donna Padilla [address] [place] [address] PCP - General Pediatrics 04/15/19 Pug Mill Operator Helper Relationship Specialty Start Date End Date Donna Padillaborn [address] [place] [address] PCP - General Pediatrics 04/15/19 Pug Mill Operator Helper Relationship Specialty Start Date End Date Donna Padillaborn [address] [place] [address] PCP - General Pediatrics 04/15/19 Pug Mill Operator Helper Relationship Specialty Start Date End Date Donna Padilla [address] [place] [address] PCP - General Pediatrics 04/15/19 Pug Mill Operator Helper Relationship Specialty Start Date End Date Donna Padilla [address] [place] [address] PCP - General Pediatrics 04/15/19 Pug Mill Operator Helper Relationship Specialty Start Date End Date Donna Padilla [address] [place] [address] PCP - General Pediatrics 04/15/19 Pug Mill Operator Helper Relationship Specialty Start Date End Date Donna Padilla [address] [place] [address] PCP - General Pediatrics 04/15/19 Team Status: Active Member Role Status Dates Dr. Donna Padilla MD Family Provider Active No Primary Care Physician Primary Care Provider Active Team Status: Inactive Member Role Status Dates Dr. Aurora Buenrostro , Primary Care Provider Active Dr. Malu Germain MD Attending Provider, Emergency Provider Active Team Status: Inactive Member Role Status Dates Dr. Aurora Buenrsotro , Primary Care Provider Active Dr. Bravo Bajwa DO Attending Provider, Emergency P jin Active Team Status: Inactive Member Role Status Dates Dr. Titus Schuster MD Emergency Provider Active No Primary Care Physician Primary Care Provider Active Pug Mill Operator Helper Relationship Specialty Start Date End Date Donna Padilla [address] [place] [address] PCP - General Pediatrics 04/15/19 Pug Mill Operator Helper Relationship Specialty Start Date End Date Lauren Padillayn Rosanna [address] [place] [address] PCP - General Pediatrics 04/15/19 Pug Mill Operator Helper Relationship Specialty Start Date End Date Lauren Padillayn Marte [address] [place] [address] PCP - General Pediatrics 04/15/19 Pug Mill Operator Helper Relationship Specialty Start Date End Date Donna Padillaborn [address] [place] [address] PCP - General Pediatrics 04/15/19 Team Status: Inactive Member Role Status Dates Dr. Titus Schuster MD Attending Provider, Emergency Provider Active No Primary Care Physician Primary Care Provider Active Team Status: Inactive Member Role Status Dates No Primary Care Physician Primary Care Provider Active Dr. Cheryl Kothari MD Attending Provider, R eferring Provider Active Pug Mill Operator Helper Relationship Specialty Start Date End Date Donna Padilla Marte [address] [place] [address] PCP - General Pediatrics 04/15/19 Team Status: Inactive Member Role Status Dates No Primary Care Physician Primary Care Provider Active Jocelyn Regan CNM Attending Provider, Referring Prov ider Active Pug Mill Operator Helper Relationship Specialty Start Date End Date Donna Padillaborn [address] [place] [address] PCP - General Pediatrics 04/15/19 Pug Mill Operator Helper Relationship Specialty Start Date End Date Donna Padilla Marte [address] [place] [address] PCP - General Pediatrics 04/15/19 Pug Mill Operator Helper Relationship Specialty Start Date End Date Donna Padilla Marte [address] [place] [address] PCP - General Pediatrics 04/15/19 Pug Mill Operator Helper Relationship Specialty Start Date End Date Donna Padilla Marte [address] [place] [address] PCP - General Pediatrics 04/15/19 Team Status: Active Member Role Status Dates No Primary Care Physician Primary Care Provider Active Dr. Rigoberto Amador MD Emergency Provider Active Dr. Charisse Esparza MD Attending Provider, Other Pro vider Active Team Status: Active Member Role Status Dates No Primary Care Physician Primary Care Provider Active Dr. Rigoberto Amador MD Emergency Provider Active Dr. Charisse Esparza MD Admit Provider, Attending Provider, Other Provider Active Team Status: Inactive Member Role Status Dates No Primary Care Physician Primary Care Provider Active Dr. Rigoberto Amador MD Emergency Provider Active Dr. Charisse Esparza MD Admit Provider, Attending Pro vider Active Pug Mill Operator Helper Relationship Specialty Start Date End Date Donna Padilla [address] [place] [address] PCP - General Pediatrics 04/15/19 Goals (unrecognized section and content) Goals may be documented in a n alternate sectionGoals may be documented in an alternate sectionGoals may be documented in an alternate sectionGoals may be documented in an alternate sectionGoals may be documented in an alternate sectionGoals may be documented in an alternate sectionGoals may be documented in an alternate section FOR RECORDS PERTAINING TO PATIENTS WHO ARE OR HAVE BEEN ENROLLED IN A CHEMICAL DEPENDENCY/SUBSTANCEABUSE PROGRAM, SOME INFORMATION MAY BE OMITTED. This clinical summary was aggregated from multiple sources. Caution should be exercised in using it in the provision of clinical care. This summary normalizes information from multiple sources, and as a consequence, information in this document may materially change the coding, format and clinical context of patient data. In addition, data may be omitted in some cases. CLINICAL DECISIONS SHOULD BE BASED ON THE PRIMARY CLINICAL RECORDS. [facility] [facility]. provides no warranty or guarantee of the accuracy or completeness of information in this document.
[2024-07-14 10:19] LABS: Internal QC Validated? YES +Cl - CLEAR BKGD; Pregnancy, Serum, hCG Quali. NEGATIVE Negative
--- NOTE | 2024-07-28 06:36 | PCM.TILTTABL ---
Staff Staff: Aurora Escoto and Ayla Morelos Summary Pre Test Resting HR: 85 Pre Test Resting BP: 113/75 Minimum Test HR: 78 Maximum Test HR: 118 Minimum Test BP: 50/0 Maximum Test BP: 116/79 Reason for Test Termination: Syncope Physician Tilt Table Report Patient's Physicians Primary Care Physician: Talya Ni [facility] Indications/Diagnosis: Syncope Procedure Comments: Patient was brought to the noninvasive lab in the presence of the nonsedated state. Initial heart rate was noted to be 85 bpm with a blood pressure of 110/73 mmHg. EKG demonstrated normal sinus rhythm. The patient was then placed in the 70 degree head upright tilt position. Patient was kept in this position for approximately 20 minutes. The patient started noticing a mild decline in the blood pressure with an increase in the heart rate. Patient started getting more dizzy nauseated with a subsequent drop in blood pressure but with a heart rate being somewhat elevated. Patient also was noted to be pale and nauseated. The patient was then placed back in the recumbent position and recovered for another 20 minutes with recovery of the blood pressure as well as improvement and normalization of the heart rate. Patient tolerated the procedure well. Summary: The above is likely consistent with orthostatic hypotension. Cannot exclude a mixed pattern with later vagal influence.
== END | disposition home or self-care (01) ==
LOC: CVS 08:55
PROVIDERS: Referring Provider Internal Medicine Cardiovascular Disease; Visit Provider Internal Medicine Cardiovascular Disease
DX: I95.1 Orthostatic hypotension (principal); R42 Dizziness and giddiness
CPT/HCPCS: 36415; 80048; 84703; 85025; 93660; A4216